=== PATIENT | male | born 1945 | race Caucasian/White ===

== ENCOUNTER → 2020-12-15 07:34 | Outpatient (CLI) | payer OTHER, SELFPAY ==
--- NOTE | ~2020-12-15 | US_ITS ---
EXAMINATION: US aorta DATE: 12/15/2020 08:13 INDICATION: Abdominal aortic aneurysm status post open repair. TECHNIQUE: Grayscale, color Doppler, and pulsed Doppler images of the aorta and common iliac arteries were obtained. COMPARISON: CT abdomen and pelvis 12/21/2017 FINDINGS: The aorta demonstrates a 3.9 cm fusiform aneurysm. The right common iliac artery is normal in caliber . The left common iliac artery is normal in caliber. IMPRESSION: 1. 3.9 cm fusiform aneurysm of abdominal aorta. Reviewed, dictated and finalized at location A.
== END ==
PROVIDERS: PCP Family Medicine; Visit Provider Nurse Practitioner
DX: Z86.79 Personal history of other diseases of the circulatory system (principal); I71.4 Abdominal aortic aneurysm, without rupture
CPT/HCPCS: 76775

== ENCOUNTER 2021-02-22 12:46 | Outpatient (CLI) | payer OTHER, SELFPAY ==
--- NOTE | 2021-02-22 13:15 | ECG_ITS ---
Measurements Intervals [place] Rate: 72 P: 62 AK: 213 QRS: -36 QRSD: 80 T: 28 QT: 386 QTc: 423 Interpretive Statements SINUS RHYTHM WITH FIRST DEGREE AV BLOCK LEFT AXIS DEVIATION POSSIBLE LEFT ATRIAL ENLARGEMENT INCOMPLETE RIGHT BUNDLE BRANCH BLOCK INFERIOR INFARCT, AGE INDETERMINATE BORDERLINE T WAVE ABNORMALITY- HIGH LATERAL LEADS BASELINE ARTIFACT- V6 ABNORMAL ECG Electronically Signed On 02-22-2021 13:01:42 CDT by Azar Linares D.O.
== END 2021-02-22 12:47 | disposition home or self-care (01) ==
LOC: ANHSURGERY 12:50
PROVIDERS: PCP Family Medicine; Visit Provider Urology
DX: Z01.810 Encounter for preprocedural cardiovascular examination (principal); I44.0 Atrioventricular block, first degree; I45.10 Unspecified right bundle-branch block; I25.5 Ischemic cardiomyopathy; I10 Essential (primary) hypertension
CPT/HCPCS: 93005

== ENCOUNTER → 2021-02-26 00:16 | Outpatient (CLI) | payer OTHER, MEDICARE, SELFPAY ==
[2021-02-26 19:26] LABS: SARS-CoV-2 RNA PCR Negative
== END ==
PROVIDERS: PCP Family Medicine; Visit Provider Urology
DX: Z01.812 Encounter for preprocedural laboratory examination (principal); Z20.822 Contact with and (suspected) exposure to COVID-19
CPT/HCPCS: C9803; U0003; U0005

== ENCOUNTER 2021-03-01 00:48 | Day surgery (SDC) | payer OTHER, MEDICARE, SELFPAY ==
[2021-02-16 12:09] VITALS: BMI 38.0
[2021-03-01] VITALS (8 sets, daily range): BP systolic 137–161; BP diastolic 62–85; PULSE 65–77; RESP 16–18; TEMP 36–36.3; O2SAT 92–97
--- NOTE | 2021-03-01 10:31 | WPDHPUPDATE1 ---
History and Physical Update Update Date/Time: 03/01/21 10:31 History and Physical has been reviewed, including an updated exam of the patient. There are NO changes in the patient's condition. Risks, benefits, and alternatives have been discussed and questions answered. Patient agrees to proceed with procedure. Proceed with left hydrocelectomy.
--- NOTE | 2021-03-01 10:57 | WPDANESEPPF ---
Anes - Initial Pre Proc Eval Procedure: Operation Date: 03/01/21 12:15 Proposed Procedures p Left Hydrocelectomy - Pascual Noyola MD Date/Time: 03/01/21 10:57 Surgeon: Pascual Noyola MD Pre Op Diagnosis: left hydrocele Patient Data Age: 75 Gender: M Height: 1.68 m Weight: 107 kg Allergies Allergy/AdvReac Type Severity Reaction Status Date / Time ARIELA Inhibitors Allergy Mild Cough Verified 03/01/21 10:40 mushroom Allergy Mild rash Verified 03/01/21 10:40 Home Medications Medication Instructions Recorded Confirmed Type aspirin 81 mg tablet,delayed 81 mg PO DAILY 08/29/19 03/01/21 History release metoprolol tartrate 25 mg tablet 25 mg PO BID #180 tablet 02/02/21 03/01/21 Rx amlodipine 10 mg PO QAM 02/16/21 03/01/21 History atorvastatin 40 mg PO HS 02/16/21 03/01/21 History cetirizine 10 mg PO DAILY PRN 02/16/21 03/01/21 History fenofibrate 54 mg PO HS 02/16/21 03/01/21 History zolpidem 5 mg PO HS PRN 02/16/21 03/01/21 History Patient hx anesthesia problems: none Family hx anesthesia problems: none PMFSH Past Medical History Medical History Aortic stenosis, severe Essential (primary) hypertension Insomnia Mixed hyperlipidemia PVD (peripheral vascular disease) Testicular cyst Surgical History Surgical History H/O mitral valve replacement 08/20/19 - [facility] History of hernia repair Hx of aortic aneurysm repair S/P aortic valve replacement with bioprosthetic valve Family History Family History Father Family history of coronary artery disease Family history of congestive heart failure, Onset Age: 71 Other Cerebrovascular accident Hypertension Social History Social History Smoking packs per day: 0.5 Smoking cigarettes per day: 10.0 Years smoked: 20 Smoking pack-years: 10.00 Smoking status: Former smoker Second hand tobacco smoke exposure: No Smoking end date: 09/10/87 Alcohol intake: current Substance use: never Living arrangements: alone Additional living arrangements comments: Gender identity (if verbalized by the patient): Male Spiritual care concerns: No Agree to blood products: Yes Anes - Eval Final PreProcedure Day of Procedure 03/01/21 10:57 Patient weight: obese Heart: regular rate and rhythm Lungs: clear to auscultation Airway: Mallampati scale class III Neurological: alert and oriented Last oral intake: >/= 8 hours ASA classification: III Emergent: no Anesthetic plan: proceed Anesthesia type and monitoring: general LMA and standard monitoring Informed Consent: The patient's anesthetic plan and its attendant risks and benefits were discussed with the patient/family/POA. Questions were solicited and answers provided to the satisfaction of the patient/family/POA.
[2021-03-01] MEDS: LACTATED RINGERS 1,000 ML 30 ML IV CONT ×2 (10:59→13:25)
[2021-03-01] MEDS: ceFAZolin 2 GM/D5W 50 ML 2 GM/50 ML BAG IVPB (12:27)
--- NOTE | 2021-03-01 13:20 | W.PM.PROC2 ---
Procedure Note - Detailed Date of Procedure 03/01/21 Pre-op Diagnosis left hydrocele Post-op Diagnosis same Procedure Performed Left hydrocelectomy, left orchiopexy Surgeon Pascual Noyola MD Anesthesia general Description of Procedure Patient is taken the operative suite and correctly identified. Once anesthesia was obtained a transverse incision was made in the left hemiscrotum. This carried down to the tunica levels. The hydrocele was then brought out into the operative field. We incised the hydrocele and drained 230 cc of straw-colored fluid. We then excised the excess tissue and fulgurated the edges. The appendix testes was removed. We then placed a quarter-inch [place] drain in through a separate stab incision. We performed a left orchiopexy by securing the testicle in the left sac at 3 points. This included the medial, lateral, and inferior aspect. We used 3 0 PDS to do this. We then closed the tunica using 3 0 chromic in a running fashion. Skin was also closed using 3 0 chromic in running fashion. 1% lidocaine without was used to anesthetize the skin. Patient was taken recovery stable condition. Drains Yes Packing No Pathology yes Complications No immediate complications Condition stable Disposition PACU
[2021-03-01] MEDS: fentaNYL CITRATE INJ (*CRX) 100 MCG/2 ML VIAL 25 MCG IV PUSH ×4 (13:40→13:51)
[2021-03-01] MEDS: oxyCODONE HCL (*CRX) 5 MG TAB IR PO (14:36)
== END 2021-03-01 15:17 | disposition home or self-care (01) ==
PROVIDERS: PCP Family Medicine; Visit Provider Urology
PROC: (CPT 55040; principal; 2021-03-01 12:15)
DX: N43.3 Hydrocele, unspecified (principal); I10 Essential (primary) hypertension; E78.2 Mixed hyperlipidemia; I73.9 Peripheral vascular disease, unspecified; Z79.82 Long term (current) use of aspirin; Z95.2 Presence of prosthetic heart valve; Z87.891 Personal history of nicotine dependence; E66.9 Obesity, unspecified; Z68.37 Body mass index [BMI] 37.0-37.9, adult
CPT/HCPCS: 55040; 54640; 88302; 93005; A9270; C9803; J0131; J0690; J1100; J2370; J2405; J3010; J7120; U0003; U0005

== ENCOUNTER 2021-05-24 07:17 | Outpatient (CLI) | payer OTHER, MEDICARE, SELFPAY ==
--- NOTE | 2021-05-24 07:55 | ECHO_ITS ---
Patient Info Name: Manohar West Age: 75 years : 1945 Gender: Male Ht: 66 in Wt: 234 lbs BSA: 2.27 m2 HR: 63 bpm BP: 155 / 93 mmHg Exam Date: 05/24/2021 8:18 AM Exam Location: [facility] Patient Status: Outpatient Admit Date: 05/24/2021 Staff Ordering Physician: Azar Linares DO Glove Finisher: Giorgio Arriaga, WADE, RT Attending Provider: Azar Linares DO Referring Physician: Vijay VICK; Exam Type: CA echo doppler color flow Study Info Indications Z95.2 - Presence of prosthetic heart valve Complete two-dimensional, color flow and Doppler transthoracic echocardiogram is performed. Strain analysis performed. Summary 1. Complete two-dimensional, color flow and Doppler transthoracic echocardiogram is performed. 2. Left ventricular chamber dimension is normal. 3. Left ventricular systolic function is normal, estimated at 60-65%. 4. There is mildly increased left ventricular wall thickness. 5. The left ventricular diastolic function is grade II diastolic dysfunction. 6. E/e' 7 is not elevated. 7. Global longitudinal strain is abnormal at -14.3%. 8. The bioprosthetic aortic valve is not well visualized. 9. The mitral valve has moderately calcified annulus. 10. There is mild tricuspid valve regurgitation. 11. No pulmonary hypertension, estimated pulmonary arterial systolic pressure is 28 mmHg. Left Ventricle E/e' 7 is not elevated. Global longitudinal strain is abnormal at -14.3%. Left ventricular chamber dimension is normal. Left ventricular systolic function is normal, estimated at 60-65%. There is mildly increased left ventricular wall thickness. The left ventricular diastolic function is grade II diastolic dysfunction. Right Ventricle Right ventricular chamber dimension is normal. Right ventricular systolic function is normal. Left Atria Left atrial chamber dimension is normal. Right Atria Right atrial chamber dimension is normal. Aortic Valve The bioprosthetic aortic valve is not well visualized. There is no bioprosthetic aortic valve stenosis. There is no regurgitation of the bioprosthetic aortic valve. Pulmonic Valve There is no pulmonic regurgitation. Mitral Valve The mitral valve has moderately calcified annulus. There is no mitral valve stenosis. There is no mitral valve regurgitation. Tricuspid Valve There is mild tricuspid valve regurgitation. No pulmonary hypertension, estimated pulmonary arterial systolic pressure is 28 mmHg. Pericardium/Pleural There is no pericardial effusion. Inferior Vena Cava Normal inferior vena cava with >50% collapse upon inspiration consistent with normal right atrial pressure, 5 mmHg. Aorta The aortic root size at the sinus of Valsalva is normal. Left Ventricular Outflow Tract Name Value Normal LVOT 2D LVOT Diameter 2.1 cm LVOT Doppler LVOT Peak Gradient 3 mmHg LVOT Mean Gradient 2 mmHg LVOT VTI 25 cm LVOT VTI/AV VTI Ratio 0.5 LVOT Stroke Volume 86 ml LVOT
== END 2021-05-24 07:18 | disposition home or self-care (01) ==
LOC: ANHCARD 07:19
PROVIDERS: PCP Family Medicine; Visit Provider Internal Medicine Cardiovascular Disease
DX: Z95.3 Presence of xenogenic heart valve (principal); R93.1 Abnormal findings on diagnostic imaging of heart and coronary circulation; I07.1 Rheumatic tricuspid insufficiency
CPT/HCPCS: 93306

== ENCOUNTER 2021-08-29 10:45 | Outpatient (RCR) | payer OTHER, MEDICARE, SELFPAY ==
--- NOTE | 2021-08-09 12:00 | PTOPEVAL ---
Thank you for referring Manohar West to [facility] The patient is scheduled to be seen for therapy? 1 x/week for 6 weeks. Please review, sign, date and return this plan of care JODI. I agree with and certify that the following plan of care is medically necessary. Referring Physician Date Attending Provider: Ayla Dominguez NP Diagnosis muscle strain Onset Jun 2021 Additional Evaluation Detail He has had 3 neck surgeries since 2005 with previous therapy. Also had right RTC repair. Subjective Information He was moving furniture in Jun Query Text:As Reported By Patient/ when he had increased neck Family pain. He as been given pain pills and muscle relaxors. 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 Reports initially had trouble with driving due to pain and limited motion. He feels better in the morning when sleeping with his my pillow . He has increased pain at the end of the day. Denies any neck or shoulder exercises. He was going to the gym prior to 11/27 for use of pool and leg resistance exercise on the machines. Pain Assessment Neck Reported Pain Level 0 Pain Description Radiating,Tender on Palpation, Tightness Pain Frequency Intermittent Lowest Pain Intensity 0 Greatest Pain Intensity 5 Pain Aggravating Factors Exercise/Activity,Lifting Pain Behaviors None Cervical and Lumbar ROM Cervical ROM Cervical Flexion (0-60) 48:Active in Degrees Cervical Extension (0-70) 48:Active in Degrees Cervical Lateral Flexion Right (0-50) 20:Active in Degrees Cervical Lateral Flexion Left (0-50) 20:Active in Degrees Cervical Rotation Right (0-90) 25Active in Degrees Cervical Rotation Left (0-90) 30:Active in Degrees Cervical ROM Comments pain with neck motions Upper Extremity Range of Motion General Upper Extremity Range of Motion Reason Not Measured WNL/Left,WNL/Right Cervical and Lumbar Muscle Testing Cervical Muscle Testing Cervical Flexion 4-Good- Cervical Extension 5 Normal Cervical Lateral Flexion Right 5 Normal
--- NOTE | 2021-09-06 08:02 | PCPTNOTE ---
Patient called & cancelled scheduled appointment this date due to scheduled conflict. Will call to reschedule.
--- NOTE | 2021-09-27 14:04 | PCPTNOTE ---
Admitting Provider: Attending Provider: Ayla Dominguez NP Patient:Manohar West Date of :1945 Therapy Discharge Note Patient has not returned for any further treatments since 08/29/2021, therefore he will be discharged at this time. Patient?s initial visit was on 08/09/2021 11:00 and he had a total of 4 visits with 1 missed visits. The goals have been not met due to limited therapy visits. Thank you for referring this patient to [facility]. Please review, sign, date and return this discharge summary JODI. I have been updated about the patient's current status and I agree with discharge from the above service at this time. Referring Physician Date
== END 2021-09-28 13:29 | disposition home or self-care (01) ==
LOC: ANHPT 10:45
PROVIDERS: PCP Family Medicine; Visit Provider Nurse Practitioner Family
DX: S16.1XXD Strain of muscle, fascia and tendon at neck level, subsequent encounter (principal); S46.812D Strain of other muscles, fascia and tendons at shoulder and upper arm level, left arm, subsequent encounter
CPT/HCPCS: 97014; 97110; 97140; 97162; G0283

== ENCOUNTER 2022-06-12 09:31 | Outpatient (CLI) | payer OTHER, MEDICARE, SELFPAY ==
[2022-06-12 20:05] LABS: Alanine Aminotransferase 31 U/L (6-50); Albumin Level 4.5 g/dL (3.5-5.1); Alkaline Phosphatase 76 U/L (38-126); Anion Gap 7 mmol/L (8-16); Aspartate Amino Transferase 52 U/L (17-59); Bilirubin,Total 0.8 mg/dL (0.2-1.3); Blood Urea Nitrogen 20 mg/dL (9-20); Calcium 9.6 mg/dL (8.4-10.2); Carbon Dioxide 31 mmol/L (22-30); Chloride 101 mmol/L (98-107); Cholesterol 198 mg/dL (0-200); Estimated Glomerular Filt Rate 59; Glucose 101 mg/dL (65-110); HDL Direct 37 mg/dL; Potassium 4.4 mmol/L (3.4-5.0); Sodium 139 mmol/L (137-145); Triglycerides 228 mg/dL (<150)
[2022-06-12 20:17] LABS: LDL Cholesterol Direct 116 mg/dL
[2022-06-12 20:35] LABS: Prostate Specific Antigen 1.1 ng/mL (< OR = 4.0)
[2022-06-12 21:32] LABS: Basophils Absolute Auto 0.1 K/mm3 (0.0-0.1); Basophils Percent Auto 1.5 % (0.2-1.2); Eosinophils Absolute Auto 0.5 K/mm3 (0-0.3); Eosinophils Percent Auto 5.5 % (0-4.4); Hematocrit 46.7 % (42.0-52.0); Hemoglobin 15.4 g/dL (14.0-18.0); Immature Granulocyte Absolute 0.07 K/mm3 (0.00-0.031); Immature Granulocyte Percent A 0.8 % (0-0.5); Lymphocytes Absolute Auto 2.76 K/mm3 (0.9-3.2); Lymphocytes Percent Auto 31.5 % (18.3-44.2); Mean Corpuscular Hemoglobin 29.7 pg (26-34); Mean Corpuscular Volume 90.2 fl (80-100); Mean Platelet Volume 9.3 fl (7.4-10.4); Monocytes Absolute Auto 0.7 K/mm3 (0.1-0.6); Monocytes Percent Auto 8.1 % (2.6-8.5); Neutrophils Absolute Auto 4.6 K/mm3 (1.3-6.7); Neutrophils Percent Auto 52.6 % (45.5-73.1); Platelet Count Result 286 k/mm3 (150-375); Red Blood Count 5.18 M/mm3 (4.6-6.20); Red Cell Distribution Width 13.3 % (11.5-14.5); White Blood Count 8.8 K/mm3 (4.5-10.0)
== END 2022-06-12 09:32 | disposition home or self-care (01) ==
PROVIDERS: PCP Family Medicine; Visit Provider Nurse Practitioner
DX: Z12.5 Encounter for screening for malignant neoplasm of prostate (principal); E55.9 Vitamin D deficiency, unspecified; E78.5 Hyperlipidemia, unspecified; I10 Essential (primary) hypertension
CPT/HCPCS: 36415; 80053; 80061; 82306; 84153; 85025; G0103

== ENCOUNTER 2022-09-17 08:36 | Inpatient (IN) | payer OTHER, SELFPAY ==
[2022-09-17] VITALS (12 sets, daily range): BP systolic 94–190; BP diastolic 52–100; PULSE 86–112; RESP 16–36; TEMP 36.4–36.8; O2SAT 91–100
--- NOTE | ~2022-09-17 | XR_ITS ---
EXAMINATION: XR chest 2V DATE: 09/18/2022 14:23 INDICATION: Shortness of breath. TECHNIQUE: Frontal and lateral views of the chest were obtained. COMPARISON: Chest single view 09/17/2022, CT abdomen and pelvis 09/17/2022 FINDINGS: The lung volumes are small. There are airspace opacities in the lower lung zones. There are small pleural effusions. No pneumothorax. Cardiomegaly is noted. There are changes of heart valve re placement. There are surgical clips in right neck. IMPRESSION: 1. Small pleural effusions. 2. Small lung volumes with airspace opacities in the lower lung zones, likely atelectasis. 3. Cardiomegaly. Reviewed, dictated and finalized at location A. WAY ENGINEERING TEACHER IMPRESSION: 1. Small pleural effusions. 2. Small lung volumes with airspace opacities in the lower lung zones, likely a telectasis. 3. Cardiomegaly.
--- NOTE | ~2022-09-17 | XR_ITS ---
EXAM: XR abdomen NG/feed tube insert DATE: 09/18/2022 22:20 HISTORY: ng placement . COMPARISON: None available. FINDINGS: NG tube tip and side port project over the expected location of the stomach. Bibasilar ate lectasis/consolidation. Intact sternotomy wires. Cardiac valve replacement. Surgical clips over the u pper abdomen. Dilated loops of small bowel in the upper abdomen. IMPRESSION: NG tube, in good position. Reviewed, dictated and finalized at location K. HEATER OPERATOR IMPRESSION: NG tube, in good position.
--- NOTE | ~2022-09-17 | XR_ITS ---
XR abdomen NG/feed tube insert INDICATION: Evaluate NG tube position. TECHNIQUE: Limited KUB perform for evaluating NG tube . COMPARISON: CT dated 09/24/2022 and KUB dated 09/18/2022 FINDINGS: NG tube tip in the the left lower lobe bronchus. Visualized bowel gas pattern is unremarka ble. IMPRESSION: 1: NG tube tip in the left lower lobe bronchus. Recommend retraction and reinsertion. 2: Left basilar atelectasis. Dr. Mario Cartwright discussed with the patient's nurse on prior medical [facility] [place], at 09/25/2022 13:[address] Reviewed, dictated and finalized at location A. ORCHARDIST IMPRESSION: 1: NG tube tip in the left lower lobe bronchus. Recommend retraction and reins ertion. 2: Left basilar atelectasis. Dr. Mario Cartwright discussed with the patient's nurse on prior [facility], [place] , at 09/25/2022 13:31 NUT ORCHARDIST.
--- NOTE | ~2022-09-17 | XR_ITS ---
Portable chest x-ray Comparison: 09/25/2022 Clinical History: Shortness of breath Findings: There are probable mild central venous congestive changes. Stable elevation right hemidiap hragm. Cardiomediastinal silhouette is stable, status post aortic valve replacement. Bones and soft tissues are unremarkable. Impression: Mild central pulmonary venous congestive changes with stable elevation of right hemidiaphragm. Status post aortic valve replacement. Reviewed, dictated and finalized at [facility]. E CQ DEVELOPER Impression: Mild central pulmonary venous congestive changes with stable elevation of right hemidiaphragm. Status post aortic valve replacement.
--- NOTE | ~2022-09-17 | XR_ITS ---
EXAMINATION: XR chest 1V portable DATE: 09/25/2022 05:30 INDICATION: Shortness of breath TECHNIQUE: frontal view of the chest was obtained. COMPARISON: Chest radiograph dated 09/23/2022 FINDINGS: Lung volumes are decreased, particularly on the right. No significant change in opacities at the bila teral lower lung zones. No pleural effusion or pneumothorax. Cardiomegaly. Median sternotomy wires an d aortic valve replacement. IMPRESSION: 1. Small lung volumes with unchanged opacities at bilateral lower lung zones which could represent at electasis or pneumonia. 2. Cardiomegaly. Reviewed, dictated and finalized at location A. BRACER IMPRESSION: 1. Small lung volumes with unchanged opacities at bilateral lower lung zones wh ich could represent atelectasis or pneumonia. 2. Cardiomegaly.
--- NOTE | ~2022-09-17 | US_ITS ---
EXAMINATION: US abdomen limited DATE: 09/19/2022 16:38 INDICATION: Ascites TECHNIQUE: Multiple grayscale and Doppler ultrasound images of the abdomen were obtained. COMPARISON: CT dated 09/17/2022 FINDINGS/IMPRESSION: There is only a very small amount of perihepatic ascites seen in the high right upper quadrant measur ing 7 mm in thickness between the anterior diaphragm and the anterior dome of the liver. The minimal amount of fluid in the location which would require traversing the diaphragm with risk for liver inju ry or transpleural contamination, the planned paracentesis was deferred. Reviewed, dictated and finalized at location A. AL FUND MANAGER
--- NOTE | ~2022-09-17 | US_ITS ---
US venous doppler [facility] DATE: 09/22/2022 17:44 INDICATION: Pain TECHNIQUE: Real-time and color flow imaging and Doppler analysis of the veins of both lower extremiti es COMPARISON: None FINDINGS: The greater saphenous veins are patent. There is spontaneous and phasic flow and normal aug mentation and color flow signal and normal compression of the deep veins of both lower extremities. IMPRESSION: No evidence of deep venous thrombosis of the lower extremities Reviewed, dictated and finalized at Location A. Reviewed, dictated and finalized at location A. TRICAL ASSEMBLIES SUPERVISOR
--- NOTE | ~2022-09-17 | XR_ITS ---
EXAMINATION: XR chest 1V portable DATE: 10/01/2022 12:32 INDICATION: Pneumonia. TECHNIQUE: A single frontal view of the chest was obtained. COMPARISON: Chest single view 09/28/2022, CT abdomen and pelvis 09/24/2022 FINDINGS: Again seen is mild elevation of right hemidiaphragm. There are airspace opacities at the eleanor ng bases, right worse than left. No pleural effusion or pneumothorax. The heart size is normal. There are changes of aortic valve replacement. IMPRESSION: 1. Improved airspace opacities at the lung bases, right worse than left, likely atelectasis. Reviewed, dictated and finalized at location A. BORING MACHINE OPERATOR FOR METAL
--- NOTE | ~2022-09-17 | US_ITS ---
EXAMINATION: US renal BI DATE: 09/18/2022 15:17 INDICATION: Acute kidney injury TECHNIQUE: Multiple grayscale and Doppler ultrasound images of the kidneys were obtained. COMPARISON: CT from yesterday FINDINGS: The right kidney measures 12.0 x 6.0 x 6.0 cm and contains a 2.9 cm cyst. The left kidney m easures 11.3 x 6.4 x 6.8 cm. There is a 9 mm stone of the left kidney lower pole. Small left-sided cy sts are noted which measure up to 1.7 cm. The kidneys demonstrate normal parenchymal echogenicity. Th ere is no hydronephrosis. The bladder is normal. IMPRESSION: 1. Left nephrolithiasis. Reviewed, dictated and finalized at location B. NING SUPPORT TEACHER IMPRESSION: 1. Left nephrolithiasis.
--- NOTE | ~2022-09-17 | US_ITS ---
US venous doppler [facility] DATE: 09/22/2022 17:46 INDICATION: Pain TECHNIQUE: Real-time and color flow imaging and Doppler analysis of the veins of the upper extremitie s COMPARISON: None FINDINGS: There is intraluminal thrombus and incomplete compression at the left basilic vein near isacc or intravenous line site. Otherwise there is spontaneous and phasic flow and normal augmentation and color flow signal and norm al compression where applicable at the internal jugular, subclavian, axillary, brachial, right basili c and bilateral cephalic, radial and ulnar veins. IMPRESSION: Focal partial thrombosis of left basilic vein at site of prior intravenous line Reviewed, dictated and finalized at Location A. Reviewed, dictated and finalized at location A. RVISOR PIT AND AUXILIARIES IMPRESSION: Focal partial thrombosis of left basilic vein at site of prior intr avenous line
--- NOTE | ~2022-09-17 | CT_ITS ---
EXAMINATION: CT abdomen pelvis wo con DATE: 09/24/2022 16:20 INDICATION: Ongoing leukocytosis TECHNIQUE: Computed tomography (CT) of the abdomen and pelvis was performed without intravenous contr ast. Automated exposure control and iterative reconstruction technique were employed. The dose-length product was 1525.29 mGy-cm. COMPARISON: None FINDINGS: Small right and tiny left pleural effusions with consolidation and associated volume loss the depende nt and basilar bilateral lower lobes and favor atelectasis over pneumonia. Small calcified nodules in the right lower lobe consistent with old granulomatous disease. Medically. Atherosclerotic coronary artery calcification. Median sternotomy wires and changes of aortic valve repair. No pericardial effu zan. Ectatic distal descending thoracic aorta measuring up to 3.9 cm maximal diameter tapering to 3. 5 cm at the thoracic hiatus. Liver, spleen, bilateral adrenal glands are normal. There is bilateral renal cysts the largest measur ing 2.7 cm the mid right kidney and with 1.6 cm calcified cyst at the upper pole of the right kidney. Bilateral nonobstructing nephrolithiasis with 3 stones in the left kidney the largest in the lower p ole calyx measuring 5 x 3 mm and with 2 stones measuring up to 3 mm in an upper pole calyx of the rig ht kidney. Several small calcified gallstones in the dependent aspect of the normal-appearing gallbla dder. No intra or extra hepatic biliary ductal dilation. There is prominent inflammatory stranding surrounding the head, body and to lesser degree tail of the pancreas consistent with acute interstitial pancreatitis. There are also few small nonloculated acut e peripancreatic fluid collections primarily along the anterior margin of the head and body of the pa ncreas and tracking into the small bowel mesentery with the largest collection measures approximately 3.5 x 2.2 cm. This is an additional minimal amount of retroperitoneal fluid tracking caudally along the anterior right para renal space and right paracolic gutter. There are multiple tiny dystrophic ca lcification throughout the pancreas consistent with sequela of prior chronic pancreatitis. There are a few colonic diverticula without adjacent inflammatory stranding to suggest diverticulitis . No bowel obstruction. Normal appendix. Minimal likely reactive ascites in the deep pelvis. Small am ount of gas and a Feliz catheter within the decompressed bladder. Bilateral small right and moderate- sized left fat-containing inguinal hernias with additional small amount of ascites within the left in guinal hernia sac. There is calcified atherosclerosis of the normal caliber abdominal aorta and bilateral iliac arteries . Postoperative changes along the infrarenal abdominal aorta consistent with provided history of prio r open abdominal aortic aneurysm repair. Incidentally noted retroaortic left renal vein. There are mu ltiple small lymph peripancreatic, periportal and portacaval lymph nodes which are more notable for n umber than and likely reactive. No free intraperitoneal gas. Dystrophic ossifications along the penis consistent with Peyronie's disease. Severe lumbosacral and mild lumbar and lower thoracic spondylosi s. There are bridging osteophytes at multiple levels in the spine, consistent with diffuse idiopathic skeletal hyperostosis (DISH). IMPRESSION: 1. Likely acute on chronic interstitial pancreatitis with small nonloculated acute peripancreatic flu id collections which extend into the root of the small bowel mesentery. 2. Cholelithiasis. 3. Small left and trace right pleural effusions with consolidation in the dependent lower lobes and f avor atelectasis over pneumonia. 4. Cardiomegaly with change of prior aortic valve repair. 5. Ectatic descending thoracic aorta and change of prior infrarenal abdominal aortic aneurysm repair. 6. Mild diverticulosis. 7. Small ri
--- NOTE | ~2022-09-17 | XR_ITS ---
EXAMINATION: XR abdomen/kub 1V DATE: 09/18/2022 14:23 INDICATION: Abdominal distention. TECHNIQUE: A supine view of the abdomen on 2 radiographs was obtained. COMPARISON: CT abdomen and pelvis 09/17/2022 FINDINGS: There are mildly dilated loops of small bowel. The colon is decompressed. There are surgica l clips in the abdomen. IMPRESSION: 1. Mildly dilated small bowel, likely adynamic ileus. Reviewed, dictated and finalized at location A. LINE SUPERINTENDENT DIVISION
--- NOTE | ~2022-09-17 | XR_ITS ---
EXAMINATION: XR chest 1V portable DATE: 10/04/2022 13:52 INDICATION: Pneumonia. TECHNIQUE: A single frontal view of the chest was obtained. COMPARISON: Chest one view 10/01/2022, CT abdomen and pelvis 09/24/2022 FINDINGS: Again seen is mild elevation of right hemidiaphragm. There are airspace opacities at the eleanor ng bases. No pleural effusion or pneumothorax. The heart size is normal. There are changes of aortic valve replacement. There are surgical clips in right neck. IMPRESSION: 1. Stable mild atelectasis of right hemidiaphragm with airspace opacities at the lung bases, likely a telectasis. Reviewed, dictated and finalized at location A. ICE REPRESENTATIVE IMPRESSION: 1. Stable mild atelectasis of right hemidiaphragm with airspace opacities at th e lung bases, likely atelectasis.
--- NOTE | ~2022-09-17 | CT_ITS ---
EXAMINATION: CT abdomen pelvis w con DATE: 09/17/2022 09:29 INDICATION: None localized abdominal pain. History of left inguinal hernia. TECHNIQUE: Computed tomography (CT) of the abdomen and pelvis was performed with 100 cc Omnipaque 350 intravenous contrast. The dose-length product was 1405.61 mGy-cm. Automated exposure control and ite rative reconstruction technique were employed. COMPARISON: CT dated 12/21/2017 FINDINGS: There is right lower lobe atelectasis. Heart size normal. No significant pleural or pericar dial effusion. There are gallstones. There is peripancreatic inflammation and fluid, consistent with pancreatitis. There is thickening of the gastric antrum, suspicious for peptic ulcer disease. No obst ruction. There is ascites in the abdomen and pelvis. Colonic diverticulosis without evidence for dive rticulitis. There is mild thickening of the duodenum as well, possibly secondary to adjacent inflamma tory changes. The liver, spleen, adrenal glands are unremarkable. There are bilateral renal cysts. There is a stabl e peripherally calcified right renal cyst at the upper pole. There is atherosclerosis of the aorta wi thout evidence for aneurysm. No lymphadenopathy. There is a retroaortic left renal vein. Generalized osteopenia. Severe lumbar spondylosis. No focal lytic or blastic lesions. There are degenerative tanner ges of the sacroiliac joints and hips. IMPRESSION: 1. Acute uncomplicated pancreatitis. 2: Thickening of the gastric antrum and duodenum which may relate to adjacent pancreatitis or gastrit is/duodenitis. 3: Cholelithiasis. 4: Ascites. Reviewed, dictated and finalized at location A. PED STRAND OPERATOR IMPRESSION: 1. Acute uncomplicated pancreatitis. 2: Thickening of the gastric antrum and duodenum which may relate to adjacent p ancreatitis or gastritis/duodenitis. 3: Cholelithiasis. 4: Ascites.
--- NOTE | ~2022-09-17 | XR_ITS ---
XR chest 1V portable 09/17/2022 09:17 Indication: Shortness of breath. History of open heart surgery. Procedure: AP portable chest Comparison: 12/23/2005 Findings: Status post median sternotomy for CABG. There is a prosthetic heart valve. Cardiomegaly. El evated right diaphragm. Mild interstitial edema. Impression: 1: Mild interstitial edema. 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 Reviewed, dictated and finalized at location A. FINDER TWISTING DEPARTMENT Impression: 1: Mild interstitial edema. 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
--- NOTE | ~2022-09-17 | XR_ITS ---
EXAMINATION: XR sniff test without CXR2V DATE: 10/02/2022 12:50 INDICATION: Right diaphragmatic paralysis. TECHNIQUE: I performed fluoroscopy of the chest while the patient performed normal respiration, deep respiration, and forceful sniffing. Fluoroscopy exposure time was 0.4 minutes. The number of images w as 678. COMPARISON: Chest single view 10/01/2022, 09/23/2022 FINDINGS: There is mild elevation of right hemidiaphragm. Right hemidiaphragm demonstrates mildly dec reased motion relative to left hemidiaphragm. No paradoxical motion. IMPRESSION: 1. Mild elevation of right hemidiaphragm with mildly decreased motion relative to left hemidiaphragm. No paradoxical motion. Reviewed, dictated and finalized at location A. ING AND REGULATING CHIEF
--- NOTE | ~2022-09-17 | US_ITS ---
EXAMINATION: US abdomen limited DATE: 09/17/2022 21:20 INDICATION: Cholelithiasis TECHNIQUE: Multiple grayscale and Doppler ultrasound images of limited portions of the abdomen were o btained. COMPARISON: CT abdomen and pelvis, same date. FINDINGS: Pancreas not visualized. The liver is normal with normal echogenicity and echotexture. No s urface nodularity. Normal hepatopetal flow in the main portal vein. Cholelithiasis. No wall thickenin g. The common bile duct measures 5 mm. There was no sonographic Arriaga sign. Small volume perihepatic fluid. IMPRESSION: Pancreas not visualized. Cholelithiasis. Small volume perihepatic fluid. Reviewed, dictated and finalized at location K. TRIC DEICER ASSEMBLER
--- NOTE | ~2022-09-17 | XR_ITS ---
EXAMINATION: XR chest 1V portable DATE: 09/19/2022 07:35 INDICATION: Respiratory failure. TECHNIQUE: A single frontal view of the chest was obtained. COMPARISON: Chest 2 views 09/18/2022 FINDINGS: There are small pleural effusions. There are airspace opacities at the lung bases. No pneum othorax. The heart size is normal. There are changes of aortic valve replacement. The nasogastric tub e tip is in the stomach. There are surgical clips in right neck. IMPRESSION: 1. Small pleural effusions. 2. Stable airspace opacities at the lung bases, likely atelectasis. Reviewed, dictated and finalized at location A. NG PULLER
--- NOTE | ~2022-09-17 | XR_ITS ---
EXAMINATION: XR chest 1V portable DATE: 09/23/2022 11:36 INDICATION: Shortness of breath and wheezing TECHNIQUE: frontal view of the chest was obtained. COMPARISON: Chest radiograph dated 09/21/2022 FINDINGS: Unchanged mild elevation of the right hemidiaphragm. Persistent opacities at the bilateral lung bases . No pleural effusion or pneumothorax. Heart size is normal. Median sternotomy wires and mediastinal surgical clips are seen, likely from prior coronary artery bypass grafting. Surgical clips at the bas e of the right neck. Plate and screw fixation for mid cervical anterior spinal fusion. IMPRESSION: 1. Unchanged bibasilar opacities and favor atelectasis over pneumonia. Reviewed, dictated and finalized at location A. TESTER
--- NOTE | ~2022-09-17 | XR_ITS ---
EXAMINATION: XR chest 1V portable DATE: 09/20/2022 05:58 INDICATION: Respiratory failure. TECHNIQUE: A single frontal view of the chest was obtained. COMPARISON: Chest one view 09/19/2022, CT abdomen and pelvis 09/17/2022 FINDINGS: There are small pleural effusions. There are airspace opacities at the lung bases. No pneum othorax. The heart size is normal. There are changes of aortic valve replacement. The nasogastric tub e tip is beyond the inferior margin of the radiograph, but at least to the stomach. IMPRESSION: 1. Stable small pleural effusions. 2. Stable airspace opacities at the lung bases, likely atelectasis. Reviewed, dictated and finalized at location A. OL COOK
--- NOTE | ~2022-09-17 | XR_ITS ---
EXAMINATION: XR chest 1V portable DATE: 09/21/2022 05:32 INDICATION: Hypercapnic respiratory failure. TECHNIQUE: A single frontal view of the chest was obtained. COMPARISON: Chest single view 09/20/2022, CT abdomen and pelvis 09/17/2022 FINDINGS: Again seen is mild elevation of right hemidiaphragm. There are airspace opacities at the eleanor ng bases. No pleural effusion or pneumothorax. The heart size is normal. Median sternotomy wires are noted. There are changes of anterior fusion procedure in cervical spine. There are surgical clips in right neck. IMPRESSION: 1. Stable airspace opacities at the lung bases, likely atelectasis. Reviewed, dictated and finalized at location A. ORK LEAD
--- NOTE | ~2022-09-17 | CT_ITS ---
EXAMINATION: CT brain wo con DATE: 09/18/2022 14:31 INDICATION: Altered mental status. TECHNIQUE: Computed tomography (CT) of the head was performed without intravenous contrast. The mA wa s adjusted according to patient size. Iterative reconstruction technique was employed. The dose-lengt h product was 832.33 mGy-cm. 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 There are scattered areas of low attenuation in the cerebral white matter, which is within nor mal limits for the patient's age. There is no intracranial hemorrhage, acute infarction, or abnormal intracranial mass lesion. The ventricles are normal in size. There are mucous retention cysts in the maxillary sinuses. There is mild mucosal thickening in the paranasal sinuses. The mastoid air cells a re normal. There are likely changes of right ocular lens replacement surgery. IMPRESSION: 1. 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 Reviewed, dictated and finalized at location A. HEALTH SCHEDULER
--- NOTE | ~2022-09-17 | US_ITS ---
US renal BI DATE: 09/24/2022 11:57 INDICATION: Elevated serum creatinine TECHNIQUE: Real-time imaging of kidneys and urinary bladder COMPARISON: 09/18/2022 bilateral renal ultrasound examination 09/17/2022 CT abdomen pelvis 12/21/2017 CT abdomen pelvis 11/25/2013 CT abdomen pelvis FINDINGS: The right kidney measures approximately 11.4 cm length, the left kidney 10.9 cm. There are multiple bilateral renal cysts, measuring up to 3 cm on the right, 2.5 cm on the left. Nono bstructing left renal calculus is identified, which measured approximately 4.[address] examination. The bladder is evacuated, with Feliz catheter. IMPRESSION: Bilateral renal cysts Nonobstructing left renal calculus Reviewed, dictated and finalized at Location A. Reviewed, dictated and finalized at location A. IE
--- NOTE | ~2022-09-17 | XR_ITS ---
Portable chest x-ray Comparison: 09/26/2022 Clinical History: Pneumonia Findings: Small left pleural effusion is present. There is probable mild central pulmonary venous co ngestive change and mild bibasilar atelectasis. Cardiomediastinal silhouette is stable, status post aortic valve replacement. Bones and soft tissues are unremarkable. Impression: Mild central congestive change and mild bibasilar atelectasis. Minimal left pleural effusion. Status post aortic valve replacement. Reviewed, dictated and finalized at location M. ASSISTANT Impression: Mild central congestive change and mild bibasilar atelectasis. Minimal left pleural effusion. Status post aortic valve replacement.
--- NOTE | 2022-09-17 08:48 | ECG_ITS ---
Measurements Intervals [place] Rate: 98 P: 23 [place]: 196 QRS: -38 QRSD: 69 T: 31 QT: 353 QTc: 452 Interpretive Statements SINUS RHYTHM POSSIBLE LEFT ATRIAL ENLARGEMENT RSR' IN V1 OR V2, RIGHT VCD OR RVH DELAYED PRECORDIAL R/S TRANSITION LEFT VENTRICULAR HYPERTROPHY WITH ST-T CHANGE INFERIOR INFARCT, AGE INDETERMINATE ABNORMAL ECG COMPARED TO ECG 02/22/2021 13:00:59 NO SIGNIFICANT CHANGES Electronically Signed On 09-17-2022 15:03:11 LICENSED PRACTICAL NURSE by Azar Linares D.O.
--- NOTE | 2022-09-17 08:51 | ED.ABDPAIN ---
HPI - Abdominal Pain General Chief Complaint: Abdominal Pain Stated Complaint: abd pain Time Seen by Provider: 09/17/22 08:38 Source: patient, RN notes reviewed and old records reviewed Mode of arrival: ambulatory Limitations: no limitations History of Present Illness HPI narrative: This is a 76 year old male who presents for evaluation of abdominal pain. He states 1 week ago he developed mid abdominal pain after eating but that pain resolved. He developed mid abdominal pain yesterday after eating food from restaurant. His pain has been constant and severe. He also reports having nonbilious vomiting starting yesterday. He has not had bowel movement since yesterday morning. He is unsure if he has passing flatus. HE has taken Pepto Bismol for pain without relief. He has not been evaluation by health care provider for this pain . He states he thinks he may have been diagnosed with gallstones in the past. He rates his pain 10/10 currently. His abdomen appears bloated but he is unsure if this is new. He does reports his pain is making him feel like he is having difficulty breathing. Related Data Home Medications Medication Instructions Recorded Confirmed aspirin 81 mg tablet,delayed 81 mg PO DAILY 08/29/19 09/17/22 release (Adult Low Dose Aspirin) Allergies Allergy/AdvReac Type Severity Reaction Status Date / Time mushroom Allergy Mild rash Verified 06/12/22 08:41 ARIELA Inhibitors AdvReac Mild Cough Verified 09/17/22 08:49 Review of Systems Constitutional: Constitutional: Denies weakness Cardiovascular: Cardiovascular: Denies syncope, Denies rapid heart rate, Denies irregular heart rhythm, Denies leg edema and Reports dyspnea Respiratory: Respiratory: Denies chest congestion, Denies hemoptysis, Denies excessive phlegm production and Denies dyspnea Gastrointestinal: Gastrointestinal: Reports abdominal pain, Denies hematochezia, Denies diarrhea, Reports nausea and Reports vomiting Genitourinary: Genitourinary: Denies hematuria, Denies dysuria, Denies penile discharge and Denies testicular pain Musculoskeletal: Musculoskeletal: Denies joint swelling, Denies loss of height and Denies muscle weakness Neurologic: Denies syncope, Denies focal weakness and Denies weakness [facility] Past Medical History Medical History (Updated 09/17/22 @ 17:51 by Sheri Ding MD) Aortic stenosis, severe BPH (benign prostatic hyperplasia) Essential (primary) hypertension History of kidney stones Insomnia Mixed hyperlipidemia PVD (peripheral vascular disease) Testicular cyst Surgical History Surgical History (Updated 09/17/22 @ 17:05 by Emily Colin NP) H/O mitral valve replacement 08/20/19 - [facility] History of colonoscopy History of hernia repair History of hydrocelectomy History of lithotripsy History of neck surgery History of rotator cuff surgery History of spinal fusion History of tonsillectomy and adenoidectomy History of transurethral resection of prostate Hx of aortic aneurysm repair S/P aortic valve replacement with bioprosthetic valve S/P mitral valve replacement Family History Family History Father Family history of coronary artery disease Family history of congestive heart failure, Onset Age: 71 Other Cerebrovascular accident Hypertension Social History Social History (Updated 09/17/22 @ 17:06 by Emily Colin NP) Social History: The patient lives with his who is the durable power commercial attorney for healthcare. The patient has 1 child. 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 The patient was a former smoker. He stated that he rarely drinks any alcoholic beverages. He denies any marijuana or illicit drugs. Code status full code. Smoking packs per day: 0.5 Smoking cigarettes per day: 10.0 Years smoked: 20 Smoking pack-years: 10.00 Smoking status: Former smoker Second hand diane
[2022-09-17 08:57] LABS: Basophils Percent Auto 0.2 % (0.2-1.2); Hematocrit 47.5 % (42.0-52.0); Hemoglobin 16.2 g/dL (14.0-18.0); Immature Granulocyte Absolute 0.05 K/mm3 (0.00-0.031); Immature Granulocyte Percent A 0.3 % (0-0.5); Lymphocytes Absolute Auto 1.26 K/mm3 (0.9-3.2); Lymphocytes Percent Auto 7.4 % (18.3-44.2); Mean Corpuscular HGB Conc 34.1 g/dl (32-36); Mean Corpuscular Hemoglobin 29.6 pg (26-34); Mean Corpuscular Volume 86.8 fl (80-100); Monocytes Absolute Auto 0.7 K/mm3 (0.1-0.6); Neutrophils Absolute Auto 15.1 K/mm3 (1.3-6.7); Neutrophils Percent Auto 88.1 % (45.5-73.1); Platelet Count Result 285 k/mm3 (150-375); Red Blood Count 5.47 M/mm3 (4.6-6.20); Red Cell Distribution Width 13.2 % (11.5-14.5); White Blood Count 17.1 K/mm3 (4.5-10.0)
[2022-09-17] MEDS: SODIUM CHLORIDE 0.9% IV 1,000 ML 999 ML IV CONT ×3 (08:57→12:00)
[2022-09-17] MEDS: ONDANSETRON INJ 4 MG/2 ML VIAL IV PUSH (08:57)
[2022-09-17] MEDS: HYDROmorphone HCL INJ (*CRX) 1 MG/ML SYR 0.5 MG IV PUSH ×2 (08:58→11:30)
[2022-09-17 09:07] LABS: Lactic Acid Reflex 3.6 mmol/L (0.7-2.0)
[2022-09-17 09:10] LABS: Albumin Level 4.4 g/dL (3.5-5.1); Alkaline Phosphatase 72 U/L (38-126); Anion Gap 11 mmol/L (8-16); Aspartate Amino Transferase 54 U/L (17-59); Bilirubin,Total 0.9 mg/dL (0.2-1.3); Blood Urea Nitrogen 35 mg/dL (9-20); Calcium 8.7 mg/dL (8.4-10.2); Carbon Dioxide 27 mmol/L (22-30); Chloride 97 mmol/L (98-107); Estimated CRCL calculation 35 ml/min; Estimated Glomerular Filt Rate 35; Glucose 168 mg/dL (65-110); Potassium 3.9 mmol/L (3.4-5.0); Sodium 135 mmol/L (137-145)
[2022-09-17 09:34] LABS: Alanine Aminotransferase 58 U/L (6-50)
[2022-09-17 09:58] LABS: Lipase 10652 U/L (23-300)
[2022-09-17 10:00] LABS: SARS-CoV-2 RNA PCR Negative
[2022-09-17] MEDS: PANTOPRAZOLE SODIUM IV 40 MG VIAL IV PUSH (10:05)
--- NOTE | 2022-09-17 10:44 | PC.NURSE ---
charles to draw blood cultures prior to starting iv abx per erp dr samaniego
--- NOTE | 2022-09-17 10:55 | PC.NURSE ---
PT AWARE OF THE NEED FOR UA. REFUSING TO HAVE STRAIGHT CATH FOR URINE.
[2022-09-17 11:55] LABS: Reflex Lactic Acid Yes or No Add Lactic
[2022-09-17 12:55] LABS: Lactic Acid 1.7 mmol/L (0.7-2.0)
--- NOTE | 2022-09-17 13:04 | ADMGEN ---
This patient, Manohar West, was admitted to [facility] Room 307-01. Patient/family oriented to hospital policies and general routines including ID bracelet, bed and alarms, visiting hours, pain management, procedures, bathroom and other care routines, personal items, smoking policy, room service/diet, and visiting hours. Information on how to activate the Rapid Response Team has been discussed. Patient/Family are encouraged to report perceived risks to care and to ask questions if they do not understand what they are told or what they should do.
[2022-09-17] MEDS: SODIUM CHLORIDE 0.9% IV 1,000 ML 125 ML IV CONT ×2 (13:28→21:52)
[2022-09-17 13:45] LABS: Add Urine Microscopic? YES; Appearance Urine Clear (Clear); Bilirubin Urine Negative (Negative); Blood Urine Trace-Intact (Negative); Color Urine Yellow (Yellow); Glucose Urine UA Negative (Negative); Ketones Urine Negative (Negative); Leukocyte Esterase Ur Negative LEU/UL (Negative); Nitrate Urine Negative (Negative); Protein Urine 2+ mg/dL (Negative); Urobilinogen Urine 0.2 mg/dL (<2.0); pH Urine 5.5 (5.0-9.0)
[2022-09-17 13:50] LABS: Mucus Urine Few /lpf; Squamous Epithelial Cell Urine Occasional /hpf (Few); WBC Urine 0-3 /hpf
[2022-09-17] MEDS: HYDROmorphone HCL INJ (*CRX) 1 MG/ML SYR IV PUSH ×2 (15:50→20:38)
--- NOTE | 2022-09-17 16:45 | PM.IMHP ---
H&P: HPI History of Present Illness Date/Time: 09/17/22 16:45 Chief Complaint: Abdominal pain Narrative: This is a 76-year-old male patient came to the emergency room to be evaluated for abdominal pain. Patient stated that his pain developed about a week ago in the mid abdomen. The patient stated that eating makes it worse and if he abstains from food then his abdominal pain is less severe. The patient did have an emesis x1 yesterday. He has not had a bowel movement since yesterday morning. The patient was taking Pepto-Bismol without any relief. Patient stated that his pain is been 10 out 10. His abdomen is distended any feels bloated. Patient stated he feels like he is having difficulty breathing due to his distended abdomen. His white count is 17.1. BUN is 35 and creatinine is 1.9 with a normal baseline. Lactic initially was 3.6 and with IV fluids the lactic came down to 1.7. The lipase is 10,652. His urine is clear and COVID is negative. The patient was given Zofran, Dilaudid, Protonix, Zosyn, and IV fluids of normal saline. Abdominal pelvis CT was read as acute uncomplicated pancreatitis. Thickening of the gastric antrum and duodenum which may relate to adjacent pancreatitis or gastritis/duodenitis. Cholelithiasis and ascites. The patient is being admitted to inpatient status on the date of service of 09/17/2022. Okay although Review of Systems Review of Systems: see HPI All systems reviewed & are unremarkable except as noted in HPI and below Constitutional: Constitutional: Reports as per HPI and Reports no additional constitutional complaints Eyes: Eyes: Reports as per HPI and Reports no additional eye complaints ENT: Reports system reviewed and no additional complaints, except as documented and Reports Normal hearing present Cardiovascular: Cardiovascular: Reports no additional cardiovascular complaints Respiratory: Respiratory: Reports no additional respiratory complaints and Reports no additional respiratory complaints Gastrointestinal: Gastrointestinal: Reports as per HPI and Reports no additional gastrointestinal complaints Musculoskeletal: Musculoskeletal: Reports no additional musculoskeletal complaints Integumentary/Breasts: Skin/Breast: Reports system reviewed and no additional complaints, except as docu and Reports as per HPI Neurologic: Reports system reviewed and no additional complaints, except as documented, Reports as per HPI and Reports Normal hearing present Psychiatric: Psychiatric: Reports no additional psychiatric complaints and Reports as per HPI Endocrine: Endocrine: Reports no additional endocrine complaints Hematologic/Lymphatic: Hematologic/Lymphatic: Reports no additional hematologic/lymphatic complaints Allergic/Immunologic: Allergic/Immunologic: Reports no additional allergic/immunologic complaints [facility] Past Medical History Medical History (Updated 09/17/22 @ 17:18 by Emily Colin NP) Aortic stenosis, severe BPH (benign prostatic hyperplasia) Essential (primary) hypertension History of kidney stones Insomnia Mixed hyperlipidemia PVD (peripheral vascular disease) Testicular cyst Surgical History Surgical History (Updated 09/17/22 @ 17:05 by Emily Colin NP) H/O mitral valve replacement 08/20/19 - [facility] History of colonoscopy History of hernia repair History of hydrocelectomy History of lithotripsy History of neck surgery History of rotator cuff surgery History of spinal fusion History of tonsillectomy and adenoidectomy History of transurethral resection of prostate Hx of aortic aneurysm repair S/P aortic valve replacement with bioprosthetic valve S/P mitral valve replacement Family History Family History Father Family history of coronary artery disease Family history of congestive heart failure, Onset Age: 71 Other Cerebrovascular accident Hypertension Social History Social
[2022-09-17] MEDS: FAMOTIDINE 20 MG/2 ML VIAL IV PUSH (20:40)
[2022-09-18] VITALS (13 sets, daily range): BP systolic 102–117; BP diastolic 58–94; PULSE 83–97; RESP 15–24; TEMP 36.1–37.4; O2SAT 90–97
[2022-09-18] MEDS: HYDROmorphone HCL INJ (*CRX) 1 MG/ML SYR IV PUSH ×5 (00:06→12:53)
[2022-09-18 07:27] LABS: Alanine Aminotransferase 30 U/L (6-50); Albumin Level 3.4 g/dL (3.5-5.1); Alkaline Phosphatase 49 U/L (38-126); Anion Gap 5 mmol/L (8-16); Aspartate Amino Transferase 38 U/L (17-59); Bilirubin,Total 0.8 mg/dL (0.2-1.3); Blood Urea Nitrogen 46 mg/dL (9-20); Calcium 6.8 mg/dL (8.4-10.2); Carbon Dioxide 28 mmol/L (22-30); Chloride 106 mmol/L (98-107); Cholesterol 130 mg/dL (0-200); Estimated CRCL calculation 22 ml/min; Estimated Glomerular Filt Rate 20; Glucose 120 mg/dL (65-110); HDL Direct 33 mg/dL; Lactate Dehydrogenase 378 U/L (120-246); Magnesium 1.5 mg/dL (1.6-2.3); Sodium 139 mmol/L (137-145); Triglycerides 128 mg/dL (<150)
[2022-09-18 07:34] LABS: Basophils Absolute Auto 0.1 K/mm3 (0.0-0.1); Basophils Percent Auto 0.5 % (0.2-1.2); Eosinophils Absolute Auto 0.2 K/mm3 (0-0.3); Eosinophils Percent Auto 1.1 % (0-4.4); Hematocrit 46.7 % (42.0-52.0); Hemoglobin 14.3 g/dL (14.0-18.0); Immature Granulocyte Absolute 0.09 K/mm3 (0.00-0.031); Immature Granulocyte Percent A 0.5 % (0-0.5); Lymphocytes Absolute Auto 1.08 K/mm3 (0.9-3.2); Lymphocytes Percent Auto 6.3 % (18.3-44.2); Mean Corpuscular HGB Conc 30.6 g/dl (32-36); Mean Corpuscular Hemoglobin 29.4 pg (26-34); Mean Corpuscular Volume 96.1 fl (80-100); Mean Platelet Volume 8.7 fl (7.4-10.4); Monocytes Absolute Auto 1.1 K/mm3 (0.1-0.6); Monocytes Percent Auto 6.2 % (2.6-8.5); Neutrophils Absolute Auto 14.5 K/mm3 (1.3-6.7); Neutrophils Percent Auto 85.4 % (45.5-73.1); Platelet Count Result 225 k/mm3 (150-375); Red Blood Count 4.86 M/mm3 (4.6-6.20); Red Cell Distribution Width 14.3 % (11.5-14.5)
[2022-09-18 07:37] LABS: LDL Cholesterol Direct 52 mg/dL
[2022-09-18 07:46] LABS: Lipase 4396 U/L (23-300)
[2022-09-18] MEDS: FAMOTIDINE 20 MG/2 ML VIAL IV PUSH ×2 (08:30→22:55)
--- NOTE | 2022-09-18 10:23 | PM.CNGS ---
Assessment and Plan Assessment and plan (1) Acute pancreatitis: Code(s): K85.90 - Acute pancreatitis without necrosis or infection, unspecified Status: Acute Assessment and Plan: Patient presents with severe acute pancreatitis. He denies any heavy alcohol use and triglycerides are normal. He does have evidence of cholelithiasis with abdominal pain following high fat meals, suggesting likely a biliary cause. Recommend to continue medical management of the pancreatitis with bowel rest, IV fluids, and analgesics as needed. Lipase down to 4,000 today. Agree with GI consultation as well. We could eventually discuss the option of proceeding with a laparoscopic cholecystectomy to prevent recurrent episodes or future complications with the cholelithiasis, but he would need to be medically optimized prior to planning surgery. Given his worsening acute renal failure, pancreatitis, mental status changes, and respiratory status, there are no plans for surgery at this time until his acute issues have improved. Discussed this with the patient and his . Thank you for allowing us to see the patient in consultation and we will continue to follow along with you. (2) Cholelithiasis: Code(s): K80.20 - Calculus of gallbladder without cholecystitis without obstruction Status: Acute Assessment and Plan: Cholelithiasis noted on CT and ultrasound. Likely the cause for the pancreatitis. LFTs normal. See plan above. (3) Sepsis: Code(s): A41.9 - Sepsis, unspecified organism Status: Acute Assessment and Plan: Criteria met with tachycardia, tachypnea, and leukocytosis. Lactic acid 3.6 on admission and repeat was down to 1.7. Likely secondary to acute pancreatitis. Creatinine also going up this morning. Blood cx drawn. Currently on IV Zosyn renal-dosed. Continue IV fluids and medical treatment as mentioned above. (4) Acute kidney injury: Code(s): N17.9 - Acute kidney failure, unspecified Status: Acute Assessment and Plan: Creatinine 1.9 on admission and up to 3.1 today. Continue IV fluids, Nephrology was consulted, renal ultrasound ordered, monitor labs. (5) Altered mental status: Code(s): R41.82 - Altered mental status, unspecified Status: Acute Assessment and Plan: Patient has become more lethargic with slurred speech since admission. Discussed with Hospitalist who ordered CT head. (6) S/P aortic valve replacement with bioprosthetic valve: Code(s): Z95.3 - Presence of xenogenic heart valve Status: Acute (7) Obesity: Qualifiers: Obesity type: unspecified obesity type Obesity classification: adult class 2 (BMI 35 - 39.9) Serious obesity comorbidity presence: unspecified whether serious comorbidity present Body mass index: BMI 38.0-38.9 Qualified Code(s): E66.9 - Obesity, unspecified; Z68.38 - Body mass index [BMI] 38.0-38.9, adult Code(s): E66.9 - Obesity, unspecified Status: Acute (8) Essential (primary) hypertension: Code(s): I10 - Essential (primary) hypertension Status: Chronic (9) BPH (benign prostatic hyperplasia): Code(s): N40.0 - Benign prostatic hyperplasia without lower urinary tract symptoms Status: Acute Plan I have discussed the patient's case and plan of care with Dr. Mckeon. Thank you for allowing us to see the patient in consultation and we will continue to follow along with you. History of Present Illness Consult details Consult date: 09/18/22 Reason for consult: gallstones Requesting physician: Emily Colin NP Narrative: This is a 73-year-old man with history of hypertension, BPH, hyperlipidemia, PVD, and aortic stenosis status post bioprosthetic aortic valve replacement. We have been asked to see the patient for cholelithiasis in the setting of acute pancreatitis. He presented to the ER yesterday with complaints of RUQ abdominal pain x 1 week. He reports his initial onset o
--- NOTE | 2022-09-18 10:25 | PM.CNNEP ---
Assessment and Plan Assessment and plan (1) Acute kidney injury: Code(s): N17.9 - Acute kidney failure, unspecified Status: Acute Assessment and Plan: suspect due to pancreatitis agree with renal ultrasound, bladder scan, and urine electrolytes continues to make urine at this time follow hemodynamics monitor repeat labs and UOP (2) Acute pancreatitis: Code(s): K85.90 - Acute pancreatitis without necrosis or infection, unspecified Status: Acute Assessment and Plan: as noted by elevated lipase and abdominal pain GI and Surgery consulted CT of abdomen with acute uncomplicated pancreatitis, thickening of the gastric antrum and duodenum which may relate to adjacent pancreatitis or gastroenteritis/ duodenitis continue IVFs and pain control trend lipase empirically on antibiotcs (3) Sepsis: Code(s): A41.9 - Sepsis, unspecified organism Status: Acute Assessment and Plan: as evidence by elevated WBC, LOTUS/ARF, lactic acidosis, and pancreatitis appropriate culture pending on antibiotics for now (4) Essential (primary) hypertension: Code(s): I10 - Essential (primary) hypertension Status: Chronic Assessment and Plan: hypertensive on admission -- due to pain(?) stable readings more recently -- due to pain medications(?) follow trend of hemodynamics (5) Altered mental status: Code(s): R41.82 - Altered mental status, unspecified Status: Acute Assessment and Plan: confusion noted on my assessment due to pain medications(?) follow mentation Long extensive discussion (greater than 20 minutes) with the patient's at bedside regarding his acute kidney injury, pancreatitis, confusion, and overall clinical status particularly given his history of acute kidney injury requiring dialysis in the past. She appeared to voice understanding with ongoing therapy and testing to date. Will continue to follow. History of Present Illness Reason for Consult Consult date: 09/18/22 Reason for consult: acute renal failure (on chronic kidney) Chief Complaint Chief complaint: Acute Pancreatitis/Acute Kidney Injury History of Present Illness Narrative: The patient is a 76-year-old male with a past medical history as outlined below who presented to [facility] Emergency Room complaints of abdominal pain. Some the history that I have obtained is from review of the electronic medical record, discussion with the patient, and discussion with his at bedside as the patient would sometimes fall asleep if in the middle of my conversation with him. The abdominal pain has apparently been present for approximately a week prior to admission. The abdominal pain was localized to the mid abdominal area and at its worst was associated with 10/10 intensity of pain. He states that the pain was fairly constant and severe on the day of admission which prompted his ER visit. The pain seemed to be worsened with any type of oral intake and has been associated with vomiting as well. He tried conservative therapy with regard to Pap dull is multi without any significant relief. He reports now that his abdomen feels somewhat distended and ?bloated? and this has resulted in some difficulty breathing in general. Given these constellation of symptoms as mentioned, he presented to the ER for further assessment. Workup and evaluation emergency room demonstrated the patient be hemodynamically stable and routine blood test demonstrated an elevated white blood cell count, acute kidney injury with a BUN of 35 and a creatinine of 1.9, mild lactic acidosis, and a lipase level of 10,652. COVID-19 testing was negative and his urinalysis was normal. Given these laboratory findings, a CT scan of the abdomen pelvis was done which demonstrated acute uncomplicated pancreatitis with thickening of the gastric antrum and duodenum in association with cholelithiasis and
[2022-09-18] MEDS: MAGNESIUM SULF 1 GM/D5W 100 ML 1 GM/100 ML BAG IVPB (10:49)
--- NOTE | 2022-09-18 13:50 | WPDGICN ---
Assessment and Plan Assessment and plan (1) Acute pancreatitis: Code(s): K85.90 - Acute pancreatitis without necrosis or infection, unspecified Status: Acute Assessment and Plan: probably GB related, noted GS no alcohol use or history of liver disease complicated with worsening renal failure (nephrology on board), tachypnea and altered mental status- he also was getting pain meds continue to monitor npo status, surgery on board, medical management (2) Acute kidney injury: Code(s): N17.9 - Acute kidney failure, unspecified Status: Acute Assessment and Plan: noted worsening renal failure (3) Upper abdominal pain: Code(s): R10.10 - Upper abdominal pain, unspecified Status: Acute Assessment and Plan: from pancreatitis (4) Cholelithiasis: Code(s): K80.20 - Calculus of gallbladder without cholecystitis without obstruction Status: Acute Assessment and Plan: surgery on board may need at some point lap rossy (5) Nausea and vomiting in adult: Code(s): R11.2 - Nausea with vomiting, unspecified Status: Acute Assessment and Plan: antiemetics prn (6) Encephalopathy acute: Code(s): G93.40 - Encephalopathy, unspecified Status: Acute (7) Sepsis: Code(s): A41.9 - Sepsis, unspecified organism Status: Acute (8) Hx of aortic aneurysm repair: Code(s): Z98.890 - Other specified postprocedural states; Z86.79 - Personal history of other diseases of the circulatory system Status: Acute GI Consult Note Consult date/time: 09/18/22 13:50 Reason for consult: acute pancreatitis HPI: Manohar West is a 76 year old male with history?of hypertension, BPH, hyperlipidemia, PVD, and aortic stenosis status post bioprosthetic aortic valve replacement for which also required brief hemodialysis. He was admitted because new onset of progressive abdominal pain that started few days prior presentation shortly after eating a sandwich and gradually became severe. He had associated nausea and multiple episodes of vomiting. Initial labs showed a white blood cell count of 17,100, lactic acid 3.6 that improved, normal LFTs, and a lipase 10,652. On arrival he was tachycardic and tachypneic. CT scan of the abdomen and pelvis reviewed and showed acute uncomplicated pancreatitis, thickening of the gastric antrum and duodenum which may relate to adjacent pancreatitis or gastritis/duodenitis, cholelithiasis, and ascites. Chest x-ray showed mild interstitial edema, and mildly elevated right diaphragm suspicious for phrenic nerve paralysis. RUQ ultrasound showed cholelithiasis, small volume perihepatic fluid, normal common bile duct at 5 mm. He denies heavy alcohol use. No known history of liver disease. Repeat labs showed his creatinine went up from 1.9 to 3.1. Lipase is down to 4,396. Triglycerides normal. Also noted some lethargy but noted that received pain meds. Review of Systems Review of Systems: All systems reviewed & are unremarkable except as noted in HPI and below Constitutional: Constitutional: Reports no additional constitutional complaints, Denies chills, Denies fatigue, Denies fever(s), Denies poor appetite and Denies weakness Eyes: Eyes: Reports no additional eye complaints ENT: Reports Normal hearing present Cardiovascular: Cardiovascular: Denies chest pain Respiratory: Respiratory: Reports as per HPI, Reports no additional respiratory complaints, Denies cough and Reports dyspnea Gastrointestinal: Gastrointestinal: Reports as per HPI, Reports no additional gastrointestinal complaints, Reports abdominal pain, Denies melena, Reports bloating, Reports nausea and Reports vomiting Genitourinary: Genitourinary: Reports no additional male genitourinary complaints, Denies dysuria and Denies urinary frequency Musculoskeletal: Musculoskeletal: Reports no additional musculoskeletal complaints, Denies abnormal gait and Denies joint swell
--- NOTE | 2022-09-18 14:09 | PM.IMPN ---
Progress Note: A&P Assessment and Plan (1) Pancreatitis: Code(s): K85.90 - Acute pancreatitis without necrosis or infection, unspecified Status: Acute Assessment and Plan: presented with nausea and vomiting. CT revealed acute uncomplicated [place]. [place] [address]. suspect secondary to cholelithiasis with onset after fatty meal. Rare alcohol use. Triglycerides within normal limits. Appreciate gastroenterology and general surgery recommendations. Lipase improved to 4396 today. Continue NPO diet at this time. Continue with IV fluid rehydration. IV Tylenol for pain control. Avoid narcotics given mental status and respiratory status changes (2) Sepsis: Code(s): A41.9 - Sepsis, unspecified organism Status: Acute Assessment and Plan: septic based on leukocytosis, tachypnea, tachycardia, lactic acidosis, and worsening renal failure. [place] to be secondary to acute biliary pancreatitis. lactic acid has normalized. Patient remains afebrile. Blood cultures pending. Continue IV Zosyn. Continue with IV fluids. (3) Cholelithiasis: Code(s): K80.20 - Calculus of gallbladder without cholecystitis without obstruction Status: Acute Assessment and Plan: Evident on CT and right upper quadrant ultrasound. appreciate general surgery recommendations. laparoscopic cholecystectomy to be considered, however patient is not a candidate at this time given active medical issues including worsened acute renal failure, pancreatitis, hypoxia. LFTs are within normal limits. (4) Acute kidney injury: Code(s): N17.9 - Acute kidney failure, unspecified Status: Acute Assessment and Plan: Baseline creatinine 1.2. Creatinine elevated to 1.9 on admission with increased to 3.1 today and rising BUN Despite IV fluid rehydration. Likely ATN from acute infectious process. Appreciate Nephrology recommendations. Renal ultrasound is pending. Monitor urine output. Avoid nephrotoxins. (5) Altered mental status: Code(s): R41.82 - Altered mental status, unspecified Status: Acute Assessment and Plan: Patient oriented to self and time only. Per his , he is not at his baseline and appears confused. May be related to infectious process vs uremia vs hypoxia. will proceed with head CT to rule stroke. Obtain ABG to assess for hypercapnia. UA without concerns for infection. Will check TSH, B12, folate, ammonia. monitor mental status closely (6) Hypoxia: Code(s): R09.02 - Hypoxemia Status: Acute Assessment and Plan: Patient reportedly became hypoxic in the ED after administration of narcotic pain medication. Currently requiring 4 L supplemental O2. Initial CXR revealed mild interstitial edema. There is no signs of hyperkalemia on physical exam. Will obtain repeat CXR given oxygen requirements. Begin incentive spirometry. Discontinue narcotics. ABG pending as above. Provide supplemental O2 as needed With goal sats 92% or above. (7) Abdominal distension: Code(s): R14.0 - Abdominal distension (gaseous) Status: Acute Assessment and Plan: Patient is distended on exam. CT of the abdomen/ pelvis reveals ascites and abdominal ultrasound showed small volume perihepatic fluid. Paracentesis initially ordered, however does not appear large enough fluid collection for paracentesis. KUB pending to rule out ileus. Appreciate GI and general surgery recommendations (8) Electrolyte abnormality: Code(s): E87.8 - Other disorders of electrolyte and fluid balance, not elsewhere classified Status: Acute Assessment and Plan: magnesium 1.5. Cautious replacement given rising creatinine. Discussed with Nephrology, recommended 1 g IV Mag sulfate. Monitor levels. Calcium normal on admission with declined to 6.8 today (7.3 when corrected for hypoalbuminemia). This may be due to acute pancreati
[2022-09-18 14:59] LABS: Alveolar/Arterial O2 Gradient 107.9 mmHg; Base Excess ABG -5.6 mEq/l (+/-2.0); Fractional Inspired Oxygen 36 %; HCO3 ABG 25.7 mEq/l (22.0-26.0); Oxygen Content ABG 18.2 %vol (16.0-22.0); PO2 FiO2 Ratio Arterial Blood 1.56 %; Total Hemoglobin 14.9 g/dL (12.0-18.0)
[2022-09-18 15:04] LABS: pH ABG 7.125 (7.350-7.450)
[2022-09-18 15:05] LABS: Oxygen Saturation ABG 77.7 % (95.0-100.0); Oxyhemoglobin 86.9 % THb (90.0-100.0)
[2022-09-18 15:06] LABS: Device NASAL CANNULA; Modified Allen's Test Pass; Site Drawn LEFT RADIAL
[2022-09-18 16:34] LABS: Alveolar/Arterial O2 Gradient 150.5 mmHg; Base Excess ABG -5.7 mEq/l (+/-2.0); Fractional Inspired Oxygen 45 %; HCO3 ABG 25.2 mEq/l (22.0-26.0); Oxygen Content ABG 19.6 %vol (16.0-22.0); Oxygen Saturation ABG 92.3 % (95.0-100.0); Oxyhemoglobin 93.9 % THb (90.0-100.0); PO2 ABG 83.3 mmHg (80.0-100.0); PO2 FiO2 Ratio Arterial Blood 1.85 %; Total Hemoglobin 14.8 g/dL (12.0-18.0)
[2022-09-18 16:36] LABS: Modified Allen's Test Pass; PCO2 ABG 76.5 mmHg (35.0-45.0); Site Drawn RIGHT RADIAL; pH ABG 7.136 (7.350-7.450)
[2022-09-18 16:37] LABS: Device NON-INVASIVE VENT; Non-Invasive Expiratory Pressure 7 CMH2O; Non-Invasive Inspiratory Pressure 14 CMH2O; Non-Invasive Vent Rate 20 /MIN
--- NOTE | 2022-09-18 16:46 | PM.CNPUL ---
Assessment and Plan Assessment and plan (1) Acute pancreatitis: Code(s): K85.90 - Acute pancreatitis without necrosis or infection, unspecified Status: Acute Assessment and Plan: Patient with acute pancreatitis and multi-system organ failure with a lactic acid on admission, acute kidney injury, hypoxemic and hypercarbic respiratory failure, leukocytosis and hypocalcemia. [place] to be due to gallstone pancreatitis and now with an ileus. GI and surgery have been consulted. patient has been fluid resuscitated and NG tube to be placed. he has been placed on Zosyn and vancomycin will be added in case there has been any aspiration. (2) Respiratory failure with hypoxia and hypercapnia: Code(s): J96.91 - Respiratory failure, unspecified with hypoxia; J96.92 - Respiratory failure, unspecified with hypercapnia Status: Acute Assessment and Plan: Patient with pancreatitis and multi-system organ failure. Etiology of acute hypercarbic and hypoxemic respiratory in failure includes pancreatitis with ARDS, aspiration pneumonia, fluid overload and/or narcotics. Most recent blood gas on BiPAP 14/7 was 7.14/77/84. I have increased the patient to maximal BiPAP settings at 22/5 and a rate of 22 with 45% FiO2 and have ordered a blood gas in 1 hour. I am concerned the patient may require intubation if his respiratory acidosis is not improved with these maximal BiPAP settings. the patient is waiting for room on the IMU and may require transfer to the intensive care unit. Lactic acid pending currently. Agree with vanc and Zosyn for now. He has no wheezes and I do not see a need for bronchodilators, inhaled or systemic steroids at this time. discussed with Bekah Venegas. will follow with you. History of Present Illness History of Present Illness Consult date: 09/18/22 Chief complaint: Acute Pancreatitis/Acute Kidney Injury Narrative: 09/18/2022: This is a new pulmonary consult for acute hypercarbic and hypoxic respiratory failure with pancreatitis 76-year with a history of hypertension, kidney stones, BPH, aortic stenosis presented with abdominal pain and found to have pancreatitis on 09/17/2022. Patient was fluid resuscitated and has developed multi-system organ failure with acute kidney injury, acute hypercarbic and hypoxemic respiratory failure with a blood gas of 7.13/80/56 on 4 L nasal cannula. Patient was placed on BiPAP 14/7 with 35% FiO2 and his repeat blood gas was 7.14/77/83 and I was consulted. On entering the room he was on BiPAP 23/03 he was awake following simple commands the respiratory rate set at 20 and breathing 21 with tidal volumes 300-350. He denies any chest pain or shortness of breath. Patient is on Zosyn and scheduled to have an NG tube placed for distended abdomen with an ileus. His creatinine has increased to 3.10. Patient is a former smoker and there are no respiratory inhaled medicines on his home medicine list. Review of Systems Constitutional: Constitutional: Reports no additional constitutional complaints Eyes: Eyes: Reports no additional eye complaints ENT: Reports system reviewed and no additional complaints, except as documented Cardiovascular: Cardiovascular: Reports no additional cardiovascular complaints Respiratory: Respiratory: Reports no additional respiratory complaints Gastrointestinal: Gastrointestinal: Reports no additional gastrointestinal complaints Musculoskeletal: Musculoskeletal: Reports no additional musculoskeletal complaints Neurologic: Reports system reviewed and no additional complaints, except as documented Psychiatric: Psychiatric: Reports no additional psychiatric complaints Endocrine: Endocrine: Reports no additional endocrine complaints Hematologic/Lymphatic: Hematologic/Lymphatic: Reports no additional hematologic/lymphatic complaints Allergic/Immunologic: Allergic/Immunologic: Reports no additional allergic/immunologic complaint
[2022-09-18 17:00] LABS: Lactic Acid Reflex 1.1 mmol/L (0.7-2.0)
[2022-09-18 18:01] LABS: Alveolar/Arterial O2 Gradient 163.2 mmHg; Base Excess ABG -4.4 mEq/l (+/-2.0); Fractional Inspired Oxygen 45 %; HCO3 ABG 25.7 mEq/l (22.0-26.0); Oxygen Content ABG 19.7 %vol (16.0-22.0); Oxygen Saturation ABG 91.6 % (95.0-100.0); Oxyhemoglobin 93.8 % THb (90.0-100.0); PO2 ABG 77.3 mmHg (80.0-100.0); PO2 FiO2 Ratio Arterial Blood 1.72 %; Total Hemoglobin 14.9 g/dL (12.0-18.0)
[2022-09-18 18:03] LABS: pH ABG 7.179 (7.350-7.450)
[2022-09-18 18:04] LABS: Device NON-INVASIVE VENT; Modified Allen's Test Pass; Non-Invasive Expiratory Pressure 5 CMH2O; Non-Invasive Inspiratory Pressure 22 CMH2O; Non-Invasive Vent Rate 24 /MIN; PCO2 ABG 70.6 mmHg (35.0-45.0); Site Drawn RIGHT RADIAL
[2022-09-18 20:37] LABS: Alveolar/Arterial O2 Gradient 179.5 mmHg; Base Excess ABG -5.2 mEq/l (+/-2.0); Carboxyhemoglobin 0.2 % THb (0-2.0); Fractional Inspired Oxygen 45 %; HCO3 ABG 22.9 mEq/l (22.0-26.0); Methemoglobin ABG 0.5 %THb (0-1.5); Oxygen Content ABG 18.7 %vol (16.0-22.0); Oxygen Saturation ABG 93.1 % (95.0-100.0); Oxyhemoglobin 94.3 % THb (90.0-100.0); PCO2 ABG 55.6 mmHg (35.0-45.0); PO2 ABG 78.1 mmHg (80.0-100.0); PO2 FiO2 Ratio Arterial Blood 1.74 %; Total Hemoglobin 14.1 g/dL (12.0-18.0)
[2022-09-18 20:40] LABS: Device NON-INVASIVE VENT; Modified Allen's Test Pass; Non-Invasive Expiratory Pressure 5 CMH2O; Non-Invasive Inspiratory Pressure 22 CMH2O; Non-Invasive Vent Rate 24 /MIN; Site Drawn RIGHT RADIAL; pH ABG 7.233 (7.350-7.450)
--- NOTE | 2022-09-18 22:20 | PC.NURSE ---
incentive spirometry not done due to being on bipap.
--- NOTE | 2022-09-18 22:34 | PC.NURSE ---
This patient, Manohar West, was received from [facility] on 09/18/22 at 1925. Patient/family oriented to unit policies and routines
[2022-09-18] MEDS: SODIUM CHLORIDE 0.9% IV 1,000 ML 75 ML IV CONT (22:54)
[2022-09-18] MEDS: HYDROmorphone HCL INJ (*CRX) 1 MG/ML SYR 0.5 MG IV PUSH (23:50)
[2022-09-19] VITALS (26 sets, daily range): BP systolic 98–163; BP diastolic 55–92; PULSE 75–101; RESP 12–29; TEMP 37.1–37.3; O2SAT 92–98
[2022-09-19] MEDS: LIDOCAINE 5% PATCH 1 PATCH TRANSDERM (01:52)
[2022-09-19] MEDS: ONDANSETRON INJ 4 MG/2 ML VIAL IV PUSH (02:22)
[2022-09-19 04:45] LABS: Basophils Absolute Auto 0.1 K/mm3 (0.0-0.1); Basophils Percent Auto 0.7 % (0.2-1.2); Eosinophils Absolute Auto 0.1 K/mm3 (0-0.3); Eosinophils Percent Auto 0.4 % (0-4.4); Hematocrit 39.5 % (42.0-52.0); Hemoglobin 12.7 g/dL (14.0-18.0); Immature Granulocyte Absolute 0.09 K/mm3 (0.00-0.031); Immature Granulocyte Percent A 0.8 % (0-0.5); Lymphocytes Absolute Auto 0.78 K/mm3 (0.9-3.2); Mean Corpuscular HGB Conc 32.2 g/dl (32-36); Mean Corpuscular Hemoglobin 29.3 pg (26-34); Monocytes Absolute Auto 0.8 K/mm3 (0.1-0.6); Neutrophils Absolute Auto 9.4 K/mm3 (1.3-6.7); Neutrophils Percent Auto 84.1 % (45.5-73.1); Platelet Count Result 187 k/mm3 (150-375); Red Blood Count 4.34 M/mm3 (4.6-6.20); Red Cell Distribution Width 14.2 % (11.5-14.5); White Blood Count 11.2 K/mm3 (4.5-10.0)
--- NOTE | 2022-09-19 04:53 | PC.NURSE ---
Called for Kpad machine multiple times, while waiting warm blanket applied to back which patient stated did not help.
[2022-09-19 05:04] LABS: Alanine Aminotransferase 25 U/L (6-50); Alkaline Phosphatase 46 U/L (38-126); Anion Gap 6 mmol/L (8-16); Aspartate Amino Transferase 35 U/L (17-59); Bilirubin,Total 0.7 mg/dL (0.2-1.3); Blood Urea Nitrogen 59 mg/dL (9-20); Calcium 6.9 mg/dL (8.4-10.2); Carbon Dioxide 25 mmol/L (22-30); Chloride 107 mmol/L (98-107); Estimated CRCL calculation 20 ml/min; Estimated Glomerular Filt Rate 18; Glucose 121 mg/dL (65-110); Potassium 4.3 mmol/L (3.4-5.0); Sodium 138 mmol/L (137-145)
[2022-09-19 05:53] LABS: Base Excess ABG -3.3 mEq/l (+/-2.0); Oxygen Saturation ABG 95.4 % (95.0-100.0); PCO2 ABG 45.6 mmHg (35.0-45.0); PO2 ABG 83.1 mmHg (80.0-100.0)
[2022-09-19 05:54] LABS: Alveolar/Arterial O2 Gradient 185.9 mmHg; Carboxyhemoglobin 0.2 % THb (0-2.0); Methemoglobin ABG 0.4 %THb (0-1.5); Oxygen Content ABG 19.1 %vol (16.0-22.0); Oxyhemoglobin 95.2 % THb (90.0-100.0); PO2 FiO2 Ratio Arterial Blood 1.85 %; Reduced Hemoglobin 4.2 %THb (0-5.0); Total Hemoglobin 14.2 g/dL (12.0-18.0)
[2022-09-19 05:55] LABS: Device BIPAP; Fractional Inspired Oxygen 45 %; Modified Allen's Test Pass; Site Drawn LEFT RADIAL
[2022-09-19 06:01] LABS: Expiratory Pressure 5 cmH2O; Inspiratory Pressure 22 cmH2O
[2022-09-19] MEDS: MORPHINE SULFATE (*CRX) 2 MG/ML INJ IV PUSH (06:41)
[2022-09-19 07:42] LABS: Lipase 832 U/L (23-300)
[2022-09-19] MEDS: CALCIUM GLUC 2,000 MG/NS 100ML 2,000 MG/100 ML BAG 100 MG IVPB (07:58)
[2022-09-19] MEDS: PANTOPRAZOLE SODIUM IV 40 MG VIAL IV PUSH (08:01)
--- NOTE | 2022-09-19 08:31 | WPDCNINT ---
Assessment and Plan Assessment and plan (1) Respiratory failure with hypoxia and hypercapnia: Code(s): J96.91 - Respiratory failure, unspecified with hypoxia; J96.92 - Respiratory failure, unspecified with hypercapnia Status: Acute Assessment and Plan: Patient was transferred to the ICU on 09/18/22 for worsening ABGs, and requiring BiPAP. - could be related to abdominal distension secondary to pancreatitis, obesity hypoventilation syndrome possible obstructive sleep apnea, pneumonia /atelectasis - This morning ABGs have improved significantly on BiPAP / with 45% FiO2. - Patient states he feels better, sitting up in the chair - will get a recliner in his room as he has back pain - will start bronchodilators (2) Acute pancreatitis: Code(s): K85.90 - Acute pancreatitis without necrosis or infection, unspecified Status: Acute Assessment and Plan: patient presented with abdominal pain on admission on 09/17/2022, found to have acute pancreatitis likely secondary to gallstones - initial lipase was significantly elevated, patient was treated with IV fluids, - remains on maintenance IV fluids - lipase trending down well - abdominal pain has improved - continue Zosyn and vancomycin (09/17) 09/17/22 CT scan of the abdomen and pelvis showed acute uncomplicated pancreatitis, thickening of the gastric antrum and duodenum which may relate to adjacent pancreatitis or gastroenteritis/ duodenitis, cholelithiasis.- (3) Acute kidney injury: Code(s): N17.9 - Acute kidney failure, unspecified Status: Acute Assessment and Plan: patient presented with acute kidney injury, creatinine on admission was 1.90 - received adequate IV fluids - creatinine trending up, - urine output has been adequate - nephrology following the patient - 09/18/2022 renal ultrasound showed left nephrolithiasis, no hydronephrosis - continue to monitor urine output, renal function electrolytes of note patient was on dialysis for approximately 2 months after his AAA repair (4) Essential (primary) hypertension: Code(s): I10 - Essential (primary) hypertension Status: Chronic Assessment and Plan: patient with essential hypertension - blood pressures were slightly elevated, on p.r.n. 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 will have a recliner placed in patient's room so he is more comfortable. Code Status: full code Critical Care Time Spent: 49 minutes Due to a high probability of clinically significant, life threatening deterioration, the patient required my highest level of preparedness to intervene emergently and I personally spent this critical care time directly and personally managing the patient. This critical care time included obtaining a history; examining the patient; pulse oximetry; ordering and review of studies; arranging urgent treatment with development of a management plan; evaluation of patient's response to treatment; frequent reassessment; and discussions with other providers. It was e
--- NOTE | 2022-09-19 08:38 | PM.PNPUL ---
Progress Note: A&P Assessment and Plan (1) Acute pancreatitis: Code(s): K85.90 - Acute pancreatitis without necrosis or infection, unspecified Status: Acute Assessment and Plan: 09/18 Patient with acute pancreatitis and multi-system organ failure with a lactic acid on admission, acute kidney injury, hypoxemic and hypercarbic respiratory failure, leukocytosis and hypocalcemia.? [place] to be due to gallstone pancreatitis and now with an ileus.? GI and surgery have been? consulted. ? patient has been fluid resuscitated and NG tube to be placed.? he has been placed on Zosyn and vancomycin will be added in case there has been any aspiration. 09/19 he is more awake and alert and communicative. His white blood cell count is 11.2, his creatinine is 3.4, serum bicarbonate is 25. His lipase this morning is 832. patient has improved. Followed by customer experience retail clerk, GI and General surgery. (2) Respiratory failure with hypoxia and hypercapnia: Code(s): J96.91 - Respiratory failure, unspecified with hypoxia; J96.92 - Respiratory failure, unspecified with hypercapnia Status: Acute Assessment and Plan: 09/28 Patient with pancreatitis and multi-system organ failure.? Etiology of acute hypercarbic and hypoxemic respiratory in failure includes pancreatitis with ARDS, aspiration pneumonia, fluid overload and/or narcotics. ? Most recent blood gas on BiPAP 23/03 was 7.14/77/84.? I have increased the patient to maximal BiPAP settings at 22/5 and a rate of 22 with 45% FiO2 and have ordered a blood gas in 1 hour. ? I am concerned the patient may require intubation if his? respiratory acidosis is not improved with these maximal BiPAP settings.? the patient is waiting for room on the IMU and may require transfer to the intensive care unit.? Lactic acid pending currently.? Agree with vanc and Zosyn for now. He has no wheezes and I do not see a need for bronchodilators, inhaled or systemic steroids at this time. ?discussed with Bekah Venegas.? will follow with you. 09/19 patient wore BiPAP 22/5 throughout the evening and his blood gas this morning was 7.32/46/83 on 45% FiO2. He had tolerated time off the BiPAP this morning. Currently sitting up in the chair with a BiPAP on this has been adjusted to 18/8 and 40%. Agree with BiPAP p.r.n. at this time. Chest x-ray today does not show any new infiltrates consistent with aspiration pneumonia. If blood cultures remain negative at 48 hours from a pulmonary perspective can discontinue antibiotics. Discussed with Dr. Treadwell, will sign off, call with questions. Subjective Date/time seen: 09/19/22 08:38 Interval history: 09/18/2022:? This is a new pulmonary consult for acute hypercarbic and hypoxic respiratory failure with pancreatitis ?76-year? with a history of hypertension, kidney stones, BPH, aortic stenosis presented with abdominal pain and found to have pancreatitis on 09/17/2022. ? Patient was fluid resuscitated and has developed multi-system organ failure with acute kidney injury, acute hypercarbic and hypoxemic respiratory failure? with a blood gas of 7.13/80/56? on 4 L nasal cannula.? Patient was placed on BiPAP 14/7 with 35% FiO2 and his repeat blood gas was 7.14/77/83 and I was consulted.? On entering the room he was on BiPAP 14/7 he was awake following simple commands the respiratory rate set at 20 and breathing 21? with tidal volumes 300-350. ? He denies any chest pain or shortness of breath. ? Patient is on Zosyn and scheduled to have an NG tube placed for distended abdomen with an ileus.? His creatinine has increased to 3.10. ? Patient is a former smoker and there are no respiratory inhaled medicines on his home medicine list. I increased him to BiPAP 22/5 and a repeat blood gas was 7.18/71/77 and the patient was transferred to the ICU. Patient was changed to IV 60 machine with a better fitting face mask and had improved tidal volumes and a repeat blood gas was 7.23/56/78. 09/19
--- NOTE | 2022-09-19 09:17 | P.PNNP_ITS ---
Progress Note: A&P Assessment and Plan (1) Acute kidney injury: Code(s): N17.9 - Acute kidney failure, unspecified Status: Acute Assessment and Plan: * suspect due to pancreatitis and possible pre-renal factors * evaluation noted to date: * renal ultrasound unremarkable except left nephrolithiasis * urine electrolytes and eosinophils pending * continues to make urine at this time * follow hemodynamics * monitor repeat labs and UOP (2) Acute pancreatitis: Code(s): K85.90 - Acute pancreatitis without necrosis or infection, unspecified Status: Acute Assessment and Plan: * as noted by elevated lipase and abdominal pain * GI and Surgery following -- medical management for now * CT of abdomen with acute uncomplicated pancreatitis, thickening of the gastric antrum and duodenum which may relate to adjacent pancreatitis or gastroenteritis/ duodenitis * continue IVFs and pain control * trend lipase - improving * empirically on antibiotics (3) Respiratory failure with hypoxia and hypercapnia: Code(s): J96.91 - Respiratory failure, unspecified with hypoxia; J96.92 - Respiratory failure, unspecified with hypercapnia Status: Acute Assessment and Plan: * appear to have responded to BiPAP therapy * suspect exacerbated by OHS +/- TERESITA versus early pneumonia versus atelectasis * follow respiratory status (4) Sepsis: Code(s): A41.9 - Sepsis, unspecified organism Status: Acute Assessment and Plan: * as evidence by elevated WBC, LOTUS/ARF, lactic acidosis, and pancreatitis * appropriate culture pending * on antibiotics for now (5) Essential (primary) hypertension: Code(s): I10 - Essential (primary) hypertension Status: Chronic Assessment and Plan: * hypertensive on admission -- due to pain(?) * stable readings more recently -- due to pain medications(?) * follow trend of hemodynamics (6) Altered mental status: Code(s): R41.82 - Altered mental status, unspecified Status: Acute Assessment and Plan: * confusion noted on my assessment * due to pain medications(?) * follow mentation Discussed case extensively with at bedside as well as with patient (now that he is more lucid) and Dr. Treadwell. Will continue to follow. Subjective Date/time seen: 09/19/22 09:17 Issues with respiratory distress/hypercapnic respiratory failure as evidenced by ABG yesterday afternoon; initiated on BiPAP therapy and given concerns of possible ongoing deterioration in respiratory status (and possible need for intubation), he was transferred to the ICU for closer monitoring. Continued on BiPAP overnight with adjustment in settings and appears to be doing significantly better this AM; at bedside and we discussed the situation. Exam Narrative: General: WD/WN male in NAD; improved mentation noted Heart: normal S1 and S2; no rub Lungs: coarse breath sounds Abdomen: soft, nontender, nondistended, positive bowel sounds Extremities: no cyanosis or clubbing; trace - 1+ edema Skin: warm and dry Objective Data Vital Signs Vital Signs: Vital Signs Temp Pulse Resp BP Pulse Ox O2 Del Method O2 Flow Rate 09/19/22 09:00 98.7 F 77 19 133/76 98 09/19/22 08:00 98.8 F 86 12 129/80 96 09/19/22 07:00 99.0 F 76 21 H 102/66 94 09/19/22 08:00 75 09/19/22 06:
--- NOTE | 2022-09-19 09:17 | PM.PNNEP ---
Progress Note: A&P Assessment and Plan (1) Acute kidney injury: Code(s): N17.9 - Acute kidney failure, unspecified Status: Acute Assessment and Plan: suspect due to pancreatitis and possible pre-renal factors evaluation noted to date: renal ultrasound unremarkable except left nephrolithiasis urine electrolytes and eosinophils pending continues to make urine at this time follow hemodynamics monitor repeat labs and UOP (2) Acute pancreatitis: Code(s): K85.90 - Acute pancreatitis without necrosis or infection, unspecified Status: Acute Assessment and Plan: as noted by elevated lipase and abdominal pain GI and Surgery following -- medical management for now CT of abdomen with acute uncomplicated pancreatitis, thickening of the gastric antrum and duodenum which may relate to adjacent pancreatitis or gastroenteritis/ duodenitis continue IVFs and pain control trend lipase - improving empirically on antibiotics (3) Respiratory failure with hypoxia and hypercapnia: Code(s): J96.91 - Respiratory failure, unspecified with hypoxia; J96.92 - Respiratory failure, unspecified with hypercapnia Status: Acute Assessment and Plan: appear to have responded to BiPAP therapy suspect exacerbated by OHS +/- TERESITA versus early pneumonia versus atelectasis follow respiratory status (4) Sepsis: Code(s): A41.9 - Sepsis, unspecified organism Status: Acute Assessment and Plan: as evidence by elevated WBC, LOTUS/ARF, lactic acidosis, and pancreatitis appropriate culture pending on antibiotics for now (5) Essential (primary) hypertension: Code(s): I10 - Essential (primary) hypertension Status: Chronic Assessment and Plan: hypertensive on admission -- due to pain(?) stable readings more recently -- due to pain medications(?) follow trend of hemodynamics (6) Altered mental status: Code(s): R41.82 - Altered mental status, unspecified Status: Acute Assessment and Plan: confusion noted on my assessment due to pain medications(?) follow mentation Discussed case extensively with at bedside as well as with patient (now that he is more lucid) and Dr. Treadwell. Will continue to follow. Subjective Date/time seen: 09/19/22 09:17 Issues with respiratory distress/hypercapnic respiratory failure as evidenced by ABG yesterday afternoon; initiated on BiPAP therapy and given concerns of possible ongoing deterioration in respiratory status (and possible need for intubation), he was transferred to the ICU for closer monitoring. Continued on BiPAP overnight with adjustment in settings and appears to be doing significantly better this AM; at bedside and we discussed the situation. Exam Narrative: General: WD/WN male in NAD; improved mentation noted Heart: normal S1 and S2; no rub Lungs: coarse breath sounds Abdomen: soft, nontender, nondistended, positive bowel sounds Extremities: no cyanosis or clubbing; trace - 1+ edema Skin: warm and dry Objective Data Vital Signs Vital Signs: Vital Signs Temp Pulse Resp BP Pulse Ox O2 Del Method O2 Flow Rate 09/19/22 09:00 98.7 F 77 19 133/76 98 09/19/22 08:00 98.8 F 86 12 129/80 96 09/19/22 07:00 99.0 F 76 21 H 102/66 94 09/19/22 08:00 75 09/19/22 06:15 94 Nasal Cannula 5 09/19/22 03:05 80 24 H 96 BiPAP 09/19/22 06:32 84 15 96 Nasal Cannula 4 09/19/22 06:20 99.0 F 87 14 119/72 94 09/19/22 06:20 87 09/19/22 04:20 83 24 H 94 BiPAP 09/19/22 04:00 98.8 F 85 24 H 107/68 93 09/19/22 04:00 85 09/19/22 02:00 98.9 F 83 21 H 115/64 95 09/19/22 02:00 85 09/18/22 23:10 83 24 H 95 BiPAP 09/19/22 00:00 80 09/19/22 00:00 79 24 H 92 BiPAP 09/19/22 00:00 99.1 F 79 24 H 98/58 L 93 09/18/22 22:00 99.3 F 83 21 H 117/9
[2022-09-19] MEDS: SODIUM CHLORIDE 0.9% IV 1,000 ML 75 ML IV CONT ×2 (10:38→22:57)
[2022-09-19] MEDS: HEPARIN SODIUM 5,000 UNITS/ML VIAL 5000 UNITS SUB-Q ×2 (10:38→20:21)
--- NOTE | 2022-09-19 11:49 | PCPTNOTE ---
Attempted PT evaluation, pt refused reporting he is too tired from OT. RN aware.
--- NOTE | 2022-09-19 12:23 | PM.PNGS ---
Progress Note: A&P Assessment and Plan (1) Ileus: Code(s): K56.7 - Ileus, unspecified Status: Acute Assessment and Plan: KUB showed evidence of an ileus yesterday. Abdomen is still distended and no flatus or BM yet. Continue NG tube, bowel rest, and IV fluids for today. (2) Acute pancreatitis: Code(s): K85.90 - Acute pancreatitis without necrosis or infection, unspecified Status: Acute Assessment and Plan: Pancreatitis improving, lipase continues to trend down, abdominal pain improving. Continue IV fluids and will keep him NPO with NG tube today. (3) Cholelithiasis: Code(s): K80.20 - Calculus of gallbladder without cholecystitis without obstruction Status: Acute Assessment and Plan: Now that patient is oriented and more alert today, I again discussed with him that eventually we could consider a laparoscopic cholecystectomy but would need him medically stable and optimized prior to planning surgery. We will continue to follow along. (4) Respiratory failure with hypoxia and hypercapnia: Code(s): J96.91 - Respiratory failure, unspecified with hypoxia; J96.92 - Respiratory failure, unspecified with hypercapnia Status: Acute Assessment and Plan: Moved to ICU and has improved with BiPAP. Much more alert this morning and overall looks much better this morning. Management per Margin Trimmer. (5) Sepsis: Code(s): A41.9 - Sepsis, unspecified organism Status: Acute Assessment and Plan: Secondary to pancreatitis with LOTUS. Leukocytosis improved this morning. Blood cx NGTD. Urine cx pending. On IV Zosyn and Vancomycin added as well. (6) Altered mental status: Code(s): R41.82 - Altered mental status, unspecified Status: Acute Assessment and Plan: Significantly improved today now that his pCO2 has normalized. 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 (7) Acute kidney injury: Code(s): N17.9 - Acute kidney failure, unspecified Status: Acute Assessment and Plan: Creatinine up slightly to 3.4 today. Still making good urine, bolden in place. Nephrology following. (8) S/P aortic valve replacement with bioprosthetic valve: Code(s): Z95.3 - Presence of xenogenic heart valve Status: Acute (9) Obesity: Qualifiers: Obesity type: unspecified obesity type Obesity classification: adult class 2 (BMI 35 - 39.9) Serious obesity comorbidity presence: unspecified whether serious comorbidity present Body mass index: BMI 38.0-38.9 Qualified Code(s): E66.9 - Obesity, unspecified; Z68.38 - Body mass index [BMI] 38.0-38.9, adult Code(s): E66.9 - Obesity, unspecified Status: Acute Plan I have discussed the patient's case and plan of care with Dr. Mckeon. Subjective Subjective Date/Time Seen: 09/19/22 11:23 Patient reports: no new complaints, feels better, pain is less, no flatus, no bowel movement and afebrile Interval history: Patient now seen in the ICU. He was moved to the ICU yesterday due to worsening ABGs for closer monitoring. He was on the BiPAP, which is currently off at this time. His ABGs have improved. He does not remember any events yesterday after admission, but is more alert and is oriented this morning. His abdominal pain is much better than when he came into the ER reportedly. He states it is bone char kiln tender but he is not having any pain at rest. He denies any nausea. NG tube in place with 235 cc documented output overnight. He is up sitting in the chair and has a Bolden catheter in place. Review of Systems Review of Systems: All systems reviewed & are unremarkable except as noted in HPI and below Exam Const: General: comfortable, no acute distress and awake Nutritional Appearance: obese Orientation/consciousness: patient oriented x3 GI: Inspection: distended and obesity GI Palp: Yes Firmness to palpation present (GI), Yes Tenderness to palpation presen
[2022-09-19 12:37] LABS: Eosinophil Urine None Seen % (None Seen)
[2022-09-19 12:40] LABS: Creatinine Urine 229.6 mg/dL; Urea Random Urine 554 MG/DL
[2022-09-19 12:56] LABS: Sodium Urine Random 14 meq/L
[2022-09-19 15:17] LABS: INR 1.3; Prothrombin Time 15.8 Seconds (11.1-14.7)
[2022-09-19 15:19] LABS: Partial Thromboplastin Time 34.5 SECONDS (22.3-36.8)
--- NOTE | 2022-09-19 15:41 | WPDGIPROGNO ---
Progress Note: A&P Assessment and Plan (1) Acute pancreatitis: Code(s): K85.90 - Acute pancreatitis without necrosis or infection, unspecified Status: Acute Assessment and Plan: GS pancreatitis complicated with ileus, LOTUS and respiratory distress he is in icu but feeling better today NGT in place will need interval lap rossy but needs to get more stable (2) Acute kidney injury: Code(s): N17.9 - Acute kidney failure, unspecified Status: Acute Assessment and Plan: continue to monitor (3) Respiratory failure with hypoxia and hypercapnia: Code(s): J96.91 - Respiratory failure, unspecified with hypoxia; J96.92 - Respiratory failure, unspecified with hypercapnia Status: Acute Assessment and Plan: treated in icu, better (4) Ileus: Code(s): K56.7 - Ileus, unspecified Status: Acute Assessment and Plan: ngt for now (5) Abdominal distension: Code(s): R14.0 - Abdominal distension (gaseous) Status: Acute (6) Nausea and vomiting in adult: Code(s): R11.2 - Nausea with vomiting, unspecified Status: Acute (7) Cholelithiasis: Code(s): K80.20 - Calculus of gallbladder without cholecystitis without obstruction Status: Acute Subjective Date/time seen: 09/19/22 15:41 Interval history: transferred to ICU after became more lethargic and required bipap, also NGT placed because of ileus. He is feeling better, awake and oriented but complaining of left flank pain. NGT still in place. Review of Systems Review of Systems: All systems reviewed & are unremarkable except as noted in HPI and below Exam Const: General: comfortable, no acute distress and awake Nutritional Appearance: obese Orientation/consciousness: patient oriented x3 HENMT: Face/Nose/Sinus: Normal nares present Eyes: General: appearance normal, both eyes and all related structures Neck: Neck: supple Resp: Auscultation: clear to auscultation bilaterally Cardio: Rate: regular rate GI: Inspection: distended and obesity GI Palp: Yes Tenderness to palpation present (GI) (diffusely tender, worse in RUQ), Yes Guarding due to palpation present (GI) (RUQ) and No Rebound tenderness present Auscultation: Hypoactive bowel sounds present Urinary Catheter: Urinary Catheter: patent and draining and urine cloudy Skin: General skin exam: normal color Neuro: Speech: normal speech Motor exam (neuro): 5/5 motor strength present throughout Extrem: General: normal to inspection Psych: Mental Status: mental status grossly normal Objective Data Vital Signs Vital Signs: Vital Signs - 24 hr 09/18/22 16:31 09/18/22 16:56 09/18/22 16:57 Temperature Pulse Rate 92 90 90 Respiratory Rate 21 H 24 H 24 H Blood Pressure Pulse Oximetry 97 96 96 Oxygen Delivery BiPAP BiPAP BiPAP Oxygen Flow Rate Fraction of Inspired Oxygen 45 09/18/22 19:23 09/18/22 20:42 09/18/22 20:00 Temperature Pulse Rate 97 90 94 Respiratory Rate 24 H 24 H 15 Blood Pressure Pulse Oximetry 96 95 97 Oxygen Delivery BiPAP BiPAP BiPAP Oxygen Flow Rate Fraction of Inspired Oxygen 45 09/18/22 19:30 09/18/22 20:00 09/18/22 22:00 Temperature Pulse Rate 94 93 83 Respiratory Rate 15 Blood Pressure 115/64 Pulse Oximetry 97 Oxygen Delivery Oxygen Flow Rate Fraction of Inspired Oxygen 09/18/22 22:00 09/19/22 00:00 09/19/22 00:00 Temperature 99.3 F 99.1 F Pulse Rate 83 79 79 Respiratory Rate 21 H 24 H 24 H Blood Pressure 117/94 H 98/58 L Pulse Oximetry 95 93 92 Oxygen Delivery BiPAP Oxygen Flow Rate Fraction of Inspired Oxygen 45 09/19/22 00:00 09/18/22 23:10 09/19/22 02:00 Temperature Pulse Rate 80 83 85 Respiratory Rate 24 H Blood Pressure Pulse Oximetry 95 Oxygen Delivery BiPAP Oxygen Flow Rate Fraction of Inspired Oxygen 09/19/22 02:00 09/19/22 04:00 09/19/22 04:00 Temperature 98.9 F 98.8 F
[2022-09-19] MEDS: IPRATROPIUM BR 0.02% INH SOLN 0.5 MG/2.5 ML VIAL INHALATION ×2 (16:50→20:13)
[2022-09-19] MEDS: ALBUTEROL SULFATE NEB 2.5 MG/3 ML INH INHALATION ×2 (16:50→20:12)
--- NOTE | 2022-09-19 17:39 | PM.IMPN ---
Progress Note: A&P Assessment and Plan (1) Pancreatitis: Code(s): K85.90 - Acute pancreatitis without necrosis or infection, unspecified Status: Acute Assessment and Plan: presented with nausea and vomiting. CT revealed acute uncomplicated [place]. [place] [address]. suspect secondary to cholelithiasis with onset after fatty meal. Rare alcohol use. Triglycerides within normal limits. Appreciate gastroenterology and general surgery recommendations. Lipase improved to 4396 today. Continue NPO diet at this time. Continue with IV fluid rehydration. IV Tylenol for pain control. Avoid narcotics given mental status and respiratory status changes 09/19/2021 interval history: morbidly obese patient initially presented abdominal pain nausea or vomiting was found to have a pancreatitis with leukocytosis tachycardia tachypnea lactic acidosis and worsening renal function met criteria for sepsis, however later in the evening patient went into hypoxia an ABG showed hypercarbic respiratory failure patient was seen by box sealing machine feeder, patient was placed on BiPAP and repeat ABG showed persistent hypercarbia patient was alert and oriented,, for close observation patient was transfer to ICU and remained on BiPAP, patient was also found to ileus seen by surgery service patient is placed on NG tube, patient not passing any gas and no BM, will continue conservative management in hopes ileus will resolve, patient clinical symptoms are stable discussed with on call will monitor patient 1 more day in ICU and will transfer the patient IMU tomorrow (2) Sepsis: Code(s): A41.9 - Sepsis, unspecified organism Status: Acute Assessment and Plan: septic based on leukocytosis, tachypnea, tachycardia, lactic acidosis, and worsening renal failure. [place] to be secondary to acute biliary pancreatitis. lactic acid has normalized. Patient remains afebrile. Blood cultures pending. Continue IV Zosyn. Continue with IV fluids. (3) Cholelithiasis: Code(s): K80.20 - Calculus of gallbladder without cholecystitis without obstruction Status: Acute Assessment and Plan: Evident on CT and right upper quadrant ultrasound. appreciate general surgery recommendations. laparoscopic cholecystectomy to be considered, however patient is not a candidate at this time given active medical issues including worsened acute renal failure, pancreatitis, hypoxia. LFTs are within normal limits. (4) Acute kidney injury: Code(s): N17.9 - Acute kidney failure, unspecified Status: Acute Assessment and Plan: Baseline creatinine 1.2. Creatinine elevated to 1.9 on admission with increased to 3.1 today and rising BUN Despite IV fluid rehydration. Likely ATN from acute infectious process. Appreciate Nephrology recommendations. Renal ultrasound is pending. Monitor urine output. Avoid nephrotoxins. (5) Altered mental status: Code(s): R41.82 - Altered mental status, unspecified Status: Acute Assessment and Plan: Patient oriented to self and time only. Per his , he is not at his baseline and appears confused. May be related to infectious process vs uremia vs hypoxia. will proceed with head CT to rule stroke. Obtain ABG to assess for hypercapnia. UA without concerns for infection. Will check TSH, B12, folate, ammonia. monitor mental status closely (6) Hypoxia: Code(s): R09.02 - Hypoxemia Status: Acute Assessment and Plan: Patient reportedly became hypoxic in the ED after administration of narcotic pain medication. Currently requiring 4 L supplemental O2. Initial CXR revealed mild interstitial edema. There is no signs of hyperkalemia on physical exam. Will obtain repeat CXR given oxygen requirements. Begin incentive spirometry. Discontinue narcotics. ABG pending as above. Provide supplemental O2 as needed With goal sats 92% or above. (7) Abdomin
[2022-09-20] VITALS (38 sets, daily range): BP systolic 106–169; BP diastolic 70–94; PULSE 85–180; RESP 18–35; TEMP 37.1–37.8; O2SAT 80–100; BMI 38.9
[2022-09-20] MEDS: ALBUTEROL SULFATE NEB 2.5 MG/3 ML INH INHALATION ×4 (02:25→20:06)
[2022-09-20] MEDS: IPRATROPIUM BR 0.02% INH SOLN 0.5 MG/2.5 ML VIAL INHALATION ×4 (02:26→20:06)
--- NOTE | 2022-09-20 04:24 | ECG_ITS ---
Measurements Intervals [place] Rate: 121 P: MN: 0 QRS: -29 QRSD: 69 T: 66 QT: 263 QTc: 374 Interpretive Statements ATRIAL FIBRILLATION WITH RAPID VENTRICULAR RESPONSE INCOMPLETE RIGHT BUNDLE BRANCH BLOCK LOW QRS VOLTAGE IN PRECORDIAL LEADS LEFT VENTRICULAR HYPERTROPHY WITH ST-T CHANGE CONSIDER INFERIOR INFARCT, AGE INDETERMINATE ABNORMAL ECG COMPARED TO ECG 09/17/2022 09:45:08 ATRIAL FIBRILLATION NOW PRESENT Electronically Signed On 09-20-2022 7:59:00 DESIZING PAD OPERATOR by Azar Linares D.O.
[2022-09-20 04:47] LABS: Alveolar/Arterial O2 Gradient 164.7 mmHg; Base Excess ABG -5.2 mEq/l (+/-2.0); HCO3 ABG 21.4 mEq/l (22.0-26.0); Oxygen Saturation ABG 91.6 % (95.0-100.0); PCO2 ABG 45.4 mmHg (35.0-45.0); PO2 ABG 68.3 mmHg (80.0-100.0); Total Hemoglobin 13.8 g/dL (12.0-18.0)
[2022-09-20 04:48] LABS: Carboxyhemoglobin 0.8 % THb (0-2.0); Methemoglobin ABG 0.3 %THb (0-1.5); Oxygen Content ABG 17.7 %vol (16.0-22.0); Oxyhemoglobin 91.3 % THb (90.0-100.0); Reduced Hemoglobin 7.6 %THb (0-5.0)
[2022-09-20 04:49] LABS: Fractional Inspired Oxygen 40 %; Modified Allen's Test Pass; PO2 FiO2 Ratio Arterial Blood 1.71 %; Site Drawn RIGHT RADIAL
[2022-09-20 04:50] LABS: Device BIPAP; Expiratory Pressure 8 cmH2O; Inspiratory Pressure 18 cmH2O
[2022-09-20 04:54] LABS: Basophils Absolute Auto 0.2 K/mm3 (0.0-0.1); Basophils Percent Auto 1.4 % (0.2-1.2); Eosinophils Absolute Auto 0.1 K/mm3 (0-0.3); Hematocrit 44.2 % (42.0-52.0); Hemoglobin 13.6 g/dL (14.0-18.0); Immature Granulocyte Absolute 0.14 K/mm3 (0.00-0.031); Immature Granulocyte Percent A 1.2 % (0-0.5); Lymphocytes Percent Auto 7.7 % (18.3-44.2); Mean Corpuscular HGB Conc 30.8 g/dl (32-36); Mean Corpuscular Hemoglobin 29.1 pg (26-34); Mean Corpuscular Volume 94.4 fl (80-100); Mean Platelet Volume 8.9 fl (7.4-10.4); Monocytes Absolute Auto 0.7 K/mm3 (0.1-0.6); Monocytes Percent Auto 6.3 % (2.6-8.5); Neutrophils Absolute Auto 9.7 K/mm3 (1.3-6.7); Neutrophils Percent Auto 82.4 % (45.5-73.1); Platelet Count Result 235 k/mm3 (150-375); Red Blood Count 4.68 M/mm3 (4.6-6.20); Red Cell Distribution Width 14.5 % (11.5-14.5); White Blood Count 11.7 K/mm3 (4.5-10.0)
[2022-09-20 05:05] LABS: Potassium 3.9 mmol/L (3.4-5.0)
[2022-09-20 05:21] LABS: Alanine Aminotransferase 26 U/L (6-50); Albumin Level 3.5 g/dL (3.5-5.1); Alkaline Phosphatase 55 U/L (38-126); Anion Gap 8 mmol/L (8-16); Aspartate Amino Transferase 33 U/L (17-59); Bilirubin,Total 0.6 mg/dL (0.2-1.3); Blood Urea Nitrogen 44 mg/dL (9-20); Calcium 8.3 mg/dL (8.4-10.2); Carbon Dioxide 25 mmol/L (22-30); Chloride 110 mmol/L (98-107); Creatine Kinase 255 U/L (55-170); Estimated CRCL calculation 31 ml/min; Estimated Glomerular Filt Rate 29; Glucose 115 mg/dL (65-110); Lipase 514 U/L (23-300); Magnesium 2.1 mg/dL (1.6-2.3); Phosphorus 3.6 mg/dL (2.5-4.5); Sodium 143 mmol/L (137-145)
[2022-09-20 05:57] LABS: CRP 32.5 mg/dL (<1.0)
[2022-09-20] MEDS: LIDOCAINE 5% PATCH 1 PATCH TRANSDERM (08:27)
[2022-09-20] MEDS: HEPARIN SODIUM 5,000 UNITS/ML VIAL 5000 UNITS SUB-Q ×2 (08:27→20:54)
[2022-09-20] MEDS: PANTOPRAZOLE SODIUM IV 40 MG VIAL IV PUSH (08:28)
--- NOTE | 2022-09-20 09:26 | WPDINTPN ---
Progress Note: A&P Assessment and Plan (1) Acute pancreatitis: Code(s): K85.90 - Acute pancreatitis without necrosis or infection, unspecified Status: Acute Assessment and Plan: patient presented with abdominal pain on admission on 09/17/2022, found to have acute pancreatitis likely secondary to gallstones - initial lipase was significantly elevated, patient was treated with IV fluids, - remains on maintenance IV fluids - lipase trending down well - abdominal pain has improved - continue Zosyn and vancomycin (09/17) 09/17/22 CT scan of the abdomen and pelvis showed acute uncomplicated pancreatitis, thickening of the gastric antrum and duodenum which may relate to adjacent pancreatitis or gastroenteritis/ duodenitis, cholelithiasis.- (2) Respiratory failure with hypoxia and hypercapnia: Code(s): J96.91 - Respiratory failure, unspecified with hypoxia; J96.92 - Respiratory failure, unspecified with hypercapnia Status: Acute Assessment and Plan: Patient was transferred to the ICU on 09/18/22 for worsening ABGs, and requiring BiPAP. - could be related to abdominal distension secondary to pancreatitis, obesity hypoventilation syndrome possible obstructive sleep apnea, pneumonia /atelectasis -chest x-ray this morning: - Stable small pleural effusions.. Stable airspace opacities at the lung bases, likely atelectasis. -continue BiPAP with intermittent Airvo -PT OT to follow, sit up in chair with assistance -continue bronchodilators and antibiotics as above (3) Acute kidney injury: Code(s): N17.9 - Acute kidney failure, unspecified Status: Acute Assessment and Plan: patient presented with acute kidney injury, creatinine on admission was 1.90 - received adequate IV fluids - creatinine trending down - urine output has been adequate - nephrology following the patient - 09/18/2022 renal ultrasound showed left nephrolithiasis, no hydronephrosis - continue to monitor urine output, renal function electrolytes of note patient was on dialysis for approximately 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 I answered all questions Code Status: full code Critical Care Time Spent: 34 minutes Due to a high probability of clinically significant, life threatening deterioration, the patient required my highest level of preparedness to intervene emergently and I personally spent this critical care time directly and personally managing the patient. This critical care time included obtaining a history; examining the patient; pulse oximetry; ordering and review of studies; arranging urgent treatment with development of a management plan; evaluation of patient's response to treatment; frequent reassessme
--- NOTE | 2022-09-20 10:27 | PM.PNGS ---
Progress Note: A&P Assessment and Plan (1) Ileus: Code(s): K56.7 - Ileus, unspecified Status: Acute Assessment and Plan: Clinically improving and his abdomen is less distended today. He is passing flatus but no BM yet. High NG output but had a large quantity of ice chips yesterday and overnight. Will remove NG tube and start clear liquids. Give dulcolax supp. (2) Acute pancreatitis: Code(s): K85.90 - Acute pancreatitis without necrosis or infection, unspecified Status: Acute Assessment and Plan: Pancreatitis improving, lipase continues to trend down to 514 today. No abdominal pain this morning and his tenderness is improving. Will start clear liquids today. (3) Cholelithiasis: Code(s): K80.20 - Calculus of gallbladder without cholecystitis without obstruction Status: Acute Assessment and Plan: Will eventually need an interval cholecystectomy with medically stable. (4) Respiratory failure with hypoxia and hypercapnia: Code(s): J96.91 - Respiratory failure, unspecified with hypoxia; J96.92 - Respiratory failure, unspecified with hypercapnia Status: Acute Assessment and Plan: Improved with BiPAP but refused this overnight. More compliant this morning and wearing his BiPAP now. Management per Doughnut Machine Operator Helper. (5) Sepsis: Code(s): A41.9 - Sepsis, unspecified organism Status: Acute Assessment and Plan: Secondary to pancreatitis. Leukocytosis and LOTUS improving. Blood cx NGTD. Urine cx no growth. On IV Zosyn and Vancomycin. (6) Altered mental status: Code(s): R41.82 - Altered mental status, unspecified Status: Acute Assessment and Plan: Alert and oriented again today. Improved as his pCO2 improved. (7) Acute kidney injury: Code(s): N17.9 - Acute kidney failure, unspecified Status: Acute Assessment and Plan: Creatinine down to 2.2 this morning. Making good urine. Nephrology following. (8) S/P aortic valve replacement with bioprosthetic valve: Code(s): Z95.3 - Presence of xenogenic heart valve Status: Acute (9) Obesity: Qualifiers: Obesity type: unspecified obesity type Obesity classification: adult class 2 (BMI 35 - 39.9) Serious obesity comorbidity presence: unspecified whether serious comorbidity present Body mass index: BMI 38.0-38.9 Qualified Code(s): E66.9 - Obesity, unspecified; Z68.38 - Body mass index [BMI] 38.0-38.9, adult Code(s): E66.9 - Obesity, unspecified Status: Acute Plan I have discussed the patient's case and plan of care with Dr. Mckeon. Subjective Subjective Date/Time Seen: 09/20/22 10:27 Patient reports: no new complaints, feels better, flatus, no bowel movement and afebrile Interval history: Patient seen and examined in the ICU. He is currently wearing his BiPAP. Per nursing, he refused his BiPAP in order to be able to constantly eat ice chips. He had 650 cc out his NG overnight, but per nursing he had a large quantity of ice chips. He refused therapy yesterday. He also was adamant about going home this morning and tried getting up out of bed early this morning by himself to get ice chips. He then went into AFib with RVR and was situated back in the bed by staff. This lasted about an hour and he spontaneously converted back to a sinus rhythm. He is now sitting up in recliner. He finally agreed to put his BiPAP back on this morning. He denies any abdominal pain or nausea. He is passing gas, but no BM. Review of Systems Review of Systems: All systems reviewed & are unremarkable except as noted in HPI and below Exam Const: General: comfortable and no acute distress Nutritional Appearance: obese Orientation/consciousness: patient oriented x3 GI: Inspection: other (less distended today) GI Palp: Yes Soft to palpation, Yes Tenderness to palpation present (GI) (RUQ), No Guarding due to palpation present (GI) and N
--- NOTE | 2022-09-20 10:57 | PM.IMPN ---
Progress Note: A&P Assessment and Plan (1) Pancreatitis: Code(s): K85.90 - Acute pancreatitis without necrosis or infection, unspecified Status: Acute Assessment and Plan: presented with nausea and vomiting. CT revealed acute uncomplicated [place]. [place] [address]. suspect secondary to cholelithiasis with onset after fatty meal. Rare alcohol use. Triglycerides within normal limits. Appreciate gastroenterology and general surgery recommendations. Lipase improved to 4396 today. Continue NPO diet at this time. Continue with IV fluid rehydration. IV Tylenol for pain control. Avoid narcotics given mental status and respiratory status changes 09/20/2021 interval history: morbidly obese patient initially presented abdominal pain nausea or vomiting was found to have a pancreatitis with leukocytosis tachycardia tachypnea lactic acidosis and worsening renal function met criteria for sepsis, however on 09/18 later in the evening patient went into hypoxia an ABG showed hypercarbic respiratory failure patient was seen by medical imaging tech, patient was placed on BiPAP and repeat ABG showed persistent hypercarbia patient was alert and oriented,, for close observation patient was transfer to ICU and remained on BiPAP, patient was also found to ileus seen by surgery service patient is placed on NG tube, patient not passing any gas and no BM, patient is also found to acute pancreatitis, will continue conservative management in hopes ileus will resolve, patient clinical symptoms are stable discussed with tower cleaner will monitor patient 1 more day in ICU and will transfer the patient IMU tomorrow Subjective Date/time seen: 09/20/22 10:57 presented with nausea and vomiting. CT revealed acute uncomplicated [place] [address]. suspect secondary to cholelithiasis with onset after fatty meal. Rare alcohol use. Triglycerides within normal limits. Appreciate gastroenterology and general surgery recommendations. Lipase improved to 4396 today. Continue NPO diet at this time. Continue with IV fluid rehydration. IV Tylenol for pain control. Avoid narcotics given mental status and respiratory status changes 09/20/2021 interval history: morbidly obese patient initially presented abdominal pain nausea or vomiting was found to have a pancreatitis with leukocytosis tachycardia tachypnea lactic acidosis and worsening renal function met criteria for sepsis, however on 09/18 later in the evening patient went into hypoxia an ABG showed hypercarbic respiratory failure patient was seen by medical imaging tech, patient was placed on BiPAP and repeat ABG showed persistent hypercarbia patient was alert and oriented,, for close observation patient was transfer to ICU and remained on BiPAP, patient was also found to ileus seen by surgery service patient is placed on NG tube, patient not passing any gas and no BM, patient is also found to acute pancreatitis, will continue conservative management in hopes ileus will resolve, patient clinical symptoms are stable discussed with tower cleaner will monitor patient 1 more day in ICU and will transfer the patient IMU tomorrow Exam Narrative: morbidly obese Patient is comfortable, NAD HEENT: eyes are clear and none icteric NG tube in place LUNGS: normal respiratory effort ABD: distended Lower extremities: no edema SKIN: nonjaundiced Neuro: grossly intact. Objective Data Vital Signs Vital Signs: Vital Signs - 24 hr 09/19/22 10:58 09/19/22 11:00 09/19/22 14:00 Temperature 98.7 F Pulse Rate 78 80 82 Respiratory Rate 19 15 19 Blood Pressure 110/55 L Pulse Oximetry 95 97 96 Oxygen Delivery Nasal Cannula Nasal Cannula Oxygen Flow Rate 4 4 Fraction of Inspired Oxygen 09/19/22 12:00 09/19/22 14:00 09/19/22 12:00 Temperature 98.7 F Pulse Rate 82 98 82 Respiratory Rate 19 Blood Pressure 125/74 Pulse Oximetry 95 Oxygen Delivery Oxygen Flow Rate Fr
[2022-09-20] MEDS: BISACODYL 10 MG SUPPOSITORY RECTAL (11:44)
--- NOTE | 2022-09-20 12:06 | PM.PNNEP ---
Progress Note: A&P Assessment and Plan (1) Acute kidney injury: Code(s): N17.9 - Acute kidney failure, unspecified Status: Acute Assessment and Plan: suspect due to pancreatitis and possible pre-renal factors evaluation noted to date: renal ultrasound unremarkable except left nephrolithiasis urine electrolytes prerenal urine eosinophils negative CPK mildly elevated - butnot enough to affect kidney function continues to make urine at this time follow hemodynamics monitor repeat labs and UOP (2) Acute pancreatitis: Code(s): K85.90 - Acute pancreatitis without necrosis or infection, unspecified Status: Acute Assessment and Plan: as noted by elevated lipase and abdominal pain GI and Surgery following -- medical management for now CT of abdomen with acute uncomplicated pancreatitis, thickening of the gastric antrum and duodenum which may relate to adjacent pancreatitis or gastroenteritis/ duodenitis continue IVFs and pain control trend lipase - improving empirically on antibiotics (3) Respiratory failure with hypoxia and hypercapnia: Code(s): J96.91 - Respiratory failure, unspecified with hypoxia; J96.92 - Respiratory failure, unspecified with hypercapnia Status: Acute Assessment and Plan: appear to have responded to BiPAP therapy suspect exacerbated by OHS +/- TERESITA versus early pneumonia versus atelectasis follow respiratory status (4) Sepsis: Code(s): A41.9 - Sepsis, unspecified organism Status: Acute Assessment and Plan: as evidence by elevated WBC, LOTUS/ARF, lactic acidosis, and pancreatitis appropriate culture pending on antibiotics for now (5) Essential (primary) hypertension: Code(s): I10 - Essential (primary) hypertension Status: Chronic Assessment and Plan: hypertensive on admission -- due to pain(?) stable readings more recently -- due to pain medications(?) follow trend of hemodynamics (6) Altered mental status: Code(s): R41.82 - Altered mental status, unspecified Status: Acute Assessment and Plan: likely secondary to hypercapnea pain medications may have played a role follow mentation Will continue to follow. Subjective Date/time seen: 09/20/22 12:06 Patient did not want to wear BiPAP overnight but eventually did after nursing explained the necessity of it; issues with Afibe with RVR which resolved with supportive therapy; overall, he states he feels better; remains hemodynamically stable with improving urine output/renal function. Exam Narrative: General: WD/WN male in NAD Heart: normal S1 and S2; no rub Lungs: coarse breath sounds Abdomen: soft, nontender, nondistended, positive bowel sounds Extremities: no cyanosis or clubbing; trace - 1+ edema Skin: warm and intact Objective Data Vital Signs Vital Signs: Vital Signs Temp Pulse Resp BP Pulse Ox O2 Del Method O2 Flow Rate 09/20/22 12:00 99.7 F H 96 25 H 153/84 H 09/20/22 12:00 86 09/20/22 12:00 89 21 H 96 High Flow Nasal Cannula 30 09/20/22 10:00 91 09/20/22 12:06 85 97 High Flow Therapy with Na 40 09/20/22 10:03 107 H 97 High Flow Therapy with Na 40 09/20/22 09:00 99.4 F 106 H 20 158/88 H 09/20/22 08:00 99.5 F 89 23 H 164/93 H 97 09/20/22 07:00 99.8 F H 95 28 H 97 09/20/22 08:00 87 09/20/22 08:00 91 22 H 96 BiPAP 50 09/20/22 08:46 89 20 09/20/22 08:45 93 27 H 100 BiPAP 09/20/22 08:32 91 27 H 09/20/22 06:00 93 09/20/22 06:00 99.7 F H 95 23 H 145/86 H 97 09/20/22 04:45 138 H 24 H 92 BiPAP 09/20/22 04:17 99.3 F 180 H 35 H 153/94 H 80 L 09/20/22 04:00 101 H 28 H 93 Nasal Cannula 4 09/20/22 04:00 101 H 09/20/22 04:00 99.2 F 101 H 28 H 149/75 H 93 09/20/22 02:26 95 27 H 09/20/22 02:00 98.8 F 93 22 H
--- NOTE | 2022-09-20 12:06 | P.PNNP_ITS ---
Progress Note: A&P Assessment and Plan (1) Acute kidney injury: Code(s): N17.9 - Acute kidney failure, unspecified Status: Acute Assessment and Plan: * suspect due to pancreatitis and possible pre-renal factors * evaluation noted to date: * renal ultrasound unremarkable except left nephrolithiasis * urine electrolytes prerenal * urine eosinophils negative * CPK mildly elevated - butnot enough to affect kidney function * continues to make urine at this time * follow hemodynamics * monitor repeat labs and UOP (2) Acute pancreatitis: Code(s): K85.90 - Acute pancreatitis without necrosis or infection, unspecified Status: Acute Assessment and Plan: * as noted by elevated lipase and abdominal pain * GI and Surgery following -- medical management for now * CT of abdomen with acute uncomplicated pancreatitis, thickening of the gastric antrum and duodenum which may relate to adjacent pancreatitis or gastroenteritis/ duodenitis * continue IVFs and pain control * trend lipase - improving * empirically on antibiotics (3) Respiratory failure with hypoxia and hypercapnia: Code(s): J96.91 - Respiratory failure, unspecified with hypoxia; J96.92 - Respiratory failure, unspecified with hypercapnia Status: Acute Assessment and Plan: * appear to have responded to BiPAP therapy * suspect exacerbated by OHS +/- TERESITA versus early pneumonia versus atelectasis * follow respiratory status (4) Sepsis: Code(s): A41.9 - Sepsis, unspecified organism Status: Acute Assessment and Plan: * as evidence by elevated WBC, LOTUS/ARF, lactic acidosis, and pancreatitis * appropriate culture pending * on antibiotics for now (5) Essential (primary) hypertension: Code(s): I10 - Essential (primary) hypertension Status: Chronic Assessment and Plan: * hypertensive on admission -- due to pain(?) * stable readings more recently -- due to pain medications(?) * follow trend of hemodynamics (6) Altered mental status: Code(s): R41.82 - Altered mental status, unspecified Status: Acute Assessment and Plan: * likely secondary to hypercapnea * pain medications may have played a role * follow mentation Will continue to follow. Subjective Date/time seen: 09/20/22 12:06 Patient did not want to wear BiPAP overnight but eventually did after nursing explained the necessity of it; issues with Afibe with RVR which resolved with supportive therapy; overall, he states he feels better; remains hemodynamically stable with improving urine output/renal function. Exam Narrative: General: WD/WN male in NAD Heart: normal S1 and S2; no rub Lungs: coarse breath sounds Abdomen: soft, nontender, nondistended, positive bowel sounds Extremities: no cyanosis or clubbing; trace - 1+ edema Skin: warm and intact Objective Data Vital Signs Vital Signs: Vital Signs Temp Pulse Resp BP Pulse Ox O2 Del Method O2 Flow Rate 09/20/22 12:00 99.7 F H 96 25 H 153/84 H 09/20/22 12:00 86 09/20/22 12:00 89 21 H 96 High Flow Nasal Cannula 30 09/20/22 10:00 91 09/20/22 12:06 85 97 High Flow Therapy with Na 40 09/20/22 10:03 107 H 97 High Flow Therapy with Na 40 09/20/22 09:00 99.4 F 106 H 20 158/88 H 09/20/22 08:00 99.5 F 89 23 H 164/93
[2022-09-20] MEDS: hydrALAZINE HCL 20 MG/ML VIAL 10 MG IV PUSH ×2 (14:24→17:50)
--- NOTE | 2022-09-20 16:07 | WPDGIPROGNO ---
Progress Note: A&P Assessment and Plan (1) Acute pancreatitis: Code(s): K85.90 - Acute pancreatitis without necrosis or infection, unspecified Status: Acute Assessment and Plan: clinically better, on liquid diet surgery on board because GS (2) Nausea and vomiting in adult: Code(s): R11.2 - Nausea with vomiting, unspecified Status: Acute Assessment and Plan: improved, NGT removed and now tolerating liquid diet (3) Ileus: Code(s): K56.7 - Ileus, unspecified Status: Acute Assessment and Plan: resolved (4) Respiratory failure with hypoxia and hypercapnia: Code(s): J96.91 - Respiratory failure, unspecified with hypoxia; J96.92 - Respiratory failure, unspecified with hypercapnia Status: Acute (5) Encephalopathy acute: Code(s): G93.40 - Encephalopathy, unspecified Status: Acute Assessment and Plan: resolved Subjective Date/time seen: 09/20/22 16:07 Interval history: better today, still with left flank pain, tolerated CL diet Review of Systems Review of Systems: All systems reviewed & are unremarkable except as noted in HPI and below Exam Const: General: comfortable and no acute distress Nutritional Appearance: obese Orientation/consciousness: patient oriented x3 HENMT: Face/Nose/Sinus: Normal nares present Eyes: General: appearance normal, both eyes and all related structures Neck: Neck: supple Resp: Auscultation: clear to auscultation bilaterally Cardio: Rate: regular rate GI: Inspection: other (less distended today) GI Palp: Yes Soft to palpation, Yes Tenderness to palpation present (GI) (RUQ), No Guarding due to palpation present (GI) and No Rebound tenderness present Auscultation: Hypoactive bowel sounds present Urinary Catheter: Urinary Catheter: patent and draining Skin: General skin exam: normal color Neuro: Speech: normal speech Extrem: General: normal to inspection Psych: Affect: normal affect Objective Data Vital Signs Vital Signs: Vital Signs - 24 hr 09/19/22 17:00 09/19/22 16:50 09/19/22 18:00 Temperature 98.8 F Pulse Rate 87 85 86 Respiratory Rate 23 H 22 H Blood Pressure 130/67 Pulse Oximetry 94 Oxygen Delivery Oxygen Flow Rate Fraction of Inspired Oxygen 09/19/22 18:00 09/19/22 20:00 09/19/22 20:00 Temperature 98.9 F Pulse Rate 87 95 Respiratory Rate 20 25 H Blood Pressure 136/70 Pulse Oximetry 93 93 93 Oxygen Delivery Nasal Cannula Nasal Cannula Oxygen Flow Rate 4 4 Fraction of Inspired Oxygen 09/19/22 21:41 09/19/22 21:41 09/19/22 21:41 Temperature Pulse Rate 84 Respiratory Rate 26 H Blood Pressure Pulse Oximetry 95 Oxygen Delivery Nasal Cannula Nasal Cannula Oxygen Flow Rate 4 Fraction of Inspired Oxygen 09/19/22 22:00 09/19/22 20:00 09/19/22 22:00 Temperature 99.1 F Pulse Rate 99 93 101 H Respiratory Rate 23 H Blood Pressure 163/92 H Pulse Oximetry 95 Oxygen Delivery Oxygen Flow Rate Fraction of Inspired Oxygen 09/20/22 00:00 09/20/22 00:00 09/20/22 00:00 Temperature 99.1 F Pulse Rate 90 90 90 Respiratory Rate 28 H 28 H Blood Pressure 106/82 Pulse Oximetry 93 93 Oxygen Delivery Nasal Cannula Oxygen Flow Rate 4 Fraction of Inspired Oxygen 40 09/20/22 02:00 09/20/22 02:00 09/20/22 02:26 Temperature 98.8 F Pulse Rate 90 93 95 Respiratory Rate 22 H 27 H Blood Pressure 153/80 H Pulse Oximetry 92 Oxygen Delivery Oxygen Flow Rate Fraction of Inspired Oxygen 09/20/22 04:00 09/20/22 04:00 09/20/22 04:00 Temperature 99.2 F Pulse Rate 101 H 101 H 101 H Respiratory Rate 28 H 28 H Blood Pressure 149/75 H Pulse Oximetry 93 93 Oxygen Delivery Nasal Cannula Oxygen Flow Rate 4 Fraction of Inspired Oxygen 09/20/22 04:17 09/20/22 04:45 09/20/22 06:00 Temperature 99.3 F 99.7 F H Pulse Rate 180 H 138 H 95 Respiratory Rate 35 H 24 H
[2022-09-21] VITALS (32 sets, daily range): BP systolic 100–183; BP diastolic 75–128; PULSE 81–113; RESP 18–30; TEMP 37.4–37.7; O2SAT 92–98
[2022-09-21] MEDS: hydrALAZINE HCL 20 MG/ML VIAL 10 MG IV PUSH (01:57)
[2022-09-21] MEDS: ALBUTEROL SULFATE NEB 2.5 MG/3 ML INH INHALATION ×4 (02:25→21:00)
[2022-09-21] MEDS: IPRATROPIUM BR 0.02% INH SOLN 0.5 MG/2.5 ML VIAL INHALATION ×4 (02:25→20:59)
[2022-09-21 04:31] LABS: Basophils Absolute Auto 0.1 K/mm3 (0.0-0.1); Basophils Percent Auto 1.1 % (0.2-1.2); Eosinophils Absolute Auto 0.2 K/mm3 (0-0.3); Hematocrit 38.6 % (42.0-52.0); Hemoglobin 12.6 g/dL (14.0-18.0); Immature Granulocyte Absolute 0.45 K/mm3 (0.00-0.031); Immature Granulocyte Percent A 3.8 % (0-0.5); Lymphocytes Absolute Auto 0.98 K/mm3 (0.9-3.2); Lymphocytes Percent Auto 8.3 % (18.3-44.2); Mean Corpuscular HGB Conc 32.6 g/dl (32-36); Mean Corpuscular Hemoglobin 29.6 pg (26-34); Mean Corpuscular Volume 90.6 fl (80-100); Mean Platelet Volume 8.6 fl (7.4-10.4); Monocytes Absolute Auto 0.9 K/mm3 (0.1-0.6); Monocytes Percent Auto 7.9 % (2.6-8.5); Neutrophils Absolute Auto 9.1 K/mm3 (1.3-6.7); Neutrophils Percent Auto 76.9 % (45.5-73.1); Platelet Count Result 220 k/mm3 (150-375); Red Blood Count 4.26 M/mm3 (4.6-6.20); Red Cell Distribution Width 14.6 % (11.5-14.5); White Blood Count 11.8 K/mm3 (4.5-10.0)
[2022-09-21 04:43] LABS: Alanine Aminotransferase 24 U/L (6-50); Albumin Level 3.2 g/dL (3.5-5.1); Alkaline Phosphatase 55 U/L (38-126); Anion Gap 5 mmol/L (8-16); Aspartate Amino Transferase 28 U/L (17-59); Bilirubin,Total 0.7 mg/dL (0.2-1.3); Blood Urea Nitrogen 25 mg/dL (9-20); Calcium 8.5 mg/dL (8.4-10.2); Carbon Dioxide 28 mmol/L (22-30); Chloride 108 mmol/L (98-107); Estimated CRCL calculation 48 ml/min; Estimated Glomerular Filt Rate 50; Glucose 100 mg/dL (65-110); Lipase 715 U/L (23-300); Magnesium 1.9 mg/dL (1.6-2.3); Phosphorus 1.6 mg/dL (2.5-4.5); Potassium 3.4 mmol/L (3.4-5.0); Sodium 141 mmol/L (137-145)
[2022-09-21 05:53] LABS: Alveolar/Arterial O2 Gradient 152.2 mmHg; Base Excess ABG 2.8 mEq/l (+/-2.0); Carboxyhemoglobin 0.3 % THb (0-2.0); Fractional Inspired Oxygen 40 %; Methemoglobin ABG 0.5 %THb (0-1.5); Oxygen Content ABG 20.5 %vol (16.0-22.0); Oxyhemoglobin 95.9 % THb (90.0-100.0); PO2 FiO2 Ratio Arterial Blood 2.17 %; Reduced Hemoglobin 3.3 %THb (0-5.0); Total Hemoglobin 15.2 g/dL (12.0-18.0); pH ABG 7.447 (7.350-7.450)
--- NOTE | 2022-09-21 08:43 | WPDINTPN ---
Progress Note: A&P Assessment and Plan (1) Acute pancreatitis: Code(s): K85.90 - Acute pancreatitis without necrosis or infection, unspecified Status: Acute Assessment and Plan: patient presented with abdominal pain on admission on 09/17/2022, found to have acute pancreatitis likely secondary to gallstones - initial lipase was significantly elevated, patient was treated with IV fluids, -off IV fluids since he is taking p.o. - lipase trending down - abdominal pain has improved - continue Zosyn and vancomycin (09/17) -NG was removed on 09/20, and was started on clear liquid diet which he is tolerating 09/17/22 CT scan of the abdomen and pelvis showed acute uncomplicated pancreatitis, thickening of the gastric antrum and duodenum which may relate to adjacent pancreatitis or gastroenteritis/ duodenitis, cholelithiasis.- (2) Respiratory failure with hypoxia and hypercapnia: Code(s): J96.91 - Respiratory failure, unspecified with hypoxia; J96.92 - Respiratory failure, unspecified with hypercapnia Status: Acute Assessment and Plan: Patient was transferred to the ICU on 09/18/22 for worsening ABGs, and requiring BiPAP. - could be related to abdominal distension secondary to pancreatitis, obesity hypoventilation syndrome possible obstructive sleep apnea, pneumonia /atelectasis -chest x-ray this morning: - ?Stable airspace opacities at the lung bases, likely atelectasis.. -continue BiPAP with intermittent Airvo -PT OT to follow, sit up in chair with assistance -continue bronchodilators and antibiotics as above (3) Acute kidney injury: Code(s): N17.9 - Acute kidney failure, unspecified Status: Acute Assessment and Plan: patient presented with acute kidney injury, creatinine on admission was 1.90 - received adequate IV fluids - urine output has been adequate - creatinine trending down - nephrology following the patient - 09/18/2022 renal ultrasound showed left nephrolithiasis, no hydronephrosis - continue to monitor urine output, renal function electrolytes of note patient was on dialysis for approximately 2 months after his AAA repair (4) Essential (primary) hypertension: Code(s): I10 - Essential (primary) hypertension Status: Chronic Assessment and Plan: patient with essential hypertension -will start home amlodipine and metoprolol (5) Sepsis: Code(s): A41.9 - Sepsis, unspecified organism Status: Acute Assessment and Plan: patient presented with leukocytosis, acute kidney injury, pancreatitis - was started on Zosyn and vancomycin on admission on 09/17/2022, will complete a 5 day course -09/17/22 blood cultures negative x2, -09/18/22 urine cultures pending (6) Altered mental status: Code(s): R41.82 - Altered mental status, unspecified Status: Acute Assessment and Plan: Improved patient was confused 09/18/2022 which likely was related to hypercapnia - 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 I answered all questions Code Status: full code Critical Care Time Spent: 32 minutes Due to a high probability of clinically significant, life threatening deterioration, the patient required my highest level of preparedness to intervene emergently and I personally spent this critical care time directly and personally managing the patient. This critical care time included obtaining a history; examining the patient; pulse oximetry; ordering and review of studies; arranging urgent treatment with development of a management plan; evaluation of patient's re
[2022-09-21] MEDS: METOPROLOL TARTRATE 25 MG TABLET PO ×2 (08:52→17:10)
[2022-09-21] MEDS: amLODIPine BESYLATE 5 MG TABLET 10 MG PO (08:52)
[2022-09-21] MEDS: POTASSIUM PHOS/SODIUM PHOS 250 MG TABLET PO (08:52)
[2022-09-21] MEDS: PANTOPRAZOLE SODIUM IV 40 MG VIAL IV PUSH (08:53)
[2022-09-21] MEDS: HEPARIN SODIUM 5,000 UNITS/ML VIAL 5000 UNITS SUB-Q ×2 (08:53→20:30)
[2022-09-21] MEDS: LIDOCAINE 5% PATCH 1 PATCH TRANSDERM (08:53)
--- NOTE | 2022-09-21 11:43 | PCFNICU ---
ICU Rounding Note: Pt current nutrition is Full Liquids. Nutrition Recommendations: advance as tolerated per MD orders. Last recorded weight is 108.3 kg. Bowel Motility:+BM reported 09/21 Labs Reviewed:Lipase 715, BUN 25, GFR 50, Cr 1.4 Meds Noted:Protonix, Heparin, Atrovent Skin: WNL Additional Notes: Patient has advanced to a full liquid diet, tolerating. 100% of trays. Bipap at night. No further nutritional interventions needed. Following daily in ICU rounds. Will monitor every 7 days.
--- NOTE | 2022-09-21 11:58 | PM.IMPN ---
Progress Note: A&P Assessment and Plan (1) Pancreatitis: Code(s): K85.90 - Acute pancreatitis without necrosis or infection, unspecified Status: Acute Assessment and Plan: presented with nausea and vomiting. CT revealed acute uncomplicated [place]. [place] [address]. suspect secondary to cholelithiasis with onset after fatty meal. Rare alcohol use. Triglycerides within normal limits. Appreciate gastroenterology and general surgery recommendations. Lipase improved to 4396 today. Continue NPO diet at this time. Continue with IV fluid rehydration. IV Tylenol for pain control. Avoid narcotics given mental status and respiratory status changes 09/21/2021 interval history: morbidly obese patient initially presented abdominal pain nausea or vomiting was found to have a pancreatitis with leukocytosis tachycardia tachypnea lactic acidosis and worsening renal function met criteria for sepsis, however on 09/18 later in the evening patient went into hypoxia an ABG showed hypercarbic respiratory failure patient was seen by remedial masseur, patient was placed on BiPAP and repeat ABG showed persistent hypercarbia patient was alert and oriented,, for close observation patient was transfer to ICU and remained on BiPAP, patient was also found to ileus seen by surgery service patient was placed on NG tube, patient had a BM, NG tube was removed and patient is placed on full liquids, today patient work with physical therapy, patient is also found to acute pancreatitis, patient clinical symptoms are stable will transfer patient out of ICU to to IMU, since his is present in the room. Subjective Date/time seen: 09/21/22 11:58 09/21/2021 interval history: morbidly obese patient initially presented abdominal pain nausea or vomiting was found to have a pancreatitis with leukocytosis tachycardia tachypnea lactic acidosis and worsening renal function met criteria for sepsis, however on 09/18 later in the evening patient went into hypoxia an ABG showed hypercarbic respiratory failure patient was seen by remedial masseur, patient was placed on BiPAP and repeat ABG showed persistent hypercarbia patient was alert and oriented,, for close observation patient was transfer to ICU and remained on BiPAP, patient was also found to ileus seen by surgery service patient was placed on NG tube, patient had a BM, NG tube was removed and patient is placed on full liquids, today patient work with physical therapy, patient is also found to acute pancreatitis, patient clinical symptoms are stable will transfer patient out of ICU to to IMU, since his is present in the room. Review of Systems Review of Systems: All systems reviewed & are unremarkable except as noted in HPI and below Exam Narrative: morbidly obese Patient is comfortable, NAD HEENT: eyes are clear and none icteric NG tube in place LUNGS: normal respiratory effort ABD: distended Lower extremities: no edema SKIN: nonjaundiced Neuro: grossly intact. Objective Data Vital Signs Vital Signs: Vital Signs - 24 hr 09/20/22 12:06 09/20/22 12:00 09/20/22 12:00 Temperature Pulse Rate 85 89 86 Respiratory Rate 21 H Blood Pressure Pulse Oximetry 97 96 Oxygen Delivery High Flow Therapy with Na High Flow Nasal Cannula Oxygen Flow Rate 40 30 Fraction of Inspired Oxygen 50 40 09/20/22 12:00 09/20/22 13:00 09/20/22 14:00 Temperature 99.7 F H 99.8 F H 99.5 F Pulse Rate 96 89 87 Respiratory Rate 25 H 19 22 H Blood Pressure 153/84 H 151/80 H 169/88 H Pulse Oximetry 92 91 Oxygen Delivery Oxygen Flow Rate Fraction of Inspired Oxygen 09/20/22 14:38 09/20/22 14:00 09/20/22 14:42 Temperature 99.4 F Pulse Rate 95 91 95 Respiratory Rate 20 18 Blood Pressure 140/80 Pulse Oximetry 93 Oxygen Delivery Oxygen Flow Rate Fraction of Inspired Oxygen 09/20/22 14:47 09/20/22 14:56 09/20/22 14:56 Temperature Pulse Rate 89 92 R
--- NOTE | 2022-09-21 12:28 | P.PNNP_ITS ---
Progress Note: A&P Assessment and Plan (1) Acute kidney injury: Code(s): N17.9 - Acute kidney failure, unspecified Status: Acute Assessment and Plan: * resolving/improving * suspect due to pancreatitis and possible pre-renal factors * evaluation noted to date: * renal ultrasound unremarkable except left nephrolithiasis * urine electrolytes prerenal * urine eosinophils negative * CPK mildly elevated - butnot enough to affect kidney function * continues to make urine at this time * follow hemodynamics * monitor repeat labs and UOP (2) Acute pancreatitis: Code(s): K85.90 - Acute pancreatitis without necrosis or infection, unspecified Status: Acute Assessment and Plan: * as noted by elevated lipase and abdominal pain * GI and Surgery following -- medical management for now * CT of abdomen with acute uncomplicated pancreatitis, thickening of the gastric antrum and duodenum which may relate to adjacent pancreatitis or gastroenteritis/ duodenitis * continue IVFs and pain control * trend lipase - improving * empirically on antibiotics (3) Respiratory failure with hypoxia and hypercapnia: Code(s): J96.91 - Respiratory failure, unspecified with hypoxia; J96.92 - Respiratory failure, unspecified with hypercapnia Status: Acute Assessment and Plan: * appear to have responded to BiPAP therapy * suspect exacerbated by OHS +/- TERESITA versus early pneumonia versus atelectasis * follow respiratory status (4) Sepsis: Code(s): A41.9 - Sepsis, unspecified organism Status: Acute Assessment and Plan: * as evidence by elevated WBC, LOTUS/ARF, lactic acidosis, and pancreatitis * appropriate culture pending * on antibiotics for now (5) Essential (primary) hypertension: Code(s): I10 - Essential (primary) hypertension Status: Chronic Assessment and Plan: * hypertensive on admission -- due to pain(?) * stable readings more recently -- due to pain medications(?) * follow trend of hemodynamics (6) Altered mental status: Code(s): R41.82 - Altered mental status, unspecified Status: Acute Assessment and Plan: * likely secondary to hypercapnea * pain medications may have played a role * follow mentation Will continue to follow. Subjective Date/time seen: 09/21/22 12:28 Slow and steady improvement noted in general; tolerating BiPAP therapy with improvement in respiratory status/breathing; renal function continues to improve with good urine output as well; remains hemodynamically stable; tolerated clear liquid diet yesterday; mentation stable if not improved. Exam Narrative: General: WD/WN male in NAD Heart: normal S1 and S2; no rub Lungs: coarse breath sounds Abdomen: soft, nontender, nondistended, positive bowel sounds Extremities: no cyanosis or clubbing; trace edema Skin: no rash Objective Data Vital Signs Vital Signs: Vital Signs Temp Pulse Resp BP Pulse Ox O2 Del Method O2 Flow Rate 09/21/22 12:00 89 09/21/22 12:00 99.5 F 91 21 H 106/83 94 09/21/22 11:37 94 High Flow Nasal Cannula 5 09/21/22 08:00 104 H 09/21/22 10:00 97 23 H 150/75 H 92 09/21/22 10:00 97 09/21/22 08:00 98 High Flow Therapy with Na 25 09/21/22 08:52 113 H 09/21/22 08:00 99.3 F 102 H
--- NOTE | 2022-09-21 12:28 | PM.PNNEP ---
Progress Note: A&P Assessment and Plan (1) Acute kidney injury: Code(s): N17.9 - Acute kidney failure, unspecified Status: Acute Assessment and Plan: resolving/improving suspect due to pancreatitis and possible pre-renal factors evaluation noted to date: renal ultrasound unremarkable except left nephrolithiasis urine electrolytes prerenal urine eosinophils negative CPK mildly elevated - butnot enough to affect kidney function continues to make urine at this time follow hemodynamics monitor repeat labs and UOP (2) Acute pancreatitis: Code(s): K85.90 - Acute pancreatitis without necrosis or infection, unspecified Status: Acute Assessment and Plan: as noted by elevated lipase and abdominal pain GI and Surgery following -- medical management for now CT of abdomen with acute uncomplicated pancreatitis, thickening of the gastric antrum and duodenum which may relate to adjacent pancreatitis or gastroenteritis/ duodenitis continue IVFs and pain control trend lipase - improving empirically on antibiotics (3) Respiratory failure with hypoxia and hypercapnia: Code(s): J96.91 - Respiratory failure, unspecified with hypoxia; J96.92 - Respiratory failure, unspecified with hypercapnia Status: Acute Assessment and Plan: appear to have responded to BiPAP therapy suspect exacerbated by OHS +/- TERESITA versus early pneumonia versus atelectasis follow respiratory status (4) Sepsis: Code(s): A41.9 - Sepsis, unspecified organism Status: Acute Assessment and Plan: as evidence by elevated WBC, LOTUS/ARF, lactic acidosis, and pancreatitis appropriate culture pending on antibiotics for now (5) Essential (primary) hypertension: Code(s): I10 - Essential (primary) hypertension Status: Chronic Assessment and Plan: hypertensive on admission -- due to pain(?) stable readings more recently -- due to pain medications(?) follow trend of hemodynamics (6) Altered mental status: Code(s): R41.82 - Altered mental status, unspecified Status: Acute Assessment and Plan: likely secondary to hypercapnea pain medications may have played a role follow mentation Will continue to follow. Subjective Date/time seen: 09/21/22 12:28 Slow and steady improvement noted in general; tolerating BiPAP therapy with improvement in respiratory status/breathing; renal function continues to improve with good urine output as well; remains hemodynamically stable; tolerated clear liquid diet yesterday; mentation stable if not improved. Exam Narrative: General: WD/WN male in NAD Heart: normal S1 and S2; no rub Lungs: coarse breath sounds Abdomen: soft, nontender, nondistended, positive bowel sounds Extremities: no cyanosis or clubbing; trace edema Skin: no rash Objective Data Vital Signs Vital Signs: Vital Signs Temp Pulse Resp BP Pulse Ox O2 Del Method O2 Flow Rate 09/21/22 12:00 89 09/21/22 12:00 99.5 F 91 21 H 106/83 94 09/21/22 11:37 94 High Flow Nasal Cannula 5 09/21/22 08:00 104 H 09/21/22 10:00 97 23 H 150/75 H 92 09/21/22 10:00 97 09/21/22 08:00 98 High Flow Therapy with Na 25 09/21/22 08:52 113 H 09/21/22 08:00 99.3 F 102 H 25 H 171/94 H 92 09/21/22 08:35 93 High Flow Nasal Cannula 6 09/21/22 08:34 106 H 18 09/21/22 08:18 100 26 H 09/21/22 05:30 93 24 H 96 BiPAP 09/21/22 05:20 100 25 H 177/106 H 95 09/21/22 02:35 107 H 27 H 09/21/22 04:00 99.7 F H 97 22 H 183/79 H 97 09/21/22 04:00 97 09/21/22 03:33 84 21 H 95 BiPAP 09/21/22 02:00 103 H 27 H 151/128 H 96 09/21/22 00:25 106 H 27 H 94 BiPAP 09/20/22 20:10 90 28 H 95 BiPAP 09/21/22 02:25 106 H 27 H 09/20/22 20:20 93 28 H 09/20/22 20:08 90 28 H 09/21/22 0
--- NOTE | 2022-09-21 13:44 | PM.PNGS ---
Progress Note: A&P Assessment and Plan (1) Acute pancreatitis: Code(s): K85.90 - Acute pancreatitis without necrosis or infection, unspecified Status: Acute Assessment and Plan: Continues to clinically improve, lipase around 700 today. No abdominal pain or tenderness on exam today. Advanced to full liquids. GI also following. (2) Cholelithiasis: Code(s): K80.20 - Calculus of gallbladder without cholecystitis without obstruction Status: Acute Assessment and Plan: Discussed again today with Dr. Mckeon. The patient has multiple co-morbidities that increase his surgical risks and has a history of complications and long recovery following previous surgeries. He required hemodialysis for about 2 months following his AAA repair. Given the patient's increased surgical risks for a laparoscopic cholecystectomy and general anesthesia, we would recommend to try starting Actigall 300 mg TID and closely monitor the patient. He could be followed up as an outpatient to see how he responds. I discussed this with the patient and his . (3) Ileus: Code(s): K56.7 - Ileus, unspecified Status: Acute Assessment and Plan: Resolving. Bowels are moving. Advanced to full liquids this morning. (4) Respiratory failure with hypoxia and hypercapnia: Code(s): J96.91 - Respiratory failure, unspecified with hypoxia; J96.92 - Respiratory failure, unspecified with hypercapnia Status: Acute Assessment and Plan: Improved and he was compliant with BiPAP overnight. He will be downgraded to IMU status today. (5) Sepsis: Code(s): A41.9 - Sepsis, unspecified organism Status: Acute Assessment and Plan: Secondary to pancreatitis. Leukocytosis and LOTUS improving. Blood cx NGTD. Urine cx no growth. On IV Zosyn and Vancomycin. (6) Altered mental status: Code(s): R41.82 - Altered mental status, unspecified Status: Acute Assessment and Plan: Resolved once his pCO2 improved. (7) Acute kidney injury: Code(s): N17.9 - Acute kidney failure, unspecified Status: Acute Assessment and Plan: Creatinine continues to trend down to 1.4 this morning. Making good urine. Nephrology following. (8) S/P aortic valve replacement with bioprosthetic valve: Code(s): Z95.3 - Presence of xenogenic heart valve Status: Acute (9) Obesity: Qualifiers: Body mass index: BMI 38.0-38.9 Obesity classification: adult class 2 (BMI 35 - 39.9) Obesity type: unspecified obesity type Serious obesity comorbidity presence: unspecified whether serious comorbidity present Qualified Code(s): E66.9 - Obesity, unspecified; Z68.38 - Body mass index [BMI] 38.0-38.9, adult Code(s): E66.9 - Obesity, unspecified Status: Acute Plan I have discussed the patient's case and plan of care with Dr. Mckeon. Subjective Subjective Date/Time Seen: 09/21/22 10:44 Patient reports: no new complaints, feels better, tolerating liquids well, flatus and bowel movement (x1 last night, and 2 this morning) Interval history: Patient seen in the ICU. Continues to feel better daily. He was compliant with his BiPAP overnight, but he is currently on 6L high flow nasal cannula. He denies any abdominal pain, nausea, or vomiting. Temp 100F around 6 pm last night. Afebrile this morning. Review of Systems Review of Systems: ROS unchanged Exam Const: General: no acute distress and alert Orientation/consciousness: patient oriented x3 GI: Inspection: obesity and other (mildly distended, improving) GI Palp: Yes Soft to palpation, No Tenderness to palpation present (GI), No Guarding due to palpation present (GI) and No Rebound tenderness present Auscultation: normal bowel sounds Objective Data Vital Signs Vital Signs: Vital Signs - 24 hr 09/20/22 14:00 09/20/22 14:38 09/20/22 14:00 Temperature 99.5 F 99.4 F Pulse Rate 87 95 91 Respiratory
--- NOTE | 2022-09-21 15:45 | WPDGIPROGNO ---
Progress Note: A&P Assessment and Plan (1) Acute pancreatitis: Code(s): K85.90 - Acute pancreatitis without necrosis or infection, unspecified Status: Acute Assessment and Plan: clinically better, on liquid diet and having BM with no more nausea will advance to low fat diet as tolerated only surgery on board because GS but will be high risk, medical management for now (2) Nausea and vomiting in adult: Code(s): R11.2 - Nausea with vomiting, unspecified Status: Acute Assessment and Plan: resolved (3) Ileus: Code(s): K56.7 - Ileus, unspecified Status: Acute Assessment and Plan: resolved (4) Respiratory failure with hypoxia and hypercapnia: Code(s): J96.91 - Respiratory failure, unspecified with hypoxia; J96.92 - Respiratory failure, unspecified with hypercapnia Status: Acute Assessment and Plan: improved (5) Encephalopathy acute: Code(s): G93.40 - Encephalopathy, unspecified Status: Acute Assessment and Plan: resolved Subjective Date/time seen: 09/21/22 15:45 Interval history: he is doing much better, pain improved and had BM, no nausea, he is eating liquid diet Review of Systems Review of Systems: All systems reviewed & are unremarkable except as noted in HPI and below Exam Const: General: no acute distress and alert Orientation/consciousness: patient oriented x3 HENMT: Face/Nose/Sinus: Normal nares present Eyes: General: appearance normal, both eyes and all related structures Neck: Neck: supple Resp: Auscultation: clear to auscultation bilaterally Cardio: Rate: regular rate GI: Inspection: obesity and other (mildly distended, improving) GI Palp: Yes Soft to palpation, No Tenderness to palpation present (GI), No Guarding due to palpation present (GI) and No Rebound tenderness present Auscultation: normal bowel sounds Skin: General skin exam: normal color Neuro: Speech: normal speech Extrem: General: normal to inspection Psych: Affect: normal affect Objective Data Vital Signs Vital Signs: Vital Signs - 24 hr 09/20/22 16:00 09/20/22 16:00 09/20/22 16:00 Temperature 99.6 F Pulse Rate 90 95 95 Respiratory Rate 22 H 20 Blood Pressure 157/81 H Pulse Oximetry 95 91 Oxygen Delivery High Flow Nasal Cannula Oxygen Flow Rate 25 Fraction of Inspired Oxygen 40 09/20/22 17:23 09/20/22 18:00 09/20/22 18:09 Temperature 99.9 F H Pulse Rate 110 H 107 H Respiratory Rate 25 H 24 H Blood Pressure 165/72 H 151/70 H Pulse Oximetry 94 93 95 Oxygen Delivery High Flow Therapy with Na Oxygen Flow Rate 25 Fraction of Inspired Oxygen 40 09/20/22 18:00 09/20/22 17:00 09/20/22 17:42 Temperature 99.6 F 100.0 F H Pulse Rate 113 H 102 H 106 H Respiratory Rate 27 H 20 Blood Pressure 165/89 H 167/84 H Pulse Oximetry 93 94 Oxygen Delivery Oxygen Flow Rate Fraction of Inspired Oxygen 09/20/22 18:00 09/20/22 18:01 09/20/22 20:00 Temperature 99.9 F H 99.9 F H Pulse Rate 112 H 109 H 92 Respiratory Rate 24 H 27 H 22 H Blood Pressure 151/70 H Pulse Oximetry 89 L 93 95 Oxygen Delivery BiPAP Oxygen Flow Rate Fraction of Inspired Oxygen 50 09/20/22 20:00 09/20/22 20:00 09/20/22 22:00 Temperature 99.5 F Pulse Rate 92 92 94 Respiratory Rate 20 22 H Blood Pressure 168/84 H 154/91 H Pulse Oximetry 95 94 Oxygen Delivery Oxygen Flow Rate Fraction of Inspired Oxygen 09/20/22 23:40 09/21/22 00:00 09/21/22 00:00 Temperature 99.6 F Pulse Rate 95 88 90 Respiratory Rate 25 H 22 H Blood Pressure 173/103 H Pulse Oximetry 95 96 Oxygen Delivery BiPAP Oxygen Flow Rate Fraction of Inspired Oxygen 40 09/20/22 20:08 09/20/22 20:20 09/21/22 02:25 Temperature Pulse Rate 90 93 106 H Respiratory Rate 28 H 28 H 27 H Blood Pressure Pulse Oximetry Oxygen Delivery Oxygen Flow Rate Fraction of Inspired Oxygen
[2022-09-21] MEDS: ACETAMINOPHEN 500 MG TABLET 1000 MG PO (17:09)
[2022-09-21 19:21] LABS: Vancomycin Trough 8.6 ug/mL (10.0-20.0)
[2022-09-21] MEDS: ATORVASTATIN 40 MG TABLET PO (20:29)
[2022-09-22] VITALS (22 sets, daily range): BP systolic 137–156; BP diastolic 78–88; PULSE 80–111; RESP 15–26; TEMP 37.7–38.3; O2SAT 85–98
[2022-09-22] MEDS: ALBUTEROL SULFATE NEB 2.5 MG/3 ML INH INHALATION ×3 (01:49→13:22)
[2022-09-22] MEDS: IPRATROPIUM BR 0.02% INH SOLN 0.5 MG/2.5 ML VIAL INHALATION ×3 (01:49→13:22)
[2022-09-22 04:19] LABS: Estimated CRCL calculation 52 ml/min; Estimated Glomerular Filt Rate 54
[2022-09-22] MEDS: amLODIPine BESYLATE 5 MG TABLET 10 MG PO (08:15)
[2022-09-22] MEDS: HEPARIN SODIUM 5,000 UNITS/ML VIAL 5000 UNITS SUB-Q ×2 (08:15→20:08)
[2022-09-22] MEDS: PANTOPRAZOLE SODIUM IV 40 MG VIAL IV PUSH (08:16)
[2022-09-22] MEDS: ursodioL 300 MG CAPSULE PO ×3 (08:16→17:03)
[2022-09-22] MEDS: METOPROLOL TARTRATE 25 MG TABLET PO ×2 (08:16→17:03)
[2022-09-22] MEDS: LIDOCAINE 5% PATCH 1 PATCH TRANSDERM (08:16)
--- NOTE | 2022-09-22 09:55 | P.PNNP_ITS ---
Progress Note: A&P Assessment and Plan (1) Acute kidney injury: Code(s): N17.9 - Acute kidney failure, unspecified Status: Acute Assessment and Plan: * resolving/improving * basline creatinine runs ~ 1.2 - 1,4mg/dl * suspect due to pancreatitis and possible pre-renal factors * evaluation noted to date: * renal ultrasound unremarkable except left nephrolithiasis * urine electrolytes prerenal * urine eosinophils negative * CPK mildly elevated - butnot enough to affect kidney function * continues to make urine at this time * follow hemodynamics * monitor repeat labs and UOP (2) Acute pancreatitis: Code(s): K85.90 - Acute pancreatitis without necrosis or infection, unspecified Status: Acute Assessment and Plan: * as noted by elevated lipase and abdominal pain * GI and Surgery following -- medical management for now * CT of abdomen with acute uncomplicated pancreatitis, thickening of the gastric antrum and duodenum which may relate to adjacent pancreatitis or gastroenteritis/ duodenitis * continue IVFs and pain control * trend lipase - improving * empirically on antibiotics (3) Respiratory failure with hypoxia and hypercapnia: Code(s): J96.91 - Respiratory failure, unspecified with hypoxia; J96.92 - Respiratory failure, unspecified with hypercapnia Status: Acute Assessment and Plan: * appear to have responded to BiPAP therapy * suspect exacerbated by OHS +/- TERESITA versus early pneumonia versus atelectasis * follow respiratory status * Pulmonary following (4) Sepsis: Code(s): A41.9 - Sepsis, unspecified organism Status: Acute Assessment and Plan: * as evidence by elevated WBC, LOTUS/ARF, lactic acidosis, and pancreatitis * appropriate culture pending * on antibiotics for now (5) Essential (primary) hypertension: Code(s): I10 - Essential (primary) hypertension Status: Chronic Assessment and Plan: * hypertensive on admission -- due to pain(?) * stable readings more recently -- due to pain medications(?) * follow trend of hemodynamics (6) Altered mental status: Code(s): R41.82 - Altered mental status, unspecified Status: Acute Assessment and Plan: * likely secondary to hypercapnea * pain medications may have played a role * follow mentation Not much else to add -- will continue to follow from a distance. Subjective Date/time seen: 09/22/22 09:55 Continues to do quite well at this time; renal function continues improve (if not back to baseline) and breathing/respiratory status is stable as well; tolerating oral intake at this time; no other issues/events overnight or earlier this morning. Exam Narrative: General: WD/WN male in NAD Heart: normal S1 and S2; no rub Lungs: coarse breath sounds Abdomen: soft, nontender, nondistended, positive bowel sounds Extremities: no cyanosis or clubbing; trace edema Skin: no nodules Objective Data Vital Signs Vital Signs: Vital Signs Temp Pulse Resp BP Pulse Ox O2 Del Method O2 Flow Rate 09/22/22 08:00 111 H 09/22/22 08:00 100.2 F H 111 H 16 156/88 H 93 09/22/22 08:00 93 High Flow Nasal Cannula 3 09/22/22 08:16 107 H 09/22/22 08:24 107 H 21 H 09/22/22 08:10 92 High Flow Nasal Cannula 3 09/22/22 08:10 109 H 15
--- NOTE | 2022-09-22 09:55 | PM.PNNEP ---
Progress Note: A&P Assessment and Plan (1) Acute kidney injury: Code(s): N17.9 - Acute kidney failure, unspecified Status: Acute Assessment and Plan: resolving/improving basline creatinine runs ~ 1.2 - 1,4mg/dl suspect due to pancreatitis and possible pre-renal factors evaluation noted to date: renal ultrasound unremarkable except left nephrolithiasis urine electrolytes prerenal urine eosinophils negative CPK mildly elevated - butnot enough to affect kidney function continues to make urine at this time follow hemodynamics monitor repeat labs and UOP (2) Acute pancreatitis: Code(s): K85.90 - Acute pancreatitis without necrosis or infection, unspecified Status: Acute Assessment and Plan: as noted by elevated lipase and abdominal pain GI and Surgery following -- medical management for now CT of abdomen with acute uncomplicated pancreatitis, thickening of the gastric antrum and duodenum which may relate to adjacent pancreatitis or gastroenteritis/ duodenitis continue IVFs and pain control trend lipase - improving empirically on antibiotics (3) Respiratory failure with hypoxia and hypercapnia: Code(s): J96.91 - Respiratory failure, unspecified with hypoxia; J96.92 - Respiratory failure, unspecified with hypercapnia Status: Acute Assessment and Plan: appear to have responded to BiPAP therapy suspect exacerbated by OHS +/- TERESITA versus early pneumonia versus atelectasis follow respiratory status Pulmonary following (4) Sepsis: Code(s): A41.9 - Sepsis, unspecified organism Status: Acute Assessment and Plan: as evidence by elevated WBC, LOTUS/ARF, lactic acidosis, and pancreatitis appropriate culture pending on antibiotics for now (5) Essential (primary) hypertension: Code(s): I10 - Essential (primary) hypertension Status: Chronic Assessment and Plan: hypertensive on admission -- due to pain(?) stable readings more recently -- due to pain medications(?) follow trend of hemodynamics (6) Altered mental status: Code(s): R41.82 - Altered mental status, unspecified Status: Acute Assessment and Plan: likely secondary to hypercapnea pain medications may have played a role follow mentation Not much else to add -- will continue to follow from a distance. Subjective Date/time seen: 09/22/22 09:55 Continues to do quite well at this time; renal function continues improve (if not back to baseline) and breathing/respiratory status is stable as well; tolerating oral intake at this time; no other issues/events overnight or earlier this morning. Exam Narrative: General: WD/WN male in NAD Heart: normal S1 and S2; no rub Lungs: coarse breath sounds Abdomen: soft, nontender, nondistended, positive bowel sounds Extremities: no cyanosis or clubbing; trace edema Skin: no nodules Objective Data Vital Signs Vital Signs: Vital Signs Temp Pulse Resp BP Pulse Ox O2 Del Method O2 Flow Rate 09/22/22 08:00 111 H 09/22/22 08:00 100.2 F H 111 H 16 156/88 H 93 09/22/22 08:00 93 High Flow Nasal Cannula 3 09/22/22 08:16 107 H 09/22/22 08:24 107 H 21 H 09/22/22 08:10 92 High Flow Nasal Cannula 3 09/22/22 08:10 109 H 15 09/22/22 06:00 95 09/22/22 04:00 100 F H 92 20 151/78 H 93 09/22/22 04:00 92 09/21/22 23:30 81 26 H 96 BiPAP 09/22/22 02:00 99 09/21/22 21:15 94 18 09/22/22 01:52 97 20 09/22/22 00:00 89 09/22/22 00:00 99.8 F H 82 20 140/84 98 09/21/22 22:00 92 09/21/22 21:03 94 High Flow Nasal Cannula 3 09/21/22 21:02 90 18 09/21/22 20:00 99.7 F H 97 22 H 100/87 95 09/21/22 20:00 97 09/21/22 18:00 97 09/21/22 17:10 96 09/21/22 16:54 97 High Flow Nasal Cannula 3 Intake/Output Intak
[2022-09-22 11:44] LABS: Hematocrit 39.7 % (42.0-52.0); Hemoglobin 12.7 g/dL (14.0-18.0); Mean Corpuscular Hemoglobin 29.9 pg (26-34); Mean Corpuscular Volume 93.4 fl (80-100); Mean Platelet Volume 9.1 fl (7.4-10.4); Platelet Count Result 241 k/mm3 (150-375); Red Blood Count 4.25 M/mm3 (4.6-6.20); Red Cell Distribution Width 15.1 % (11.5-14.5); White Blood Count 14.4 K/mm3 (4.5-10.0)
[2022-09-22 11:51] LABS: Alanine Aminotransferase 23 U/L (6-50); Alkaline Phosphatase 45 U/L (38-126); Anion Gap 2 mmol/L (8-16); Aspartate Amino Transferase 29 U/L (17-59); Bilirubin,Total 0.5 mg/dL (0.2-1.3); Blood Urea Nitrogen 20 mg/dL (9-20); Calcium 9.3 mg/dL (8.4-10.2); Carbon Dioxide 31 mmol/L (22-30); Chloride 104 mmol/L (98-107); Estimated CRCL calculation 48 ml/min; Estimated Glomerular Filt Rate 50; Glucose 111 mg/dL (65-110); Lipase 1114 U/L (23-300); Magnesium 2.1 mg/dL (1.6-2.3); Potassium 3.5 mmol/L (3.4-5.0); Sodium 137 mmol/L (137-145)
--- NOTE | 2022-09-22 13:56 | PM.PNPUL ---
Progress Note: A&P Assessment and Plan (1) Acute pancreatitis: Code(s): K85.90 - Acute pancreatitis without necrosis or infection, unspecified Status: Acute Assessment and Plan: 09/18 Patient with acute pancreatitis and multi-system organ failure with a lactic acid on admission, acute kidney injury, hypoxemic and hypercarbic respiratory failure, leukocytosis and hypocalcemia.? [place] to be due to gallstone pancreatitis and now with an ileus.? GI and surgery have been? consulted. ? patient has been fluid resuscitated and NG tube to be placed.? he has been placed on Zosyn and vancomycin will be added in case there has been any aspiration. 09/19 he is more awake and alert and communicative. His white blood cell count is 11.2, his creatinine is 3.4, serum bicarbonate is 25. His lipase this morning is 832. patient has improved. Followed by groundskeeping maintenance, GI and General surgery. 09/22 patient is awake, tolerating her oral diet, creatinine is 1.3, serum bicarbonate is 31. He remains febrile with leukocytosis that is on vanc and Zosyn. The patient has no cough, phlegm production, hemoptysis or chest pain and I do not think he has a respiratory infection and antibiotics can be discontinued from a pulmonary perspective. I will order upper and lower extremity Dopplers to exclude DVT as a source for his leukocytosis and fever. (2) Respiratory failure with hypoxia and hypercapnia: Code(s): J96.91 - Respiratory failure, unspecified with hypoxia; J96.92 - Respiratory failure, unspecified with hypercapnia Status: Acute Assessment and Plan: 09/28 Patient with pancreatitis and multi-system organ failure.? Etiology of acute hypercarbic and hypoxemic respiratory in failure includes pancreatitis with ARDS, aspiration pneumonia, fluid overload and/or narcotics. ? Most recent blood gas on BiPAP 23/03 was 7.14//84.? I have increased the patient to maximal BiPAP settings at 22/5 and a rate of 22 with 45% FiO2 and have ordered a blood gas in 1 hour. ? I am concerned the patient may require intubation if his? respiratory acidosis is not improved with these maximal BiPAP settings.? the patient is waiting for room on the IMU and may require transfer to the intensive care unit.? Lactic acid pending currently.? Agree with vanc and Zosyn for now. He has no wheezes and I do not see a need for bronchodilators, inhaled or systemic steroids at this time. ?discussed with Bekah Venegas.? will follow with you. 09/19 patient wore BiPAP 22/5 throughout the evening and his blood gas this morning was 7.32/46/83 on 45% FiO2. He had tolerated time off the BiPAP this morning. Currently sitting up in the chair with a BiPAP on this has been adjusted to 18/8 and 40%. Agree with BiPAP p.r.n. at this time. Chest x-ray today does not show any new infiltrates consistent with aspiration pneumonia. If blood cultures remain negative at 48 hours from a pulmonary perspective can discontinue antibiotics. Discussed with Dr. Treadwell, will sign off, call with questions. 09/22 re-consulted for desaturations when sleeps and requiring BiPAP use. He wore BiPAP 22/5 last night with 40% FiO2 and sats 96%. Patient's pancreatitis and multi-system organ failure has improved. His creatinine is 0.3, his serum bicarbonate is 31. He is febrile. White blood cell count is 14.4. Currently the patient is on 3 L nasal cannula saturations 92%. He denies any shortness of breath while he is awake and states that he is breathing back at his baseline. patient is cumulative 4.4 L positive since admission. The patient has no history of reactive airways disease and I will discontinue his nebulizers at this time. I will order a TSH and free T4 for the morning. The patient may have obesity hypoventilation syndrome and I will check a blood gas this afternoon off of BiPAP to see if he has CO2 retention. The patient tells me he cannot tolerate the current BiPAP pressures and does not think
--- NOTE | 2022-09-22 15:09 | PCOTNOTE ---
Attempted to see this patient, however patient unavailable this pm.
--- NOTE | 2022-09-22 15:14 | WPDGIPROGNO ---
Progress Note: A&P Assessment and Plan (1) Acute pancreatitis: Code(s): K85.90 - Acute pancreatitis without necrosis or infection, unspecified Status: Acute Assessment and Plan: feeling much better and tolerating diet surgery on board because GS but will be high risk, medical management for now (2) Nausea and vomiting in adult: Code(s): R11.2 - Nausea with vomiting, unspecified Status: Acute Assessment and Plan: resolved (3) Ileus: Code(s): K56.7 - Ileus, unspecified Status: Acute Assessment and Plan: resolved (4) Respiratory failure with hypoxia and hypercapnia: Code(s): J96.91 - Respiratory failure, unspecified with hypoxia; J96.92 - Respiratory failure, unspecified with hypercapnia Status: Acute Assessment and Plan: improved, pulmonary on board (5) Encephalopathy acute: Code(s): G93.40 - Encephalopathy, unspecified Status: Acute Assessment and Plan: resolved Subjective Date/time seen: 09/22/22 15:14 Interval history: feeling better, no more pain and eating Review of Systems Review of Systems: All systems reviewed & are unremarkable except as noted in HPI and below Exam Const: General: no acute distress and alert Orientation/consciousness: patient oriented x3 HENMT: Face/Nose/Sinus: Normal nares present Eyes: General: appearance normal, both eyes and all related structures Sclera: sclerae normal Neck: Neck: supple Resp: Auscultation: no crackles and diminished lung sounds Cardio: Rate: regular rate GI: Inspection: obesity GI Palp: Yes Soft to palpation, No Tenderness to palpation present (GI), No Guarding due to palpation present (GI) and No Rebound tenderness present Auscultation: normal bowel sounds Skin: General skin exam: normal color Neuro: Speech: normal speech Extrem: General: normal to inspection Psych: Affect: normal affect Objective Data Vital Signs Vital Signs: Vital Signs - 24 hr 09/21/22 16:00 09/21/22 16:00 09/21/22 16:54 Temperature 99.8 F H Pulse Rate 92 Respiratory Rate 30 H Blood Pressure 152/97 H Pulse Oximetry 96 95 97 Oxygen Delivery High Flow Nasal Cannula High Flow Nasal Cannula Oxygen Flow Rate 3 3 09/21/22 16:00 09/21/22 17:10 09/21/22 18:00 Temperature Pulse Rate 100 96 97 Respiratory Rate Blood Pressure Pulse Oximetry Oxygen Delivery Oxygen Flow Rate 09/21/22 20:00 09/21/22 20:00 09/21/22 21:02 Temperature 99.7 F H Pulse Rate 97 97 90 Respiratory Rate 22 H 18 Blood Pressure 100/87 Pulse Oximetry 95 Oxygen Delivery Oxygen Flow Rate 09/21/22 21:03 09/21/22 22:00 09/22/22 00:00 Temperature 99.8 F H Pulse Rate 92 82 Respiratory Rate 20 Blood Pressure 140/84 Pulse Oximetry 94 98 Oxygen Delivery High Flow Nasal Cannula Oxygen Flow Rate 3 09/22/22 00:00 09/22/22 01:52 09/21/22 21:15 Temperature Pulse Rate 89 97 94 Respiratory Rate 20 18 Blood Pressure Pulse Oximetry Oxygen Delivery Oxygen Flow Rate 09/22/22 02:00 09/21/22 23:30 09/22/22 04:00 Temperature Pulse Rate 99 81 92 Respiratory Rate 26 H Blood Pressure Pulse Oximetry 96 Oxygen Delivery BiPAP Oxygen Flow Rate 09/22/22 04:00 09/22/22 06:00 09/22/22 08:10 Temperature 100 F H Pulse Rate 92 95 109 H Respiratory Rate 20 15 Blood Pressure 151/78 H Pulse Oximetry 93 Oxygen Delivery Oxygen Flow Rate 09/22/22 08:10 09/22/22 08:24 09/22/22 08:16 Temperature Pulse Rate 107 H 107 H Respiratory Rate 21 H Blood Pressure Pulse Oximetry 92 Oxygen Delivery High Flow Nasal Cannula Oxygen Flow Rate 3 09/22/22 08:00 09/22/22 08:00 09/22/22 08:00 Temperature 100.2 F H Pulse Rate 111 H 111 H Respiratory Rate 16 Blood Pressure 156/88 H Pulse Oximetry 93 93 Oxygen Delivery High Flow Nasal Cannula Oxygen Flow Rate 3 09/22/22
--- NOTE | 2022-09-22 15:22 | PM.IMPN ---
Progress Note: A&P Assessment and Plan (1) Pancreatitis: Code(s): K85.90 - Acute pancreatitis without necrosis or infection, unspecified Status: Acute Assessment and Plan: presented with nausea and vomiting. CT revealed acute uncomplicated [place] [address]. suspect secondary to cholelithiasis with onset after fatty meal. Rare alcohol use. Triglycerides within normal limits. Appreciate gastroenterology and general surgery recommendations. Lipase improved to 4396 today. Continue NPO diet at this time. Continue with IV fluid rehydration. IV Tylenol for pain control. Avoid narcotics given mental status and respiratory status changes 09/22/2021 interval history: morbidly obese patient initially presented with abdominal pain nausea or vomiting was found to have a pancreatitis with leukocytosis tachycardia tachypnea lactic acidosis and worsening renal function met criteria for sepsis, however on 09/18 later in the evening patient went into hypoxia an ABG showed hypercarbic respiratory failure patient was seen by detective supervisor, patient was placed on BiPAP and repeat ABG showed persistent hypercarbia patient was alert and oriented,, for close observation patient was transfer to ICU and remained on BiPAP, patient was also found to ileus seen by surgery service patient was placed on NG tube, patient had a BM, NG tube was removed and patient is placed on full liquids today patient seen by GI advanced his diet and signed off, patient has gallstones he high risk for surgery, patient continue required BIPAP and he does not have BIPAP at home spoke with Dr. Damon, he will assess him for home BIPAP and further recommendation to follow. Subjective Date/time seen: 09/22/22 15:22 presented with nausea and vomiting. CT revealed acute uncomplicated [place] [address]. suspect secondary to cholelithiasis with onset after fatty meal. Rare alcohol use. Triglycerides within normal limits. Appreciate gastroenterology and general surgery recommendations. Lipase improved to 4396 today. Continue NPO diet at this time. Continue with IV fluid rehydration. IV Tylenol for pain control. Avoid narcotics given mental status and respiratory status changes 09/22/2021 interval history: morbidly obese patient initially presented with abdominal pain nausea or vomiting was found to have a pancreatitis with leukocytosis tachycardia tachypnea lactic acidosis and worsening renal function met criteria for sepsis, however on 09/18 later in the evening patient went into hypoxia an ABG showed hypercarbic respiratory failure patient was seen by detective supervisor, patient was placed on BiPAP and repeat ABG showed persistent hypercarbia patient was alert and oriented,, for close observation patient was transfer to ICU and remained on BiPAP, patient was also found to ileus seen by surgery service patient was placed on NG tube, patient had a BM, NG tube was removed and patient is placed on full liquids today patient seen by GI advanced his diet and signed off, patient has gallstones he high risk for surgery, patient continue required BIPAP and he does not have BIPAP at home spoke with Dr. Damon, he will assess him for home BIPAP and further recommendation to follow. Review of Systems Review of Systems: All systems reviewed & are unremarkable except as noted in HPI and below Exam Narrative: morbidly obese Patient is comfortable, NAD HEENT: eyes are clear and none icteric NG tube in place LUNGS: normal respiratory effort ABD: distended Lower extremities: no edema SKIN: nonjaundiced Neuro: grossly intact. Objective Data Vital Signs Vital Signs: Vital Signs - 24 hr 09/21/22 16:00 09/21/22 16:00 09/21/22 16:54 Temperature 99.8 F H Pulse Rate 92 Respiratory Rate 30 H Blood Pressure 152/97 H Pulse Oximetry 96 95 97 Oxygen Delivery High Flow Nasal Cannula High Flow Nasal Cannula Oxygen Flow Rate
[2022-09-22 16:26] LABS: Base Excess ABG 3.9 mEq/l (+/-2.0); Carboxyhemoglobin 0.1 % THb (0-2.0); Fractional Inspired Oxygen 36 %; HCO3 ABG 29.8 mEq/l (22.0-26.0); Methemoglobin ABG 0.5 %THb (0-1.5); Oxygen Content ABG 18.3 %vol (16.0-22.0); Oxygen Saturation ABG 93.1 % (95.0-100.0); Oxyhemoglobin 92.7 % THb (90.0-100.0); PCO2 ABG 50.2 mmHg (35.0-45.0); PO2 ABG 67.5 mmHg (80.0-100.0); PO2 FiO2 Ratio Arterial Blood 1.88 %; Reduced Hemoglobin 6.7 %THb (0-5.0); pH ABG 7.392 (7.350-7.450)
[2022-09-22 16:27] LABS: Device NASAL CANNULA; Modified Allen's Test Pass; Site Drawn RIGHT RADIAL
[2022-09-22] MEDS: ATORVASTATIN 40 MG TABLET PO (20:08)
[2022-09-22] MEDS: ACETAMINOPHEN 500 MG TABLET 1000 MG PO (20:08)
--- NOTE | 2022-09-22 21:56 | PC.NURSE ---
Patient transferred to room 347 and has been settled into his room.
--- NOTE | 2022-09-22 22:06 | PC.NURSE ---
This patient, Manohar West, was transferred to [ 347] on 09/22/22 at 2206. Personal belongings sent with patient. Report given to [Zayra obrien ]. Appropriate documentation sent with patient.
--- NOTE | 2022-09-22 23:09 | PCRCNOTE ---
pt placed on apnea link.
[2022-09-23] VITALS (18 sets, daily range): BP systolic 132–153; BP diastolic 71–80; PULSE 77–96; RESP 20–33; TEMP 36.5–37.4; O2SAT 90–97
[2022-09-23 04:40] LABS: Alveolar/Arterial O2 Gradient 95.6 mmHg; Fractional Inspired Oxygen 36 %; HCO3 ABG 31.2 mEq/l (22.0-26.0); Oxygen Content ABG 27.3 %vol (16.0-22.0); Oxygen Saturation ABG 95.4 % (95.0-100.0); Oxyhemoglobin 94.5 % THb (90.0-100.0); PO2 ABG 86.1 mmHg (80.0-100.0); PO2 FiO2 Ratio Arterial Blood 2.39 %; Total Hemoglobin 20.6 g/dL (12.0-18.0); pH ABG 7.302 (7.350-7.450)
[2022-09-23 07:41] LABS: Free T4 Free Thyroxine 0.79 ng/mL (0.78-2.19)
[2022-09-23] MEDS: METOPROLOL TARTRATE 25 MG TABLET PO ×2 (08:13→17:20)
[2022-09-23] MEDS: HEPARIN SODIUM 5,000 UNITS/ML VIAL 5000 UNITS SUB-Q ×2 (08:13→21:13)
[2022-09-23] MEDS: ursodioL 300 MG CAPSULE PO ×3 (08:13→17:20)
[2022-09-23] MEDS: amLODIPine BESYLATE 5 MG TABLET 10 MG PO (08:13)
[2022-09-23] MEDS: PANTOPRAZOLE SODIUM IV 40 MG VIAL IV PUSH (08:14)
[2022-09-23] MEDS: LIDOCAINE 5% PATCH 1 PATCH TRANSDERM (08:14)
[2022-09-23 08:33] LABS: Alanine Aminotransferase 25 U/L (6-50); Albumin Level 3.2 g/dL (3.5-5.1); Alkaline Phosphatase 71 U/L (38-126); Anion Gap 5 mmol/L (8-16); Aspartate Amino Transferase 33 U/L (17-59); Basophils Percent Auto 0.2 % (0.2-1.2); Bilirubin,Total 0.5 mg/dL (0.2-1.3); Blood Urea Nitrogen 24 mg/dL (9-20); Calcium 8.4 mg/dL (8.4-10.2); Carbon Dioxide 29 mmol/L (22-30); Chloride 102 mmol/L (98-107); Eosinophils Absolute Auto 0.9 K/mm3 (0-0.3); Eosinophils Percent Auto 4.9 % (0-4.4); Estimated CRCL calculation 42 ml/min; Estimated Glomerular Filt Rate 42; Glucose 114 mg/dL (65-110); Hematocrit 40.4 % (42.0-52.0); Hemoglobin 12.8 g/dL (14.0-18.0); Immature Granulocyte Absolute 1.23 K/mm3 (0.00-0.031); Immature Granulocyte Percent A 6.8 % (0-0.5); Lipase 1129 U/L (23-300); Lymphocytes Absolute Auto 1.36 K/mm3 (0.9-3.2); Lymphocytes Percent Auto 7.5 % (18.3-44.2); Mean Corpuscular HGB Conc 31.7 g/dl (32-36); Mean Corpuscular Hemoglobin 29.4 pg (26-34); Mean Corpuscular Volume 92.7 fl (80-100); Mean Platelet Volume 9.1 fl (7.4-10.4); Monocytes Absolute Auto 1.4 K/mm3 (0.1-0.6); Monocytes Percent Auto 7.9 % (2.6-8.5); Neutrophils Absolute Auto 13.2 K/mm3 (1.3-6.7); Neutrophils Percent Auto 72.7 % (45.5-73.1); Platelet Count Result 259 k/mm3 (150-375); Potassium 3.6 mmol/L (3.4-5.0); Red Blood Count 4.36 M/mm3 (4.6-6.20); Red Cell Distribution Width 15.1 % (11.5-14.5); Sodium 136 mmol/L (137-145); White Blood Count 18.1 K/mm3 (4.5-10.0)
[2022-09-23] MEDS: SODIUM CHLORIDE 0.9% IV 1,000 ML 75 ML IV CONT (09:27)
[2022-09-23 09:52] LABS: PCO2 ABG 64.6 mmHg (35.0-45.0)
[2022-09-23 09:53] LABS: Site Drawn RIGHT RADIAL
[2022-09-23 09:54] LABS: Device NON-INVASIVE VENT; Non-Invasive Expiratory Pressure 5 CMH2O; Non-Invasive Vent Rate 20 /MIN
--- NOTE | 2022-09-23 11:19 | PM.PNPUL ---
Progress Note: A&P Assessment and Plan (1) Acute pancreatitis: Code(s): K85.90 - Acute pancreatitis without necrosis or infection, unspecified Status: Acute Assessment and Plan: 09/18 Patient with acute pancreatitis and multi-system organ failure with a lactic acid on admission, acute kidney injury, hypoxemic and hypercarbic respiratory failure, leukocytosis and hypocalcemia.? [place] to be due to gallstone pancreatitis and now with an ileus.? GI and surgery have been? consulted. ? patient has been fluid resuscitated and NG tube to be placed.? he has been placed on Zosyn and vancomycin will be added in case there has been any aspiration. 09/19 he is more awake and alert and communicative. His white blood cell count is 11.2, his creatinine is 3.4, serum bicarbonate is 25. His lipase this morning is 832. patient has improved. Followed by construction driller, GI and General surgery. 09/22 patient is awake, tolerating her oral diet, creatinine is 1.3, serum bicarbonate is 31. He remains febrile with leukocytosis that is on vanc and Zosyn. The patient has no cough, phlegm production, hemoptysis or chest pain and I do not think he has a respiratory infection and antibiotics can be discontinued from a pulmonary perspective. I will order upper and lower extremity Dopplers to exclude DVT as a source for his leukocytosis and fever. 09/23 Upper and lower extremity Dopplers are negative for DVT there is a left basilic thrombus in the upper extremities. White blood cell count is 18.1. Recomend diuresis. (2) Obesity hypoventilation syndrome: Code(s): E66.2 - Morbid (severe) obesity with alveolar hypoventilation Status: Acute Assessment and Plan: 09/28 Patient with pancreatitis and multi-system organ failure.? Etiology of acute hypercarbic and hypoxemic respiratory in failure includes pancreatitis with ARDS, aspiration pneumonia, fluid overload and/or narcotics on top of possible obesity hypoventilation syndrome. ? Most recent blood gas on BiPAP 23/03 was 7.//84.? I have increased the patient to maximal BiPAP settings at 22/5 and a rate of 22 with 45% FiO2 and have ordered a blood gas in 1 hour. ? I am concerned the patient may require intubation if his? respiratory acidosis is not improved with these maximal BiPAP settings.? the patient is waiting for room on the U and may require transfer to the intensive care unit.? Lactic acid pending currently.? Agree with Ross for now. He has no wheezes and I do not see a need for bronchodilators, inhaled or systemic steroids at this time. ?discussed with Bekah Venegas.? will follow with you. 09/19 patient wore BiPAP 22/5 throughout the evening and his blood gas this morning was 7.32/46/83 on 45% FiO2. He had tolerated time off the BiPAP this morning. Currently sitting up in the chair with a BiPAP on this has been adjusted to 18/8 and 40%. Agree with BiPAP p.r.n. at this time. Chest x-ray today does not show any new infiltrates consistent with aspiration pneumonia. If blood cultures remain negative at 48 hours from a pulmonary perspective can discontinue antibiotics. Discussed with Dr. Treadwell, will sign off, call with questions. 09/22 re-consulted for desaturations when sleeps and requiring BiPAP use. He wore BiPAP 22/5 last night with 40% FiO2 and sats 96%. Patient's pancreatitis and multi-system organ failure has improved. His creatinine is 0.3, his serum bicarbonate is 31. He is febrile. White blood cell count is 14.4. Currently the patient is on 3 L nasal cannula saturations 92%. He denies any shortness of breath while he is awake and states that he is breathing back at his baseline. patient is cumulative 4.4 L positive since admission. The patient has no history of reactive airways disease and I will discontinue his nebulizers at this time. I will order a TSH and free T4 for the morning. The patient may have obesity hypoventilation syndrome and I will ch
[2022-09-23] MEDS: ALBUTEROL SULFATE NEB 2.5 MG/3 ML INH INHALATION ×3 (11:21→22:31)
[2022-09-23 11:57] LABS: NT Pro B Type Natriuretic Pept 728 pg/mL (19.9-100)
[2022-09-23 12:59] LABS: Influenza A QL RT-PCR Negative (Negative); Influenza B QL RT-PCR Negative (Negative); RSV RNA, RT-PCR Negative (Negative); SARS-CoV-2 RNA PCR Negative
--- NOTE | 2022-09-23 14:21 | PM.IMPN ---
Progress Note: A&P Assessment and Plan (1) Pancreatitis: Code(s): K85.90 - Acute pancreatitis without necrosis or infection, unspecified Status: Acute Assessment and Plan: Tolerating a diet. Abdominal pain is much better. Continue pain control as needed. (2) Wheezing: Code(s): R06.2 - Wheezing Status: Acute Assessment and Plan: Appreciate Pulmonary input. Continue oxygen. Incentive spirometry and 1 dose of Lasix given. (3) Obesity hypoventilation syndrome: Code(s): E66.2 - Morbid (severe) obesity with alveolar hypoventilation Status: Acute Assessment and Plan: Appreciate pulmonary's consultation (4) Cholelithiasis: Code(s): K80.20 - Calculus of gallbladder without cholecystitis without obstruction Status: Acute Assessment and Plan: Treat conservatively right now. May need cholecystectomy in the future. (5) Obesity: Qualifiers: Obesity type: unspecified obesity type Obesity classification: adult class 2 (BMI 35 - 39.9) Serious obesity comorbidity presence: unspecified whether serious comorbidity present Body mass index: BMI 38.0-38.9 Qualified Code(s): E66.9 - Obesity, unspecified; Z68.38 - Body mass index [BMI] 38.0-38.9, adult Code(s): E66.9 - Obesity, unspecified Status: Acute (6) Aortic stenosis, severe: Code(s): I35.0 - Nonrheumatic aortic (valve) stenosis Status: Chronic Assessment and Plan: Status post valve replacement Subjective Date/time seen: 09/23/22 14:21 Still on oxygen. Appears to be wheezing. Patient requesting to go home but clearly not able to do that Exam Narrative: morbidly obese Patient is comfortable, NAD HEENT: eyes are clear and none icteric NG tube in place LUNGS: normal respiratory effort ABD: distended Lower extremities: no edema SKIN: nonjaundiced Neuro: grossly intact. Objective Data Vital Signs Vital Signs: Vital Signs - 24 hr 09/22/22 16:00 09/22/22 16:00 09/22/22 17:03 Temperature 100.5 F H Pulse Rate 94 94 95 Respiratory Rate 17 Blood Pressure 148/87 H Pulse Oximetry 93 Oxygen Delivery Oxygen Flow Rate Fraction of Inspired Oxygen 09/22/22 18:00 09/22/22 20:08 09/22/22 20:00 Temperature 101 F H Pulse Rate 100 97 Respiratory Rate Blood Pressure Pulse Oximetry Oxygen Delivery Oxygen Flow Rate Fraction of Inspired Oxygen 09/22/22 20:00 09/22/22 20:21 09/22/22 23:03 Temperature 100.3 F H Pulse Rate 100 93 80 Respiratory Rate 17 22 H 26 H Blood Pressure 137/78 Pulse Oximetry 93 93 94 Oxygen Delivery Nasal Cannula Oxygen Flow Rate 4 Fraction of Inspired Oxygen 40 09/23/22 00:00 09/23/22 00:12 09/23/22 00:15 Temperature 99.3 F 99.2 F Pulse Rate 86 88 89 Respiratory Rate 28 H 28 H 28 H Blood Pressure 136/80 153/71 H Pulse Oximetry 95 97 96 Oxygen Delivery Oxygen Flow Rate Fraction of Inspired Oxygen 09/23/22 04:35 09/23/22 04:00 09/23/22 08:00 Temperature 97.7 F Pulse Rate 77 88 Respiratory Rate 30 H 22 H Blood Pressure 132/75 Pulse Oximetry 94 94 95 Oxygen Delivery Nasal Cannula Oxygen Flow Rate 4 Fraction of Inspired Oxygen 09/23/22 11:24 09/23/22 11:25 09/23/22 11:37 Temperature Pulse Rate 96 88 Respiratory Rate 24 H 20 Blood Pressure Pulse Oximetry 92 Oxygen Delivery Nasal Cannula Oxygen Flow Rate 3 Fraction of Inspired Oxygen 09/23/22 14:06 Temperature Pulse Rate 92 Respiratory Rate 33 H Blood Pressure Pulse Oximetry 90 Oxygen Delivery Oxygen Flow Rate Fraction of Inspired Oxygen Intake/Output Intake/Output: Intake & Output 09/20/22 09/21/22 09/22/22 09/23/22 23:59 23:59 23:59 23:59 Intake Total 1150 2490 1750 630 Output Total 3100 1200 1375 600 Balance -1950 1290 375 30 Meds/Results Medications: Active Medications Generic Name Dose Route Start Last Admin Trade Name F
--- NOTE | 2022-09-23 15:05 | WPDGIPROGNO ---
Progress Note: A&P Assessment and Plan (1) Acute pancreatitis: Code(s): K85.90 - Acute pancreatitis without necrosis or infection, unspecified Status: Acute Assessment and Plan: this has improved with medical treatment and tolerating diet surgery on board because GS but will be high risk for surgery given respiratory condition, decided only medical management (2) Nausea and vomiting in adult: Code(s): R11.2 - Nausea with vomiting, unspecified Status: Acute Assessment and Plan: resolved (3) Ileus: Code(s): K56.7 - Ileus, unspecified Status: Acute Assessment and Plan: resolved (4) Respiratory failure with hypoxia and hypercapnia: Code(s): J96.91 - Respiratory failure, unspecified with hypoxia; J96.92 - Respiratory failure, unspecified with hypercapnia Status: Acute Assessment and Plan: he is using bipap, also oxygen and pulmonary on board not ready for discharge yet (5) Encephalopathy acute: Code(s): G93.40 - Encephalopathy, unspecified Status: Acute Assessment and Plan: resolved Subjective Date/time seen: 09/23/22 15:05 Interval history: he has been eating without much discomfort but still requiring oxygen and pulmonary treatment, unable to go home just yet- currently on bipap Review of Systems Review of Systems: All systems reviewed & are unremarkable except as noted in HPI and below Exam Const: General: alert Orientation/consciousness: patient oriented x3 Other: on bipap HENMT: Face/Nose/Sinus: Normal nares present Eyes: General: appearance normal, both eyes and all related structures Sclera: sclerae normal Neck: Neck: supple Resp: Auscultation: no crackles and diminished lung sounds Cardio: Rate: regular rate GI: Inspection: obesity GI Palp: Yes Soft to palpation, No Tenderness to palpation present (GI), No Guarding due to palpation present (GI) and No Rebound tenderness present Auscultation: normal bowel sounds Other: less distended Skin: General skin exam: normal color Neuro: Speech: normal speech Extrem: General: normal to inspection Psych: Affect: normal affect Objective Data Vital Signs Vital Signs: Vital Signs - 24 hr 09/22/22 16:00 09/22/22 16:00 09/22/22 17:03 Temperature 100.5 F H Pulse Rate 94 94 95 Respiratory Rate 17 Blood Pressure 148/87 H Pulse Oximetry 93 Oxygen Delivery Oxygen Flow Rate Fraction of Inspired Oxygen 09/22/22 18:00 09/22/22 20:08 09/22/22 20:00 Temperature 101 F H Pulse Rate 100 97 Respiratory Rate Blood Pressure Pulse Oximetry Oxygen Delivery Oxygen Flow Rate Fraction of Inspired Oxygen 09/22/22 20:00 09/22/22 20:21 09/22/22 23:03 Temperature 100.3 F H Pulse Rate 100 93 80 Respiratory Rate 17 22 H 26 H Blood Pressure 137/78 Pulse Oximetry 93 93 94 Oxygen Delivery Nasal Cannula Oxygen Flow Rate 4 Fraction of Inspired Oxygen 40 09/23/22 00:00 09/23/22 00:12 09/23/22 00:15 Temperature 99.3 F 99.2 F Pulse Rate 86 88 89 Respiratory Rate 28 H 28 H 28 H Blood Pressure 136/80 153/71 H Pulse Oximetry 95 97 96 Oxygen Delivery Oxygen Flow Rate Fraction of Inspired Oxygen 09/23/22 04:35 09/23/22 04:00 09/23/22 08:00 Temperature 97.7 F Pulse Rate 77 88 Respiratory Rate 30 H 22 H Blood Pressure 132/75 Pulse Oximetry 94 94 95 Oxygen Delivery Nasal Cannula Oxygen Flow Rate 4 Fraction of Inspired Oxygen 09/23/22 11:24 09/23/22 11:25 09/23/22 11:37 Temperature Pulse Rate 96 88 Respiratory Rate 24 H 20 Blood Pressure Pulse Oximetry 92 Oxygen Delivery Nasal Cannula Oxygen Flow Rate 3 Fraction of Inspired Oxygen 09/23/22 14:06 Temperature Pulse Rate 92 Respiratory Rate 33 H Blood Pressure Pulse Oximetry 90 Oxygen Delivery Oxygen Flow Rate Fraction of Inspired Oxygen Intake/Output Intake/Output: Intake & Output
[2022-09-23] MEDS: IPRATROPIUM BR 0.02% INH SOLN 0.5 MG/2.5 ML VIAL INHALATION ×2 (15:48→22:31)
[2022-09-23] MEDS: FUROSEMIDE INJ 40 MG/4 ML VIAL IV PUSH (17:20)
[2022-09-23] MEDS: BENZONATATE 100 MG CAPSULE PO (21:12)
[2022-09-23] MEDS: LOPERAMIDE HCL 2 MG CAPSULE PO (21:12)
[2022-09-23] MEDS: ATORVASTATIN 40 MG TABLET PO (21:13)
[2022-09-24] VITALS (15 sets, daily range): BP systolic 115–152; BP diastolic 50–71; PULSE 80–100; RESP 14–25; TEMP 36.2–37; O2SAT 91–97
[2022-09-24] MEDS: ALBUTEROL SULFATE NEB 2.5 MG/3 ML INH INHALATION ×5 (04:06→21:55)
[2022-09-24] MEDS: IPRATROPIUM BR 0.02% INH SOLN 0.5 MG/2.5 ML VIAL INHALATION ×5 (04:07→21:55)
[2022-09-24 04:35] LABS: Alveolar/Arterial O2 Gradient 134.7 mmHg; Fractional Inspired Oxygen 40 %; HCO3 ABG 31.3 mEq/l (22.0-26.0); Oxygen Content ABG 22.9 %vol (16.0-22.0); Oxygen Saturation ABG 92.3 % (95.0-100.0); Oxyhemoglobin 93.1 % THb (90.0-100.0); PO2 ABG 72.8 mmHg (80.0-100.0); PO2 FiO2 Ratio Arterial Blood 1.82 %; Total Hemoglobin 17.5 g/dL (12.0-18.0)
[2022-09-24 04:37] LABS: Device OTHER DEVICE; Modified Allen's Test Pass; PCO2 ABG 67.6 mmHg (35.0-45.0); Site Drawn RIGHT RADIAL; pH ABG 7.283 (7.350-7.450)
[2022-09-24] MEDS: BENZONATATE 100 MG CAPSULE PO (05:50)
[2022-09-24 05:57] LABS: Hematocrit 37.2 % (42.0-52.0); Hemoglobin 11.5 g/dL (14.0-18.0); Mean Corpuscular HGB Conc 30.9 g/dl (32-36); Mean Corpuscular Volume 93.9 fl (80-100); Mean Platelet Volume 8.9 fl (7.4-10.4); Platelet Count Result 247 k/mm3 (150-375); Red Blood Count 3.96 M/mm3 (4.6-6.20); Red Cell Distribution Width 15.1 % (11.5-14.5); White Blood Count 21.3 K/mm3 (4.5-10.0)
[2022-09-24 06:07] LABS: Alanine Aminotransferase 22 U/L (6-50); Alkaline Phosphatase 72 U/L (38-126); Anion Gap 6 mmol/L (8-16); Aspartate Amino Transferase 30 U/L (17-59); Bilirubin,Total 0.4 mg/dL (0.2-1.3); Blood Urea Nitrogen 35 mg/dL (9-20); Calcium 8.2 mg/dL (8.4-10.2); Carbon Dioxide 28 mmol/L (22-30); Chloride 98 mmol/L (98-107); Estimated CRCL calculation 26 ml/min; Estimated Glomerular Filt Rate 24; Glucose 122 mg/dL (65-110); Lipase 1276 U/L (23-300); Potassium 3.4 mmol/L (3.4-5.0); Sodium 132 mmol/L (137-145)
[2022-09-24 06:49] LABS: Band Neutrophils Percent 8 % (0-6); Eosinophils Absolute Manual 0.85 K/mm3 (0.02-0.5); Eosinophils Percent Manual 4 % (0-4); Lymphocytes Absolute Manual 1.91 K/mm3 (1.1-4.5); Metamyelocytes Percent 4 %; Monocytes Absolute Manual 1.49 K/mm3 (0.1-0.90); Monocytes Percent Manual 7 % (3-9); Neutrophils Absolute Manual 16.18 K/mm3 (1.3-6.7); Neutrophils Percent Manual 68 % (46-73); Total Cells Counted 100
[2022-09-24 06:50] LABS: Platelet Estimate Adequate (Adequate); Schistocytes None Seen (NORMAL)
[2022-09-24] MEDS: METOPROLOL TARTRATE 25 MG TABLET PO ×2 (08:36→18:17)
[2022-09-24] MEDS: PANTOPRAZOLE SODIUM IV 40 MG VIAL IV PUSH (08:37)
[2022-09-24] MEDS: LIDOCAINE 5% PATCH 1 PATCH TRANSDERM (08:37)
[2022-09-24] MEDS: HEPARIN SODIUM 5,000 UNITS/ML VIAL 5000 UNITS SUB-Q ×2 (08:37→21:26)
[2022-09-24] MEDS: ursodioL 300 MG CAPSULE PO ×3 (08:37→18:17)
--- NOTE | 2022-09-24 09:02 | P.PNNP_ITS ---
Progress Note: A&P Assessment and Plan (1) Acute kidney injury: Code(s): N17.9 - Acute kidney failure, unspecified Status: Acute Assessment and Plan: * Acute kidney injury * baseline creatinine runs ~ 1.2 - 1,4mg/dl * His creatinine had improved but now is rising fairly rapidly. * Before hand it was due to pancreatitis and pre renal azotemia. * Former evaluation noted to date: * renal ultrasound unremarkable except left lower pole nephrolithiasis * CT scan did not show a kidney stone however. It did show a right calcified renal cyst in the upper pole. * urine electrolytes prerenal * urine eosinophils negative * CPK mildly elevated - but not enough to affect kidney function * Now his creatinine is rising more quickly. * Etiology is unclear. I do not think he is dehydrated. His pancreas is better so I do not think this has anything to do with it. His blood pressure is okay. He has not received contrast. He is not running a fever, however his white count is higher. His CK was high before so will recheck this. If he does have a stone on the left than it could be passing in causing the higher creatinine. Interstitial nephritis is possible but the rapid rate of rise of the creatinine speaks against this. He also does not have a rash * Will check renal ultrasound, repeat a CPK, repeat the creatinine, get cultures, and continue antibiotics. * monitor repeat labs and UOP (2) Acute pancreatitis: Code(s): K85.90 - Acute pancreatitis without necrosis or infection, unspecified Status: Acute Assessment and Plan: * as noted by elevated lipase and abdominal pain * GI and Surgery following -- medical management for now * The symptoms better * His calcium level is normal to low so I doubt this is hyperparathyroidism even though he does have stones plus pancreatitis. (3) Respiratory failure with hypoxia and hypercapnia: Code(s): J96.91 - Respiratory failure, unspecified with hypoxia; J96.92 - Respiratory failure, unspecified with hypercapnia Status: Acute Assessment and Plan: * appear to have responded to BiPAP therapy * suspect exacerbated by OHS +/- TERESITA versus early pneumonia versus atelectasis * follow respiratory status * Pulmonary following (4) Sepsis: Code(s): A41.9 - Sepsis, unspecified organism Status: Acute Assessment and Plan: * as evidence by elevated WBC, LOTUS/ARF, lactic acidosis, and pancreatitis * appropriate culture pending * on Zosyn (5) Essential (primary) hypertension: Code(s): I10 - Essential (primary) hypertension Status: Chronic Assessment and Plan: * hypertensive on admission -- due to pain(?) * Blood pressure is looking pretty good right now. (6) Altered mental status: Code(s): R41.82 - Altered mental status, unspecified Status: Acute Assessment and Plan: * Improved Subjective Date/time seen: 09/24/22 09:02 Interval history: A came back on the case. Dr. Moreno had signed off. His creatinine is higher. Manohar is feeling ?okay ? He seems a little dyspneic but denies shortness of breath. No belly pain. No nausea or vomiting. He has a little bit of back pain on the left. It has been present overnight without change. Review of Systems Cardiovascular: Cardiovascular: Reports no additional cardiovascular complaints Respiratory: Respiratory: Reports no additional respiratory complaints Gastrointestinal: Gastrointestinal: Reports no additional gastrointestina
--- NOTE | 2022-09-24 09:02 | PM.PNNEP ---
Progress Note: A&P Assessment and Plan (1) Acute kidney injury: Code(s): N17.9 - Acute kidney failure, unspecified Status: Acute Assessment and Plan: Acute kidney injury baseline creatinine runs ~ 1.2 - 1,4mg/dl His creatinine had improved but now is rising fairly rapidly. Before hand it was due to pancreatitis and pre renal azotemia. Former evaluation noted to date: renal ultrasound unremarkable except left lower pole nephrolithiasis CT scan did not show a kidney stone however. It did show a right calcified renal cyst in the upper pole. urine electrolytes prerenal urine eosinophils negative CPK mildly elevated - but not enough to affect kidney function Now his creatinine is rising more quickly. Etiology is unclear. I do not think he is dehydrated. His pancreas is better so I do not think this has anything to do with it. His blood pressure is okay. He has not received contrast. He is not running a fever, however his white count is higher. His CK was high before so will recheck this. If he does have a stone on the left than it could be passing in causing the higher creatinine. Interstitial nephritis is possible but the rapid rate of rise of the creatinine speaks against this. He also does not have a rash Will check renal ultrasound, repeat a CPK, repeat the creatinine, get cultures, and continue antibiotics. monitor repeat labs and UOP (2) Acute pancreatitis: Code(s): K85.90 - Acute pancreatitis without necrosis or infection, unspecified Status: Acute Assessment and Plan: as noted by elevated lipase and abdominal pain GI and Surgery following -- medical management for now The symptoms better His calcium level is normal to low so I doubt this is hyperparathyroidism even though he does have stones plus pancreatitis. (3) Respiratory failure with hypoxia and hypercapnia: Code(s): J96.91 - Respiratory failure, unspecified with hypoxia; J96.92 - Respiratory failure, unspecified with hypercapnia Status: Acute Assessment and Plan: appear to have responded to BiPAP therapy suspect exacerbated by OHS +/- TERESITA versus early pneumonia versus atelectasis follow respiratory status Pulmonary following (4) Sepsis: Code(s): A41.9 - Sepsis, unspecified organism Status: Acute Assessment and Plan: as evidence by elevated WBC, LOTUS/ARF, lactic acidosis, and pancreatitis appropriate culture pending on Zosyn (5) Essential (primary) hypertension: Code(s): I10 - Essential (primary) hypertension Status: Chronic Assessment and Plan: hypertensive on admission -- due to pain(?) Blood pressure is looking pretty good right now. (6) Altered mental status: Code(s): R41.82 - Altered mental status, unspecified Status: Acute Assessment and Plan: Improved Subjective Date/time seen: 09/24/22 09:02 Interval history: A came back on the case. Dr. Moreno had signed off. His creatinine is higher. Manohar is feeling ?okay ? He seems a little dyspneic but denies shortness of breath. No belly pain. No nausea or vomiting. He has a little bit of back pain on the left. It has been present overnight without change. Review of Systems Cardiovascular: Cardiovascular: Reports no additional cardiovascular complaints Respiratory: Respiratory: Reports no additional respiratory complaints Gastrointestinal: Gastrointestinal: Reports no additional gastrointestinal complaints Genitourinary: Genitourinary: Reports no additional male genitourinary complaints Exam Narrative: WDWN in NAD skin no rash head ncat lungs clear cor reg no rub abd BS+ nontender and soft ext trace bilateral edema. Objective Data Vital Signs Vital Signs: Vital Signs - 24 hr 09/23/22 11:24 09/23/22 11:25 09/23/22 11:37 Temperature Pulse Rate 96 88 Respiratory Rate 24 H 20 Blood Pressure Pulse Oximetry 92
--- NOTE | 2022-09-24 10:10 | PM.PNPUL ---
Progress Note: A&P Assessment and Plan (1) Obesity hypoventilation syndrome: Code(s): E66.2 - Morbid (severe) obesity with alveolar hypoventilation Status: Acute Assessment and Plan: 09/28 Patient with pancreatitis and multi-system organ failure.? Etiology of acute hypercarbic and hypoxemic respiratory in failure includes pancreatitis with ARDS, aspiration pneumonia, fluid overload and/or narcotics on top of possible obesity hypoventilation syndrome. ? Most recent blood gas on BiPAP 23/03 was 7.14/77/84.? I have increased the patient to maximal BiPAP settings at 22/5 and a rate of 22 with 45% FiO2 and have ordered a blood gas in 1 hour. ? I am concerned the patient may require intubation if his? respiratory acidosis is not improved with these maximal BiPAP settings.? the patient is waiting for room on the IMU and may require transfer to the intensive care unit.? Lactic acid pending currently.? Agree with Ross for now. He has no wheezes and I do not see a need for bronchodilators, inhaled or systemic steroids at this time. ?discussed with Bekah Venegas.? will follow with you. 09/19 patient wore BiPAP 22/5 throughout the evening and his blood gas this morning was 7.32/46/83 on 45% FiO2. He had tolerated time off the BiPAP this morning. Currently sitting up in the chair with a BiPAP on this has been adjusted to 18/8 and 40%. Agree with BiPAP p.r.n. at this time. Chest x-ray today does not show any new infiltrates consistent with aspiration pneumonia. If blood cultures remain negative at 48 hours from a pulmonary perspective can discontinue antibiotics. Discussed with Dr. Treadwell, will sign off, call with questions. 09/22 re-consulted for desaturations when sleeps and requiring BiPAP use. He wore BiPAP 22/5 last night with 40% FiO2 and sats 96%. Patient's pancreatitis and multi-system organ failure has improved. His creatinine is 0.3, his serum bicarbonate is 31. He is febrile. White blood cell count is 14.4. Currently the patient is on 3 L nasal cannula saturations 92%. He denies any shortness of breath while he is awake and states that he is breathing back at his baseline. patient is cumulative 4.4 L positive since admission. The patient has no history of reactive airways disease and I will discontinue his nebulizers at this time. I will order a TSH and free T4 for the morning. The patient may have obesity hypoventilation syndrome and I will check a blood gas this afternoon off of BiPAP to see if he has CO2 retention. The patient tells me he cannot tolerate the current BiPAP pressures and does not think he would be able to wear this mask or machine at home. If he needs noninvasive ventilation in the future will place him on at AVAPS mode. ABG at 4:17 p.m. with pH of 7.39/ 50/68 on 4 L nasal cannula.??Patient has obesity hypoventilation? syndrome with hypercarbic respiratory failure.? Patient would benefit from noninvasive ventilation to prevent clinical deterioration and subsequent hospitalizations. Patient did not tolerate BiPAP 22/5 because of the flows and the pressures.? I changed the patient to noninvasive ventilation with the AVAPS mode? and adjusted the settings for comfort resulting in: rate of 20, tidal volume 500, EPAP 5, minimal inspiratory pressure 6, maximal inspiratory pressure 25, inspiratory time 1.2 seconds, rise of 5 which is the slowest and will place the patient on 36% FiO2.? I will check an overnight oximetry on these settings and an ABG prior to removal of the mask. 09/23 Patient is currently short of breath with wheezing. Patient wore the noninvasive ventilator with the AVAPS mode overnight with a rate of 20, tidal volume 500, EPAP 5, minimal inspiratory pressure 6, maximal inspiratory pressure 25 and 36% FiO2. He were fullface mask. Patient said that he could not sleep at all last night and stated stated he refuses to wear it in the future. Patient had a blood gas on these settings with a
[2022-09-24] MEDS: amLODIPine BESYLATE 5 MG TABLET 10 MG PO (10:18)
[2022-09-24 10:20] LABS: Creatine Kinase 36 U/L (55-170)
--- NOTE | 2022-09-24 12:03 | WPDGIPROGNO ---
Progress Note: A&P Assessment and Plan (1) Acute pancreatitis: Code(s): K85.90 - Acute pancreatitis without necrosis or infection, unspecified Status: Acute Assessment and Plan: this has improved with medical treatment and tolerating diet surgery on board because GS but will be high risk for surgery given respiratory condition, decided only medical management elevated wbc but abdominal exam is benign other than similar distension, he is eating and no pain- monitor, if persistent elevated consider to repeat imaging he has been on abx still weak, may need PT on discharge (2) Nausea and vomiting in adult: Code(s): R11.2 - Nausea with vomiting, unspecified Status: Acute Assessment and Plan: resolved (3) Respiratory failure with hypoxia and hypercapnia: Code(s): J96.91 - Respiratory failure, unspecified with hypoxia; J96.92 - Respiratory failure, unspecified with hypercapnia Status: Acute Assessment and Plan: he is using bipap, also oxygen and pulmonary on board (he was not using at home) not ready for discharge yet (4) Acute kidney injury: Code(s): N17.9 - Acute kidney failure, unspecified Status: Acute Assessment and Plan: ultrasound pending (5) Leukocytosis: Code(s): D72.829 - Elevated white blood cell count, unspecified Status: Acute Subjective Date/time seen: 09/24/22 12:03 Interval history: still with similar respiratory issues, he is eating though and denies abdominal pain, had BM family member says that patient did not require bipap at home Review of Systems Review of Systems: All systems reviewed & are unremarkable except as noted in HPI and below Exam Const: General: alert Orientation/consciousness: patient oriented x3 Other: using oxygen HENMT: Face/Nose/Sinus: Normal nares present Eyes: General: appearance normal, both eyes and all related structures Sclera: sclerae normal Neck: Neck: supple Resp: Auscultation: no crackles and diminished lung sounds Cardio: Rate: regular rate GI: Inspection: distended and obesity GI Palp: Yes Soft to palpation, No Tenderness to palpation present (GI), No Guarding due to palpation present (GI) and No Rebound tenderness present Auscultation: normal bowel sounds Skin: General skin exam: normal color Neuro: Speech: normal speech Extrem: General: normal to inspection Psych: Affect: normal affect Objective Data Vital Signs Vital Signs: Vital Signs - 24 hr 09/23/22 14:06 09/23/22 15:48 09/23/22 15:57 Temperature Pulse Rate 92 85 86 Respiratory Rate 33 H 28 H 25 H Blood Pressure Pulse Oximetry 90 Oxygen Delivery Oxygen Flow Rate 09/23/22 16:00 09/23/22 20:00 09/23/22 22:35 Temperature 97.7 F Pulse Rate 92 92 93 Respiratory Rate 24 H 24 H 22 H Blood Pressure 139/72 Pulse Oximetry 96 96 Oxygen Delivery Nasal Cannula Oxygen Flow Rate 3 09/23/22 22:36 09/23/22 22:51 09/24/22 00:00 Temperature 98.1 F Pulse Rate 94 80 Respiratory Rate 32 H 22 H Blood Pressure 152/71 H Pulse Oximetry 92 92 97 Oxygen Delivery Nasal Cannula Oxygen Flow Rate 3 09/24/22 04:09 09/24/22 04:10 09/23/22 22:47 Temperature Pulse Rate 84 84 95 Respiratory Rate 25 H 25 H 22 H Blood Pressure Pulse Oximetry 91 Oxygen Delivery Oxygen Flow Rate 09/24/22 04:20 09/24/22 08:00 Temperature 97.6 F Pulse Rate 86 93 Respiratory Rate 22 H 18 Blood Pressure 122/63 Pulse Oximetry 91 Oxygen Delivery Oxygen Flow Rate Intake/Output Intake/Output: Intake & Output 09/21/22 09/22/22 09/23/22 09/24/22 23:59 23:59 23:59 23:59 Intake Total 2490 1750 2170 290 Output Total 1200 1375 1300 600 Balance 1290 375 870 -310 Meds/Results Medications: Active Medications Generic Name Dose Route Start Last Admin Trade Name Morena PRN Reason Stop Dose Admin Acetaminophen 1,000 mg 09/21/22 10:17 09/22/22 20:08 Acetam
[2022-09-24 13:20] LABS: Creatinine Urine 139.9 mg/dL; Sodium Urine Random 27 meq/L; Total Protein Urine Random 77 mg/dL; Ur Ttl Prot Creatinine Ratio 0.55 mg/mg (0-0.20)
--- NOTE | 2022-09-24 14:10 | PM.IMPN ---
Progress Note: A&P Assessment and Plan (1) Pancreatitis: Code(s): K85.90 - Acute pancreatitis without necrosis or infection, unspecified Status: Acute Assessment and Plan: Tolerating a diet. Abdominal pain is much better. Continue pain control as needed. Persistent and worsening leukocytosis. Will check CT scan of the abdomen and pelvis. (2) Wheezing: Code(s): R06.2 - Wheezing Status: Acute Assessment and Plan: Respiratory status appears to be improved today. Appreciate Pulmonary input (3) Obesity hypoventilation syndrome: Code(s): E66.2 - Morbid (severe) obesity with alveolar hypoventilation Status: Acute Assessment and Plan: Appreciate pulmonary's consultation (4) Cholelithiasis: Code(s): K80.20 - Calculus of gallbladder without cholecystitis without obstruction Status: Acute Assessment and Plan: Treat conservatively right now. May need cholecystectomy in the future. Leukocytosis is worsening. Will get a CT scan of the abdomen and pelvis (5) Obesity: Qualifiers: Obesity type: unspecified obesity type Obesity classification: adult class 2 (BMI 35 - 39.9) Serious obesity comorbidity presence: unspecified whether serious comorbidity present Body mass index: BMI 38.0-38.9 Qualified Code(s): E66.9 - Obesity, unspecified; Z68.38 - Body mass index [BMI] 38.0-38.9, adult Code(s): E66.9 - Obesity, unspecified Status: Acute (6) Aortic stenosis, severe: Code(s): I35.0 - Nonrheumatic aortic (valve) stenosis Status: Chronic Assessment and Plan: Status post valve replacement Subjective Date/time seen: 09/24/22 14:10 No new complaints. White blood cell count continues to rise. Creatinine rising as well Exam Narrative: morbidly obese Patient is comfortable, NAD HEENT: eyes are clear and none icteric NG tube in place LUNGS: normal respiratory effort ABD: distended Lower extremities: no edema SKIN: nonjaundiced Neuro: grossly intact. Objective Data Vital Signs Vital Signs: Vital Signs - 24 hr 09/23/22 15:48 09/23/22 15:57 09/23/22 16:00 Temperature 97.7 F Pulse Rate 85 86 92 Respiratory Rate 28 H 25 H 24 H Blood Pressure 139/72 Pulse Oximetry 96 Oxygen Delivery Oxygen Flow Rate 09/23/22 20:00 01/14/23 22:35 09/23/22 22:36 Temperature Pulse Rate 92 93 Respiratory Rate 24 H 22 H Blood Pressure Pulse Oximetry 96 92 Oxygen Delivery Nasal Cannula Nasal Cannula Oxygen Flow Rate 3 3 09/23/22 22:51 09/24/22 00:00 09/24/22 04:09 Temperature 98.1 F Pulse Rate 94 80 84 Respiratory Rate 32 H 22 H 25 H Blood Pressure 152/71 H Pulse Oximetry 92 97 Oxygen Delivery Oxygen Flow Rate 09/24/22 04:10 09/23/22 22:47 09/24/22 04:20 Temperature Pulse Rate 84 95 86 Respiratory Rate 25 H 22 H 22 H Blood Pressure Pulse Oximetry 91 Oxygen Delivery Oxygen Flow Rate 09/24/22 08:00 09/24/22 08:59 09/24/22 09:19 Temperature 97.6 F Pulse Rate 93 93 91 Respiratory Rate 18 18 18 Blood Pressure 122/63 Pulse Oximetry 91 Oxygen Delivery Oxygen Flow Rate 09/24/22 12:37 Temperature Pulse Rate 93 Respiratory Rate 18 Blood Pressure Pulse Oximetry Oxygen Delivery Oxygen Flow Rate Intake/Output Intake/Output: Intake & Output 09/21/22 09/22/22 09/23/22 09/24/22 23:59 23:59 23:59 23:59 Intake Total 2490 1750 2170 580 Output Total 1200 1375 1300 1000 Balance 1290 375 870 -420 Meds/Results Medications: Active Medications Generic Name Dose Route Start Last Admin Trade Name Freq PRN Reason Stop Dose Admin Acetaminophen 1,000 mg 09/21/22 10:17 09/22/22 20:08 Acetaminophen 500 Mg Tablet PO 1,000 mg Q6H PRN Administration Pain Albuterol 2.5 mg 09/23/22 11:20 09/24/22 12:37 Albuterol Sulfate Neb 2.5 Mg/3 Ml Inh INHALATION 2.5 mg Q4HRT MONIE Administration Amlodipine Besylate
[2022-09-24 18:44] LABS: Appearance Urine Slightly Cloudy (Clear); Bilirubin Urine Negative (Negative); Blood Urine 2+ (Negative); Color Urine Yellow (Yellow); Glucose Urine UA Negative (Negative); Ketones Urine Negative (Negative); Leukocyte Esterase Ur Negative LEU/UL (Negative); Nitrate Urine Negative (Negative); Protein Urine 2+ mg/dL (Negative); Urobilinogen Urine 0.2 mg/dL (<2.0); pH Urine 5.5 (5.0-9.0)
[2022-09-24 18:59] LABS: Bacteria Urine Trace /hpf; Mucus Urine Rare /lpf; RBC Urine 51-75 /hpf (0-2); Squamous Epithelial Cell Urine Rare /hpf (Few); Uric Acid Crystals Urine Present /hpf
[2022-09-24 19:00] LABS: Add Urine Microscopic? YES
[2022-09-24] MEDS: ATORVASTATIN 40 MG TABLET PO (21:26)
--- NOTE | 2022-09-24 22:48 | PCRCNOTE ---
Apnea link started.
[2022-09-25] VITALS (21 sets, daily range): BP systolic 100–130; BP diastolic 56–61; PULSE 60–96; RESP 16–31; TEMP 36.4–37.4; O2SAT 90–96
[2022-09-25 05:44] LABS: Anion Gap 5 mmol/L (8-16); Blood Urea Nitrogen 49 mg/dL (9-20); Calcium 8.3 mg/dL (8.4-10.2); Carbon Dioxide 30 mmol/L (22-30); Chloride 97 mmol/L (98-107); Estimated CRCL calculation 17 ml/min; Estimated Glomerular Filt Rate 14; Glucose 128 mg/dL (65-110); Phosphorus 7.3 mg/dL (2.5-4.5); Sodium 132 mmol/L (137-145)
[2022-09-25 06:04] LABS: Alveolar/Arterial O2 Gradient 236.5 mmHg; Base Excess ABG 0.5 mEq/l (+/-2.0); Fractional Inspired Oxygen 55 %; Oxygen Content ABG 16.7 %vol (16.0-22.0); Oxygen Saturation ABG 94.1 % (95.0-100.0); Oxyhemoglobin 94.6 % THb (90.0-100.0); PO2 ABG 81.8 mmHg (80.0-100.0); PO2 FiO2 Ratio Arterial Blood 1.49 %; Total Hemoglobin 12.5 g/dL (12.0-18.0)
[2022-09-25 07:55] LABS: Device NON-INVASIVE VENT; PCO2 ABG 66.4 mmHg (35.0-45.0); pH ABG 7.258 (7.350-7.450)
[2022-09-25 07:56] LABS: Non-Invasive Vent Rate 24 /MIN
[2022-09-25 07:57] LABS: Non-Invasive Expiratory Pressure 5 CMH2O
[2022-09-25 09:00] LABS: Hematocrit 38.3 % (42.0-52.0); Hemoglobin 11.6 g/dL (14.0-18.0); Mean Corpuscular HGB Conc 30.3 g/dl (32-36); Mean Corpuscular Hemoglobin 29.9 pg (26-34); Mean Corpuscular Volume 98.7 fl (80-100); Mean Platelet Volume 9.1 fl (7.4-10.4); Platelet Count Result 271 k/mm3 (150-375); Red Blood Count 3.88 M/mm3 (4.6-6.20); Red Cell Distribution Width 15.5 % (11.5-14.5); White Blood Count 20.9 K/mm3 (4.5-10.0)
--- NOTE | 2022-09-25 09:00 | PC.NURSE ---
Spouse took patient off of the BIPAP and put oxygen tubing on patient. Patient was saturating at 66%. RN was rounding on patient and and witnessed the event. RN noticed the oxygen prongs were not in the patients nose. Oxygen tubing was applied correctly by RN. RN bumped oxygen up from 3L to 5L. Patient recovered quickly to 90%. Hospitalist Maverick aware and solution director Alka bates.
[2022-09-25] MEDS: ALBUTEROL SULFATE NEB 2.5 MG/3 ML INH INHALATION ×5 (09:03→23:40)
[2022-09-25] MEDS: IPRATROPIUM BR 0.02% INH SOLN 0.5 MG/2.5 ML VIAL INHALATION ×5 (09:03→23:40)
--- NOTE | 2022-09-25 09:26 | PCOTNOTE ---
Attempted to see patient this am, however upon entering SPO2 88-89% on 5L nasal cannula. MD present recommended patient return to Bipap at this time. Respiratory therapy notified.
[2022-09-25 09:28] LABS: Band Neutrophils Percent 4 % (0-6); Eosinophils Absolute Manual 0.41 K/mm3 (0.02-0.5); Eosinophils Percent Manual 2 % (0-4); Lymphocytes Absolute Manual 1.04 K/mm3 (1.1-4.5); Lymphocytes Percent Manual 5 % (18-44); Metamyelocytes Percent 2 %; Monocytes Absolute Manual 0.83 K/mm3 (0.1-0.90); Monocytes Percent Manual 4 % (3-9); Neutrophils Absolute Manual 18.18 K/mm3 (1.3-6.7); Neutrophils Percent Manual 83 % (46-73); Platelet Estimate Adequate (Adequate); Total Cells Counted 100
[2022-09-25 09:29] LABS: Schistocytes None Seen (NORMAL)
[2022-09-25] MEDS: PANTOPRAZOLE SODIUM IV 40 MG VIAL IV PUSH (09:31)
[2022-09-25] MEDS: ursodioL 300 MG CAPSULE PO ×2 (09:31→17:18)
[2022-09-25] MEDS: amLODIPine BESYLATE 5 MG TABLET 10 MG PO (09:31)
[2022-09-25] MEDS: HEPARIN SODIUM 5,000 UNITS/ML VIAL 5000 UNITS SUB-Q ×2 (09:31→20:49)
[2022-09-25] MEDS: METOPROLOL TARTRATE 25 MG TABLET PO ×2 (09:32→17:19)
--- NOTE | 2022-09-25 10:22 | PM.PNPUL ---
Progress Note: A&P Assessment and Plan (1) Respiratory failure with hypoxia and hypercapnia: Code(s): J96.91 - Respiratory failure, unspecified with hypoxia; J96.92 - Respiratory failure, unspecified with hypercapnia Status: Acute Assessment and Plan: this 77-year-old man pre presented with vomiting. He was diagnosed with acute pancreatitis. initially he had metabolic acidosis, and also hypoxemic hypercapnic respiratory failure and was treated in the intensive care unit with BiPAP support and also NGT drainage. While in the intensive care unit his gas exchange improved, with correction of hypercapnic respiratory failure. Over the last 4 days the patient's respiratory status has progressively gotten worse despite treatment with BiPAP support at night. Chest imaging studies have shown bilateral lower lobe atelectasis that has probably worsened since treatment in the ICU. on physical exam he has crackles at bases posteriorly related to atelectasis and distended abdomen. in view of worsening renal failure which has coincided with worsening of hypercapnic hypoxemic respiratory failure and evidence of bilateral lower lobe atelectasis, this may be related to increased intra-abdominal pressure. plan: Will start patient on noninvasive ventilatory support in the seated position, while out of bed, and repeat blood gases in about an hour. Sputum culture to exclude lower respiratory tract infection. Will continue with pulmonary toilet adding nebulized Mucomyst to nebulized short-acting bronchodilator. measurement of intra-abdominal pressure through Feliz catheter will be helpful. NGT insertion may also help if patient has persistent ileus. The case was discussed with the hospitalist. (2) Abdominal distension: Code(s): R14.0 - Abdominal distension (gaseous) Status: Acute (3) Acute pancreatitis: Code(s): K85.90 - Acute pancreatitis without necrosis or infection, unspecified Status: Acute (4) Acute kidney injury: Code(s): N17.9 - Acute kidney failure, unspecified Status: Acute (5) S/P aortic valve replacement with bioprosthetic valve: Code(s): Z95.3 - Presence of xenogenic heart valve Status: Acute (6) Obesity: Qualifiers: Obesity type: unspecified obesity type Obesity classification: adult class 2 (BMI 35 - 39.9) Serious obesity comorbidity presence: unspecified whether serious comorbidity present Body mass index: BMI 38.0-38.9 Qualified Code(s): E66.9 - Obesity, unspecified; Z68.38 - Body mass index [BMI] 38.0-38.9, adult Code(s): E66.9 - Obesity, unspecified Status: Acute Subjective Date/time seen: 09/25/22 10:22 Interval history: Respiratory status worsened over the last 4 days with gradual increase in carbon dioxide despite use of BiPAP support at night. Patient also hypoxemic requiring supplemental oxygen. Has had it chest congestion, coughing up clear phlegm. Afebrile. Abdomen remains distended. Leukocytosis persists, while on Zosyn IV. Review of Systems Review of Systems: All system review is negative except as noted in HPI and below Exam Narrative: GENERAL APPEARANCE: Well developed, well nourished, alert and cooperative, morbidly obese who appears to be mild respiratory distress while sitting up in bed, breathing supplemental oxygen via nasal cannula SKIN: Inspection of the skin reveals no rashes, ulcerations or petechiae. HEENT: Sclerae anicteric and conjunctivae pink and moist. Extraocular movements were intact and pupils were equal, round. NECK: Supple. There was no thyroid enlargement, and no tenderness, or masses were felt. CHEST: Normal AP diameter and normal contour without any kyphoscoliosis. LUNGS: Auscultation of the lungs crackles at bases posteriorly CARDIAC: There was a regular rate and rhythm, normal heart sounds with 4/ 6 holosystolic murmur. ABDOMEN: Distended, soft. Nontender. LYMPH NODES: No lymphade
--- NOTE | 2022-09-25 11:32 | P.PNNP_ITS ---
Progress Note: A&P Assessment and Plan (1) Acute kidney injury: Code(s): N17.9 - Acute kidney failure, unspecified Status: Acute Assessment and Plan: * baseline creatinine runs ~ 1.2 - 1.4mg/dl * creatinine had improved but now is rising again * initially though to be secondary to due to pancreatitis and pre renal azotemia. * former evaluation noted to date: * renal ultrasound unremarkable except left lower pole nephrolithiasis * CT scan did not show a kidney stone however, it did show a right calcified renal cyst in the upper pole * urine electrolytes prerenal * urine eosinophils negative * CPK mildly elevated - but not enough to affect kidney function * creatinine appears to have risen quite rapidly * etiology not clear.... * doubt dehydration * pancreas is better so I do not think this is it * blood pressure is stable/okay * no contrast exposure * no fever but his WBC is higher * AIN is possible but does no fit with time course (and no rash) * passing of left kidney stone(?) * repeat evaluation noted * repeat renal ultrasound noted * continues make urine * follow repeat cultures noted * monitor repeat labs and UOP (2) Acute pancreatitis: Code(s): K85.90 - Acute pancreatitis without necrosis or infection, unspecified Status: Acute Assessment and Plan: * as noted by elevated lipase and abdominal pain * GI and Surgery following -- medical management for now * slow improvement in symptoms noted (3) Respiratory failure with hypoxia and hypercapnia: Code(s): J96.91 - Respiratory failure, unspecified with hypoxia; J96.92 - Respiratory failure, unspecified with hypercapnia Status: Acute Assessment and Plan: * appear to have responded to BiPAP therapy * suspect exacerbated by OHS +/- TERESITA versus early pneumonia versus atelectasis * follow respiratory status * Pulmonary following (4) Sepsis: Code(s): A41.9 - Sepsis, unspecified organism Status: Acute Assessment and Plan: * as evidence by elevated WBC, LOTUS/ARF, lactic acidosis, and pancreatitis * culture results noted * on antibiotics (5) Essential (primary) hypertension: Code(s): I10 - Essential (primary) hypertension Status: Chronic Assessment and Plan: * hypertensive on admission -- due to pain(?) * Blood pressure seems better at this time * follow trend of hemodynamics. (6) Altered mental status: Code(s): R41.82 - Altered mental status, unspecified Status: Acute Assessment and Plan: * improved/back to baseline * follow mentation Subjective Date/time seen: 09/25/22 11:32 Chart reviewed -- assuming care from Dr. Richards; renal function continues to deteriorate by trend of labs although still making some urine; at bedside and we discussed the situation; no acute distress noed. Exam Narrative: General: WD/WN male in NAD Heart: normal S1 and S2; no rub Lungs: clear anteriorly. decreased at bases Abdomen: soft, mild TTP and distension positive bowel sounds Extremities: no cyanosis or clubbing; trace edema Skin: warm and dry Objective Data Vital Signs Vital Signs: Vital Signs Temp Pulse Resp BP Pulse Ox O2 Del Method O2 Flow Rate 09/25/22 09:45 89 31 H 95 09/25/22 09:32 91 09/25/22 09:12 96 18
--- NOTE | 2022-09-25 11:32 | PM.PNNEP ---
Progress Note: A&P Assessment and Plan (1) Acute kidney injury: Code(s): N17.9 - Acute kidney failure, unspecified Status: Acute Assessment and Plan: baseline creatinine runs ~ 1.2 - 1.4mg/dl creatinine had improved but now is rising again initially though to be secondary to due to pancreatitis and pre renal azotemia. former evaluation noted to date: renal ultrasound unremarkable except left lower pole nephrolithiasis CT scan did not show a kidney stone however, it did show a right calcified renal cyst in the upper pole urine electrolytes prerenal urine eosinophils negative CPK mildly elevated - but not enough to affect kidney function creatinine appears to have risen quite rapidly etiology not clear.... doubt dehydration pancreas is better so I do not think this is it blood pressure is stable/okay no contrast exposure no fever but his WBC is higher AIN is possible but does no fit with time course (and no rash) passing of left kidney stone(?) repeat evaluation noted repeat renal ultrasound noted continues make urine follow repeat cultures noted monitor repeat labs and UOP (2) Acute pancreatitis: Code(s): K85.90 - Acute pancreatitis without necrosis or infection, unspecified Status: Acute Assessment and Plan: as noted by elevated lipase and abdominal pain GI and Surgery following -- medical management for now slow improvement in symptoms noted (3) Respiratory failure with hypoxia and hypercapnia: Code(s): J96.91 - Respiratory failure, unspecified with hypoxia; J96.92 - Respiratory failure, unspecified with hypercapnia Status: Acute Assessment and Plan: appear to have responded to BiPAP therapy suspect exacerbated by OHS +/- TERESITA versus early pneumonia versus atelectasis follow respiratory status Pulmonary following (4) Sepsis: Code(s): A41.9 - Sepsis, unspecified organism Status: Acute Assessment and Plan: as evidence by elevated WBC, LOTUS/ARF, lactic acidosis, and pancreatitis culture results noted on antibiotics (5) Essential (primary) hypertension: Code(s): I10 - Essential (primary) hypertension Status: Chronic Assessment and Plan: hypertensive on admission -- due to pain(?) Blood pressure seems better at this time follow trend of hemodynamics. (6) Altered mental status: Code(s): R41.82 - Altered mental status, unspecified Status: Acute Assessment and Plan: improved/back to baseline follow mentation Subjective Date/time seen: 09/25/22 11:32 Chart reviewed -- assuming care from Dr. Richards; renal function continues to deteriorate by trend of labs although still making some urine; at bedside and we discussed the situation; no acute distress noed. Exam Narrative: General: WD/WN male in NAD Heart: normal S1 and S2; no rub Lungs: clear anteriorly. decreased at bases Abdomen: soft, mild TTP and distension positive bowel sounds Extremities: no cyanosis or clubbing; trace edema Skin: warm and dry Objective Data Vital Signs Vital Signs: Vital Signs Temp Pulse Resp BP Pulse Ox O2 Del Method O2 Flow Rate 09/25/22 09:45 89 31 H 95 09/25/22 09:32 91 09/25/22 09:12 96 18 09/25/22 09:05 95 Nasal Cannula 5 09/25/22 09:03 92 16 09/25/22 06:01 98 F 60 18 120/61 96 09/25/22 02:12 95 21 H 94 09/24/22 23:15 90 15 96 09/24/22 22:45 87 14 09/24/22 20:00 94 Nasal Cannula 3 09/24/22 20:50 98.6 F 100 20 116/50 L 92 09/24/22 16:45 90 16 09/24/22 16:28 91 14 09/24/22 16:28 91 14 96 09/24/22 15:04 97.1 F L 91 18 115/59 L 91 09/24/22 12:37 93 18 Intake/Output Intake/Output: Intake & Output 09/22/22 09/23/22 09/24/22 09/25/22 23:59 23:59 23:59 23:59 Intake Total 1750 2170 970 440 Output Tot
[2022-09-25 11:41] LABS: Alveolar/Arterial O2 Gradient 304.4 mmHg; Fractional Inspired Oxygen 55 %; Oxygen Saturation ABG 96.6 % (95.0-100.0); Oxyhemoglobin 96.2 % THb (90.0-100.0); PO2 ABG 100.6 mmHg (80.0-100.0); PO2 FiO2 Ratio Arterial Blood 1.83 %; Total Hemoglobin 12.5 g/dL (12.0-18.0)
[2022-09-25 11:42] LABS: Modified Allen's Test Pass; PCO2 ABG 60.2 mmHg (35.0-45.0); Site Drawn RIGHT RADIAL; pH ABG 7.269 (7.350-7.450)
[2022-09-25 11:43] LABS: Device NON-INVASIVE VENT; Non-Invasive Vent Rate 14 /MIN
--- NOTE | 2022-09-25 11:43 | PM.IMPN ---
Progress Note: A&P Assessment and Plan (1) Pancreatitis: Code(s): K85.90 - Acute pancreatitis without necrosis or infection, unspecified Status: Acute Assessment and Plan: CT noted. Overall pancreatitis is about the same. No worsening abdominal pain. Does have some abdominal distention. Will keep patient NPO and place NG tube. (2) Obesity hypoventilation syndrome: Code(s): E66.2 - Morbid (severe) obesity with alveolar hypoventilation Status: Acute Assessment and Plan: Appreciate pulmonary's consultation (3) Cholelithiasis: Code(s): K80.20 - Calculus of gallbladder without cholecystitis without obstruction Status: Acute Assessment and Plan: Treat conservatively right now. May need cholecystectomy in the future. Leukocytosis is worsening. Will get a CT scan of the abdomen and pelvis IV antibiotics (4) Obesity: Qualifiers: Obesity type: unspecified obesity type Obesity classification: adult class 2 (BMI 35 - 39.9) Serious obesity comorbidity presence: unspecified whether serious comorbidity present Body mass index: BMI 38.0-38.9 Qualified Code(s): E66.9 - Obesity, unspecified; Z68.38 - Body mass index [BMI] 38.0-38.9, adult Code(s): E66.9 - Obesity, unspecified Status: Acute (5) Aortic stenosis, severe: Code(s): I35.0 - Nonrheumatic aortic (valve) stenosis Status: Chronic Assessment and Plan: Status post valve replacement (6) Ileus: Code(s): K56.7 - Ileus, unspecified Status: Acute Assessment and Plan: NG tube to low intermittent suction. Trying to see if this will help his respiratory status as well. (7) Hypoxia: Code(s): R09.02 - Hypoxemia Status: Acute Assessment and Plan: Likely from ileus with low lung volumes. Will try to ambulate the patient today and get him a to chair. Incentive spirometry. NG tube to low intermittent suction. Appreciate Pulmonary input. Pulmonary to manage BiPAP Subjective Date/time seen: 09/25/22 11:43 Respiratory status is worse today. He is hypoxic. Abdomen is distended on examination. Denies any complaints of pain. CT scan noted. Denies any acute events overnight Exam Narrative: morbidly obese Patient is comfortable, NAD HEENT: eyes are clear and none icteric NG tube in place LUNGS: normal respiratory effort ABD: distended Lower extremities: no edema SKIN: nonjaundiced Neuro: grossly intact. Objective Data Vital Signs Vital Signs: Vital Signs - 24 hr 09/24/22 12:37 09/24/22 15:04 09/24/22 16:28 Temperature 97.1 F L Pulse Rate 93 91 91 Respiratory Rate 18 18 14 Blood Pressure 115/59 L Pulse Oximetry 91 96 Oxygen Delivery Oxygen Flow Rate 09/24/22 16:28 09/24/22 16:45 09/24/22 20:50 Temperature 98.6 F Pulse Rate 91 90 100 Respiratory Rate 14 16 20 Blood Pressure 116/50 L Pulse Oximetry 92 Oxygen Delivery Oxygen Flow Rate 09/24/22 20:00 09/24/22 22:45 09/24/22 23:15 Temperature Pulse Rate 87 90 Respiratory Rate 14 15 Blood Pressure Pulse Oximetry 94 96 Oxygen Delivery Nasal Cannula Oxygen Flow Rate 3 09/25/22 02:12 09/25/22 06:01 09/25/22 09:03 Temperature 98 F Pulse Rate 95 60 92 Respiratory Rate 21 H 18 16 Blood Pressure 120/61 Pulse Oximetry 94 96 Oxygen Delivery Oxygen Flow Rate 09/25/22 09:05 09/25/22 09:12 09/25/22 09:32 Temperature Pulse Rate 96 91 Respiratory Rate 18 Blood Pressure Pulse Oximetry 95 Oxygen Delivery Nasal Cannula Oxygen Flow Rate 5 09/25/22 09:45 Temperature Pulse Rate 89 Respiratory Rate 31 H Blood Pressure Pulse Oximetry 95 Oxygen Delivery Oxygen Flow Rate Intake/Output Intake/Output: Intake & Output 09/22/22 09/23/22 09/24/22 09/25/22 23:59 23:59 23:59 23:59 Intake Total 1750 2170 970 440 Output Total 1375 1300 1100 200 Balance 375 870 -130 240 Meds/Results Medic
[2022-09-25 11:44] LABS: Non-Invasive Expiratory Pressure 8 CMH2O
--- NOTE | 2022-09-25 12:14 | PC.NURSE ---
Called pharmacy and left a voicemail regarding patients scheduled zosyn at 1200.
--- NOTE | 2022-09-25 12:58 | PCOTNOTE ---
Attempted to see patient this pm, however patient unavailable with nursing attempting NG tube at this time.
[2022-09-25 14:09] LABS: Alveolar/Arterial O2 Gradient 218.9 mmHg; Base Excess ABG 0.3 mEq/l (+/-2.0); Carboxyhemoglobin 0.3 % THb (0-2.0); Fractional Inspired Oxygen 55 %; HCO3 ABG 27.7 mEq/l (22.0-26.0); Methemoglobin ABG 0.6 %THb (0-1.5); Oxygen Content ABG 17.1 %vol (16.0-22.0); Oxygen Saturation ABG 97.4 % (95.0-100.0); Oxyhemoglobin 96.7 % THb (90.0-100.0); PCO2 ABG 57.7 mmHg (35.0-45.0); PO2 ABG 109.1 mmHg (80.0-100.0); PO2 FiO2 Ratio Arterial Blood 1.98 %; Reduced Hemoglobin 2.4 %THb (0-5.0); Total Hemoglobin 12.5 g/dL (12.0-18.0); pH ABG 7.299 (7.350-7.450)
[2022-09-25 14:10] LABS: Device NON-INVASIVE VENT; Modified Allen's Test Pass; Site Drawn RIGHT RADIAL
[2022-09-25 14:11] LABS: Non-Invasive Expiratory Pressure 4 CMH2O; Non-Invasive Inspiratory Pressure 18 CMH2O; Non-Invasive Vent Rate 14 /MIN
--- NOTE | 2022-09-25 14:58 | PC.NURSE ---
RN called to give IMU RN report on patient. Waiting for a call back at this time.
--- NOTE | 2022-09-25 15:00 | PC.NURSE ---
RN for patient attempted NG tube placement twice and was unsuccessful. general farm manager attempted NG tube placed twice and was also unsuccessful. Updated Dr. Temple about the situation as well as Dr. Obregon.
--- NOTE | 2022-09-25 15:18 | PC.NURSE ---
Report given to IMU CLEMENTE Ortez
--- NOTE | 2022-09-25 15:37 | PC.NURSE ---
This patient, Manohar West, was transferred to IMU on 09/25/22 at 1537. Personal belongings sent with patient. Report given to Neelima. Appropriate documentation sent with patient.
--- NOTE | 2022-09-25 16:04 | WPDGIPROGNO ---
Progress Note: A&P Assessment and Plan (1) Acute pancreatitis: Code(s): K85.90 - Acute pancreatitis without necrosis or infection, unspecified Status: Acute Assessment and Plan: still distended abdomen and repeat CT scan persistent pancreatitis (ordered because persistent leukocytosis and renal failure) denies nausea but still distended abdomen, unfortunately high risk for lap rossy and he has been managed medically he has been on abx npo again (2) Nausea and vomiting in adult: Code(s): R11.2 - Nausea with vomiting, unspecified Status: Acute (3) Respiratory failure with hypoxia and hypercapnia: Code(s): J96.91 - Respiratory failure, unspecified with hypoxia; J96.92 - Respiratory failure, unspecified with hypercapnia Status: Acute Assessment and Plan: he is using bipap, also oxygen and pulmonary on board (he was not using at home) not ready for discharge yet aggravated by pancreatitis and worsening renal failure (4) Acute kidney injury: Code(s): N17.9 - Acute kidney failure, unspecified Status: Acute Assessment and Plan: monitor (5) Leukocytosis: Code(s): D72.829 - Elevated white blood cell count, unspecified Status: Acute Assessment and Plan: CT scan reviewed Subjective Date/time seen: 09/25/22 16:04 Interval history: still requiring bipap and same respiratory distress, he was eating but abdomen distended, attempted to place NGT but unsuccessful Review of Systems Review of Systems: All systems reviewed & are unremarkable except as noted in HPI and below Exam Const: General: alert Other: using bipap HENMT: Face/Nose/Sinus: Normal nares present Eyes: General: appearance normal, both eyes and all related structures Sclera: sclerae normal Neck: Neck: supple Resp: Auscultation: no crackles and diminished lung sounds Cardio: Rate: regular rate GI: Inspection: distended and obesity GI Palp: Yes Soft to palpation, No Tenderness to palpation present (GI) and No Guarding due to palpation present (GI) Auscultation: normal bowel sounds Skin: General skin exam: normal color Neuro: Speech: normal speech Extrem: General: normal to inspection Psych: Affect: normal affect Objective Data Vital Signs Vital Signs: Vital Signs - 24 hr 09/24/22 16:28 09/24/22 16:28 09/24/22 16:45 Temperature Pulse Rate 91 91 90 Respiratory Rate 14 14 16 Blood Pressure Pulse Oximetry 96 Oxygen Delivery Oxygen Flow Rate 09/24/22 20:50 09/24/22 20:00 09/24/22 22:45 Temperature 98.6 F Pulse Rate 100 87 Respiratory Rate 20 14 Blood Pressure 116/50 L Pulse Oximetry 92 94 Oxygen Delivery Nasal Cannula Oxygen Flow Rate 3 09/24/22 23:15 09/25/22 02:12 09/25/22 06:01 Temperature 98 F Pulse Rate 90 95 60 Respiratory Rate 15 21 H 18 Blood Pressure 120/61 Pulse Oximetry 96 94 96 Oxygen Delivery Oxygen Flow Rate 09/25/22 09:03 09/25/22 09:05 09/25/22 09:12 Temperature Pulse Rate 92 96 Respiratory Rate 16 18 Blood Pressure Pulse Oximetry 95 Oxygen Delivery Nasal Cannula Oxygen Flow Rate 5 09/25/22 09:32 09/25/22 09:45 09/25/22 11:48 Temperature Pulse Rate 91 89 87 Respiratory Rate 31 H 26 H Blood Pressure Pulse Oximetry 95 Oxygen Delivery Oxygen Flow Rate 09/25/22 11:48 09/25/22 08:00 09/25/22 13:58 Temperature Pulse Rate 87 88 Respiratory Rate 28 H 28 H Blood Pressure Pulse Oximetry 94 90 95 Oxygen Delivery Nasal Cannula BiPAP Oxygen Flow Rate 5 09/25/22 15:12 09/25/22 15:49 Temperature 99.3 F Pulse Rate 76 Respiratory Rate 21 H 26 H Blood Pressure 100/57 L Pulse Oximetry 95 94 Oxygen Delivery BiPAP Oxygen Flow Rate Intake/Output Intake/Output: Intake & Output 09/22/22 09/23/22 09/24/22 09/25/22 23:59 23:59 23:59 23:59 Intake Total 1750 2170 970 490 Output Total 1375 1300 1100 200 Balance 375 870
--- NOTE | 2022-09-25 16:20 | PC.NURSE ---
This patient, Manohar West, was received from [[id number] ] on 09/25/22 at 1538. Patient/family oriented to unit policies and routines
--- NOTE | 2022-09-25 17:23 | PM.PNGS ---
Progress Note: A&P Assessment and Plan (1) Acute pancreatitis: Code(s): K85.90 - Acute pancreatitis without necrosis or infection, unspecified Status: Acute Assessment and Plan: Still slow to make any significant progress in terms of respiratory and renal status, but abdominal exam is improved, likely showing signs of improved pancreatitis. I do not think he has an ileus as CT yesterday showed no dilated bowel and he is moving bowels without any nausea or vomiting. Abdominal distention is likely multifactorial related to pancreatitis and third spacing. (2) Cholelithiasis: Code(s): K80.20 - Calculus of gallbladder without cholecystitis without obstruction Status: Acute Assessment and Plan: He remains high risk for surgery at this time due to respiratory and renal failure. He would need significant rehabilitation in order to tolerate a general anesthesia procedure. Surgery will remain high risk due to significant previous abdominal surgeries. No sign of cholecystitis on recent imaging. Liver enzymes normal. Will hold Ursodiol until discharge. (3) Leukocytosis: Code(s): D72.829 - Elevated white blood cell count, unspecified Status: Acute Assessment and Plan: Likely related to pancreatitis. Pleural effusions, atelectasis or possible pneumonia could also be a source. Could consider changing antibiotics to Primaxin to get better coverage for possible infected pancreatitis. No drainable abscess seen on recent CT. (4) Respiratory failure with hypoxia and hypercapnia: Code(s): J96.91 - Respiratory failure, unspecified with hypoxia; J96.92 - Respiratory failure, unspecified with hypercapnia Status: Acute Assessment and Plan: Pulmonology on board (5) Acute kidney injury: Code(s): N17.9 - Acute kidney failure, unspecified Status: Acute Assessment and Plan: Nephrology on board Subjective Subjective Date/Time Seen: 09/25/22 17:23 Interval history: Patient back in IMU now, on BIPAP. He is awake and alert. He denies abdominal pain, nausea, or vomiting. Had a BM yesterday. Exam GI: Inspection: distended and obesity GI Palp: Yes Soft to palpation, No Tenderness to palpation present (GI), No Guarding due to palpation present (GI) and No Rebound tenderness present Objective Data Vital Signs Vital Signs: Vital Signs - 24 hr 09/24/22 20:50 09/24/22 20:00 09/24/22 22:45 Temperature 37.0 C Pulse Rate 100 87 Respiratory Rate 20 14 Blood Pressure 116/50 L Pulse Oximetry 92 94 Oxygen Delivery Nasal Cannula Oxygen Flow Rate 3 Fraction of Inspired Oxygen 09/24/22 23:15 09/25/22 02:12 09/25/22 06:01 Temperature 36.6 C Pulse Rate 90 95 60 Respiratory Rate 15 21 H 18 Blood Pressure 120/61 Pulse Oximetry 96 94 96 Oxygen Delivery Oxygen Flow Rate Fraction of Inspired Oxygen 09/25/22 09:03 09/25/22 09:05 09/25/22 09:12 Temperature Pulse Rate 92 96 Respiratory Rate 16 18 Blood Pressure Pulse Oximetry 95 Oxygen Delivery Nasal Cannula Oxygen Flow Rate 5 Fraction of Inspired Oxygen 09/25/22 09:32 09/25/22 09:45 09/25/22 11:48 Temperature Pulse Rate 91 89 87 Respiratory Rate 31 H 26 H Blood Pressure Pulse Oximetry 95 Oxygen Delivery Oxygen Flow Rate Fraction of Inspired Oxygen 09/25/22 11:48 09/25/22 08:00 09/25/22 13:58 Temperature Pulse Rate 87 88 Respiratory Rate 28 H 28 H Blood Pressure Pulse Oximetry 94 90 95 Oxygen Delivery Nasal Cannula BiPAP Oxygen Flow Rate 5 Fraction of Inspired Oxygen 09/25/22 15:12 09/25/22 15:49 09/25/22 16:00 Temperature 37.4 C Pulse Rate 76 79 Respiratory Rate 21 H 26 H 24 H Blood Pressure 100/57 L Pulse Oximetry 95 94 92 Oxygen Delivery BiPAP BiPAP Oxygen Flow Rate Fraction of Inspired Oxygen 50 09/25/22 16:00 09/25/22 16:00 09/25/22 17:19 Temperature 36.4 C L Pulse Rat
[2022-09-25] MEDS: ACETYLCYSTEINE 20% INHAL SOLN 800 MG/4 ML VIAL 200 MG INHALATION (20:10)
[2022-09-26] VITALS (30 sets, daily range): BP systolic 106–146; BP diastolic 55–89; PULSE 59–97; RESP 18–31; TEMP 36–36.8; O2SAT 89–93
[2022-09-26] MEDS: ALBUTEROL SULFATE NEB 2.5 MG/3 ML INH INHALATION ×5 (04:32→20:35)
[2022-09-26] MEDS: IPRATROPIUM BR 0.02% INH SOLN 0.5 MG/2.5 ML VIAL INHALATION ×5 (04:32→20:36)
[2022-09-26 05:21] LABS: Alanine Aminotransferase 21 U/L (6-50); Albumin Level 2.7 g/dL (3.5-5.1); Alkaline Phosphatase 70 U/L (38-126); Anion Gap 6 mmol/L (8-16); Aspartate Amino Transferase 40 U/L (17-59); Bilirubin,Total 0.4 mg/dL (0.2-1.3); Blood Urea Nitrogen 64 mg/dL (9-20); Carbon Dioxide 27 mmol/L (22-30); Chloride 96 mmol/L (98-107); Estimated CRCL calculation 15 ml/min; Estimated Glomerular Filt Rate 12; Glucose 105 mg/dL (65-110); Potassium 3.6 mmol/L (3.4-5.0); Sodium 129 mmol/L (137-145)
[2022-09-26] MEDS: ACETYLCYSTEINE 20% INHAL SOLN 800 MG/4 ML VIAL 200 MG INHALATION ×2 (09:14→20:35)
[2022-09-26 09:26] LABS: Alveolar/Arterial O2 Gradient 228.4 mmHg; Base Excess ABG 0.1 mEq/l (+/-2.0); Fractional Inspired Oxygen 50 %; HCO3 ABG 26.6 mEq/l (22.0-26.0); Oxygen Content ABG 15.2 %vol (16.0-22.0); Oxygen Saturation ABG 92.7 % (95.0-100.0); Oxyhemoglobin 92.7 % THb (90.0-100.0); PCO2 ABG 51.7 mmHg (35.0-45.0); PO2 ABG 69.9 mmHg (80.0-100.0); Total Hemoglobin 11.6 g/dL (12.0-18.0); pH ABG 7.329 (7.350-7.450)
[2022-09-26 09:27] LABS: Device NON-INVASIVE VENT; Modified Allen's Test Pass; Site Drawn RIGHT RADIAL
[2022-09-26 09:28] LABS: Non-Invasive Expiratory Pressure 4 CMH2O; Non-Invasive Inspiratory Pressure 18 CMH2O; Non-Invasive Vent Rate 14 /MIN
--- NOTE | 2022-09-26 09:36 | PM.PNPUL ---
Progress Note: A&P Assessment and Plan (1) Respiratory failure with hypoxia and hypercapnia: Code(s): J96.91 - Respiratory failure, unspecified with hypoxia; J96.92 - Respiratory failure, unspecified with hypercapnia Status: Acute Assessment and Plan: this 77-year-old man pre presented with vomiting. He was diagnosed with acute pancreatitis. Initially he had metabolic acidosis, and also hypoxemic hypercapnic respiratory failure and was treated in the intensive care unit with BiPAP support and also NGT drainage. While in the intensive care unit his gas exchange improved, with correction of hypercapnic respiratory failure. Over the last 4 days the patient's respiratory status has progressively gotten worse despite treatment with BiPAP support at night. Chest imaging studies have shown bilateral lower lobe atelectasis that has probably worsened since treatment in the ICU. 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 Over the last 24 hours he has been BiPAP dependent because of hypoxemic hypercapnic respiratory failure. On today's blood gases, there was improvement of respiratory acidosis which is related to higher minute ventilation provided by BiPAP. Overall the patient is requiring minute ventilation in the range of 18- 20 liters/minute to maintain pCO2 around 50 mmHg. This is all related to increased intra-abdominal pressure. He has no evidence of lower respiratory tract infection on chest imaging studies. patient needs to remain on current BiPAP support as he cannot maintain the relatively high minute ventilation rates due to increased intra-abdominal pressure. Worsening of renal function could also be due to increased intra-abdominal pressure. plan: Continue with current BiPAP support, nebulized short-acting bronchodilators and nebulized Mucomyst as ordered. intubation is not an option as patient is DNR. (2) Abdominal distension: Code(s): R14.0 - Abdominal distension (gaseous) Status: Acute (3) Acute pancreatitis: Code(s): K85.90 - Acute pancreatitis without necrosis or infection, unspecified Status: Acute (4) Acute kidney injury: Code(s): N17.9 - Acute kidney failure, unspecified Status: Acute (5) S/P aortic valve replacement with bioprosthetic valve: Code(s): Z95.3 - Presence of xenogenic heart valve Status: Acute (6) Obesity: Qualifiers: Obesity type: unspecified obesity type Obesity classification: adult class 2 (BMI 35 - 39.9) Serious obesity comorbidity presence: unspecified whether serious comorbidity present Body mass index: BMI 38.0-38.9 Qualified Code(s): E66.9 - Obesity, unspecified; Z68.38 - Body mass index [BMI] 38.0-38.9, adult Code(s): E66.9 - Obesity, unspecified Status: Acute Subjective Date/time seen: 09/26/22 09:36 Interval history: Patient was transferred to IMU yesterday. He has been BiPAP dependent over the last 48 hours. He has no new respiratory symptoms. Abdomen remains distended. Review of Systems Review of Systems: All systems reviewed & are unremarkable except as noted in HPI and below ( HPI and below) Exam Narrative: GENERAL APPEARANCE: Well developed, well nourished, alert and cooperative, morbidly obese who appears to be mild respiratory distress while on BiPAP support and supplemental oxygen SKIN: Inspection of the skin reveals no rashes, ulcerations or petechiae. HEENT: Sclerae anicteric and conjunctivae pink and moist. Extraocular movements were intact and pupils were equal, round. NECK: Supple. There was no thyroid enlargement, and no tenderness, or masses were felt. LUNGS: Auscultation of the lungs crackles at bases posteriorly CARDIAC: There was a regular rate and rhythm, normal heart sounds with 4/ 6 holosystolic murmur. ABDOMEN: Distended, soft. Nontender. LYMPH NODES: No lymphadenopathy was appr
[2022-09-26 10:39] LABS: Basophils Absolute Auto 0.1 K/mm3 (0.0-0.1); Basophils Percent Auto 0.7 % (0.2-1.2); Eosinophils Absolute Auto 0.5 K/mm3 (0-0.3); Eosinophils Percent Auto 2.4 % (0-4.4); Hematocrit 34.4 % (42.0-52.0); Hemoglobin 10.5 g/dL (14.0-18.0); Immature Granulocyte Absolute 0.62 K/mm3 (0.00-0.031); Immature Granulocyte Percent A 3.2 % (0-0.5); Lymphocytes Percent Auto 5.7 % (18.3-44.2); Mean Corpuscular HGB Conc 30.5 g/dl (32-36); Mean Corpuscular Hemoglobin 29.2 pg (26-34); Mean Corpuscular Volume 95.6 fl (80-100); Mean Platelet Volume 9.3 fl (7.4-10.4); Monocytes Absolute Auto 1.4 K/mm3 (0.1-0.6); Neutrophils Absolute Auto 15.8 K/mm3 (1.3-6.7); Platelet Count Result 258 k/mm3 (150-375); Red Cell Distribution Width 14.9 % (11.5-14.5); White Blood Count 19.4 K/mm3 (4.5-10.0)
--- NOTE | 2022-09-26 11:01 | PCOTNOTE ---
Attempted OT re-assessment, per RN hold off at this time due to increased O2 need and breathing difficulty, will follow.
[2022-09-26] MEDS: amLODIPine BESYLATE 5 MG TABLET 10 MG PO (11:04)
[2022-09-26] MEDS: PANTOPRAZOLE SODIUM IV 40 MG VIAL IV PUSH (11:05)
[2022-09-26] MEDS: METOPROLOL TARTRATE 25 MG TABLET PO ×2 (11:05→17:58)
[2022-09-26] MEDS: HEPARIN SODIUM 5,000 UNITS/ML VIAL 5000 UNITS SUB-Q ×2 (11:05→21:58)
--- NOTE | 2022-09-26 11:45 | P.PNNP_ITS ---
Progress Note: A&P Assessment and Plan (1) Acute kidney injury: Code(s): N17.9 - Acute kidney failure, unspecified Status: Acute Assessment and Plan: * baseline creatinine runs ~ 1.2 - 1.4mg/dl * creatinine had improved but now is rising again * initially though to be secondary to due to pancreatitis and pre renal azotemia. * intial evaluation noted to date: * renal ultrasound unremarkable except left lower pole nephrolithiasis * CT scan did not show a kidney stone however, it did show a right calcified renal cyst in the upper pole * urine electrolytes prerenal * urine eosinophils negative * CPK mildly elevated - but not enough to affect kidney function * creatinine appears to have risen quite rapidly * etiology not clear.... * repeat evaluation noted * repeat renal ultrasound noted * continues make urine * follow repeat cultures noted * monitor repeat labs and UOP (2) Acute pancreatitis: Code(s): K85.90 - Acute pancreatitis without necrosis or infection, unspecified Status: Acute Assessment and Plan: * as noted by elevated lipase and abdominal pain * GI and Surgery following -- medical management for now * slow improvement in symptoms noted (3) Respiratory failure with hypoxia and hypercapnia: Code(s): J96.91 - Respiratory failure, unspecified with hypoxia; J96.92 - Respiratory failure, unspecified with hypercapnia Status: Acute Assessment and Plan: * appear to have responded to BiPAP therapy * suspect exacerbated by OHS +/- TERESITA versus early pneumonia versus atelectasis * follow respiratory status * Pulmonary following (4) Sepsis: Code(s): A41.9 - Sepsis, unspecified organism Status: Acute Assessment and Plan: * as evidence by elevated WBC, LOTUS/ARF, lactic acidosis, and pancreatitis * culture results noted * on antibiotics (5) Essential (primary) hypertension: Code(s): I10 - Essential (primary) hypertension Status: Chronic Assessment and Plan: * hypertensive on admission -- due to pain(?) * Blood pressure seems better at this time * follow trend of hemodynamics. (6) Altered mental status: Code(s): R41.82 - Altered mental status, unspecified Status: Acute Assessment and Plan: * improved/back to baseline * follow mentation Long and extensive discussion (greater than 20 minutes) with patient as well as at bedside regarding his deteriorating kidney function, the concerns and ongoing sepsis may be playing a role, and the hope that renal recovery will occur since he continues to make urine even though his creatinine/renal function continues to rise. They both appeared to voice understanding. Will continue to follow. Subjective Date/time seen: 09/26/22 11:45 Renal function/creatinine continues to worsen but still making urine and stable electrolytes noted; remains on BiPAP therapy at the time of my visit; at bedside and we once again discussed the case extensively. Exam Narrative: General: WD/WN male in NAD Heart: normal S1 and S2; no rub Lungs: clear anteriorly. decreased at bases Abdomen: soft, mild TTP and distension; positive bowel sounds Extremities: no cyanosis or clubbing; trace edema Skin: warm and intact Objective Data Vital Signs Vital Signs: Vital Signs Temp Pulse Resp BP Pulse Ox O2 Del Method O2 Flow Rate
--- NOTE | 2022-09-26 11:45 | PM.PNNEP ---
Progress Note: A&P Assessment and Plan (1) Acute kidney injury: Code(s): N17.9 - Acute kidney failure, unspecified Status: Acute Assessment and Plan: baseline creatinine runs ~ 1.2 - 1.4mg/dl creatinine had improved but now is rising again initially though to be secondary to due to pancreatitis and pre renal azotemia. intial evaluation noted to date: renal ultrasound unremarkable except left lower pole nephrolithiasis CT scan did not show a kidney stone however, it did show a right calcified renal cyst in the upper pole urine electrolytes prerenal urine eosinophils negative CPK mildly elevated - but not enough to affect kidney function creatinine appears to have risen quite rapidly etiology not clear.... repeat evaluation noted repeat renal ultrasound noted continues make urine follow repeat cultures noted monitor repeat labs and UOP (2) Acute pancreatitis: Code(s): K85.90 - Acute pancreatitis without necrosis or infection, unspecified Status: Acute Assessment and Plan: as noted by elevated lipase and abdominal pain GI and Surgery following -- medical management for now slow improvement in symptoms noted (3) Respiratory failure with hypoxia and hypercapnia: Code(s): J96.91 - Respiratory failure, unspecified with hypoxia; J96.92 - Respiratory failure, unspecified with hypercapnia Status: Acute Assessment and Plan: appear to have responded to BiPAP therapy suspect exacerbated by OHS +/- TERESITA versus early pneumonia versus atelectasis follow respiratory status Pulmonary following (4) Sepsis: Code(s): A41.9 - Sepsis, unspecified organism Status: Acute Assessment and Plan: as evidence by elevated WBC, LOTUS/ARF, lactic acidosis, and pancreatitis culture results noted on antibiotics (5) Essential (primary) hypertension: Code(s): I10 - Essential (primary) hypertension Status: Chronic Assessment and Plan: hypertensive on admission -- due to pain(?) Blood pressure seems better at this time follow trend of hemodynamics. (6) Altered mental status: Code(s): R41.82 - Altered mental status, unspecified Status: Acute Assessment and Plan: improved/back to baseline follow mentation Long and extensive discussion (greater than 20 minutes) with patient as well as at bedside regarding his deteriorating kidney function, the concerns and ongoing sepsis may be playing a role, and the hope that renal recovery will occur since he continues to make urine even though his creatinine/renal function continues to rise. They both appeared to voice understanding. Will continue to follow. Subjective Date/time seen: 09/26/22 11:45 Renal function/creatinine continues to worsen but still making urine and stable electrolytes noted; remains on BiPAP therapy at the time of my visit; at bedside and we once again discussed the case extensively. Exam Narrative: General: WD/WN male in NAD Heart: normal S1 and S2; no rub Lungs: clear anteriorly. decreased at bases Abdomen: soft, mild TTP and distension; positive bowel sounds Extremities: no cyanosis or clubbing; trace edema Skin: warm and intact Objective Data Vital Signs Vital Signs: Vital Signs Temp Pulse Resp BP Pulse Ox O2 Del Method O2 Flow Rate 09/26/22 11:02 93 High Flow Nasal Cannula 13 09/26/22 11:01 93 09/26/22 11:05 81 09/26/22 09:15 79 26 H 92 BiPAP 09/26/22 09:14 79 26 H 09/26/22 08:00 97.2 F L 74 20 106/55 L 91 09/26/22 06:00 83 09/26/22 05:17 98.2 F 81 20 141/57 H 89 L 09/26/22 04:00 85 27 H 93 BiPAP 09/26/22 04:00 85 09/26/22 02:00 73 09/26/22 04:34 88 27 H 09/26/22 04:34 88 27 H 93 BiPAP 09/26/22 02:59 86 31 H 93 BiPAP 09/26/22 00:00 88 30 H 93 BiPAP 09/26/22 00:00 88
--- NOTE | 2022-09-26 12:18 | PM.IMPN ---
Progress Note: A&P Assessment and Plan (1) Pancreatitis: Code(s): K85.90 - Acute pancreatitis without necrosis or infection, unspecified Status: Acute Assessment and Plan: CT noted. Overall pancreatitis is about the same. No worsening abdominal pain. Does have some abdominal distention. Will keep patient NPO and place NG tube. Changed antibiotics to cover pancreatic infection. Appreciate GI and surgery help (2) Obesity hypoventilation syndrome: Code(s): E66.2 - Morbid (severe) obesity with alveolar hypoventilation Status: Acute Assessment and Plan: Appreciate pulmonary's consultation Currently on BiPAP. ABG does look a little bit better. (3) Cholelithiasis: Code(s): K80.20 - Calculus of gallbladder without cholecystitis without obstruction Status: Acute Assessment and Plan: Treat conservatively right now. May need cholecystectomy in the future. Leukocytosis is worsening. Will get a CT scan of the abdomen and pelvis IV antibiotics (4) Obesity: Qualifiers: Obesity type: unspecified obesity type Obesity classification: adult class 2 (BMI 35 - 39.9) Serious obesity comorbidity presence: unspecified whether serious comorbidity present Body mass index: BMI 38.0-38.9 Qualified Code(s): E66.9 - Obesity, unspecified; Z68.38 - Body mass index [BMI] 38.0-38.9, adult Code(s): E66.9 - Obesity, unspecified Status: Acute (5) Aortic stenosis, severe: Code(s): I35.0 - Nonrheumatic aortic (valve) stenosis Status: Chronic Assessment and Plan: Status post valve replacement (6) Ileus: Code(s): K56.7 - Ileus, unspecified Status: Acute Assessment and Plan: NG tube to low intermittent suction. Trying to see if this will help his respiratory status as well. (7) Hypoxia: Code(s): R09.02 - Hypoxemia Status: Acute Assessment and Plan: Likely from ileus with low lung volumes. Will try to ambulate the patient today and get him a to chair. Incentive spirometry. NG tube to low intermittent suction. Appreciate Pulmonary input. Pulmonary to manage BiPAP Subjective Date/time seen: 09/26/22 12:18 Patient denies new complaints. White blood cell count is about the same. Kidney function not better Denies any new complaints On BiPAP currently Exam Narrative: morbidly obese Patient is comfortable, NAD HEENT: eyes are clear and none icteric NG tube in place LUNGS: normal respiratory effort ABD: distended Lower extremities: no edema SKIN: nonjaundiced Neuro: grossly intact. Objective Data Vital Signs Vital Signs: Vital Signs - 24 hr 09/25/22 13:58 09/25/22 15:12 09/25/22 15:49 Temperature 99.3 F Pulse Rate 88 76 Respiratory Rate 28 H 21 H 26 H Blood Pressure 100/57 L Pulse Oximetry 95 95 94 Oxygen Delivery BiPAP BiPAP Oxygen Flow Rate Fraction of Inspired Oxygen 09/25/22 16:00 09/25/22 16:00 09/25/22 16:00 Temperature 97.5 F L Pulse Rate 79 74 74 Respiratory Rate 24 H 16 Blood Pressure 113/56 L Pulse Oximetry 92 94 Oxygen Delivery BiPAP Oxygen Flow Rate Fraction of Inspired Oxygen 50 09/25/22 17:19 09/25/22 18:00 09/25/22 20:14 Temperature Pulse Rate 78 76 76 Respiratory Rate 22 H Blood Pressure Pulse Oximetry Oxygen Delivery Oxygen Flow Rate Fraction of Inspired Oxygen 09/25/22 20:16 09/25/22 20:00 09/25/22 20:00 Temperature Pulse Rate 73 77 77 Respiratory Rate 23 H 23 H Blood Pressure Pulse Oximetry 94 94 Oxygen Delivery BiPAP BiPAP Oxygen Flow Rate Fraction of Inspired Oxygen 50 09/25/22 20:51 09/25/22 22:00 09/25/22 23:40 Temperature 98.3 F Pulse Rate 78 77 77 Respiratory Rate 20 30 H Blood Pressure 130/57 L Pulse Oximetry 93 93 Oxygen Delivery BiPAP Oxygen Flow Rate Fraction of Inspired Oxygen 09/25/22 23:40 09/25/22 23:40 09/26/22 00:00 Temperature Pulse
[2022-09-26 13:14] LABS: Lipase 1164 U/L (23-300)
--- NOTE | 2022-09-26 14:04 | WPDGIPROGNO ---
Progress Note: A&P Assessment and Plan (1) Acute pancreatitis: Code(s): K85.90 - Acute pancreatitis without necrosis or infection, unspecified Status: Acute Assessment and Plan: still distended abdomen and repeat CT scan persistent pancreatitis (ordered because persistent leukocytosis and renal failure), exam without any pain and he denies nausea, no evidence of abscess he is thirsty, will try again liquid diet unfortunately high risk for lap rossy and he has been managed medically on antibiotics (2) Nausea and vomiting in adult: Code(s): R11.2 - Nausea with vomiting, unspecified Status: Acute Assessment and Plan: denies any xr without obvious ileus, no nausea or vomiting distension probably multifactorial (3) Respiratory failure with hypoxia and hypercapnia: Code(s): J96.91 - Respiratory failure, unspecified with hypoxia; J96.92 - Respiratory failure, unspecified with hypercapnia Status: Acute Assessment and Plan: on bipap, atelectasis, by pulmonary aggravated by pancreatitis and worsening renal failure (4) Acute kidney injury: Code(s): N17.9 - Acute kidney failure, unspecified Status: Acute Assessment and Plan: worsening renal failure (5) Leukocytosis: Code(s): D72.829 - Elevated white blood cell count, unspecified Status: Acute Assessment and Plan: CT scan reviewed no evidence of?drainable abscess could be from pancreatitis, atelectasis on abx Subjective Date/time seen: 09/26/22 14:04 Interval history: transferred to IMU because was requiring more bipap, he looks better today- wearing face mask. Denies any abdominal pain or any nausea, abdomen still distended but he is comfortable. Review of Systems Review of Systems: All systems reviewed & are unremarkable except as noted in HPI and below Exam Const: General: comfortable and alert Other: on oxygen HENMT: Face/Nose/Sinus: Normal nares present Eyes: General: appearance normal, both eyes and all related structures Sclera: sclerae normal Neck: Neck: supple Resp: Auscultation: no crackles and diminished lung sounds Cardio: Rate: regular rate GI: Inspection: distended and obesity GI Palp: Yes Soft to palpation, No Tenderness to palpation present (GI) and No Guarding due to palpation present (GI) Auscultation: normal bowel sounds Skin: General skin exam: normal color Neuro: Speech: normal speech Extrem: General: normal to inspection Psych: Affect: normal affect Objective Data Vital Signs Vital Signs: Vital Signs - 24 hr 09/25/22 15:12 09/25/22 15:49 09/25/22 16:00 Temperature 99.3 F Pulse Rate 76 79 Respiratory Rate 21 H 26 H 24 H Blood Pressure 100/57 L Pulse Oximetry 95 94 92 Oxygen Delivery BiPAP BiPAP Oxygen Flow Rate Fraction of Inspired Oxygen 50 09/25/22 16:00 09/25/22 16:00 09/25/22 17:19 Temperature 97.5 F L Pulse Rate 74 74 78 Respiratory Rate 16 Blood Pressure 113/56 L Pulse Oximetry 94 Oxygen Delivery Oxygen Flow Rate Fraction of Inspired Oxygen 09/25/22 18:00 09/25/22 20:14 09/25/22 20:16 Temperature Pulse Rate 76 76 73 Respiratory Rate 22 H 23 H Blood Pressure Pulse Oximetry 94 Oxygen Delivery BiPAP Oxygen Flow Rate Fraction of Inspired Oxygen 09/25/22 20:00 09/25/22 20:00 09/25/22 20:51 Temperature 98.3 F Pulse Rate 77 77 78 Respiratory Rate 23 H 20 Blood Pressure 130/57 L Pulse Oximetry 94 93 Oxygen Delivery BiPAP Oxygen Flow Rate Fraction of Inspired Oxygen 50 09/25/22 22:00 09/25/22 23:40 09/25/22 23:40 Temperature Pulse Rate 77 77 77 Respiratory Rate 30 H 30 H Blood Pressure Pulse Oximetry 93 Oxygen Delivery BiPAP Oxygen Flow Rate Fraction of Inspired Oxygen 09/25/22 23:40 09/26/22 00:00 09/26/22 00:00 Temperature Pulse Rate 88 88 Respiratory Rate 30 H Blood Pressure Pulse Oximetry 93 93
[2022-09-26 16:15] LABS: Chloride Rand Ur <20 mmol/L (32-290); Creatinine Random Urine 200 mg/dL (20-320)
[2022-09-26] MEDS: ATORVASTATIN 40 MG TABLET PO (21:58)
[2022-09-27] VITALS (29 sets, daily range): BP systolic 111–146; BP diastolic 65–74; PULSE 75–98; RESP 15–28; TEMP 36–36.7; O2SAT 90–97
[2022-09-27] MEDS: IPRATROPIUM BR 0.02% INH SOLN 0.5 MG/2.5 ML VIAL INHALATION ×6 (00:13→20:44)
[2022-09-27] MEDS: ALBUTEROL SULFATE NEB 2.5 MG/3 ML INH INHALATION ×6 (00:13→20:44)
[2022-09-27 04:46] LABS: Alveolar/Arterial O2 Gradient 220.4 mmHg; Base Excess ABG 1.7 mEq/l (+/-2.0); Carboxyhemoglobin 0.3 % THb (0-2.0); Fractional Inspired Oxygen 50 %; Methemoglobin ABG 0.5 %THb (0-1.5); Oxygen Content ABG 19.4 %vol (16.0-22.0); Oxygen Saturation ABG 95.2 % (95.0-100.0); Oxyhemoglobin 94.3 % THb (90.0-100.0); PCO2 ABG 50.6 mmHg (35.0-45.0); PO2 ABG 79.2 mmHg (80.0-100.0); PO2 FiO2 Ratio Arterial Blood 1.58 %; Reduced Hemoglobin 4.9 %THb (0-5.0); Total Hemoglobin 14.6 g/dL (12.0-18.0); pH ABG 7.361 (7.350-7.450)
[2022-09-27 04:48] LABS: Device NON-INVASIVE VENT; Modified Allen's Test Pass; Non-Invasive Expiratory Pressure 4 CMH2O; Non-Invasive Inspiratory Pressure 18 CMH2O; Non-Invasive Vent Rate 14 /MIN; Site Drawn RIGHT RADIAL
--- NOTE | 2022-09-27 05:23 | PC.NURSE ---
monitored the charting and medication dispensing done by radha mcnamara rn and i agree with everything.
[2022-09-27 06:22] LABS: Basophils Absolute Auto 0.1 K/mm3 (0.0-0.1); Basophils Percent Auto 0.5 % (0.2-1.2); Eosinophils Absolute Auto 0.6 K/mm3 (0-0.3); Eosinophils Percent Auto 3.7 % (0-4.4); Hematocrit 34.2 % (42.0-52.0); Immature Granulocyte Absolute 0.63 K/mm3 (0.00-0.031); Immature Granulocyte Percent A 3.9 % (0-0.5); Lymphocytes Absolute Auto 0.97 K/mm3 (0.9-3.2); Mean Corpuscular HGB Conc 32.2 g/dl (32-36); Mean Corpuscular Hemoglobin 29.5 pg (26-34); Mean Corpuscular Volume 91.7 fl (80-100); Mean Platelet Volume 8.6 fl (7.4-10.4); Monocytes Absolute Auto 1.3 K/mm3 (0.1-0.6); Monocytes Percent Auto 7.7 % (2.6-8.5); Neutrophils Absolute Auto 12.8 K/mm3 (1.3-6.7); Neutrophils Percent Auto 78.2 % (45.5-73.1); Platelet Count Result 290 k/mm3 (150-375); Red Blood Count 3.73 M/mm3 (4.6-6.20); Red Cell Distribution Width 14.2 % (11.5-14.5); White Blood Count 16.3 K/mm3 (4.5-10.0)
[2022-09-27 06:36] LABS: Anion Gap 6 mmol/L (8-16); Blood Urea Nitrogen 65 mg/dL (9-20); Calcium 8.4 mg/dL (8.4-10.2); Carbon Dioxide 28 mmol/L (22-30); Chloride 98 mmol/L (98-107); Estimated CRCL calculation 18 ml/min; Estimated Glomerular Filt Rate 15; Glucose 127 mg/dL (65-110); Lipase 945 U/L (23-300); Potassium 3.4 mmol/L (3.4-5.0); Sodium 132 mmol/L (137-145)
[2022-09-27] MEDS: amLODIPine BESYLATE 5 MG TABLET 10 MG PO (08:58)
[2022-09-27] MEDS: PANTOPRAZOLE SODIUM IV 40 MG VIAL IV PUSH (08:58)
[2022-09-27] MEDS: METOPROLOL TARTRATE 25 MG TABLET PO ×2 (08:59→17:51)
[2022-09-27] MEDS: HEPARIN SODIUM 5,000 UNITS/ML VIAL 5000 UNITS SUB-Q ×2 (08:59→21:26)
[2022-09-27] MEDS: ACETYLCYSTEINE 20% INHAL SOLN 800 MG/4 ML VIAL 200 MG INHALATION ×2 (09:15→20:47)
--- NOTE | 2022-09-27 10:41 | PM.PNPUL ---
Progress Note: A&P Assessment and Plan (1) Respiratory failure with hypoxia and hypercapnia: Code(s): J96.91 - Respiratory failure, unspecified with hypoxia; J96.92 - Respiratory failure, unspecified with hypercapnia Status: Acute Assessment and Plan: this 77-year-old man pre presented with vomiting. He was diagnosed with acute pancreatitis. Initially he had metabolic acidosis, and also hypoxemic hypercapnic respiratory failure and was treated in the intensive care unit with BiPAP support and also NGT drainage. While in the intensive care unit his gas exchange improved, with correction of hypercapnic respiratory failure. subsequently the patient was transferred to the [facility] unit where he was found to have worsening of his respiratory status especially hypercapnic respiratory failure. Workup showed bilateral lower lobe atelectasis related to increased intra-abdominal pressure. The patient was placed on BiPAP support with higher pressures in an effort to increase ventilation and control hypercapnic respiratory failure. Today, there was further improvement of hypercapnic respiratory failure as shown by blood gases. The patient has been off BiPAP support since early this a.m. he has no new respiratory symptoms. He appears comfortable on just nasal cannula. His abdomen continues to be distended. plan: Will continue to support with BiPAP at night and during the day p.r.n. continue with nebulized short-acting bronchodilators and nebulized mucolytic agent. Out of bed to chair if tolerated. Overall respiratory status is contingent upon improvement of his intra-abdominal process. (2) Abdominal distension: Code(s): R14.0 - Abdominal distension (gaseous) Status: Acute (3) Acute pancreatitis: Code(s): K85.90 - Acute pancreatitis without necrosis or infection, unspecified Status: Acute (4) Acute kidney injury: Code(s): N17.9 - Acute kidney failure, unspecified Status: Acute (5) S/P aortic valve replacement with bioprosthetic valve: Code(s): Z95.3 - Presence of xenogenic heart valve Status: Acute (6) Obesity: Qualifiers: Obesity type: unspecified obesity type Obesity classification: adult class 2 (BMI 35 - 39.9) Serious obesity comorbidity presence: unspecified whether serious comorbidity present Body mass index: BMI 38.0-38.9 Qualified Code(s): E66.9 - Obesity, unspecified; Z68.38 - Body mass index [BMI] 38.0-38.9, adult Code(s): E66.9 - Obesity, unspecified Status: Acute Subjective Date/time seen: 09/27/22 10:41 Interval history: patient has no new respiratory symptoms. Used BiPAP support last night. Has been off BiPAP since early this a.m.. He had ABGs done this morning. Review of Systems Review of Systems: All systems reviewed & are unremarkable except as noted in HPI and below Exam Narrative: GENERAL APPEARANCE: Well developed, well nourished, alert and cooperative, morbidly obese who appears to be mild respiratory distress while on supplemental oxygen SKIN: Inspection of the skin reveals no rashes, ulcerations or petechiae. HEENT: Sclerae anicteric and conjunctivae pink and moist. Extraocular movements were intact and pupils were equal, round. NECK: Supple. There was no thyroid enlargement, and no tenderness, or masses were felt. LUNGS: Auscultation of the lungs crackles at bases posteriorly CARDIAC: There was a regular rate and rhythm, normal heart sounds with 4/ 6 holosystolic murmur. ABDOMEN: Distended, soft. Nontender. Bowel sounds present LYMPH NODES: No lymphadenopathy was appreciated in the neck. EXTREMITIES: No cyanosis, clubbing; NEUROLOGIC: Alert and oriented x 3. Normal affect. Objective Data Vital Signs Vital Signs: Vital Signs - 24 hr 09/26/22 11:05 09/26/22 11:01 09/26/22 11:02 Temperature Pulse Rate 81 Respiratory Rate Blood Pressure Pulse Oximetry 93 93 Oxygen Delivery
--- NOTE | 2022-09-27 12:16 | PCOTNOTE ---
Per RN patient is cleared to continue with OT treatments at this time per plan of care.
--- NOTE | 2022-09-27 12:27 | WPDGIPROGNO ---
Progress Note: A&P Assessment and Plan (1) Acute pancreatitis: Code(s): K85.90 - Acute pancreatitis without necrosis or infection, unspecified Status: Acute Assessment and Plan: it seems less distended today and he feels comfortable repeat CT scan persistent pancreatitis (ordered because persistent leukocytosis and renal failure), exam without any pain and he denies nausea, no evidence of abscess continue with full liquid diet for now, will add also simethicone because abdominal distension unfortunately high risk for lap rossy and he has been managed medically on antibiotics (2) Nausea and vomiting in adult: Code(s): R11.2 - Nausea with vomiting, unspecified Status: Acute Assessment and Plan: no more n/v and tolerating liquid diet xr without obvious ileus, no nausea or vomiting distension probably multifactorial (3) Respiratory failure with hypoxia and hypercapnia: Code(s): J96.91 - Respiratory failure, unspecified with hypoxia; J96.92 - Respiratory failure, unspecified with hypercapnia Status: Acute Assessment and Plan: on bipap by pulmonary aggravated by pancreatitis and worsening renal failure (4) Acute kidney injury: Code(s): N17.9 - Acute kidney failure, unspecified Status: Acute Assessment and Plan: by primary, monitor (5) Leukocytosis: Code(s): D72.829 - Elevated white blood cell count, unspecified Status: Acute Assessment and Plan: CT scan reviewed no evidence of?drainable abscess trending down could be from pancreatitis, atelectasis on abx Subjective Date/time seen: 09/27/22 12:27 Interval history: he had BM today, feels that abdomen is less distended and denies any abdominal pain or nausea, tolerating liquid diet. Review of Systems Review of Systems: All systems reviewed & are unremarkable except as noted in HPI and below Exam Const: General: comfortable and alert Other: on oxygen HENMT: Face/Nose/Sinus: Normal nares present Eyes: General: appearance normal, both eyes and all related structures Sclera: sclerae normal Neck: Neck: supple Resp: Auscultation: no crackles and diminished lung sounds Cardio: Rate: regular rate GI: Inspection: distended and obesity GI Palp: Yes Soft to palpation, No Tenderness to palpation present (GI) and No Guarding due to palpation present (GI) Auscultation: normal bowel sounds Other: it seems less distended today Skin: General skin exam: normal color Neuro: Speech: normal speech Extrem: General: normal to inspection Psych: Affect: normal affect Objective Data Vital Signs Vital Signs: Vital Signs - 24 hr 09/26/22 13:45 09/26/22 13:47 09/26/22 14:02 Temperature Pulse Rate 83 81 84 Respiratory Rate 20 20 20 Blood Pressure Pulse Oximetry 93 Oxygen Delivery High Flow Nasal Cannula Oxygen Flow Rate 13 09/26/22 15:58 09/26/22 17:05 09/26/22 17:16 Temperature 97.1 F L Pulse Rate 85 86 85 Respiratory Rate 18 20 20 Blood Pressure 131/69 Pulse Oximetry 92 Oxygen Delivery Oxygen Flow Rate 09/26/22 17:58 09/26/22 16:00 09/26/22 14:00 Temperature Pulse Rate 91 60 Respiratory Rate Blood Pressure Pulse Oximetry 92 Oxygen Delivery High Flow Nasal Cannula Oxygen Flow Rate 13 09/26/22 16:00 09/26/22 18:00 09/26/22 20:00 Temperature 96.8 F L Pulse Rate 59 L 79 85 Respiratory Rate 20 Blood Pressure 112/89 Pulse Oximetry 93 Oxygen Delivery Oxygen Flow Rate 09/26/22 20:38 09/26/22 20:38 09/26/22 22:30 Temperature Pulse Rate 86 86 89 Respiratory Rate 20 20 30 H Blood Pressure Pulse Oximetry 92 93 Oxygen Delivery High Flow Nasal Cannula BiPAP Oxygen Flow Rate 13 09/26/22 20:00 09/26/22 23:48 09/27/22 00:13 Temperature 97.5 F L Pulse Rate 85 97 87 Respiratory Rate 29 H 28 H Blood Pressure 146/64 H Pulse Oximetry 93 Oxygen Delivery Oxygen Flow Rat
[2022-09-27] MEDS: POTASSIUM CHLORIDE 20 MEQ TABLET 40 MEQ PO (12:39)
--- NOTE | 2022-09-27 13:02 | PCOTNOTE ---
Attempted to see patient this pm, however patient presented with decreased SPO2, 86% on 13L high flow nasal cannula. Educated patient on breathing techniques, decreasing to 82% and finally recovered to 89-90%. Pt not seen for this reason. Pt reported already completed ADLs and was up in chair earlier. Will continue plan of care tomorrow.
--- NOTE | 2022-09-27 13:25 | P.PNNP_ITS ---
Progress Note: A&P Assessment and Plan (1) Acute kidney injury: Code(s): N17.9 - Acute kidney failure, unspecified Status: Acute Assessment and Plan: * baseline creatinine runs ~ 1.2 - 1.4mg/dl * creatinine had improved but now is rising again * initially though to be secondary to due to pancreatitis and pre renal azotemia. * intial evaluation noted to date: * renal ultrasound unremarkable except left lower pole nephrolithiasis * CT scan did not show a kidney stone however, it did show a right calcified renal cyst in the upper pole * urine electrolytes prerenal * urine eosinophils negative * CPK mildly elevated - but not enough to affect kidney function * creatinine appears to have risen quite rapidly * etiology not clear....perhaps protracted ATN * creatinine appears to have peaked/plateaued at 4.8mg/dl * continue to make reasonable urine * follow trend of repeat labs and UOP (2) Acute pancreatitis: Code(s): K85.90 - Acute pancreatitis without necrosis or infection, unspecified Status: Acute Assessment and Plan: * as noted by elevated lipase and abdominal pain * GI and Surgery following -- medical management for now * slow improvement in symptoms noted (3) Respiratory failure with hypoxia and hypercapnia: Code(s): J96.91 - Respiratory failure, unspecified with hypoxia; J96.92 - Respiratory failure, unspecified with hypercapnia Status: Acute Assessment and Plan: * slow improvement noted * appear to have responded to BiPAP therapy * suspect exacerbated by OHS +/- TERESITA versus early pneumonia versus atelectasis * follow respiratory status * Pulmonary following (4) Sepsis: Code(s): A41.9 - Sepsis, unspecified organism Status: Acute Assessment and Plan: * as evidence by elevated WBC, LOTUS/ARF, lactic acidosis, and pancreatitis * culture results noted * on antibiotics (5) Essential (primary) hypertension: Code(s): I10 - Essential (primary) hypertension Status: Chronic Assessment and Plan: * hypertensive on admission -- due to pain(?) * blood pressure seems better at this time * follow trend of hemodynamics. (6) Altered mental status: Code(s): R41.82 - Altered mental status, unspecified Status: Acute Assessment and Plan: * improved/back to baseline * follow mentation Will continue to follow. Subjective Date/time seen: 09/27/22 13:25 Seems to be doing a bit better -- tolerating diet and abdominal pain + distension seems to be improving; reports have a bowel movement as well; respiratory status/breathings remains stable; no acute issues/events overnight or earlier this AM. Exam Narrative: General: WD/WN male in NAD Heart: normal S1 and S2; no rub Lungs: clear anteriorly. decreased at bases Abdomen: soft, nontender; positive bowel sounds Extremities: no cyanosis or clubbing; trace edema Skin: no rash Objective Data Vital Signs Vital Signs: Vital Signs Temp Pulse Resp BP Pulse Ox O2 Del Method O2 Flow Rate 09/27/22 12:28 98.1 F 87 24 H 137/69 93 09/27/22 11:53 80 20 09/27/22 11:42 81 22 H 09/27/22 09:24 91 22 H 09/27/22 09:19 94 High Flow Nasal Cannula 13 09/27/22 09:09 92 26 H 09/27/22 08:59 97 09/27/22 08:00 98 F
--- NOTE | 2022-09-27 13:25 | PM.PNNEP ---
Progress Note: A&P Assessment and Plan (1) Acute kidney injury: Code(s): N17.9 - Acute kidney failure, unspecified Status: Acute Assessment and Plan: baseline creatinine runs ~ 1.2 - 1.4mg/dl creatinine had improved but now is rising again initially though to be secondary to due to pancreatitis and pre renal azotemia. intial evaluation noted to date: renal ultrasound unremarkable except left lower pole nephrolithiasis CT scan did not show a kidney stone however, it did show a right calcified renal cyst in the upper pole urine electrolytes prerenal urine eosinophils negative CPK mildly elevated - but not enough to affect kidney function creatinine appears to have risen quite rapidly etiology not clear....perhaps protracted ATN creatinine appears to have peaked/plateaued at 4.8mg/dl continue to make reasonable urine follow trend of repeat labs and UOP (2) Acute pancreatitis: Code(s): K85.90 - Acute pancreatitis without necrosis or infection, unspecified Status: Acute Assessment and Plan: as noted by elevated lipase and abdominal pain GI and Surgery following -- medical management for now slow improvement in symptoms noted (3) Respiratory failure with hypoxia and hypercapnia: Code(s): J96.91 - Respiratory failure, unspecified with hypoxia; J96.92 - Respiratory failure, unspecified with hypercapnia Status: Acute Assessment and Plan: slow improvement noted appear to have responded to BiPAP therapy suspect exacerbated by OHS +/- TERESITA versus early pneumonia versus atelectasis follow respiratory status Pulmonary following (4) Sepsis: Code(s): A41.9 - Sepsis, unspecified organism Status: Acute Assessment and Plan: as evidence by elevated WBC, LOTUS/ARF, lactic acidosis, and pancreatitis culture results noted on antibiotics (5) Essential (primary) hypertension: Code(s): I10 - Essential (primary) hypertension Status: Chronic Assessment and Plan: hypertensive on admission -- due to pain(?) blood pressure seems better at this time follow trend of hemodynamics. (6) Altered mental status: Code(s): R41.82 - Altered mental status, unspecified Status: Acute Assessment and Plan: improved/back to baseline follow mentation Will continue to follow. Subjective Date/time seen: 09/27/22 13:25 Seems to be doing a bit better -- tolerating diet and abdominal pain + distension seems to be improving; reports have a bowel movement as well; respiratory status/breathings remains stable; no acute issues/events overnight or earlier this AM. Exam Narrative: General: WD/WN male in NAD Heart: normal S1 and S2; no rub Lungs: clear anteriorly. decreased at bases Abdomen: soft, nontender; positive bowel sounds Extremities: no cyanosis or clubbing; trace edema Skin: no rash Objective Data Vital Signs Vital Signs: Vital Signs Temp Pulse Resp BP Pulse Ox O2 Del Method O2 Flow Rate 09/27/22 12:28 98.1 F 87 24 H 137/69 93 09/27/22 11:53 80 20 09/27/22 11:42 81 22 H 09/27/22 09:24 91 22 H 09/27/22 09:19 94 High Flow Nasal Cannula 09/27/22 09:09 92 26 H 09/27/22 08:59 97 09/27/22 08:00 98 F 84 22 H 146/74 H 92 09/27/22 06:00 79 09/27/22 04:00 86 09/27/22 04:53 85 24 H 94 High Flow Nasal Cannula 09/27/22 02:00 82 09/27/22 00:00 84 09/27/22 03:52 85 28 H 94 BiPAP 09/27/22 03:52 85 28 H 09/26/22 22:00 76 09/27/22 00:14 86 28 H 93 BiPAP 09/27/22 00:13 87 28 H 09/26/22 23:48 97.5 F L 97 29 H 146/64 H 93 09/26/22 20:00 85 09/26/22 22:30 89 30 H 93 BiPAP 09/26/22 20:38 86 20 09/26/22 20:38 86 20 92 High Flow Nasal Cannula 13 09/26/22 20:00 96.8 F L 85 20 112/89 93 09/26/22 18:00
--- NOTE | 2022-09-27 17:07 | PM.IMPN ---
Progress Note: A&P Assessment and Plan (1) Pancreatitis: Code(s): K85.90 - Acute pancreatitis without necrosis or infection, unspecified Status: Acute Assessment and Plan: CT noted. Overall pancreatitis is about the same. No worsening abdominal pain. Does have some abdominal distention. Will keep patient NPO and place NG tube. Changed antibiotics to cover pancreatic infection. Appreciate GI and surgery help 09/27/2021? interval history:? morbidly obese patient initially presented with abdominal pain nausea or vomiting was found to have a pancreatitis with leukocytosis tachycardia? tachypnea lactic acidosis and worsening renal function met criteria for sepsis, however on 09/18 later in the evening patient went into hypoxia an ABG showed hypercarbic respiratory failure? patient was seen by dialysis chief equipment technician, patient was placed on BiPAP and repeat ABG showed persistent hypercarbia patient was alert and oriented,, for close observation patient was transfer to ICU and remained on BiPAP,? patient was also found to ileus seen by surgery service patient was placed on NG tube, patient had a BM, NG tube was removed and patient is placed on full liquids today patient seen by GI advanced his diet and signed off, patient has gallstones he high risk for surgery,? patient was continue required BIPAP during the day, now he is off BIPAP during the day and wears BIPAP at night, he is sitting in the chair, patient's care serum creatinine had jumped from baseline 2.6 to 4.8 seen by nephrology renal ultrasound is unremarkable CT scan of the pelvis and abdomen did not show any nephrolithiasis, nephrology workup is in progress will continue to monitor, patient will continue to work with PT OT patient will benefit going to acute rehab. (2) Obesity hypoventilation syndrome: Code(s): E66.2 - Morbid (severe) obesity with alveolar hypoventilation Status: Acute Assessment and Plan: Appreciate pulmonary's consultation Currently on BiPAP. ABG does look a little bit better. (3) Cholelithiasis: Code(s): K80.20 - Calculus of gallbladder without cholecystitis without obstruction Status: Acute Assessment and Plan: Treat conservatively right now. May need cholecystectomy in the future. Leukocytosis is worsening. Will get a CT scan of the abdomen and pelvis IV antibiotics (4) Obesity: Qualifiers: Body mass index: BMI 38.0-38.9 Obesity classification: adult class 2 (BMI 35 - 39.9) Obesity type: unspecified obesity type Serious obesity comorbidity presence: unspecified whether serious comorbidity present Qualified Code(s): E66.9 - Obesity, unspecified; Z68.38 - Body mass index [BMI] 38.0-38.9, adult Code(s): E66.9 - Obesity, unspecified Status: Acute (5) Aortic stenosis, severe: Code(s): I35.0 - Nonrheumatic aortic (valve) stenosis Status: Chronic Assessment and Plan: Status post valve replacement (6) Ileus: Code(s): K56.7 - Ileus, unspecified Status: Acute Assessment and Plan: NG tube to low intermittent suction. Trying to see if this will help his respiratory status as well. (7) Hypoxia: Code(s): R09.02 - Hypoxemia Status: Acute Assessment and Plan: Likely from ileus with low lung volumes. Will try to ambulate the patient today and get him a to chair. Incentive spirometry. NG tube to low intermittent suction. Appreciate Pulmonary input. Pulmonary to manage BiPAP Subjective Date/time seen: 09/27/22 17:07 09/27/2021? interval history:? morbidly obese patient initially presented with abdominal pain nausea or vomiting was found to have a pancreatitis with leukocytosis tachycardia? tachypnea lactic acidosis and worsening renal function met criteria for sepsis, however on 09/18 later in the evening patient went into hypoxia an ABG showed hypercarbic respiratory failure? patient was seen by dialysis chief equipment technician, patient was placed on BiPAP and
[2022-09-27] MEDS: SIMETHICONE 125 MG CHEW TAB PO (21:26)
[2022-09-27] MEDS: ATORVASTATIN 40 MG TABLET PO (21:27)
[2022-09-28] VITALS (31 sets, daily range): BP systolic 121–129; BP diastolic 49–57; PULSE 69–90; RESP 14–28; TEMP 35.6–36.6; O2SAT 92–98
--- NOTE | 2022-09-28 00:56 | PC.NURSE ---
patient is continually removing bipap. patient stated that he does not want to wear that anymore and he wants to . he was willing to wear a high flow nc. but does not maintain a o2 saturation above 90
[2022-09-28] MEDS: IPRATROPIUM BR 0.02% INH SOLN 0.5 MG/2.5 ML VIAL INHALATION ×6 (01:04→23:19)
[2022-09-28] MEDS: ALBUTEROL SULFATE NEB 2.5 MG/3 ML INH INHALATION ×6 (01:04→23:19)
[2022-09-28 04:23] LABS: Estimated CRCL calculation 21 ml/min; Estimated Glomerular Filt Rate 18
[2022-09-28 08:46] LABS: Albumin Level 2.9 g/dL (3.5-5.1); Anion Gap 6 mmol/L (8-16); Blood Urea Nitrogen 60 mg/dL (9-20); Calcium 8.6 mg/dL (8.4-10.2); Carbon Dioxide 30 mmol/L (22-30); Chloride 102 mmol/L (98-107); Estimated CRCL calculation 22 ml/min; Estimated Glomerular Filt Rate 19; Glucose 121 mg/dL (65-110); Phosphorus 5.1 mg/dL (2.5-4.5); Potassium 4.1 mmol/L (3.4-5.0); Sodium 138 mmol/L (137-145)
[2022-09-28] MEDS: ACETYLCYSTEINE 20% INHAL SOLN 800 MG/4 ML VIAL 200 MG INHALATION ×2 (09:22→20:02)
[2022-09-28 09:35] LABS: Alveolar/Arterial O2 Gradient 471.6 mmHg; Fractional Inspired Oxygen 90 %; HCO3 ABG 30.9 mEq/l (22.0-26.0); Oxygen Content ABG 17.9 %vol (16.0-22.0); Oxygen Saturation ABG 96.4 % (95.0-100.0); Oxyhemoglobin 95.7 % THb (90.0-100.0); PO2 ABG 98.7 mmHg (80.0-100.0); Total Hemoglobin 13.2 g/dL (12.0-18.0)
[2022-09-28 09:39] LABS: Device NON-INVASIVE VENT; Modified Allen's Test Pass; PCO2 ABG 69.7 mmHg (35.0-45.0); Site Drawn LEFT RADIAL; pH ABG 7.264 (7.350-7.450)
[2022-09-28 09:40] LABS: Non-Invasive Expiratory Pressure 4 CMH2O; Non-Invasive Inspiratory Pressure 18 CMH2O; Non-Invasive Vent Rate 14 /MIN
--- NOTE | 2022-09-28 10:16 | PM.PNPUL ---
Progress Note: A&P Assessment and Plan (1) Respiratory failure with hypoxia and hypercapnia: Code(s): J96.91 - Respiratory failure, unspecified with hypoxia; J96.92 - Respiratory failure, unspecified with hypercapnia Status: Acute Assessment and Plan: this 77-year-old man diagnosed with acute pancreatitis. Initially he had metabolic acidosis, and also hypoxemic hypercapnic respiratory failure and was treated in the intensive care unit with BiPAP support and also NGT drainage. While in the intensive care unit his gas exchange improved, with correction of hypercapnic respiratory failure. subsequently the patient was transferred to the [facility] unit where he was found to have worsening of his respiratory status especially hypercapnic respiratory failure. Workup showed bilateral lower lobe atelectasis related to increased intra-abdominal pressure. The patient was placed on BiPAP support with higher pressures in an effort to increase ventilation and control hypercapnic respiratory failure. while on BiPAP support the patient's hypercapnic respiratory failure improved. The patient did not use BiPAP support last night. Today's blood gases showed worsening of his hypercapnic respiratory failure. The patient was placed back on BiPAP support. Will repeat blood gases around no time today. He continues to have a mild cough with sputum production. Chest x-ray showed small lung volumes bilaterally question small pleural effusion on left. No new infiltrates to suggest lower respiratory tract infection. Patient has had renal failure with creatinine now trending down. He has been on imipenem presumably for intra-abdominal infection. His sputum grew stenotrophomonas maltophilia which is sensitive to levofloxacin and Bactrim; Most likely sensitive to imipenem. Plan: Continue with supportive treatment for hypercapnic respiratory failure related to increased intra-abdominal pressure /acute pancreatitis. Chest x-rays showed no evidence of pneumonia. Bilateral lower lobe atelectasis persist on today's chest x-ray due to increased intra-abdominal pressure. Abdomen remains distended but soft. Will continue with BiPAP support throughout the day. (2) Abdominal distension: Code(s): R14.0 - Abdominal distension (gaseous) Status: Acute (3) Acute pancreatitis: Code(s): K85.90 - Acute pancreatitis without necrosis or infection, unspecified Status: Acute (4) Acute kidney injury: Code(s): N17.9 - Acute kidney failure, unspecified Status: Acute (5) S/P aortic valve replacement with bioprosthetic valve: Code(s): Z95.3 - Presence of xenogenic heart valve Status: Acute (6) Obesity: Qualifiers: Obesity type: unspecified obesity type Obesity classification: adult class 2 (BMI 35 - 39.9) Serious obesity comorbidity presence: unspecified whether serious comorbidity present Body mass index: BMI 38.0-38.9 Qualified Code(s): E66.9 - Obesity, unspecified; Z68.38 - Body mass index [BMI] 38.0-38.9, adult Code(s): E66.9 - Obesity, unspecified Status: Acute Subjective Date/time seen: 09/28/22 10:16 Interval history: patient has no new respiratory symptoms this a.m.. He continues to have sputum with yellow sputum production. He did not use BiPAP last night. Arterial blood gases this a.m. showed worsening hypercapnic respiratory failure. Placed back on BiPAP support.. Stenotrophomonas sensitive to levofloxacin. Review of Systems Review of Systems: All systems reviewed & are unremarkable except as noted in HPI and below Exam Narrative: GENERAL APPEARANCE: Well developed, well nourished, alert and cooperative, morbidly obese who appears to be mild respiratory distress while on BiPAP support SKIN: Inspection of the skin reveals no rashes, ulcerations or petechiae. HEENT: Sclerae anicteric and conjunctivae pink and moist. Extraocular movements were intact and pu
[2022-09-28] MEDS: SIMETHICONE 125 MG CHEW TAB PO ×4 (10:24→22:15)
[2022-09-28] MEDS: METOPROLOL TARTRATE 25 MG TABLET PO ×2 (10:24→17:08)
[2022-09-28] MEDS: PANTOPRAZOLE SODIUM IV 40 MG VIAL IV PUSH (10:24)
[2022-09-28] MEDS: HEPARIN SODIUM 5,000 UNITS/ML VIAL 5000 UNITS SUB-Q ×2 (10:26→22:15)
[2022-09-28] MEDS: amLODIPine BESYLATE 5 MG TABLET 10 MG PO (10:26)
[2022-09-28] MEDS: FUROSEMIDE INJ 40 MG/4 ML VIAL IV PUSH (11:04)
[2022-09-28 12:19] LABS: Alveolar/Arterial O2 Gradient 446.3 mmHg; Base Excess ABG 2.9 mEq/l (+/-2.0); Fractional Inspired Oxygen 90 %; HCO3 ABG 31.8 mEq/l (22.0-26.0); Oxygen Saturation ABG 97.8 % (95.0-100.0); Oxyhemoglobin 96.6 % THb (90.0-100.0); PO2 ABG 122.2 mmHg (80.0-100.0); PO2 FiO2 Ratio Arterial Blood 1.36 %; Total Hemoglobin 12.4 g/dL (12.0-18.0)
[2022-09-28 12:21] LABS: pH ABG 7.266 (7.350-7.450)
[2022-09-28 12:22] LABS: Device NON-INVASIVE VENT; Modified Allen's Test Pass; PCO2 ABG 71.4 mmHg (35.0-45.0); Site Drawn LEFT RADIAL
[2022-09-28 12:23] LABS: Non-Invasive Expiratory Pressure 4 CMH2O; Non-Invasive Inspiratory Pressure 18 CMH2O; Non-Invasive Vent Rate 14 /MIN
--- NOTE | 2022-09-28 12:24 | PCOTNOTE ---
Attempted to see patient this pm, however RN advised patient is not appropriate.
--- NOTE | 2022-09-28 12:34 | PCPTNOTE ---
The patient treatment was not able to be completed today. RN reports patient is having respiratory issues and is on BIPAP. Will plan to continue treatment per plan of care.
--- NOTE | 2022-09-28 12:56 | P.PNNP_ITS ---
Progress Note: A&P Assessment and Plan (1) Acute kidney injury: Code(s): N17.9 - Acute kidney failure, unspecified Status: Acute Assessment and Plan: * baseline creatinine runs ~ 1.2 - 1.4mg/dl * creatinine had improved but now is rising again * initially though to be secondary to due to pancreatitis and pre renal azotemia. * intial evaluation noted to date: * renal ultrasound unremarkable except left lower pole nephrolithiasis * CT scan did not show a kidney stone however, it did show a right calcified renal cyst in the upper pole * urine electrolytes prerenal * urine eosinophils negative * CPK mildly elevated - but not enough to affect kidney function * creatinine then carina quite rapidly on 09/23 and 09/24 * etiology not clear....perhaps protracted ATN * creatinine appears to have peaked/plateaued at 4.8mg/dl * continue to make reasonable urine * follow trend of repeat labs and UOP (2) Acute pancreatitis: Code(s): K85.90 - Acute pancreatitis without necrosis or infection, unspecified Status: Acute Assessment and Plan: * as noted by elevated lipase and abdominal pain * GI and Surgery following -- medical management for now * slow improvement in symptoms noted (3) Respiratory failure with hypoxia and hypercapnia: Code(s): J96.91 - Respiratory failure, unspecified with hypoxia; J96.92 - Respiratory failure, unspecified with hypercapnia Status: Acute Assessment and Plan: * slow improvement noted * appear to have responded to BiPAP therapy * suspect exacerbated by OHS +/- TERESITA versus early pneumonia versus atelectasis * follow respiratory status * Pulmonary following (4) Sepsis: Code(s): A41.9 - Sepsis, unspecified organism Status: Acute Assessment and Plan: * as evidence by elevated WBC, LOTUS/ARF, lactic acidosis, and pancreatitis * culture results noted * on antibiotics (5) Essential (primary) hypertension: Code(s): I10 - Essential (primary) hypertension Status: Chronic Assessment and Plan: * hypertensive on admission -- due to pain(?) * blood pressure seems better at this time * follow trend of hemodynamics. (6) Altered mental status: Code(s): R41.82 - Altered mental status, unspecified Status: Acute Assessment and Plan: * improved/back to baseline * follow mentation Will continue to follow. Subjective Date/time seen: 09/28/22 12:56 The patient seems to be making slow and steady progress -- renal function continues to improve in association with reasonable urine output; no apparent distress voiced at the time of my visit; at bedside and we discussed the situation in detail. Exam Narrative: General: WD/WN male in NAD Heart: normal S1 and S2; no rub Lungs: clear anteriorly. decreased at bases Abdomen: soft, nontender; positive bowel sounds Extremities: no cyanosis or clubbing; trace edema Skin: no nodules Objective Data Vital Signs Vital Signs: Vital Signs Temp Pulse Resp BP Pulse Ox O2 Del Method O2 Flow Rate 09/28/22 12:10 70 15 09/28/22 12:10 70 98 BiPAP 09/28/22 12:10 70 15 98 BiPAP 09/28/22 08:00 97 BiPAP 09/28/22 10:00 76 09/28/22 08:00 75 09/28/22 10:24 79 09/28/22 09:23 78 28 H 97 BiPAP
--- NOTE | 2022-09-28 12:56 | PM.PNNEP ---
Progress Note: A&P Assessment and Plan (1) Acute kidney injury: Code(s): N17.9 - Acute kidney failure, unspecified Status: Acute Assessment and Plan: baseline creatinine runs ~ 1.2 - 1.4mg/dl creatinine had improved but now is rising again initially though to be secondary to due to pancreatitis and pre renal azotemia. intial evaluation noted to date: renal ultrasound unremarkable except left lower pole nephrolithiasis CT scan did not show a kidney stone however, it did show a right calcified renal cyst in the upper pole urine electrolytes prerenal urine eosinophils negative CPK mildly elevated - but not enough to affect kidney function creatinine then carina quite rapidly on 09/23 and 09/24 etiology not clear....perhaps protracted ATN creatinine appears to have peaked/plateaued at 4.8mg/dl continue to make reasonable urine follow trend of repeat labs and UOP (2) Acute pancreatitis: Code(s): K85.90 - Acute pancreatitis without necrosis or infection, unspecified Status: Acute Assessment and Plan: as noted by elevated lipase and abdominal pain GI and Surgery following -- medical management for now slow improvement in symptoms noted (3) Respiratory failure with hypoxia and hypercapnia: Code(s): J96.91 - Respiratory failure, unspecified with hypoxia; J96.92 - Respiratory failure, unspecified with hypercapnia Status: Acute Assessment and Plan: slow improvement noted appear to have responded to BiPAP therapy suspect exacerbated by OHS +/- TERESITA versus early pneumonia versus atelectasis follow respiratory status Pulmonary following (4) Sepsis: Code(s): A41.9 - Sepsis, unspecified organism Status: Acute Assessment and Plan: as evidence by elevated WBC, LOTUS/ARF, lactic acidosis, and pancreatitis culture results noted on antibiotics (5) Essential (primary) hypertension: Code(s): I10 - Essential (primary) hypertension Status: Chronic Assessment and Plan: hypertensive on admission -- due to pain(?) blood pressure seems better at this time follow trend of hemodynamics. (6) Altered mental status: Code(s): R41.82 - Altered mental status, unspecified Status: Acute Assessment and Plan: improved/back to baseline follow mentation Will continue to follow. Subjective Date/time seen: 09/28/22 12:56 The patient seems to be making slow and steady progress -- renal function continues to improve in association with reasonable urine output; no apparent distress voiced at the time of my visit; at bedside and we discussed the situation in detail. Exam Narrative: General: WD/WN male in NAD Heart: normal S1 and S2; no rub Lungs: clear anteriorly. decreased at bases Abdomen: soft, nontender; positive bowel sounds Extremities: no cyanosis or clubbing; trace edema Skin: no nodules Objective Data Vital Signs Vital Signs: Vital Signs Temp Pulse Resp BP Pulse Ox O2 Del Method O2 Flow Rate 09/28/22 12:10 70 15 09/28/22 12:10 70 98 BiPAP 09/28/22 12:10 70 15 98 BiPAP 09/28/22 08:00 97 BiPAP 09/28/22 10:00 76 09/28/22 08:00 75 09/28/22 10:24 79 09/28/22 09:23 78 28 H 97 BiPAP 09/28/22 09:22 78 28 H 09/28/22 08:23 96.1 F L 79 27 H 129/49 L 97 09/28/22 05:12 77 19 95 BiPAP 09/28/22 06:00 78 09/28/22 04:00 82 22 H 97 BiPAP 09/28/22 04:00 82 09/28/22 02:00 86 09/27/22 21:12 93 22 H 09/28/22 01:16 90 22 H 09/28/22 01:04 89 22 H 09/28/22 00:00 81 15 97 BiPAP 09/28/22 00:00 81 09/27/22 23:45 96.8 F L 75 15 122/65 97 09/27/22 22:00 84 09/27/22 20:00 88 20 91 BiPAP 09/27/22 20:00 88 09/27/22 20:52 87 20 09/27/22 20:52 91 High Flow Nasal Cannula 15 09/27/22 20:
--- NOTE | 2022-09-28 13:00 | PCNFU ---
Nutrition Follow-Up Complete: Inadequate Oral Intake as related to Pancreatitis as evidenced by NPO Goal:Meet estimated nutritional needs. Pt is meeting goal. Continue with same goal Pt current nutrition is Full liquids. Nutrition recommendation: Continue with current plan of care, advance diet as tolerated. Last recorded weight is 114.6 kg. Bowel Motility: +BM 09/27 Labs Reviewed: Hgb:11, HCT:34.2, NA:132, BUN:60, Cr:3.3, Glu:121, Phos:5.1 Meds Noted: Heparin, protoniz, zofran Skin: WNL Additional Notes: Pt continues on full liquids, tolerating well with intake at 75-100% of meals. Advance diet as tolerated and MD orders. Will monitor every 7 days.
[2022-09-28 13:54] LABS: Alveolar/Arterial O2 Gradient 307.6 mmHg; Base Excess ABG 3.6 mEq/l (+/-2.0); Fractional Inspired Oxygen 60 %; Oxygen Saturation ABG 90.7 % (95.0-100.0); Oxyhemoglobin 91.7 % THb (90.0-100.0); PO2 ABG 61.9 mmHg (80.0-100.0); PO2 FiO2 Ratio Arterial Blood 1.03 %; Total Hemoglobin 12.4 g/dL (12.0-18.0)
--- NOTE | 2022-09-28 13:54 | WPDGIPROGNO ---
Progress Note: A&P Assessment and Plan (1) Acute pancreatitis: Code(s): K85.90 - Acute pancreatitis without necrosis or infection, unspecified Status: Acute Assessment and Plan: distended but soft and comfortable repeat CT scan persistent pancreatitis full liquid diet, simethicone unfortunately high risk for lap rossy and he has been managed medically on antibiotics (2) Nausea and vomiting in adult: Code(s): R11.2 - Nausea with vomiting, unspecified Status: Acute Assessment and Plan: no more n/v and tolerating liquid diet xr without obvious ileus, no nausea or vomiting distension probably multifactorial (3) Respiratory failure with hypoxia and hypercapnia: Code(s): J96.91 - Respiratory failure, unspecified with hypoxia; J96.92 - Respiratory failure, unspecified with hypercapnia Status: Acute Assessment and Plan: on bipap by pulmonary aggravated by pancreatitis and renal failure (4) Acute kidney injury: Code(s): N17.9 - Acute kidney failure, unspecified Status: Acute Assessment and Plan: creatinine stable 3.3 (5) Leukocytosis: Code(s): D72.829 - Elevated white blood cell count, unspecified Status: Acute Assessment and Plan: CT scan reviewed no evidence of?drainable abscess trending down, down to 16k could be from pancreatitis, atelectasis on abx Subjective Date/time seen: 09/28/22 13:54 Interval history: still on bipap, denies abdominal pain Review of Systems Review of Systems: All systems reviewed & are unremarkable except as noted in HPI and below Exam Const: General: alert Other: on bipap HENMT: Face/Nose/Sinus: Normal nares present Eyes: General: appearance normal, both eyes and all related structures Sclera: sclerae normal Neck: Neck: supple Resp: Auscultation: rales and diminished lung sounds Cardio: Rate: regular rate GI: Inspection: distended and obesity GI Palp: Yes Soft to palpation, No Tenderness to palpation present (GI) and No Guarding due to palpation present (GI) Auscultation: normal bowel sounds Other: distended but soft, no rebound Skin: General skin exam: normal color Neuro: Speech: normal speech Extrem: General: normal to inspection Psych: Affect: normal affect Objective Data Vital Signs Vital Signs: Vital Signs - 24 hr 09/27/22 14:00 09/27/22 15:05 09/27/22 15:20 Temperature Pulse Rate 81 81 78 Respiratory Rate 20 20 Blood Pressure Pulse Oximetry Oxygen Delivery Oxygen Flow Rate Fraction of Inspired Oxygen 09/27/22 16:00 09/27/22 16:00 09/27/22 16:00 Temperature 97.1 F L Pulse Rate 77 83 Respiratory Rate 20 Blood Pressure 134/71 Pulse Oximetry 93 96 Oxygen Delivery High Flow Nasal Cannula Oxygen Flow Rate 13 Fraction of Inspired Oxygen 09/27/22 17:51 09/27/22 18:00 09/27/22 20:00 Temperature 97.9 F Pulse Rate 85 85 82 Respiratory Rate 20 Blood Pressure 111/68 Pulse Oximetry 90 Oxygen Delivery Oxygen Flow Rate Fraction of Inspired Oxygen 09/27/22 20:52 09/27/22 20:52 09/27/22 20:00 Temperature Pulse Rate 87 88 Respiratory Rate 20 Blood Pressure Pulse Oximetry 91 Oxygen Delivery High Flow Nasal Cannula Oxygen Flow Rate 15 Fraction of Inspired Oxygen 09/27/22 20:00 09/27/22 22:00 09/27/22 23:45 Temperature 96.8 F L Pulse Rate 88 84 75 Respiratory Rate 20 15 Blood Pressure 122/65 Pulse Oximetry 91 97 Oxygen Delivery BiPAP Oxygen Flow Rate Fraction of Inspired Oxygen 50 09/28/22 00:00 09/28/22 00:00 09/28/22 01:04 Temperature Pulse Rate 81 81 89 Respiratory Rate 15 22 H Blood Pressure Pulse Oximetry 97 Oxygen Delivery BiPAP Oxygen Flow Rate Fraction of Inspired Oxygen 50 09/28/22 01:16 09/27/22 21:12 09/28/22 02:00 Temperature Pulse Rate 90 93 86 Respiratory Rate 22 H 22 H Blood Pressure Pulse Oxime
[2022-09-28 13:56] LABS: Device NON-INVASIVE VENT; Modified Allen's Test Pass; Site Drawn LEFT RADIAL
--- NOTE | 2022-09-28 16:56 | PM.IMPN ---
Progress Note: A&P Assessment and Plan (1) Pancreatitis: Code(s): K85.90 - Acute pancreatitis without necrosis or infection, unspecified Status: Acute Assessment and Plan: CT noted. Overall pancreatitis is about the same. No worsening abdominal pain. Does have some abdominal distention. Will keep patient NPO and place NG tube. Changed antibiotics to cover pancreatic infection. Appreciate GI and surgery help 09/28/2021? interval history:? morbidly obese patient initially presented with abdominal pain nausea or vomiting was found to have a pancreatitis with leukocytosis tachycardia? tachypnea lactic acidosis and worsening renal function met criteria for sepsis, however on 09/18 later in the evening patient went into hypoxia an ABG showed hypercarbic respiratory failure? 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 patient was also found to ileus seen by surgery service patient was placed on NG tube, patient had a BM, NG tube was removed and patient is placed on full liquids today patient seen by GI advanced his diet and signed off, patient has gallstones he high risk for surgery,? patient was continue required BIPAP during the day, now he is off BIPAP during the day and wears BIPAP at night, however last night patient did not grace BiPAP currently patient on BiPAP, patient's serum creatinine had jumped from baseline 2.6 to 4.8 seen by nephrology renal ultrasound is unremarkable CT scan of the pelvis and abdomen did not show any nephrolithiasis, his serum creatinine is trending down to 3.3 today. nephrology workup is in progress will continue to monitor, also discussed with ID pharmacist and stopped Imipenem started on ceftriaxone will recheck patient will continue to work with PT OT patient will benefit going to acute rehab. (2) Obesity hypoventilation syndrome: Code(s): E66.2 - Morbid (severe) obesity with alveolar hypoventilation Status: Acute Assessment and Plan: Appreciate pulmonary's consultation Currently on BiPAP. ABG does look a little bit better. (3) Cholelithiasis: Code(s): K80.20 - Calculus of gallbladder without cholecystitis without obstruction Status: Acute Assessment and Plan: Treat conservatively right now. May need cholecystectomy in the future. Leukocytosis is worsening. Will get a CT scan of the abdomen and pelvis IV antibiotics (4) Obesity: Qualifiers: Obesity type: unspecified obesity type Obesity classification: adult class 2 (BMI 35 - 39.9) Serious obesity comorbidity presence: unspecified whether serious comorbidity present Body mass index: BMI 38.0-38.9 Qualified Code(s): E66.9 - Obesity, unspecified; Z68.38 - Body mass index [BMI] 38.0-38.9, adult Code(s): E66.9 - Obesity, unspecified Status: Acute (5) Aortic stenosis, severe: Code(s): I35.0 - Nonrheumatic aortic (valve) stenosis Status: Chronic Assessment and Plan: Status post valve replacement (6) Ileus: Code(s): K56.7 - Ileus, unspecified Status: Acute Assessment and Plan: NG tube to low intermittent suction. Trying to see if this will help his respiratory status as well. (7) Hypoxia: Code(s): R09.02 - Hypoxemia Status: Acute Assessment and Plan: Likely from ileus with low lung volumes. Will try to ambulate the patient today and get him a to chair. Incentive spirometry. NG tube to low intermittent suction. Appreciate Pulmonary input. Pulmonary to manage BiPAP Subjective Date/time seen: 09/28/22 16:56 09/28/2021? interval history:? morbidly obese patient initially presented with abdominal pain nausea or vomiting was found to have a pancreatitis with leukocytosis tachycardia? tachypnea lactic acidosis and worsening renal function met criteria fo
[2022-09-28] MEDS: cefTRIAXone 2 GM in SODIUM CHLORIDE 0.9% IV 100 ML 200 ML IVPB (17:08)
[2022-09-28] MEDS: LIDOCAINE 5% PATCH 1 PATCH TRANSDERM (18:30)
[2022-09-28] MEDS: ATORVASTATIN 40 MG TABLET PO (22:15)
[2022-09-28] MEDS: metroNIDAZOLE 250 MG TABLET 500 MG PO (22:15)
[2022-09-29] VITALS (25 sets, daily range): BP systolic 119–144; BP diastolic 54–64; PULSE 63–102; RESP 18–28; TEMP 35.8–36.6; O2SAT 92–97
[2022-09-29] MEDS: IPRATROPIUM BR 0.02% INH SOLN 0.5 MG/2.5 ML VIAL INHALATION ×5 (04:19→20:28)
[2022-09-29] MEDS: ALBUTEROL SULFATE NEB 2.5 MG/3 ML INH INHALATION ×5 (04:19→21:32)
[2022-09-29 05:10] LABS: Hemoglobin 10.8 g/dL (14.0-18.0); Mean Corpuscular HGB Conc 31.8 g/dl (32-36); Mean Corpuscular Hemoglobin 29.5 pg (26-34); Mean Corpuscular Volume 92.9 fl (80-100); Mean Platelet Volume 9.2 fl (7.4-10.4); Platelet Count Result 375 k/mm3 (150-375); Red Blood Count 3.66 M/mm3 (4.6-6.20); White Blood Count 13.4 K/mm3 (4.5-10.0)
[2022-09-29 05:31] LABS: Alanine Aminotransferase 21 U/L (6-50); Albumin Level 2.7 g/dL (3.5-5.1); Alkaline Phosphatase 76 U/L (38-126); Anion Gap 4 mmol/L (8-16); Aspartate Amino Transferase 50 U/L (17-59); Bilirubin,Total 0.5 mg/dL (0.2-1.3); Blood Urea Nitrogen 55 mg/dL (9-20); Calcium 8.6 mg/dL (8.4-10.2); Carbon Dioxide 33 mmol/L (22-30); Chloride 100 mmol/L (98-107); Estimated CRCL calculation 25 ml/min; Estimated Glomerular Filt Rate 22; Glucose 113 mg/dL (65-110); Lipase 940 U/L (23-300); Potassium 3.5 mmol/L (3.4-5.0); Sodium 137 mmol/L (137-145)
[2022-09-29] MEDS: metroNIDAZOLE 250 MG TABLET 500 MG PO ×3 (05:49→21:33)
--- NOTE | 2022-09-29 09:36 | PM.PNPUL ---
Progress Note: A&P Assessment and Plan (1) Respiratory failure with hypoxia and hypercapnia: Code(s): J96.91 - Respiratory failure, unspecified with hypoxia; J96.92 - Respiratory failure, unspecified with hypercapnia Status: Acute Assessment and Plan: this 77-year-old man diagnosed with acute pancreatitis. Initially he had metabolic acidosis, and also hypoxemic hypercapnic respiratory failure and was treated in the intensive care unit with BiPAP support and also NGT drainage. While in the intensive care unit his gas exchange improved, with correction of hypercapnic respiratory failure. subsequently the patient was transferred to the [facility] unit where he was found to have worsening of his respiratory status especially hypercapnic respiratory failure. Workup showed bilateral lower lobe atelectasis related to increased intra-abdominal pressure. patient has been supported with BiPAP using relatively high pressures as patient's ventilatory needs were in excess of 18 liters/minute. Over the last 24 hours his ABGs have improved. Patient has no new respiratory symptoms. He appears fully awake this a.m. Plan: continue with current BiPAP settings at night and throughout the day except during meals. Out of bed to chair. Monitor ABGs. (2) Abdominal distension: Code(s): R14.0 - Abdominal distension (gaseous) Status: Acute (3) Acute pancreatitis: Code(s): K85.90 - Acute pancreatitis without necrosis or infection, unspecified Status: Acute (4) Acute kidney injury: Code(s): N17.9 - Acute kidney failure, unspecified Status: Acute (5) S/P aortic valve replacement with bioprosthetic valve: Code(s): Z95.3 - Presence of xenogenic heart valve Status: Acute (6) Obesity: Qualifiers: Obesity type: unspecified obesity type Obesity classification: adult class 2 (BMI 35 - 39.9) Serious obesity comorbidity presence: unspecified whether serious comorbidity present Body mass index: BMI 38.0-38.9 Qualified Code(s): E66.9 - Obesity, unspecified; Z68.38 - Body mass index [BMI] 38.0-38.9, adult Code(s): E66.9 - Obesity, unspecified Status: Acute Subjective Date/time seen: 09/29/22 09:36 Interval history: Patient has no new respiratory symptoms. Used BiPAP support last night. Currently off BiPAP. Arterial blood gases improved. Creatinine trending down. Antibiotics changed To cover stenotrophomonas in sputum and also possible intra-abdominal infection. Antibiotic coverage was discussed with the ID pharmacist and hospitalist Review of Systems Review of Systems: All systems reviewed & are unremarkable except as noted in HPI and below ( HPI and below) Exam Narrative: GENERAL APPEARANCE: Well developed, well nourished, alert and cooperative, morbidly obese who appears to be mild respiratory distress while on face mask SKIN: Inspection of the skin reveals no rashes, ulcerations or petechiae. HEENT: Sclerae anicteric and conjunctivae pink and moist. Extraocular movements were intact and pupils were equal, round. NECK: Supple. There was no thyroid enlargement, and no tenderness, or masses were felt. LUNGS: Auscultation of the lungs crackles at bases posteriorly CARDIAC: There was a regular rate and rhythm, normal heart sounds with 4/ 6 holosystolic murmur. ABDOMEN: Distended, soft. Nontender. Bowel sounds present LYMPH NODES: No lymphadenopathy was appreciated in the neck. EXTREMITIES: No cyanosis, clubbing; NEUROLOGIC: Alert and oriented x 3. Normal affect. Objective Data Vital Signs Vital Signs: Vital Signs - 24 hr 09/28/22 10:24 09/28/22 10:00 09/28/22 12:10 Temperature Pulse Rate 79 76 70 Respiratory Rate 15 Blood Pressure Pulse Oximetry 98 Oxygen Delivery BiPAP Oxygen Flow Rate Fraction of Inspired Oxygen 09/28/22 12:10 09/28/22 12:10 09/28/22 12:00 Temperature Pulse Rate 70 70 75 Respirator
[2022-09-29] MEDS: HEPARIN SODIUM 5,000 UNITS/ML VIAL 5000 UNITS SUB-Q ×2 (10:10→21:34)
[2022-09-29] MEDS: METOPROLOL TARTRATE 25 MG TABLET PO ×2 (10:10→16:36)
[2022-09-29] MEDS: amLODIPine BESYLATE 5 MG TABLET 10 MG PO (10:10)
[2022-09-29] MEDS: PANTOPRAZOLE SODIUM IV 40 MG VIAL IV PUSH (10:11)
[2022-09-29] MEDS: SIMETHICONE 125 MG CHEW TAB PO ×4 (10:11→21:33)
--- NOTE | 2022-09-29 12:36 | PM.PNNEP ---
Progress Note: A&P Assessment and Plan (1) Acute kidney injury: Code(s): N17.9 - Acute kidney failure, unspecified Status: Acute Assessment and Plan: improving baseline creatinine runs ~ 1.2 - 1.4mg/dl creatinine had improved and then carina again on 09/13 - 09/24 initially though to be secondary to due to pancreatitis and pre renal azotemia. initial evaluation noted to date: renal ultrasound unremarkable except left lower pole nephrolithiasis CT scan did not show a kidney stone however, it did show a right calcified renal cyst in the upper pole urine electrolytes prerenal urine eosinophils negative CPK mildly elevated - but not enough to affect kidney function rapid rise in creatininie on 09/23 and 09/24: etiology not clear....perhaps protracted ATN creatinine appears to have peaked/plateaued at 4.8mg/dl continue to make reasonable urine follow trend of repeat labs and UOP (2) Acute pancreatitis: Code(s): K85.90 - Acute pancreatitis without necrosis or infection, unspecified Status: Acute Assessment and Plan: as noted by elevated lipase and abdominal pain GI and Surgery following -- medical management for now slow improvement in symptoms noted (3) Respiratory failure with hypoxia and hypercapnia: Code(s): J96.91 - Respiratory failure, unspecified with hypoxia; J96.92 - Respiratory failure, unspecified with hypercapnia Status: Acute Assessment and Plan: slow improvement noted appear to have responded to BiPAP therapy suspect exacerbated by OHS +/- TERESITA versus early pneumonia versus atelectasis follow respiratory status Pulmonary following (4) Sepsis: Code(s): A41.9 - Sepsis, unspecified organism Status: Acute Assessment and Plan: as evidence by elevated WBC, LOTUS/ARF, lactic acidosis, and pancreatitis culture results noted on antibiotics (5) Essential (primary) hypertension: Code(s): I10 - Essential (primary) hypertension Status: Chronic Assessment and Plan: hypertensive on admission -- due to pain(?) blood pressure seems better at this time follow trend of hemodynamics. (6) Altered mental status: Code(s): R41.82 - Altered mental status, unspecified Status: Acute Assessment and Plan: improved/back to baseline follow mentation Will continue to follow. Subjective Date/time seen: 09/29/22 12:36 Renal function continues to slowly improve with reasonably urine output; tolerating oral intake without any issues or problems; no apparent distress noted; respiratory status seems stable if not better as well; no events overnight or earlier this AM. Exam Narrative: General: WD/WN male in NAD Heart: normal S1 and S2; no rub Lungs: clear anteriorly. decreased at bases Abdomen: soft, nontender; positive bowel sounds Extremities: no cyanosis or clubbing; trace edema Skin: warm and dry Objective Data Vital Signs Vital Signs: Vital Signs Temp Pulse Resp BP Pulse Ox O2 Del Method O2 Flow Rate 09/29/22 12:00 83 09/29/22 10:00 102 H 09/29/22 08:00 96 09/29/22 11:29 97.3 F L 78 20 137/62 96 09/29/22 10:10 82 09/29/22 08:00 97.4 F L 82 18 144/64 H 96 09/29/22 08:21 86 20 09/29/22 08:21 86 95 Nasal Cannula 12 09/29/22 08:21 86 95 Nasal Cannula 09/29/22 06:00 70 09/29/22 04:00 77 24 H 94 BiPAP 09/29/22 04:00 77 09/29/22 02:00 78 09/28/22 23:35 80 25 H 09/28/22 20:18 77 14 09/28/22 20:00 73 14 09/29/22 04:21 83 24 H 09/29/22 04:20 83 24 H 94 BiPAP 09/29/22 00:00 98 F 77 19 138/57 L 94 09/29/22 00:00 73 28 H 92 BiPAP 09/29/22 00:00 73 09/28/22 23:20 78 28 H 09/28/22 23:19 78 28 H 92 BiPAP 09/28/22 22:00 76 09/28/22 20:00 73 09/28/22 20:00 73 14 94
--- NOTE | 2022-09-29 12:36 | P.PNNP_ITS ---
Progress Note: A&P Assessment and Plan (1) Acute kidney injury: Code(s): N17.9 - Acute kidney failure, unspecified Status: Acute Assessment and Plan: * improving * baseline creatinine runs ~ 1.2 - 1.4mg/dl * creatinine had improved and then carina again on 09/13 - 09/24 * initially though to be secondary to due to pancreatitis and pre renal azotemia. * initial evaluation noted to date: * renal ultrasound unremarkable except left lower pole nephrolithiasis * CT scan did not show a kidney stone however, it did show a right calcified renal cyst in the upper pole * urine electrolytes prerenal * urine eosinophils negative * CPK mildly elevated - but not enough to affect kidney function * rapid rise in creatininie on 09/23 and 09/24: * etiology not clear....perhaps protracted ATN * creatinine appears to have peaked/plateaued at 4.8mg/dl * continue to make reasonable urine * follow trend of repeat labs and UOP (2) Acute pancreatitis: Code(s): K85.90 - Acute pancreatitis without necrosis or infection, unspecified Status: Acute Assessment and Plan: * as noted by elevated lipase and abdominal pain * GI and Surgery following -- medical management for now * slow improvement in symptoms noted (3) Respiratory failure with hypoxia and hypercapnia: Code(s): J96.91 - Respiratory failure, unspecified with hypoxia; J96.92 - Respiratory failure, unspecified with hypercapnia Status: Acute Assessment and Plan: * slow improvement noted * appear to have responded to BiPAP therapy * suspect exacerbated by OHS +/- TERESITA versus early pneumonia versus atelectasis * follow respiratory status * Pulmonary following (4) Sepsis: Code(s): A41.9 - Sepsis, unspecified organism Status: Acute Assessment and Plan: * as evidence by elevated WBC, LOTUS/ARF, lactic acidosis, and pancreatitis * culture results noted * on antibiotics (5) Essential (primary) hypertension: Code(s): I10 - Essential (primary) hypertension Status: Chronic Assessment and Plan: * hypertensive on admission -- due to pain(?) * blood pressure seems better at this time * follow trend of hemodynamics. (6) Altered mental status: Code(s): R41.82 - Altered mental status, unspecified Status: Acute Assessment and Plan: * improved/back to baseline * follow mentation Will continue to follow. Subjective Date/time seen: 09/29/22 12:36 Renal function continues to slowly improve with reasonably urine output; tolerating oral intake without any issues or problems; no apparent distress noted; respiratory status seems stable if not better as well; no events overnight or earlier this AM. Exam Narrative: General: WD/WN male in NAD Heart: normal S1 and S2; no rub Lungs: clear anteriorly. decreased at bases Abdomen: soft, nontender; positive bowel sounds Extremities: no cyanosis or clubbing; trace edema Skin: warm and dry Objective Data Vital Signs Vital Signs: Vital Signs Temp Pulse Resp BP Pulse Ox O2 Del Method O2 Flow Rate 09/29/22 12:00 83 09/29/22 10:00 102 H 09/29/22 08:00 96 09/29/22 11:29 97.3 F L 78 20 137/62 96 09/29/22 10:10 82 09/29/22 08:00 97.4 F L 82 18 144/64 H 96 09/29/22 08:21 86 20
--- NOTE | 2022-09-29 14:04 | WPDGIPROGNO ---
Progress Note: A&P Assessment and Plan (1) Acute pancreatitis: Code(s): K85.90 - Acute pancreatitis without necrosis or infection, unspecified Status: Acute Assessment and Plan: less distended and comfortable tolerating diet, probably will advance tomorrow repeat CT scan persistent pancreatitis unfortunately high risk for lap rossy and he has been managed medically on antibiotics (2) Nausea and vomiting in adult: Code(s): R11.2 - Nausea with vomiting, unspecified Status: Acute Assessment and Plan: resolved xr without obvious ileus, no nausea or vomiting distension probably multifactorial but slowly improving and respiratory status better (3) Respiratory failure with hypoxia and hypercapnia: Code(s): J96.91 - Respiratory failure, unspecified with hypoxia; J96.92 - Respiratory failure, unspecified with hypercapnia Status: Acute Assessment and Plan: he was on bipap by pulmonary (4) Acute kidney injury: Code(s): N17.9 - Acute kidney failure, unspecified Status: Acute Assessment and Plan: improving (5) Leukocytosis: Code(s): D72.829 - Elevated white blood cell count, unspecified Status: Acute Assessment and Plan: CT scan reviewed no evidence of?drainable abscess keep trending down could be from pancreatitis, atelectasis on abx Subjective Date/time seen: 09/29/22 14:04 Interval history: much better today, only on oxygen, sitting in chair and good spirits, tolerating diet. Review of Systems Review of Systems: All systems reviewed & are unremarkable except as noted in HPI and below Exam Const: General: comfortable and alert Other: on oxygen, good spirits HENMT: Face/Nose/Sinus: Normal nares present Eyes: General: appearance normal, both eyes and all related structures Sclera: sclerae normal Neck: Neck: supple Resp: Auscultation: rales and diminished lung sounds Cardio: Rate: regular rate GI: Inspection: distended and obesity GI Palp: Yes Soft to palpation, No Tenderness to palpation present (GI) and No Guarding due to palpation present (GI) Auscultation: normal bowel sounds Other: less distended, soft, no rebound Skin: General skin exam: normal color Neuro: Speech: normal speech Extrem: General: normal to inspection Psych: Affect: normal affect Objective Data Vital Signs Vital Signs: Vital Signs - 24 hr 09/28/22 15:34 09/28/22 15:35 09/28/22 16:00 Temperature Pulse Rate 71 71 72 Respiratory Rate 16 15 Blood Pressure Pulse Oximetry 97 Oxygen Delivery BiPAP Oxygen Flow Rate Fraction of Inspired Oxygen 09/28/22 17:08 09/28/22 17:09 09/28/22 16:00 Temperature 97.8 F Pulse Rate 85 73 Respiratory Rate 19 Blood Pressure 121/57 L Pulse Oximetry 98 95 Oxygen Delivery BiPAP Oxygen Flow Rate Fraction of Inspired Oxygen 60 09/28/22 17:30 09/28/22 18:00 09/28/22 20:05 Temperature Pulse Rate 80 79 73 Respiratory Rate 23 H Blood Pressure Pulse Oximetry 95 94 Oxygen Delivery BiPAP BiPAP Oxygen Flow Rate Fraction of Inspired Oxygen 45 09/28/22 20:05 09/28/22 20:00 09/28/22 20:00 Temperature 97.6 F Pulse Rate 73 82 73 Respiratory Rate 14 19 14 Blood Pressure 127/55 L Pulse Oximetry 94 93 94 Oxygen Delivery BiPAP BiPAP Oxygen Flow Rate Fraction of Inspired Oxygen 45 09/28/22 20:00 09/28/22 22:00 09/28/22 23:19 Temperature Pulse Rate 73 76 78 Respiratory Rate 28 H Blood Pressure Pulse Oximetry 92 Oxygen Delivery BiPAP Oxygen Flow Rate Fraction of Inspired Oxygen 09/28/22 23:20 09/29/22 00:00 09/29/22 00:00 Temperature Pulse Rate 78 73 73 Respiratory Rate 28 H 28 H Blood Pressure Pulse Oximetry 92 Oxygen Delivery BiPAP Oxygen Flow Rate Fraction of Inspired Oxygen 45 09/29/22 00:00 09/29/22 04:20 09/29/22 04:21 Temperature 98 F Pulse Rate 77 83 83 Respiratory
--- NOTE | 2022-09-29 15:34 | PC.NURSE ---
On 09/29/22, the student, [Victoria Duran], provided care and completed [facility] documentation on this patient. I have reviewed the student's documentation and agree with the findings.
--- NOTE | 2022-09-29 15:52 | PCOTNOTE ---
Attempted to see patient earlier today, patient declined any ADLs or functional mobility, refused exercises at that time. Patient's present. Will continue plan of care for OT.
[2022-09-29] MEDS: ACETAMINOPHEN 500 MG TABLET 1000 MG PO (16:24)
[2022-09-29] MEDS: BENZONATATE 100 MG CAPSULE PO (16:34)
--- NOTE | 2022-09-29 18:39 | PM.IMPN ---
Progress Note: A&P Assessment and Plan (1) Pancreatitis: Code(s): K85.90 - Acute pancreatitis without necrosis or infection, unspecified Status: Acute Assessment and Plan: CT noted. Overall pancreatitis is about the same. No worsening abdominal pain. Does have some abdominal distention. Will keep patient NPO and place NG tube. Changed antibiotics to cover pancreatic infection. Appreciate GI and surgery help 09/30/2021? interval history:? morbidly obese patient initially presented with abdominal pain nausea or vomiting was found to have a pancreatitis with leukocytosis tachycardia? tachypnea lactic acidosis and worsening renal function met criteria for sepsis, however on 09/18 later in the evening patient went into hypoxia an ABG showed hypercarbic respiratory failure? patient was seen by manager qa, patient was placed on BiPAP and repeat ABG showed persistent hypercarbia patient was alert and oriented,, for close observation patient was transfer to ICU and remained on BiPAP,? patient was also found to ileus seen by surgery service patient was placed on NG tube, patient had a BM, NG tube was removed and patient is placed on full liquids today patient seen by GI advanced his diet and signed off, patient has gallstones he high risk for surgery,? patient was continue required BIPAP during the day, now he is off BIPAP during the day and wears BIPAP at night, however last night patient did not grace BiPAP currently patient on BiPAP, patient's serum creatinine had jumped from baseline 2.6 to 4.8 seen by nephrology renal ultrasound is unremarkable CT scan of the pelvis and abdomen did not show any nephrolithiasis, his serum creatinine is trending down to 2.1 today. nephrology workup is in progress will continue to monitor, also discussed with ID pharmacist and stopped Imipenem started on ceftriaxone will recheck patient will continue to work with PT OT, patient is now requiring 8Loxygen compare to 12L yesterday, his lipase are trending down 760 today caompared to 1276, he is sitting in the chair, his is present in the room, patient will benefit going to acute rehab. (2) Obesity hypoventilation syndrome: Code(s): E66.2 - Morbid (severe) obesity with alveolar hypoventilation Status: Acute Assessment and Plan: Appreciate pulmonary's consultation Currently on BiPAP. ABG does look a little bit better. (3) Cholelithiasis: Code(s): K80.20 - Calculus of gallbladder without cholecystitis without obstruction Status: Acute Assessment and Plan: Treat conservatively right now. May need cholecystectomy in the future. Leukocytosis is worsening. Will get a CT scan of the abdomen and pelvis IV antibiotics (4) Obesity: Qualifiers: Body mass index: BMI 38.0-38.9 Obesity classification: adult class 2 (BMI 35 - 39.9) Obesity type: unspecified obesity type Serious obesity comorbidity presence: unspecified whether serious comorbidity present Qualified Code(s): E66.9 - Obesity, unspecified; Z68.38 - Body mass index [BMI] 38.0-38.9, adult Code(s): E66.9 - Obesity, unspecified Status: Acute (5) Aortic stenosis, severe: Code(s): I35.0 - Nonrheumatic aortic (valve) stenosis Status: Chronic Assessment and Plan: Status post valve replacement (6) Ileus: Code(s): K56.7 - Ileus, unspecified Status: Acute Assessment and Plan: NG tube to low intermittent suction. Trying to see if this will help his respiratory status as well. (7) Hypoxia: Code(s): R09.02 - Hypoxemia Status: Acute Assessment and Plan: Likely from ileus with low lung volumes. Will try to ambulate the patient today and get him a to chair. Incentive spirometry. NG tube to low intermittent suction. Appreciate Pulmonary input. Pulmonary to manage BiPAP Subjective Date/time seen: 09/29/22 18:39 09/30/2021? interval history:? morbidly obese patient initially pr
[2022-09-29] MEDS: cefTRIAXone 2 GM in SODIUM CHLORIDE 0.9% IV 100 ML 200 ML IVPB (19:02)
[2022-09-29] MEDS: ATORVASTATIN 40 MG TABLET PO (21:33)
[2022-09-30] VITALS (34 sets, daily range): BP systolic 114–144; BP diastolic 62–89; PULSE 67–88; RESP 18–33; TEMP 36.2–37.1; O2SAT 92–100
[2022-09-30] MEDS: IPRATROPIUM BR 0.02% INH SOLN 0.5 MG/2.5 ML VIAL INHALATION ×7 (00:22→23:51)
[2022-09-30] MEDS: ALBUTEROL SULFATE NEB 2.5 MG/3 ML INH INHALATION ×7 (00:22→23:51)
[2022-09-30 05:05] LABS: Hematocrit 33.2 % (42.0-52.0); Hemoglobin 10.7 g/dL (14.0-18.0); Mean Corpuscular HGB Conc 32.2 g/dl (32-36); Platelet Count Result 362 k/mm3 (150-375); Red Blood Count 3.57 M/mm3 (4.6-6.20); Red Cell Distribution Width 13.8 % (11.5-14.5); White Blood Count 12.1 K/mm3 (4.5-10.0)
[2022-09-30 05:28] LABS: Chloride 97 mmol/L (98-107)
[2022-09-30 05:42] LABS: Alanine Aminotransferase 21 U/L (6-50); Albumin Level 2.8 g/dL (3.5-5.1); Alkaline Phosphatase 65 U/L (38-126); Anion Gap 3 mmol/L (8-16); Aspartate Amino Transferase 50 U/L (17-59); Bilirubin,Total 0.5 mg/dL (0.2-1.3); Blood Urea Nitrogen 47 mg/dL (9-20); Calcium 8.5 mg/dL (8.4-10.2); Carbon Dioxide 34 mmol/L (22-30); Estimated CRCL calculation 33 ml/min; Estimated Glomerular Filt Rate 31; Glucose 118 mg/dL (65-110); Lipase 760 U/L (23-300); Magnesium 1.7 mg/dL (1.6-2.3); Potassium 3.5 mmol/L (3.4-5.0); Sodium 134 mmol/L (137-145)
[2022-09-30] MEDS: metroNIDAZOLE 250 MG TABLET 500 MG PO ×3 (05:58→21:13)
[2022-09-30] MEDS: ACETYLCYSTEINE 20% INHAL SOLN 800 MG/4 ML VIAL 200 MG INHALATION ×2 (08:12→20:15)
[2022-09-30] MEDS: SIMETHICONE 125 MG CHEW TAB PO ×4 (08:33→21:13)
[2022-09-30] MEDS: PANTOPRAZOLE SODIUM IV 40 MG VIAL IV PUSH (08:33)
[2022-09-30] MEDS: METOPROLOL TARTRATE 25 MG TABLET PO ×2 (08:33→16:31)
[2022-09-30] MEDS: HEPARIN SODIUM 5,000 UNITS/ML VIAL 5000 UNITS SUB-Q ×2 (08:34→21:14)
[2022-09-30] MEDS: amLODIPine BESYLATE 5 MG TABLET 10 MG PO (08:34)
--- NOTE | 2022-09-30 09:29 | WPDGIPROGNO ---
Progress Note: A&P Assessment and Plan (1) Cholelithiasis: Code(s): K80.20 - Calculus of gallbladder without cholecystitis without obstruction Status: Acute Assessment and Plan: Patient with gallstone induced pancreatitis. Currently felt be high risk for cholecystectomy. Supportive care for now. Current medical management. (2) Pancreatitis: Code(s): K85.90 - Acute pancreatitis without necrosis or infection, unspecified Status: Acute Assessment and Plan: Patient with pancreatitis on the basis of gallstones. Lipase [address] scan suggested pancreatitis slow to resolve. Continue supportive care for now. Patient currently tolerating diet with no additional nausea vomiting. Low-fat diet encouraged. (3) Obesity: Qualifiers: Obesity type: unspecified obesity type Obesity classification: adult class 2 (BMI 35 - 39.9) Serious obesity comorbidity presence: unspecified whether serious comorbidity present Body mass index: BMI 38.0-38.9 Qualified Code(s): E66.9 - Obesity, unspecified; Z68.38 - Body mass index [BMI] 38.0-38.9, adult Code(s): E66.9 - Obesity, unspecified Status: Acute (4) Leukocytosis: Code(s): D72.829 - Elevated white blood cell count, unspecified Status: Acute Assessment and Plan: Elevated white count has gradually been improving. Likely multifactorial between pancreatitis and respiratory difficulties. (5) Respiratory failure with hypoxia and hypercapnia: Code(s): J96.91 - Respiratory failure, unspecified with hypoxia; J96.92 - Respiratory failure, unspecified with hypercapnia Status: Acute Subjective Date/time seen: 09/30/22 09:29 Interval history: Patient alert states he is more comfortable today. No nausea vomiting noted. Remains on supplemental oxygen. The somewhat short of breath at rest. Review of Systems Review of Systems: Review of systems noncontributory. Exam Narrative: Physical exam reveals patient comfortable at rest. Supplemental oxygen in place. HEENT exam unremarkable. Lungs reveal a few rhonchi. Heart without murmur. Abdomen obese bowel sounds present soft no localized tenderness. No masses evident. Objective Data Vital Signs Vital Signs: Vital Signs - 24 hr 09/29/22 10:10 09/29/22 11:29 09/29/22 10:00 Temperature 97.3 F L Pulse Rate 82 78 102 H Respiratory Rate 20 Blood Pressure 137/62 Pulse Oximetry 96 Oxygen Delivery Oxygen Flow Rate Fraction of Inspired Oxygen 09/29/22 12:00 09/29/22 12:46 09/29/22 13:02 Temperature Pulse Rate 83 87 87 Respiratory Rate 22 H 22 H Blood Pressure Pulse Oximetry Oxygen Delivery Oxygen Flow Rate Fraction of Inspired Oxygen 09/29/22 14:00 09/29/22 16:00 09/29/22 16:36 Temperature 96.5 F L Pulse Rate 84 85 83 Respiratory Rate 20 Blood Pressure 119/54 L Pulse Oximetry 94 Oxygen Delivery Oxygen Flow Rate Fraction of Inspired Oxygen 09/29/22 16:00 09/29/22 16:00 09/29/22 18:00 Temperature Pulse Rate 71 83 72 Respiratory Rate 20 Blood Pressure Pulse Oximetry 94 Oxygen Delivery Nasal Cannula Oxygen Flow Rate 12 Fraction of Inspired Oxygen 09/29/22 20:17 09/29/22 20:31 09/29/22 20:31 Temperature 97.9 F Pulse Rate 70 63 63 Respiratory Rate 27 H 21 H Blood Pressure 127/63 Pulse Oximetry 95 97 97 Oxygen Delivery BiPAP BiPAP Oxygen Flow Rate Fraction of Inspired Oxygen 21 09/29/22 20:31 09/29/22 20:52 09/29/22 20:00 Temperature Pulse Rate 63 65 Respiratory Rate 21 H 20 Blood Pressure Pulse Oximetry Oxygen Delivery BiPAP Oxygen Flow Rate Fraction of Inspired Oxygen 09/29/22 23:15 09/29/22 20:00 09/30/22 00:24 Temperature 97.8 F Pulse Rate 68 71 67 Respiratory Rate 21 H 25 H Blood Pressure 136/61 Pulse Oximetry 94 Oxygen Delivery Oxygen Flow Rate Fraction of Inspired
[2022-09-30] MEDS: BENZOCAINE/MENTHOL (*BKC) 18 EA LOZENGE 1 LOZENGE PO (10:56)
--- NOTE | 2022-09-30 11:12 | P.PNNP_ITS ---
Progress Note: A&P Assessment and Plan (1) Acute kidney injury: Code(s): N17.9 - Acute kidney failure, unspecified Status: Acute Assessment and Plan: * improving * baseline creatinine runs ~ 1.2 - 1.4mg/dl * creatinine had improved and then carina again (on 09/13 - 09/24) * initially though to be secondary to due to pancreatitis and pre renal azotemia. * initial evaluation noted to date: * renal ultrasound unremarkable except left lower pole nephrolithiasis * CT scan did not show a kidney stone however, it did show a right calcified renal cyst in the upper pole * urine electrolytes prerenal * urine eosinophils negative * CPK mildly elevated - but not enough to affect kidney function * rapid rise in creatinine on 09/23 and 09/24: * etiology not clear....perhaps protracted ATN * creatinine appears to have peaked/plateaued at 4.8mg/dl * continue to make reasonable urine * follow trend of repeat labs and UOP (2) Acute pancreatitis: Code(s): K85.90 - Acute pancreatitis without necrosis or infection, unspecified Status: Acute Assessment and Plan: * as noted by elevated lipase and abdominal pain * GI and Surgery following -- medical management for now * slow improvement in symptoms noted (3) Respiratory failure with hypoxia and hypercapnia: Code(s): J96.91 - Respiratory failure, unspecified with hypoxia; J96.92 - Respiratory failure, unspecified with hypercapnia Status: Acute Assessment and Plan: * slow improvement noted * appear to have responded to BiPAP therapy * suspect exacerbated by OHS +/- TERESITA versus early pneumonia versus atelectasis * follow respiratory status * Pulmonary following (4) Sepsis: Code(s): A41.9 - Sepsis, unspecified organism Status: Acute Assessment and Plan: * as evidence by elevated WBC, LOTUS/ARF, lactic acidosis, and pancreatitis * culture results noted * on antibiotics (5) Essential (primary) hypertension: Code(s): I10 - Essential (primary) hypertension Status: Chronic Assessment and Plan: * hypertensive on admission -- due to pain(?) * blood pressure seems better at this time * follow trend of hemodynamics. (6) Altered mental status: Code(s): R41.82 - Altered mental status, unspecified Status: Acute Assessment and Plan: * improved/back to baseline * follow mentation Will continue to follow. Subjective Date/time seen: 09/30/22 11:12 No new issues or problems to report at this time; breathing/respiratory status continues to make slow and steady improvement; renal function continues to improve in association with stable urine output; no other issues/events overnight or earlier this morning. Exam Narrative: General: WD/WN male in NAD Heart: normal S1 and S2; no rub Lungs: clear anteriorly. decreased at bases Abdomen: soft, nontender; positive bowel sounds Extremities: no cyanosis or clubbing; trace edema Skin: warm and intact Objective Data Vital Signs Vital Signs: Vital Signs Temp Pulse Resp BP Pulse Ox O2 Del Method O2 Flow Rate 09/30/22 10:16 92 High Flow Nasal Cannula 6 09/30/22 10:00 77 09/30/22 09:11 97 High Flow Nasal Cannula 8 09/30/22 08:00 97 High Flow Nasal Cannula 10 09/30/22 08:00 86 09/30/22 08:33 88
--- NOTE | 2022-09-30 11:12 | PM.PNNEP ---
Progress Note: A&P Assessment and Plan (1) Acute kidney injury: Code(s): N17.9 - Acute kidney failure, unspecified Status: Acute Assessment and Plan: improving baseline creatinine runs ~ 1.2 - 1.4mg/dl creatinine had improved and then carina again (on 09/13 - 09/24) initially though to be secondary to due to pancreatitis and pre renal azotemia. initial evaluation noted to date: renal ultrasound unremarkable except left lower pole nephrolithiasis CT scan did not show a kidney stone however, it did show a right calcified renal cyst in the upper pole urine electrolytes prerenal urine eosinophils negative CPK mildly elevated - but not enough to affect kidney function rapid rise in creatinine on 09/23 and 09/24: etiology not clear....perhaps protracted ATN creatinine appears to have peaked/plateaued at 4.8mg/dl continue to make reasonable urine follow trend of repeat labs and UOP (2) Acute pancreatitis: Code(s): K85.90 - Acute pancreatitis without necrosis or infection, unspecified Status: Acute Assessment and Plan: as noted by elevated lipase and abdominal pain GI and Surgery following -- medical management for now slow improvement in symptoms noted (3) Respiratory failure with hypoxia and hypercapnia: Code(s): J96.91 - Respiratory failure, unspecified with hypoxia; J96.92 - Respiratory failure, unspecified with hypercapnia Status: Acute Assessment and Plan: slow improvement noted appear to have responded to BiPAP therapy suspect exacerbated by OHS +/- TERESITA versus early pneumonia versus atelectasis follow respiratory status Pulmonary following (4) Sepsis: Code(s): A41.9 - Sepsis, unspecified organism Status: Acute Assessment and Plan: as evidence by elevated WBC, LOTUS/ARF, lactic acidosis, and pancreatitis culture results noted on antibiotics (5) Essential (primary) hypertension: Code(s): I10 - Essential (primary) hypertension Status: Chronic Assessment and Plan: hypertensive on admission -- due to pain(?) blood pressure seems better at this time follow trend of hemodynamics. (6) Altered mental status: Code(s): R41.82 - Altered mental status, unspecified Status: Acute Assessment and Plan: improved/back to baseline follow mentation Will continue to follow. Subjective Date/time seen: 09/30/22 11:12 No new issues or problems to report at this time; breathing/respiratory status continues to make slow and steady improvement; renal function continues to improve in association with stable urine output; no other issues/events overnight or earlier this morning. Exam Narrative: General: WD/WN male in NAD Heart: normal S1 and S2; no rub Lungs: clear anteriorly. decreased at bases Abdomen: soft, nontender; positive bowel sounds Extremities: no cyanosis or clubbing; trace edema Skin: warm and intact Objective Data Vital Signs Vital Signs: Vital Signs Temp Pulse Resp BP Pulse Ox O2 Del Method O2 Flow Rate 09/30/22 10:16 92 High Flow Nasal Cannula 6 09/30/22 10:00 77 09/30/22 09:11 97 High Flow Nasal Cannula 8 09/30/22 08:00 97 High Flow Nasal Cannula 10 09/30/22 08:00 86 09/30/22 08:33 88 09/30/22 08:30 84 20 09/30/22 08:13 82 20 09/30/22 08:13 97 High Flow Nasal Cannula 10 09/30/22 07:57 97.2 F L 77 20 133/65 96 09/30/22 06:00 79 09/30/22 04:00 74 09/30/22 02:00 73 09/30/22 00:00 70 09/29/22 22:00 71 09/30/22 05:13 79 20 09/30/22 05:00 80 22 H 09/30/22 04:00 97.9 F 79 28 H 136/62 99 09/30/22 04:00 BiPAP 09/30/22 00:00 BiPAP 09/30/22 00:40 70 26 H 09/30/22 00:20 67 25 H 98 BiPAP 09/30/22 00:24 67 25 H 09/29/22 20:00 71 09/29/22 23:15 97.8 F 68 21
--- NOTE | 2022-09-30 11:26 | PM.PNPUL ---
Progress Note: A&P Assessment and Plan (1) Respiratory failure with hypoxia and hypercapnia: Code(s): J96.91 - Respiratory failure, unspecified with hypoxia; J96.92 - Respiratory failure, unspecified with hypercapnia Status: Acute Assessment and Plan: this 77-year-old man diagnosed with acute pancreatitis. Initially he had metabolic acidosis, and also hypoxemic hypercapnic respiratory failure and was treated in the intensive care unit with BiPAP support and also NGT drainage. While in the intensive care unit his gas exchange improved, with correction of hypercapnic respiratory failure. subsequently the patient was transferred to the [facility] unit where he was found to have worsening of his respiratory status especially hypercapnic respiratory failure. Workup showed bilateral lower lobe atelectasis related to increased intra-abdominal pressure. patient has been supported with BiPAP using relatively high pressures as patient's ventilatory needs were in excess of 18 liters/minute. Over the last 48 hours his respiratory status has improved, in synch with improved renal function and abdominal distension. patient is currently off BiPAP, tolerating face mask much better than before. When presented to the hospital, he did not have elevated bicarbonate level which makes chronic hypercapnic respiratory failure highly unlikely. because of chronically elevated right hemidiaphragm, right diaphragm weakness is a possibility. Plan: Out of bed to chair. Will continue with BiPAP support at night and p.r.n. during the day. Monitor ABGs. he will be screened with sniff test for right hemidiaphragm paralysis prior to DC home. Repeat blood gases in a.m.. [facility] chest before going home. (2) Abdominal distension: Code(s): R14.0 - Abdominal distension (gaseous) Status: Acute (3) Acute pancreatitis: Code(s): K85.90 - Acute pancreatitis without necrosis or infection, unspecified Status: Acute (4) Acute kidney injury: Code(s): N17.9 - Acute kidney failure, unspecified Status: Acute (5) S/P aortic valve replacement with bioprosthetic valve: Code(s): Z95.3 - Presence of xenogenic heart valve Status: Acute (6) Obesity: Qualifiers: Obesity type: unspecified obesity type Obesity classification: adult class 2 (BMI 35 - 39.9) Serious obesity comorbidity presence: unspecified whether serious comorbidity present Body mass index: BMI 38.0-38.9 Qualified Code(s): E66.9 - Obesity, unspecified; Z68.38 - Body mass index [BMI] 38.0-38.9, adult Code(s): E66.9 - Obesity, unspecified Status: Acute Subjective Date/time seen: 09/30/22 11:26 Interval history: patient has no new respiratory symptoms. Doing better. Off BiPAP this a.m. sitting in chair. Cough significantly improved. Review of Systems Review of Systems: All systems reviewed & are unremarkable except as noted in HPI and below ( HPI and below) Exam Narrative: GENERAL APPEARANCE: Well developed, well nourished, alert and cooperative, morbidly obese who appears to be mild respiratory distress while on face mask SKIN: Inspection of the skin reveals no rashes, ulcerations or petechiae. HEENT: Sclerae anicteric and conjunctivae pink and moist. Extraocular movements were intact and pupils were equal, round. NECK: Supple. There was no thyroid enlargement, and no tenderness, or masses were felt. LUNGS: Auscultation of the lungs crackles at bases posteriorly CARDIAC: There was a regular rate and rhythm, normal heart sounds with 4/ 6 holosystolic murmur. ABDOMEN: Distended, soft. Nontender. Bowel sounds present LYMPH NODES: No lymphadenopathy was appreciated in the neck. EXTREMITIES: No cyanosis, clubbing; NEUROLOGIC: Alert and oriented x 3. Normal affect. Objective Data Vital Signs Vital Signs: Vital Signs - 24 hr 09/29/22 11:29 09/29/22 12:00 09/29/22 12:46 Temperature 36.3 C L
[2022-09-30] MEDS: ACETAMINOPHEN 500 MG TABLET 1000 MG PO (12:22)
[2022-09-30] MEDS: cefTRIAXone 2 GM in SODIUM CHLORIDE 0.9% IV 100 ML 200 ML IVPB (17:49)
[2022-09-30] MEDS: ATORVASTATIN 40 MG TABLET PO (21:12)
[2022-10-01] VITALS (22 sets, daily range): BP systolic 115–152; BP diastolic 61–76; PULSE 68–94; RESP 18–35; TEMP 36–36.4; O2SAT 92–100
[2022-10-01 05:11] LABS: Hematocrit 34.6 % (42.0-52.0); Hemoglobin 10.7 g/dL (14.0-18.0); Mean Corpuscular HGB Conc 30.9 g/dl (32-36); Mean Corpuscular Hemoglobin 28.9 pg (26-34); Mean Corpuscular Volume 93.5 fl (80-100); Mean Platelet Volume 9.2 fl (7.4-10.4); Platelet Count Result 353 k/mm3 (150-375); Red Cell Distribution Width 13.6 % (11.5-14.5); White Blood Count 11.5 K/mm3 (4.5-10.0)
[2022-10-01] MEDS: IPRATROPIUM BR 0.02% INH SOLN 0.5 MG/2.5 ML VIAL INHALATION ×5 (05:15→22:43)
[2022-10-01] MEDS: ALBUTEROL SULFATE NEB 2.5 MG/3 ML INH INHALATION ×5 (05:16→22:43)
[2022-10-01 05:30] LABS: Alanine Aminotransferase 21 U/L (6-50); Albumin Level 2.8 g/dL (3.5-5.1); Alkaline Phosphatase 63 U/L (38-126); Anion Gap 2 mmol/L (8-16); Aspartate Amino Transferase 48 U/L (17-59); Bilirubin,Total 0.5 mg/dL (0.2-1.3); Blood Urea Nitrogen 36 mg/dL (9-20); Calcium 8.4 mg/dL (8.4-10.2); Carbon Dioxide 31 mmol/L (22-30); Chloride 99 mmol/L (98-107); Estimated CRCL calculation 36 ml/min; Estimated Glomerular Filt Rate 35; Glucose 109 mg/dL (65-110); Lipase 744 U/L (23-300); Magnesium 1.7 mg/dL (1.6-2.3); Potassium 3.7 mmol/L (3.4-5.0); Sodium 132 mmol/L (137-145)
[2022-10-01] MEDS: metroNIDAZOLE 250 MG TABLET 500 MG PO ×3 (06:10→21:45)
[2022-10-01] MEDS: ACETYLCYSTEINE 20% INHAL SOLN 800 MG/4 ML VIAL 200 MG INHALATION ×2 (07:50→19:33)
[2022-10-01] MEDS: PANTOPRAZOLE SODIUM IV 40 MG VIAL IV PUSH (08:43)
[2022-10-01] MEDS: METOPROLOL TARTRATE 25 MG TABLET PO ×2 (08:43→16:29)
[2022-10-01] MEDS: SIMETHICONE 125 MG CHEW TAB PO ×4 (08:43→21:45)
[2022-10-01] MEDS: amLODIPine BESYLATE 5 MG TABLET 10 MG PO (08:45)
[2022-10-01] MEDS: HEPARIN SODIUM 5,000 UNITS/ML VIAL 5000 UNITS SUB-Q ×2 (08:45→21:45)
[2022-10-01] MEDS: ACETAMINOPHEN 500 MG TABLET 1000 MG PO ×2 (08:45→21:53)
--- NOTE | 2022-10-01 10:18 | WPDGIPROGNO ---
Progress Note: A&P Assessment and Plan (1) Cholelithiasis: Code(s): K80.20 - Calculus of gallbladder without cholecystitis without obstruction Status: Acute Assessment and Plan: Patient with gallstone pancreatitis. Currently felt to be too high risk for cholecystectomy. Ultimately this would be good if it could be accomplished. (2) Pancreatitis: Code(s): K85.90 - Acute pancreatitis without necrosis or infection, unspecified Status: Acute Assessment and Plan: Patient with resolving pancreatitis on the basis gallstones. Currently tolerating diet. Lab parameters are improving. Low-fat diet encouraged. (3) Obesity: Qualifiers: Obesity type: unspecified obesity type Obesity classification: adult class 2 (BMI 35 - 39.9) Serious obesity comorbidity presence: unspecified whether serious comorbidity present Body mass index: BMI 38.0-38.9 Qualified Code(s): E66.9 - Obesity, unspecified; Z68.38 - Body mass index [BMI] 38.0-38.9, adult Code(s): E66.9 - Obesity, unspecified Status: Acute Assessment and Plan: Patient is quite obese. Calorie restriction with increase activity ultimately suggested. (4) Respiratory failure with hypoxia and hypercapnia: Code(s): J96.91 - Respiratory failure, unspecified with hypoxia; J96.92 - Respiratory failure, unspecified with hypercapnia Status: Acute Assessment and Plan: Pulmonary service following. Patient remains short of breath with supplemental oxygen. Subjective Date/time seen: 10/01/22 10:18 Interval history: Patient seen again today in the absence of Dr. Branch. Patient is sitting upright. Remain somewhat short of breath on supplemental oxygen. Sleeps with BiPAP. Denies abdominal pain has tolerated diet adequately at present. Review of Systems Review of Systems: Review of systems noncontributory. Exam Narrative: Physical exam reveals patient be alert. Vital signs stable. He is anicteric. Lungs are Jose R scattered rhonchi. Heart without murmur. Abdomen is obese. Currently soft and nontender. Objective Data Vital Signs Vital Signs: Vital Signs - 24 hr 09/30/22 11:24 09/30/22 11:35 09/30/22 12:00 Temperature 97.2 F L Pulse Rate 74 77 77 Respiratory Rate 20 20 20 Blood Pressure 114/89 Pulse Oximetry 100 Oxygen Delivery Oxygen Flow Rate Fraction of Inspired Oxygen 09/30/22 12:00 09/30/22 12:00 09/30/22 14:00 Temperature Pulse Rate 75 78 Respiratory Rate Blood Pressure Pulse Oximetry 96 Oxygen Delivery High Flow Nasal Cannula Oxygen Flow Rate 5 Fraction of Inspired Oxygen 09/30/22 16:00 09/30/22 16:14 09/30/22 16:27 Temperature 97.4 F L Pulse Rate 73 73 76 Respiratory Rate 18 20 20 Blood Pressure 127/68 Pulse Oximetry 96 Oxygen Delivery Oxygen Flow Rate Fraction of Inspired Oxygen 09/30/22 16:31 09/30/22 16:00 09/30/22 16:00 Temperature Pulse Rate 77 76 Respiratory Rate Blood Pressure Pulse Oximetry 97 Oxygen Delivery High Flow Nasal Cannula Oxygen Flow Rate 6 Fraction of Inspired Oxygen 09/30/22 18:00 09/30/22 19:59 09/30/22 20:15 Temperature 98.4 F Pulse Rate 72 81 78 Respiratory Rate 30 H Blood Pressure 144/63 H Pulse Oximetry 96 94 Oxygen Delivery High Flow Nasal Cannula Oxygen Flow Rate 6 Fraction of Inspired Oxygen 09/30/22 20:15 09/30/22 20:29 09/30/22 21:25 Temperature Pulse Rate 78 75 72 Respiratory Rate 24 H 24 H 33 H Blood Pressure Pulse Oximetry 98 Oxygen Delivery BiPAP Oxygen Flow Rate Fraction of Inspired Oxygen 09/30/22 20:00 09/30/22 23:31 09/30/22 23:48 Temperature 98.7 F Pulse Rate 68 70 Respiratory Rate 26 H 27 H Blood Pressure 138/74 Pulse Oximetry 96 98 97 Oxygen Delivery High Flow Nasal Cannula BiPAP Oxygen Flow Rate 6 Fraction of Inspired Oxygen 09/30/22 23:48 10/01/22 0
[2022-10-01 10:37] LABS: Alveolar/Arterial O2 Gradient 153.4 mmHg; Base Excess ABG 3.9 mEq/l (+/-2.0); Fractional Inspired Oxygen 44 %; HCO3 ABG 30.5 mEq/l (22.0-26.0); Oxygen Saturation ABG 97.2 % (95.0-100.0); PCO2 ABG 53.9 mmHg (35.0-45.0); PO2 ABG 98.9 mmHg (80.0-100.0); PO2 FiO2 Ratio Arterial Blood 2.25 %; pH ABG 7.371 (7.350-7.450)
[2022-10-01 10:39] LABS: Device NASAL CANNULA; Modified Allen's Test Pass; Site Drawn RIGHT RADIAL
--- NOTE | 2022-10-01 10:46 | P.PNNP_ITS ---
Progress Note: A&P Assessment and Plan (1) Acute kidney injury: Code(s): N17.9 - Acute kidney failure, unspecified Status: Acute Assessment and Plan: * improving * baseline creatinine runs ~ 1.2 - 1.4mg/dl * creatinine had improved and then carina again (on 09/13 - 09/24) * initially though to be secondary to due to pancreatitis and pre renal azotemia. * initial evaluation noted to date: * renal ultrasound unremarkable except left lower pole nephrolithiasis * CT scan did not show a kidney stone however, it did show a right calcified renal cyst in the upper pole * urine electrolytes prerenal * urine eosinophils negative * CPK mildly elevated - but not enough to affect kidney function * rapid rise in creatinine on 09/23 and 09/24: * etiology not clear....perhaps protracted ATN * creatinine appears to have peaked/plateaued at 4.8mg/dl * continue to make reasonable urine * follow trend of repeat labs and UOP (2) Acute pancreatitis: Code(s): K85.90 - Acute pancreatitis without necrosis or infection, unspecified Status: Acute Assessment and Plan: * as noted by elevated lipase and abdominal pain * GI and Surgery following -- medical management for now * slow improvement in symptoms noted (3) Respiratory failure with hypoxia and hypercapnia: Code(s): J96.91 - Respiratory failure, unspecified with hypoxia; J96.92 - Respiratory failure, unspecified with hypercapnia Status: Acute Assessment and Plan: * slow improvement noted * appear to have responded to BiPAP therapy * suspect exacerbated by OHS +/- TERESITA versus early pneumonia versus atelectasis * follow respiratory status * Pulmonary following (4) Sepsis: Code(s): A41.9 - Sepsis, unspecified organism Status: Acute Assessment and Plan: * as evidence by elevated WBC, LOTUS/ARF, lactic acidosis, and pancreatitis * culture results noted * on antibiotics (5) Essential (primary) hypertension: Code(s): I10 - Essential (primary) hypertension Status: Chronic Assessment and Plan: * hypertensive on admission -- due to pain(?) * blood pressure seems better at this time * follow trend of hemodynamics. (6) Altered mental status: Code(s): R41.82 - Altered mental status, unspecified Status: Acute Assessment and Plan: * improved/back to baseline * follow mentation Will continue to follow. Subjective Date/time seen: 10/01/22 10:46 No new issues or problems voiced at this time; breathing/respiratory status as well as renal function continue to improve with ongoing therapy; continue to make good urine output as well; no other issues/events overnight or earlier this morning; no apparent distress to report. Exam Narrative: General: WD/WN male in NAD Heart: normal S1 and S2; no rub Lungs: clear anteriorly. decreased at bases Abdomen: soft, nontender; positive bowel sounds Extremities: no cyanosis or clubbing; trace edema Skin: no rash Objective Data Vital Signs Vital Signs: Vital Signs Temp Pulse Resp BP Pulse Ox O2 Del Method O2 Flow Rate 10/01/22 08:00 82 10/01/22 08:00 96.9 F L 88 24 H 132/69 92 10/01/22 08:43 90 10/01/22 08:24 94 20 10/01/22 07:54 100 High Flow Nasal Cannula 6 10/01/22 07:50 82 24 H 10/01/22
--- NOTE | 2022-10-01 10:46 | PM.PNNEP ---
Progress Note: A&P Assessment and Plan (1) Acute kidney injury: Code(s): N17.9 - Acute kidney failure, unspecified Status: Acute Assessment and Plan: improving baseline creatinine runs ~ 1.2 - 1.4mg/dl creatinine had improved and then carina again (on 09/13 - 09/24) initially though to be secondary to due to pancreatitis and pre renal azotemia. initial evaluation noted to date: renal ultrasound unremarkable except left lower pole nephrolithiasis CT scan did not show a kidney stone however, it did show a right calcified renal cyst in the upper pole urine electrolytes prerenal urine eosinophils negative CPK mildly elevated - but not enough to affect kidney function rapid rise in creatinine on 09/23 and 09/24: etiology not clear....perhaps protracted ATN creatinine appears to have peaked/plateaued at 4.8mg/dl continue to make reasonable urine follow trend of repeat labs and UOP (2) Acute pancreatitis: Code(s): K85.90 - Acute pancreatitis without necrosis or infection, unspecified Status: Acute Assessment and Plan: as noted by elevated lipase and abdominal pain GI and Surgery following -- medical management for now slow improvement in symptoms noted (3) Respiratory failure with hypoxia and hypercapnia: Code(s): J96.91 - Respiratory failure, unspecified with hypoxia; J96.92 - Respiratory failure, unspecified with hypercapnia Status: Acute Assessment and Plan: slow improvement noted appear to have responded to BiPAP therapy suspect exacerbated by OHS +/- TERESITA versus early pneumonia versus atelectasis follow respiratory status Pulmonary following (4) Sepsis: Code(s): A41.9 - Sepsis, unspecified organism Status: Acute Assessment and Plan: as evidence by elevated WBC, LOTUS/ARF, lactic acidosis, and pancreatitis culture results noted on antibiotics (5) Essential (primary) hypertension: Code(s): I10 - Essential (primary) hypertension Status: Chronic Assessment and Plan: hypertensive on admission -- due to pain(?) blood pressure seems better at this time follow trend of hemodynamics. (6) Altered mental status: Code(s): R41.82 - Altered mental status, unspecified Status: Acute Assessment and Plan: improved/back to baseline follow mentation Will continue to follow. Subjective Date/time seen: 10/01/22 10:46 No new issues or problems voiced at this time; breathing/respiratory status as well as renal function continue to improve with ongoing therapy; continue to make good urine output as well; no other issues/events overnight or earlier this morning; no apparent distress to report. Exam Narrative: General: WD/WN male in NAD Heart: normal S1 and S2; no rub Lungs: clear anteriorly. decreased at bases Abdomen: soft, nontender; positive bowel sounds Extremities: no cyanosis or clubbing; trace edema Skin: no rash Objective Data Vital Signs Vital Signs: Vital Signs Temp Pulse Resp BP Pulse Ox O2 Del Method O2 Flow Rate 10/01/22 08:00 82 10/01/22 08:00 96.9 F L 88 24 H 132/69 92 10/01/22 08:43 90 10/01/22 08:24 94 20 10/01/22 07:54 100 High Flow Nasal Cannula 6 10/01/22 07:50 82 24 H 10/01/22 06:00 71 10/01/22 05:18 87 22 H 97 Nasal Cannula 6 10/01/22 05:17 87 22 H 10/01/22 04:00 81 10/01/22 04:00 96 High Flow Nasal Cannula 6 10/01/22 04:00 97.0 F L 82 24 H 152/76 H 95 10/01/22 02:00 75 10/01/22 00:00 71 09/30/22 22:00 70 09/30/22 20:00 77 10/01/22 00:00 96 High Flow Nasal Cannula 6 09/30/22 23:48 70 27 H 09/30/22 23:48 70 27 H 97 BiPAP 09/30/22 23:31 98.7 F 68 26 H 138/74 98 09/30/22 20:00 96 High Flow Nasal Cannula 6 09/30/22 21:25 72 33 H 98 BiPAP 09/30/22 20:29 75 24
--- NOTE | 2022-10-01 11:17 | PM.PNPUL ---
Progress Note: A&P Assessment and Plan (1) Respiratory failure with hypoxia and hypercapnia: Code(s): J96.91 - Respiratory failure, unspecified with hypoxia; J96.92 - Respiratory failure, unspecified with hypercapnia Status: Acute Assessment and Plan: this 77-year-old man diagnosed with acute pancreatitis. Initially he had metabolic acidosis, and also hypoxemic hypercapnic respiratory failure and was treated in the intensive care unit with BiPAP support and also NGT drainage. While in the intensive care unit his gas exchange improved, with correction of hypercapnic respiratory failure. subsequently the patient was transferred to the [facility] unit where he was found to have worsening of his respiratory status especially hypercapnic respiratory failure. Workup showed bilateral lower lobe atelectasis related to increased intra-abdominal pressure. patient has been supported with BiPAP using relatively high pressures as patient's ventilatory needs were in excess of 18 liters/minute. Over the last 72 hours his respiratory status has improved, in synch with improved renal function and abdominal distension. He appears comfortable on supplemental oxygen 6 liters/minute. ABGs showed well-compensated respiratory acidosis. Plan: Continue with BiPAP support at night, repeat chest x-ray, ABG in am. Anticipate DC home in 1-2 days. (2) Abdominal distension: Code(s): R14.0 - Abdominal distension (gaseous) Status: Acute (3) Acute pancreatitis: Code(s): K85.90 - Acute pancreatitis without necrosis or infection, unspecified Status: Acute (4) Acute kidney injury: Code(s): N17.9 - Acute kidney failure, unspecified Status: Acute (5) S/P aortic valve replacement with bioprosthetic valve: Code(s): Z95.3 - Presence of xenogenic heart valve Status: Acute (6) Obesity: Qualifiers: Obesity type: unspecified obesity type Obesity classification: adult class 2 (BMI 35 - 39.9) Serious obesity comorbidity presence: unspecified whether serious comorbidity present Body mass index: BMI 38.0-38.9 Qualified Code(s): E66.9 - Obesity, unspecified; Z68.38 - Body mass index [BMI] 38.0-38.9, adult Code(s): E66.9 - Obesity, unspecified Status: Acute Subjective Date/time seen: 10/01/22 11:17 Interval history: patient has no new respiratory symptoms. Out of bed in chair while on supplemental oxygen via nasal cannula. Appears comfortable. Review of Systems Review of Systems: All systems reviewed & are unremarkable except as noted in HPI and below ( HPI and below) Exam Narrative: GENERAL APPEARANCE: Well developed, well nourished, alert and cooperative, morbidly obese who appears to be mild respiratory distress while on n/c SKIN: Inspection of the skin reveals no rashes, ulcerations or petechiae. HEENT: Sclerae anicteric and conjunctivae pink and moist. Extraocular movements were intact and pupils were equal, round. NECK: Supple. There was no thyroid enlargement, and no tenderness, or masses were felt. LUNGS: Auscultation of the lungs crackles at bases posteriorly CARDIAC: There was a regular rate and rhythm, normal heart sounds with 4/ 6 holosystolic murmur. ABDOMEN: Distended, soft. Nontender. Bowel sounds present LYMPH NODES: No lymphadenopathy was appreciated in the neck. EXTREMITIES: No cyanosis, clubbing; NEUROLOGIC: Alert and oriented x 3. Normal affect. Objective Data Vital Signs Vital Signs: Vital Signs - 24 hr 09/30/22 11:24 09/30/22 11:35 09/30/22 12:00 Temperature 36.2 C L Pulse Rate 74 77 77 Respiratory Rate 20 20 20 Blood Pressure 114/89 Pulse Oximetry 100 Oxygen Delivery Oxygen Flow Rate Fraction of Inspired Oxygen 09/30/22 12:00 09/30/22 12:00 09/30/22 14:00 Temperature Pulse Rate 75 78 Respiratory Rate Blood Pressure Pulse Oximetry 96 Oxygen Delivery High Flow Nasal Cannula Oxygen Fl
--- NOTE | 2022-10-01 12:57 | PM.IMPN ---
Progress Note: A&P Assessment and Plan (1) Pancreatitis: Code(s): K85.90 - Acute pancreatitis without necrosis or infection, unspecified Status: Acute Assessment and Plan: CT noted. Overall pancreatitis is about the same. No worsening abdominal pain. Does have some abdominal distention. Will keep patient NPO and place NG tube. Changed antibiotics to cover pancreatic infection. Appreciate GI and surgery help 10/01/2021? interval history:? morbidly obese patient initially presented with abdominal pain nausea or vomiting was found to have a pancreatitis with leukocytosis tachycardia? tachypnea lactic acidosis and worsening renal function met criteria for sepsis, however on 09/18 later in the evening patient went into hypoxia an ABG showed hypercarbic respiratory failure? patient was seen by offset press operator helper, patient was placed on BiPAP and repeat ABG showed persistent hypercarbia patient was alert and oriented,, for close observation patient was transfer to ICU and remained on BiPAP,? patient was also found to ileus seen by surgery service patient was placed on NG tube, patient had a BM, NG tube was removed and patient is placed on full liquids today patient seen by GI advanced his diet and signed off, patient has gallstones he high risk for surgery,? patient was continue required BIPAP during the day, now he is off BIPAP during the day and wears BIPAP at night, however however again last night patient did not grace BiPAP currently patient on 6L NC, patient's serum creatinine had jumped from baseline 2.6 to 4.8 seen by nephrology renal ultrasound is unremarkable CT scan of the pelvis and abdomen did not show any nephrolithiasis, his serum creatinine is trending down to 1.9 today. nephrology workup is in progress will continue to monitor, on 09/28 also discussed with ID pharmacist and stopped Imipenem started on ceftriaxone will recheck patient will continue to work with PT OT, patient is now requiring 6 Loxygen compare to 12L on 09/29 his lipase are trending down 744 today caompared to 1276, he is sitting in the chair, patient will benefit going to acute rehab. (2) Obesity hypoventilation syndrome: Code(s): E66.2 - Morbid (severe) obesity with alveolar hypoventilation Status: Acute Assessment and Plan: Appreciate pulmonary's consultation Currently on BiPAP. ABG does look a little bit better. (3) Cholelithiasis: Code(s): K80.20 - Calculus of gallbladder without cholecystitis without obstruction Status: Acute Assessment and Plan: Treat conservatively right now. May need cholecystectomy in the future. Leukocytosis is worsening. Will get a CT scan of the abdomen and pelvis IV antibiotics (4) Obesity: Qualifiers: Obesity type: unspecified obesity type Obesity classification: adult class 2 (BMI 35 - 39.9) Serious obesity comorbidity presence: unspecified whether serious comorbidity present Body mass index: BMI 38.0-38.9 Qualified Code(s): E66.9 - Obesity, unspecified; Z68.38 - Body mass index [BMI] 38.0-38.9, adult Code(s): E66.9 - Obesity, unspecified Status: Acute (5) Aortic stenosis, severe: Code(s): I35.0 - Nonrheumatic aortic (valve) stenosis Status: Chronic Assessment and Plan: Status post valve replacement (6) Ileus: Code(s): K56.7 - Ileus, unspecified Status: Acute Assessment and Plan: NG tube to low intermittent suction. Trying to see if this will help his respiratory status as well. (7) Hypoxia: Code(s): R09.02 - Hypoxemia Status: Acute Assessment and Plan: Likely from ileus with low lung volumes. Will try to ambulate the patient today and get him a to chair. Incentive spirometry. NG tube to low intermittent suction. Appreciate Pulmonary input. Pulmonary to manage BiPAP Subjective Date/time seen: 10/01/22 12:57 10/01/2021? interval history:? morbidly obese patient initially presented wit
[2022-10-01] MEDS: cefTRIAXone 2 GM in SODIUM CHLORIDE 0.9% IV 100 ML 200 ML IVPB (18:18)
[2022-10-01] MEDS: ATORVASTATIN 40 MG TABLET PO (21:45)
[2022-10-01] MEDS: MELATONIN 5 MG TABLET PO (21:55)
[2022-10-02] VITALS (20 sets, daily range): BP systolic 113–143; BP diastolic 57–86; PULSE 67–91; RESP 18–27; TEMP 36.2–36.6; O2SAT 93–97
[2022-10-02 04:38] LABS: Hematocrit 34.7 % (42.0-52.0); Hemoglobin 10.8 g/dL (14.0-18.0); Mean Corpuscular HGB Conc 31.1 g/dl (32-36); Mean Corpuscular Volume 93.3 fl (80-100); Mean Platelet Volume 8.8 fl (7.4-10.4); Platelet Count Result 400 k/mm3 (150-375); Red Blood Count 3.72 M/mm3 (4.6-6.20); Red Cell Distribution Width 13.6 % (11.5-14.5); White Blood Count 9.2 K/mm3 (4.5-10.0)
[2022-10-02 04:48] LABS: Alanine Aminotransferase 24 U/L (6-50); Albumin Level 2.8 g/dL (3.5-5.1); Alkaline Phosphatase 64 U/L (38-126); Anion Gap 2 mmol/L (8-16); Aspartate Amino Transferase 56 U/L (17-59); Bilirubin,Total 0.4 mg/dL (0.2-1.3); Blood Urea Nitrogen 27 mg/dL (9-20); Calcium 8.7 mg/dL (8.4-10.2); Carbon Dioxide 34 mmol/L (22-30); Chloride 98 mmol/L (98-107); Estimated CRCL calculation 40 ml/min; Estimated Glomerular Filt Rate 39; Glucose 118 mg/dL (65-110); Lipase 698 U/L (23-300); Magnesium 1.6 mg/dL (1.6-2.3); Potassium 3.6 mmol/L (3.4-5.0); Sodium 134 mmol/L (137-145)
[2022-10-02] MEDS: IPRATROPIUM BR 0.02% INH SOLN 0.5 MG/2.5 ML VIAL INHALATION ×5 (05:26→21:01)
[2022-10-02] MEDS: ALBUTEROL SULFATE NEB 2.5 MG/3 ML INH INHALATION ×5 (05:26→21:01)
[2022-10-02] MEDS: metroNIDAZOLE 250 MG TABLET 500 MG PO ×3 (05:57→22:30)
[2022-10-02] MEDS: ACETAMINOPHEN 500 MG TABLET 1000 MG PO ×3 (09:20→22:30)
[2022-10-02] MEDS: METOPROLOL TARTRATE 25 MG TABLET PO ×2 (09:21→17:20)
[2022-10-02] MEDS: amLODIPine BESYLATE 5 MG TABLET 10 MG PO (09:21)
[2022-10-02] MEDS: SIMETHICONE 125 MG CHEW TAB PO ×4 (09:22→20:24)
[2022-10-02] MEDS: HEPARIN SODIUM 5,000 UNITS/ML VIAL 5000 UNITS SUB-Q ×2 (09:23→20:25)
[2022-10-02] MEDS: PANTOPRAZOLE SODIUM IV 40 MG VIAL IV PUSH (09:23)
--- NOTE | 2022-10-02 09:27 | PM.PNPUL ---
Progress Note: A&P Assessment and Plan (1) Respiratory failure with hypoxia and hypercapnia: Code(s): J96.91 - Respiratory failure, unspecified with hypoxia; J96.92 - Respiratory failure, unspecified with hypercapnia Status: Acute Assessment and Plan: this 77-year-old man diagnosed with acute pancreatitis. Initially he had metabolic acidosis, and also hypoxemic hypercapnic respiratory failure and was treated in the intensive care unit with BiPAP support and also NGT drainage. While in the intensive care unit his gas exchange improved, with correction of hypercapnic respiratory failure. subsequently the patient was transferred to the [facility] unit where he was found to have worsening of hypercapnic respiratory failure. he remained BiPAP dependent for several days. respiratory status has improved over the last few days, along with improvement of abdominal distention. He continues to have well compensated respiratory acidosis, while using BiPAP support just at night. Also still hypoxemic requiring supplemental oxygen via nasal cannula at 5-6 liters/minute. Latest chest x-ray showing small lung volumes bilaterally, significantly elevated right hemidiaphragm, right lower lobe atelectasis. plan: continue with AVAPS support at night in place of BiPAP support, ApneaLink on AVAPS tonight, Chest fluoroscopy regarding right hemidiaphragm paralysis, Lasix 40 mg IV given. (2) Abdominal distension: Code(s): R14.0 - Abdominal distension (gaseous) Status: Acute (3) Acute pancreatitis: Code(s): K85.90 - Acute pancreatitis without necrosis or infection, unspecified Status: Acute (4) Acute kidney injury: Code(s): N17.9 - Acute kidney failure, unspecified Status: Acute (5) S/P aortic valve replacement with bioprosthetic valve: Code(s): Z95.3 - Presence of xenogenic heart valve Status: Acute (6) Obesity: Qualifiers: Obesity type: unspecified obesity type Obesity classification: adult class 2 (BMI 35 - 39.9) Serious obesity comorbidity presence: unspecified whether serious comorbidity present Body mass index: BMI 38.0-38.9 Qualified Code(s): E66.9 - Obesity, unspecified; Z68.38 - Body mass index [BMI] 38.0-38.9, adult Code(s): E66.9 - Obesity, unspecified Status: Acute Subjective Date/time seen: 10/02/22 09:27 Interval history: Patient doing better. Used BiPAP support last night. Fully alert this a.m., remains on nasal cannula 5 6 liters/minute. No new respiratory symptoms. Still has mild lower extremity edema. Review of Systems Review of Systems: All systems reviewed & are unremarkable except as noted in HPI and below ( HPI and below) Exam Narrative: GENERAL APPEARANCE: Well developed, well nourished, alert and cooperative, morbidly obese who appears to be mild respiratory distress while on n/c SKIN: Inspection of the skin reveals no rashes, ulcerations or petechiae. HEENT: Sclerae anicteric and conjunctivae pink and moist. Extraocular movements were intact and pupils were equal, round. NECK: Supple. There was no thyroid enlargement, and no tenderness, or masses were felt. LUNGS: Auscultation of the lungs crackles at bases posteriorly CARDIAC: There was a regular rate and rhythm, normal heart sounds with 4/ 6 holosystolic murmur. ABDOMEN: Distended, soft. Nontender. Bowel sounds present LYMPH NODES: No lymphadenopathy was appreciated in the neck. EXTREMITIES: No cyanosis, clubbing; NEUROLOGIC: Alert and oriented x 3. Normal affect. Objective Data Vital Signs Vital Signs: Vital Signs - 24 hr 10/01/22 12:00 10/01/22 12:00 10/01/22 13:35 Temperature 36.4 C L Pulse Rate 68 68 79 Respiratory Rate 18 20 Blood Pressure 115/61 Pulse Oximetry 96 Oxygen Delivery Oxygen Flow Rate Fraction of Inspired Oxygen 10/01/22 13:53 10/01/22 16:00 10/01/22 16:29 Temperature 36.0 C L Pulse Rate 81 71 74 Res
--- NOTE | 2022-10-02 10:10 | PM.PNNEP ---
Progress Note: A&P Assessment and Plan (1) Acute kidney injury: Code(s): N17.9 - Acute kidney failure, unspecified Status: Acute Assessment and Plan: improving baseline creatinine runs ~ 1.2 - 1.4mg/dl creatinine had improved and then carina again (on 09/13 - 09/24) initially though to be secondary to due to pancreatitis and pre renal azotemia. initial evaluation noted to date: renal ultrasound unremarkable except left lower pole nephrolithiasis CT scan did not show a kidney stone however, it did show a right calcified renal cyst in the upper pole urine electrolytes prerenal urine eosinophils negative CPK mildly elevated - but not enough to affect kidney function rapid rise in creatinine on 09/23 and 09/24: etiology not clear....perhaps protracted ATN creatinine appears to have peaked/plateaued at 4.8mg/dl continue to make reasonable urine follow trend of repeat labs and UOP (2) Acute pancreatitis: Code(s): K85.90 - Acute pancreatitis without necrosis or infection, unspecified Status: Acute Assessment and Plan: as noted by elevated lipase and abdominal pain GI and Surgery following -- medical management for now slow improvement in symptoms noted (3) Respiratory failure with hypoxia and hypercapnia: Code(s): J96.91 - Respiratory failure, unspecified with hypoxia; J96.92 - Respiratory failure, unspecified with hypercapnia Status: Acute Assessment and Plan: slow improvement noted appear to have responded to BiPAP therapy suspect exacerbated by OHS +/- TERESITA versus early pneumonia versus atelectasis follow respiratory status Pulmonary following (4) Sepsis: Code(s): A41.9 - Sepsis, unspecified organism Status: Acute Assessment and Plan: as evidence by elevated WBC, LOTUS/ARF, lactic acidosis, and pancreatitis culture results noted on antibiotics (5) Essential (primary) hypertension: Code(s): I10 - Essential (primary) hypertension Status: Chronic Assessment and Plan: hypertensive on admission -- due to pain(?) blood pressure seems better at this time follow trend of hemodynamics. (6) Altered mental status: Code(s): R41.82 - Altered mental status, unspecified Status: Acute Assessment and Plan: improved/back to baseline follow mentation Will continue to follow. Subjective Date/time seen: 10/02/22 10:10 Respiratory status/breathing seem to be relatively stable -- using BiPAP at night and supplemental oxygen by nasal cannula during the day; renal function continues to improve in association with adequate urine output; no acute distress noted. Exam Narrative: General: WD/WN male in NAD Heart: normal S1 and S2; no rub Lungs: clear anteriorly. decreased at bases Abdomen: soft, nontender; positive bowel sounds Extremities: no cyanosis or clubbing; trace - 1+ edema Skin: no nodules Objective Data Vital Signs Vital Signs: Vital Signs Temp Pulse Resp BP Pulse Ox O2 Del Method O2 Flow Rate 10/02/22 08:00 94 Nasal Cannula 5 10/02/22 08:00 97.2 F L 80 20 118/63 96 10/02/22 09:21 78 10/02/22 08:53 80 18 10/02/22 08:53 80 96 Nasal Cannula 5 10/02/22 04:15 77 21 H 94 BiPAP 10/02/22 04:10 76 21 H 10/02/22 04:00 71 10/02/22 04:00 97.6 F 74 27 H 125/67 96 10/02/22 00:00 68 10/01/22 23:31 97.3 F L 68 21 H 132/73 96 10/01/22 22:52 71 35 H 10/01/22 22:51 71 35 H 96 BiPAP 10/01/22 22:00 68 10/01/22 20:00 79 10/01/22 20:00 79 18 95 High Flow Nasal Cannula 6 10/01/22 19:23 82 22 H 10/01/22 20:00 97.5 F L 79 18 142/72 H 95 10/01/22 16:00 69 10/01/22 16:29 74 10/01/22 16:00 96.8 F L 71 20 137/69 93 10/01/22 13:53 81 20 10/01/22 13:35 79 20 10/01/22 12:00 68 10/01/22 12:
--- NOTE | 2022-10-02 10:10 | P.PNNP_ITS ---
Progress Note: A&P Assessment and Plan (1) Acute kidney injury: Code(s): N17.9 - Acute kidney failure, unspecified Status: Acute Assessment and Plan: * improving * baseline creatinine runs ~ 1.2 - 1.4mg/dl * creatinine had improved and then carina again (on 09/13 - 09/24) * initially though to be secondary to due to pancreatitis and pre renal azotemia. * initial evaluation noted to date: * renal ultrasound unremarkable except left lower pole nephrolithiasis * CT scan did not show a kidney stone however, it did show a right calcified renal cyst in the upper pole * urine electrolytes prerenal * urine eosinophils negative * CPK mildly elevated - but not enough to affect kidney function * rapid rise in creatinine on 09/23 and 09/24: * etiology not clear....perhaps protracted ATN * creatinine appears to have peaked/plateaued at 4.8mg/dl * continue to make reasonable urine * follow trend of repeat labs and UOP (2) Acute pancreatitis: Code(s): K85.90 - Acute pancreatitis without necrosis or infection, unspecified Status: Acute Assessment and Plan: * as noted by elevated lipase and abdominal pain * GI and Surgery following -- medical management for now * slow improvement in symptoms noted (3) Respiratory failure with hypoxia and hypercapnia: Code(s): J96.91 - Respiratory failure, unspecified with hypoxia; J96.92 - Respiratory failure, unspecified with hypercapnia Status: Acute Assessment and Plan: * slow improvement noted * appear to have responded to BiPAP therapy * suspect exacerbated by OHS +/- TERESITA versus early pneumonia versus atelectasis * follow respiratory status * Pulmonary following (4) Sepsis: Code(s): A41.9 - Sepsis, unspecified organism Status: Acute Assessment and Plan: * as evidence by elevated WBC, LOTUS/ARF, lactic acidosis, and pancreatitis * culture results noted * on antibiotics (5) Essential (primary) hypertension: Code(s): I10 - Essential (primary) hypertension Status: Chronic Assessment and Plan: * hypertensive on admission -- due to pain(?) * blood pressure seems better at this time * follow trend of hemodynamics. (6) Altered mental status: Code(s): R41.82 - Altered mental status, unspecified Status: Acute Assessment and Plan: * improved/back to baseline * follow mentation Will continue to follow. Subjective Date/time seen: 10/02/22 10:10 Respiratory status/breathing seem to be relatively stable -- using BiPAP at night and supplemental oxygen by nasal cannula during the day; renal function continues to improve in association with adequate urine output; no acute distress noted. Exam 2 Narrative: General: WD/WN male in NAD Heart: normal S1 and S2; no rub Lungs: clear anteriorly. decreased at bases Abdomen: soft, nontender; positive bowel sounds Extremities: no cyanosis or clubbing; trace - 1+ edema Skin: no nodules Objective Data Vital Signs Vital Signs: Vital Signs Temp Pulse Resp BP Pulse Ox O2 Del Method O2 Flow Rate 10/02/22 08:00 94 Nasal Cannula 5 10/02/22 08:00 97.2 F L 80 20 118/63 96 10/02/22 09:21 78 10/02/22 08:53 80 18 10/02/22 08:53 80 96 Nasal Cannula 5 10/02/22 04:15 77 21 H 94 BiPAP 10/02/22 04:10 7
[2022-10-02] MEDS: FUROSEMIDE INJ 40 MG/4 ML VIAL (13:25)
--- NOTE | 2022-10-02 17:06 | PM.IMPN ---
Progress Note: A&P Assessment and Plan (1) Pancreatitis: Code(s): K85.90 - Acute pancreatitis without necrosis or infection, unspecified Status: Acute Assessment and Plan: CT noted. Overall pancreatitis is about the same. No worsening abdominal pain. Does have some abdominal distention. Will keep patient NPO and place NG tube. Changed antibiotics to cover pancreatic infection. Appreciate GI and surgery help 10/02/2021? interval history:? morbidly obese patient initially presented with abdominal pain nausea or vomiting was found to have a pancreatitis with leukocytosis tachycardia? tachypnea lactic acidosis and worsening renal function met criteria for sepsis, however on 09/18 later in the evening patient went into hypoxia an ABG showed hypercarbic respiratory failure? patient was seen by slots manager, patient was placed on BiPAP and repeat ABG showed persistent hypercarbia patient was alert and oriented,, for close observation patient was transfer to ICU and remained on BiPAP,? patient was also found to ileus seen by surgery service patient was placed on NG tube, patient had a BM, NG tube was removed and patient is placed on full liquids today patient seen by GI advanced his diet and signed off, patient has gallstones he high risk for surgery,? patient was continue required BIPAP during the day, now he is off BIPAP during the day and wears BIPAP at night, however however again last night patient did not grace BiPAP currently patient on 5L NC, patient was seen by monitor is today recommended not to wear BiPAP to night and if remains clinically stable may discharge patient tomorrow, patient will need formal sleep study as outpatient patient's serum creatinine had jumped from baseline 2.6 to 4.8 seen by nephrology renal ultrasound is unremarkable CT scan of the pelvis and abdomen did not show any nephrolithiasis, his serum creatinine is trending down to 1.7 today. nephrology workup is in progress will continue to monitor, on 09/28 also discussed with ID pharmacist and stopped Imipenem started on ceftriaxone will recheck patient will continue to work with PT OT, patient is now requiring 5L xygen compare to 12L on 09/29 his lipase are trending down 698 today capmpared to 1276, he is sitting in the bed, patient will benefit going to acute rehab. (2) Obesity hypoventilation syndrome: Code(s): E66.2 - Morbid (severe) obesity with alveolar hypoventilation Status: Acute Assessment and Plan: Appreciate pulmonary's consultation Currently on BiPAP. ABG does look a little bit better. (3) Cholelithiasis: Code(s): K80.20 - Calculus of gallbladder without cholecystitis without obstruction Status: Acute Assessment and Plan: Treat conservatively right now. May need cholecystectomy in the future. Leukocytosis is worsening. Will get a CT scan of the abdomen and pelvis IV antibiotics (4) Obesity: Qualifiers: Obesity type: unspecified obesity type Obesity classification: adult class 2 (BMI 35 - 39.9) Serious obesity comorbidity presence: unspecified whether serious comorbidity present Body mass index: BMI 38.0-38.9 Qualified Code(s): E66.9 - Obesity, unspecified; Z68.38 - Body mass index [BMI] 38.0-38.9, adult Code(s): E66.9 - Obesity, unspecified Status: Acute (5) Aortic stenosis, severe: Code(s): I35.0 - Nonrheumatic aortic (valve) stenosis Status: Chronic Assessment and Plan: Status post valve replacement (6) Ileus: Code(s): K56.7 - Ileus, unspecified Status: Acute Assessment and Plan: NG tube to low intermittent suction. Trying to see if this will help his respiratory status as well. (7) Hypoxia: Code(s): R09.02 - Hypoxemia Status: Acute Assessment and Plan: Likely from ileus with low lung volumes. Will try to ambulate the patient today and get him a to chair. Incentive spirometry. NG tube to low intermittent sucti
[2022-10-02] MEDS: cefTRIAXone 2 GM in SODIUM CHLORIDE 0.9% IV 100 ML 200 ML IVPB (17:21)
[2022-10-02] MEDS: ATORVASTATIN 40 MG TABLET PO (20:25)
[2022-10-02] MEDS: MELATONIN 5 MG TABLET PO (22:30)
[2022-10-03] VITALS (30 sets, daily range): BP systolic 113–134; BP diastolic 62–73; PULSE 68–86; RESP 16–30; TEMP 36.3–36.9; O2SAT 85–98
[2022-10-03] MEDS: metroNIDAZOLE 250 MG TABLET 500 MG PO ×3 (05:44→21:18)
[2022-10-03] MEDS: ONDANSETRON INJ 4 MG/2 ML VIAL IV PUSH (05:48)
[2022-10-03] MEDS: METOPROLOL TARTRATE 25 MG TABLET PO ×2 (09:21→17:46)
[2022-10-03] MEDS: PANTOPRAZOLE SODIUM IV 40 MG VIAL IV PUSH (09:21)
[2022-10-03] MEDS: HEPARIN SODIUM 5,000 UNITS/ML VIAL 5000 UNITS SUB-Q ×2 (09:21→20:22)
[2022-10-03] MEDS: SIMETHICONE 125 MG CHEW TAB PO ×4 (09:22→20:24)
[2022-10-03] MEDS: amLODIPine BESYLATE 5 MG TABLET 10 MG PO (09:22)
[2022-10-03] MEDS: IPRATROPIUM BR 0.02% INH SOLN 0.5 MG/2.5 ML VIAL INHALATION ×5 (09:35→23:16)
[2022-10-03] MEDS: ALBUTEROL SULFATE NEB 2.5 MG/3 ML INH INHALATION ×5 (09:35→23:16)
[2022-10-03] MEDS: ACETYLCYSTEINE 20% INHAL SOLN 800 MG/4 ML VIAL 200 MG INHALATION ×2 (09:35→20:06)
[2022-10-03 09:47] LABS: Alveolar/Arterial O2 Gradient 108.6 mmHg; Base Excess ABG 8.4 mEq/l (+/-2.0); Fractional Inspired Oxygen 36 %; HCO3 ABG 35.7 mEq/l (22.0-26.0); Oxygen Content ABG 15.4 %vol (16.0-22.0); Oxygen Saturation ABG 94.1 % (95.0-100.0); Oxyhemoglobin 93.3 % THb (90.0-100.0); PO2 ABG 74.3 mmHg (80.0-100.0); PO2 FiO2 Ratio Arterial Blood 2.06 %; Total Hemoglobin 11.7 g/dL (12.0-18.0); pH ABG 7.367 (7.350-7.450)
[2022-10-03 09:50] LABS: Device NASAL CANNULA; Modified Allen's Test Pass; PCO2 ABG 63.6 mmHg (35.0-45.0); Site Drawn LEFT RADIAL
--- NOTE | 2022-10-03 10:03 | P.PNNP_ITS ---
Progress Note: A&P Assessment and Plan (1) Acute kidney injury: Code(s): N17.9 - Acute kidney failure, unspecified Status: Acute Assessment and Plan: * improving * baseline creatinine runs ~ 1.2 - 1.4mg/dl * creatinine had improved and then carina again (on 09/13 - 09/24) * initially though to be secondary to due to pancreatitis and pre renal azotemia. * initial evaluation noted to date: * renal ultrasound unremarkable except left lower pole nephrolithiasis * CT scan did not show a kidney stone however, it did show a right calcified renal cyst in the upper pole * urine electrolytes prerenal * urine eosinophils negative * CPK mildly elevated - but not enough to affect kidney function * rapid rise in creatinine on 09/23 and 09/24: * etiology not clear....perhaps protracted ATN * creatinine appears to have peaked/plateaued at 4.8mg/dl * continue to make reasonable urine * possible new baseline creatinine? * follow trend of repeat labs and UOP (2) Acute pancreatitis: Code(s): K85.90 - Acute pancreatitis without necrosis or infection, unspecified Status: Acute Assessment and Plan: * as noted by elevated lipase and abdominal pain * GI and Surgery following -- medical management for now * slow improvement in symptoms noted (3) Respiratory failure with hypoxia and hypercapnia: Code(s): J96.91 - Respiratory failure, unspecified with hypoxia; J96.92 - Respiratory failure, unspecified with hypercapnia Status: Acute Assessment and Plan: * slow improvement noted * appear to have responded to BiPAP therapy * suspect exacerbated by OHS +/- TERESITA versus early pneumonia versus atelectasis * follow respiratory status * Pulmonary following (4) Sepsis: Code(s): A41.9 - Sepsis, unspecified organism Status: Acute Assessment and Plan: * as evidence by elevated WBC, LOTUS/ARF, lactic acidosis, and pancreatitis * culture results noted * on antibiotics (5) Essential (primary) hypertension: Code(s): I10 - Essential (primary) hypertension Status: Chronic Assessment and Plan: * hypertensive on admission -- due to pain(?) * blood pressure seems better at this time * follow trend of hemodynamics. (6) Altered mental status: Code(s): R41.82 - Altered mental status, unspecified Status: Acute Assessment and Plan: * improved/back to baseline * follow mentation Will continue to follow. Subjective Date/time seen: 10/03/22 10:33 No new issues or events to report at this time; continues to make good urine output with slow improvement in renal function; no apparent distress noted. Exam Narrative: General: WD/WN male in NAD Heart: normal S1 and S2; no rub Lungs: clear anteriorly. decreased at bases Abdomen: soft, nontender; positive bowel sounds Extremities: no cyanosis or clubbing; trace - 1+ edema Skin: warm and dry Objective Data Vital Signs Vital Signs: Vital Signs Temp Pulse Resp BP Pulse Ox O2 Del Method O2 Flow Rate 10/03/22 09:57 72 18 10/03/22 09:37 71 18 10/03/22 09:35 71 96 Nasal Cannula 4 10/03/22 09:21 70 10/03/22 07:48 98.5 F 73 18 128/62 95 10/03/22 04:00 73 10/03/22 04:00 97.9 F 70 20 133/65 94 10/03/22 03:05 82 20 96 BiPAP 0
--- NOTE | 2022-10-03 10:03 | PM.PNNEP ---
Progress Note: A&P Assessment and Plan (1) Acute kidney injury: Code(s): N17.9 - Acute kidney failure, unspecified Status: Acute Assessment and Plan: improving baseline creatinine runs ~ 1.2 - 1.4mg/dl creatinine had improved and then carina again (on 09/13 - 09/24) initially though to be secondary to due to pancreatitis and pre renal azotemia. initial evaluation noted to date: renal ultrasound unremarkable except left lower pole nephrolithiasis CT scan did not show a kidney stone however, it did show a right calcified renal cyst in the upper pole urine electrolytes prerenal urine eosinophils negative CPK mildly elevated - but not enough to affect kidney function rapid rise in creatinine on 09/23 and 09/24: etiology not clear....perhaps protracted ATN creatinine appears to have peaked/plateaued at 4.8mg/dl continue to make reasonable urine possible new baseline creatinine? follow trend of repeat labs and UOP (2) Acute pancreatitis: Code(s): K85.90 - Acute pancreatitis without necrosis or infection, unspecified Status: Acute Assessment and Plan: as noted by elevated lipase and abdominal pain GI and Surgery following -- medical management for now slow improvement in symptoms noted (3) Respiratory failure with hypoxia and hypercapnia: Code(s): J96.91 - Respiratory failure, unspecified with hypoxia; J96.92 - Respiratory failure, unspecified with hypercapnia Status: Acute Assessment and Plan: slow improvement noted appear to have responded to BiPAP therapy suspect exacerbated by OHS +/- TERESITA versus early pneumonia versus atelectasis follow respiratory status Pulmonary following (4) Sepsis: Code(s): A41.9 - Sepsis, unspecified organism Status: Acute Assessment and Plan: as evidence by elevated WBC, LOTUS/ARF, lactic acidosis, and pancreatitis culture results noted on antibiotics (5) Essential (primary) hypertension: Code(s): I10 - Essential (primary) hypertension Status: Chronic Assessment and Plan: hypertensive on admission -- due to pain(?) blood pressure seems better at this time follow trend of hemodynamics. (6) Altered mental status: Code(s): R41.82 - Altered mental status, unspecified Status: Acute Assessment and Plan: improved/back to baseline follow mentation Will continue to follow. Subjective Date/time seen: 10/03/22 10:33 No new issues or events to report at this time; continues to make good urine output with slow improvement in renal function; no apparent distress noted. Exam Narrative: General: WD/WN male in NAD Heart: normal S1 and S2; no rub Lungs: clear anteriorly. decreased at bases Abdomen: soft, nontender; positive bowel sounds Extremities: no cyanosis or clubbing; trace - 1+ edema Skin: warm and dry Objective Data Vital Signs Vital Signs: Vital Signs Temp Pulse Resp BP Pulse Ox O2 Del Method O2 Flow Rate 10/03/22 09:57 72 18 10/03/22 09:37 71 18 10/03/22 09:35 71 96 Nasal Cannula 4 10/03/22 09:21 70 10/03/22 07:48 98.5 F 73 18 128/62 95 10/03/22 04:00 73 10/03/22 04:00 97.9 F 70 20 133/65 94 10/03/22 03:05 82 20 96 BiPAP 10/03/22 00:00 68 10/02/22 23:56 79 20 95 BiPAP 10/02/22 23:29 97.5 F L 71 22 H 143/86 H 97 10/02/22 20:00 76 10/02/22 20:00 93 High Flow Nasal Cannula 4 10/02/22 21:17 80 18 10/02/22 21:04 96 Nasal Cannula 5 10/02/22 21:02 77 18 10/02/22 20:00 97.9 F 81 20 131/72 95 10/02/22 16:00 91 10/02/22 12:00 90 10/02/22 14:30 67 20 10/02/22 17:37 78 18 10/02/22 17:20 76 10/02/22 16:00 97.9 F 70 22 H 123/74 96 10/02/22 14:14 69 20 10/02/22 12:00 97.8 F 69 20 113/57 L 97 Intake/Output Intake/Output: I
--- NOTE | 2022-10-03 10:16 | PM.PNPUL ---
Progress Note: A&P Assessment and Plan (1) Respiratory failure with hypoxia and hypercapnia: Code(s): J96.91 - Respiratory failure, unspecified with hypoxia; J96.92 - Respiratory failure, unspecified with hypercapnia Status: Acute Assessment and Plan: this 77-year-old man diagnosed with acute pancreatitis. Initially he had metabolic acidosis, and also hypoxemic hypercapnic respiratory failure and was treated in the intensive care unit with BiPAP support and also NGT drainage. While in the intensive care unit his gas exchange improved, with correction of hypercapnic respiratory failure. subsequently the patient was transferred to the [facility] unit where he was found to have worsening of hypercapnic respiratory failure. he remained BiPAP dependent for several days. respiratory status has improved over the last few days, along with improvement of abdominal distention. He continues to have well compensated respiratory acidosis, while using BiPAP support just at night. Also still hypoxemic requiring supplemental oxygen via nasal cannula at 5-6 liters/minute. Latest chest x-ray showing small lung volumes bilaterally, significantly elevated right hemidiaphragm, right lower lobe atelectasis. A/p: this 77-year-old morbidly obese patient was hospitalized in treated for pancreatitis and hypercapnic respiratory failure. Patient required BiPAP support using relatively high pressures and was BiPAP dependent for a number of days which was related to distended abdomen. with improvement of his pancreatitis and abdominal distension, the patient's respiratory status improved. He required BiPAP support adjusted night and was able to maintain normal pH despite elevated pCO2 during the day while on nasal cannula. patient has no history of a previous hypercapnic respiratory failure. Given his morbid obesity it is likely that to these episode of a hypercapnic respiratory failure is related to possible obesity hypoventilation and increased intra-abdominal pressure due to acute pancreatitis. hypercapnic respiratory failure persists despite improvement of his intra-abdominal disease. He will need to be supported with home ventilatory support at home as he continues to have hypercapnic respiratory failure and hypoxemia. The patient will also need supplemental oxygen at home at night and with activities. [facility]nea[facility] last night showed no significant oxyhemoglobin desaturation. The patient will need to return to pulmonary clinic in approximately 1 month for re-evaluation. (2) Abdominal distension: Code(s): R14.0 - Abdominal distension (gaseous) Status: Acute (3) Acute pancreatitis: Code(s): K85.90 - Acute pancreatitis without necrosis or infection, unspecified Status: Acute (4) Acute kidney injury: Code(s): N17.9 - Acute kidney failure, unspecified Status: Acute (5) S/P aortic valve replacement with bioprosthetic valve: Code(s): Z95.3 - Presence of xenogenic heart valve Status: Acute (6) Obesity: Qualifiers: Obesity type: unspecified obesity type Obesity classification: adult class 2 (BMI 35 - 39.9) Serious obesity comorbidity presence: unspecified whether serious comorbidity present Body mass index: BMI 38.0-38.9 Qualified Code(s): E66.9 - Obesity, unspecified; Z68.38 - Body mass index [BMI] 38.0-38.9, adult Code(s): E66.9 - Obesity, unspecified Status: Acute Subjective Date/time seen: 10/03/22 10:16 Interval history: Patient has no new respiratory symptoms. Used AVAPS support last night and supplemental oxygen. Underwent Apnea[facility] last night. Fully awake and alert this a.m. willing to go home. Review of Systems Review of Systems: All systems reviewed & are unremarkable except as noted in HPI and below ( HPI and below) Exam Narrative: GENERAL APPEARANCE: Well developed, well nourished, alert and cooperative, morbidly obese who appears to be m
[2022-10-03 10:30] LABS: Hematocrit 35.6 % (42.0-52.0); Hemoglobin 11.1 g/dL (14.0-18.0); Mean Corpuscular HGB Conc 31.2 g/dl (32-36); Mean Corpuscular Hemoglobin 29.6 pg (26-34); Mean Corpuscular Volume 94.9 fl (80-100); Mean Platelet Volume 8.3 fl (7.4-10.4); Platelet Count Result 358 k/mm3 (150-375); Red Blood Count 3.75 M/mm3 (4.6-6.20); Red Cell Distribution Width 13.7 % (11.5-14.5); White Blood Count 8.7 K/mm3 (4.5-10.0)
[2022-10-03 10:41] LABS: Alanine Aminotransferase 30 U/L (6-50); Albumin Level 2.6 g/dL (3.5-5.1); Alkaline Phosphatase 62 U/L (38-126); Anion Gap 2 mmol/L (8-16); Aspartate Amino Transferase 72 U/L (17-59); Bilirubin,Total 0.4 mg/dL (0.2-1.3); Blood Urea Nitrogen 20 mg/dL (9-20); Calcium 8.5 mg/dL (8.4-10.2); Carbon Dioxide 39 mmol/L (22-30); Chloride 97 mmol/L (98-107); Estimated CRCL calculation 43 ml/min; Estimated Glomerular Filt Rate 42; Glucose 125 mg/dL (65-110); Lipase 627 U/L (23-300); Magnesium 1.4 mg/dL (1.6-2.3); Potassium 3.7 mmol/L (3.4-5.0); Sodium 138 mmol/L (137-145)
--- NOTE | 2022-10-03 14:19 | HOMEO2EVAL ---
Evaluation was performed at [facility] Home Oxygen Evaluation RC: Home Oxygen (O2) Evaluation Start: 10/03/22 09:13 Freq: ONCE Status: Active Protocol: RPE Activity Type Activity Date Activity User E-sign Co-sign Detail Recorded Client Recorded Date Recorded By Document 10/03/22 10:30 [email or web address] 10/03/22 14:16 PKH Document 10/03/22 10:35 [email or web address] 10/03/22 14:16 PKH Document 10/03/22 10:40 [email or web address] 10/03/22 14:16 PKH Document 10/03/22 10:45 [email or web address] 10/03/22 14:16 PKH Document 10/03/22 10:50 [email or web address] 10/03/22 14:16 PKH Document 10/03/22 11:05 [email or web address] 10/03/22 14:16 PKH Document 10/03/22 11:10 [email or web address] [email or web address] 10/03/22 14:16 PKH 10/03/22 10/03/22 10/03/22 10:30 10:35 10:40 Home O2 Evaluation [Oxygen] -Test Phase Resting Resting Resting -Oxygen Delivery Room Air Nasal Cannula Nasal Cannula -Oxygen Flow Rate (L/min) 1 2 [Pulse Oximetry] -Pulse Oximetry (90-100 %) 87 L 87 L 87 L [Pulse Rate] -Pulse Rate (60-100 beats/min) 74 73 73 [Charges] -Treatment Charges O2 Evaluation - Inpatient 10/03/22 10/03/22 10/03/22 10:45 10:50 11:05 Home O2 Evaluation [Oxygen] -Test Phase Exercise Exercise Exercise -Oxygen Delivery Nasal Cannula Nasal Cannula Nasal Cannula -Oxygen Flow Rate (L/min) 3 4 4 [Pulse Oximetry] -Pulse Oximetry (90-100 %) 85 L 91 91 [Pulse Rate] -Pulse Rate (60-100 beats/min) 86 83 80 [Charges] -Treatment Charges 10/03/22 11:10 Home O2 Evaluation [Oxygen] -Test Phase Resting -Oxygen Delivery Nasal Cannula -Oxygen Flow Rate (L/min) 3 [Pulse Oximetry] -Pulse Oximetry (90-100 %) 92 [Pulse Rate] -Pulse Rate (60-100 beats/min) 80 [Charges] -Treatment Charges
--- NOTE | 2022-10-03 14:42 | PCRCNOTE ---
Home O2 eval complete. Patient requires 3lpm with rest and 4lpm with activity. RN notified. O2 set up with [facility] [phone].
--- NOTE | 2022-10-03 16:21 | PM.IMPN ---
Progress Note: A&P Assessment and Plan (1) Pancreatitis: Code(s): K85.90 - Acute pancreatitis without necrosis or infection, unspecified Status: Acute Assessment and Plan: CT noted. Overall pancreatitis is about the same. No worsening abdominal pain. Does have some abdominal distention. Will keep patient NPO and place NG tube. Changed antibiotics to cover pancreatic infection. Appreciate GI and surgery help 10/03/2021? interval history:? morbidly obese patient initially presented with abdominal pain nausea or vomiting was found to have a pancreatitis with leukocytosis tachycardia? tachypnea lactic acidosis and worsening renal function met criteria for sepsis, however on 09/18 later in the evening patient went into hypoxia an ABG showed hypercarbic respiratory failure? patient was seen by patch finisher, patient was placed on BiPAP and repeat ABG showed persistent hypercarbia patient was alert and oriented,, for close observation patient was transfer to ICU and remained on BiPAP,? patient was also found to ileus seen by surgery service patient was placed on NG tube, patient had a BM, NG tube was removed and patient is placed on full liquids today patient seen by GI advanced his diet and signed off, patient has gallstones he high risk for surgery,? patient was continue required BIPAP during the day, now he is off BIPAP during the day and wears BIPAP at night, however however again last night patient did not grace BiPAP currently patient on 5L NC, patient was seen by monitor is today recommended not to wear BiPAP to night and if remains clinically stable may discharge patient tomorrow, patient will need formal sleep study as outpatient patient's serum creatinine had jumped from baseline 2.6 to 4.8 seen by nephrology renal ultrasound is unremarkable CT scan of the pelvis and abdomen did not show any nephrolithiasis, his serum creatinine is trending down to 1.6 today. nephrology workup is in progress will continue to monitor, on 09/28 also discussed with ID pharmacist and stopped Imipenem started on ceftriaxone will recheck patient will continue to work with PT OT, patient is now requiring 3L xygen compare to 12L on 09/29, his ABG today showed pCO2 63 which highter than his base pCO2 of 53, patch finisher wish to monitor one more day before discharging him tomorrow his lipase are trending down 698 today compared to 1276, he is sitting in the bed, patient will benefit going to acute rehab. (2) Obesity hypoventilation syndrome: Code(s): E66.2 - Morbid (severe) obesity with alveolar hypoventilation Status: Acute Assessment and Plan: Appreciate pulmonary's consultation Currently on BiPAP. ABG does look a little bit better. (3) Cholelithiasis: Code(s): K80.20 - Calculus of gallbladder without cholecystitis without obstruction Status: Acute Assessment and Plan: Treat conservatively right now. May need cholecystectomy in the future. Leukocytosis is worsening. Will get a CT scan of the abdomen and pelvis IV antibiotics (4) Obesity: Qualifiers: Body mass index: BMI 38.0-38.9 Obesity classification: adult class 2 (BMI 35 - 39.9) Obesity type: unspecified obesity type Serious obesity comorbidity presence: unspecified whether serious comorbidity present Qualified Code(s): E66.9 - Obesity, unspecified; Z68.38 - Body mass index [BMI] 38.0-38.9, adult Code(s): E66.9 - Obesity, unspecified Status: Acute (5) Aortic stenosis, severe: Code(s): I35.0 - Nonrheumatic aortic (valve) stenosis Status: Chronic Assessment and Plan: Status post valve replacement (6) Ileus: Code(s): K56.7 - Ileus, unspecified Status: Acute Assessment and Plan: NG tube to low intermittent suction. Trying to see if this will help his respiratory status as well. (7) Hypoxia: Code(s): R09.02 - Hypoxemia Status: Acute Assessment and Plan: Likely from ileu
[2022-10-03] MEDS: cefTRIAXone 2 GM in SODIUM CHLORIDE 0.9% IV 100 ML 200 ML IVPB (17:46)
[2022-10-03] MEDS: ACETAMINOPHEN 500 MG TABLET 1000 MG PO (17:48)
--- NOTE | 2022-10-03 20:17 | PCRCNOTE ---
Home trilogy set up in room. Settings: VT 550/Max P 30/EPAP min 4/EPAP max 15/PS min 8/PS max 25/Rise 2
[2022-10-03] MEDS: ATORVASTATIN 40 MG TABLET PO (20:23)
[2022-10-03] MEDS: MELATONIN 5 MG TABLET PO (23:31)
[2022-10-04] VITALS (14 sets, daily range): BP systolic 115–135; BP diastolic 60–71; PULSE 66–81; RESP 14–24; TEMP 36.1–36.6; O2SAT 93–98
[2022-10-04] MEDS: ACETAMINOPHEN 500 MG TABLET 1000 MG PO ×3 (01:08→16:05)
--- NOTE | 2022-10-04 03:47 | PCRCNOTE ---
RT placed pt on trilogy at 2300, avaps settings with a 3L bleed in based off of home 02 eval. Pt sustained good saturations. RT was called at 0100 to come check pt due to desatting into the 70's. Pt was placed on 3L NC where he recovered into the 90's. RT placed pt on original BIPAP settings where pt has been resting comfortably with no further episodes of desaturation. Trilogy settings may need to be reevaluated to keep pt from desatting while sleeping. EPAP may need to be increased in settings.
[2022-10-04] MEDS: IPRATROPIUM BR 0.02% INH SOLN 0.5 MG/2.5 ML VIAL INHALATION ×6 (04:09→23:52)
[2022-10-04] MEDS: ALBUTEROL SULFATE NEB 2.5 MG/3 ML INH INHALATION ×6 (04:09→23:51)
[2022-10-04 05:03] LABS: Hematocrit 34.3 % (42.0-52.0); Hemoglobin 10.7 g/dL (14.0-18.0); Mean Corpuscular HGB Conc 31.2 g/dl (32-36); Mean Corpuscular Hemoglobin 29.8 pg (26-34); Mean Corpuscular Volume 95.5 fl (80-100); Mean Platelet Volume 8.9 fl (7.4-10.4); Platelet Count Result 336 k/mm3 (150-375); Red Blood Count 3.59 M/mm3 (4.6-6.20); Red Cell Distribution Width 13.5 % (11.5-14.5)
[2022-10-04 05:17] LABS: Alanine Aminotransferase 30 U/L (6-50); Albumin Level 2.7 g/dL (3.5-5.1); Alkaline Phosphatase 57 U/L (38-126); Anion Gap 0 mmol/L (8-16); Aspartate Amino Transferase 66 U/L (17-59); Bilirubin,Total 0.4 mg/dL (0.2-1.3); Blood Urea Nitrogen 19 mg/dL (9-20); Carbon Dioxide 37 mmol/L (22-30); Chloride 95 mmol/L (98-107); Estimated CRCL calculation 46 ml/min; Estimated Glomerular Filt Rate 46; Glucose 116 mg/dL (65-110); Lipase 460 U/L (23-300); Magnesium 1.4 mg/dL (1.6-2.3); Potassium 3.7 mmol/L (3.4-5.0); Sodium 132 mmol/L (137-145)
[2022-10-04] MEDS: metroNIDAZOLE 250 MG TABLET 500 MG PO ×3 (06:26→22:20)
[2022-10-04] MEDS: ACETYLCYSTEINE 20% INHAL SOLN 800 MG/4 ML VIAL 200 MG INHALATION ×2 (08:48→20:06)
[2022-10-04] MEDS: PANTOPRAZOLE SODIUM IV 40 MG VIAL IV PUSH (09:12)
[2022-10-04] MEDS: SIMETHICONE 125 MG CHEW TAB PO ×4 (09:12→22:19)
[2022-10-04] MEDS: HEPARIN SODIUM 5,000 UNITS/ML VIAL 5000 UNITS SUB-Q ×2 (09:12→22:20)
[2022-10-04] MEDS: amLODIPine BESYLATE 5 MG TABLET 10 MG PO (09:12)
[2022-10-04] MEDS: METOPROLOL TARTRATE 25 MG TABLET PO ×2 (09:12→16:06)
--- NOTE | 2022-10-04 09:31 | P.PNNP_ITS ---
Progress Note: A&P Assessment and Plan (1) Acute kidney injury: Code(s): N17.9 - Acute kidney failure, unspecified Status: Acute Assessment and Plan: * improving * baseline creatinine runs ~ 1.2 - 1.4mg/dl * creatinine had improved and then carina again (on 09/13 - 09/24) * initially though to be secondary to due to pancreatitis and pre renal azotemia. * initial evaluation noted to date: * renal ultrasound unremarkable except left lower pole nephrolithiasis * CT scan did not show a kidney stone however, it did show a right calcified renal cyst in the upper pole * urine electrolytes prerenal * urine eosinophils negative * CPK mildly elevated - but not enough to affect kidney function * rapid rise in creatinine on 09/23 and 09/24: * etiology not clear....perhaps protracted ATN * creatinine appears to have peaked/plateaued at 4.8mg/dl * continue to make reasonable urine * possible new baseline creatinine? * follow trend of repeat labs and UOP (2) Acute pancreatitis: Code(s): K85.90 - Acute pancreatitis without necrosis or infection, unspecified Status: Acute Assessment and Plan: * as noted by elevated lipase and abdominal pain * GI and Surgery following -- medical management for now * slow improvement in symptoms noted (3) Respiratory failure with hypoxia and hypercapnia: Code(s): J96.91 - Respiratory failure, unspecified with hypoxia; J96.92 - Respiratory failure, unspecified with hypercapnia Status: Acute Assessment and Plan: * slow improvement noted * appear to have responded to BiPAP therapy * suspect exacerbated by OHS +/- TERESITA versus early pneumonia versus atelectasis * follow respiratory status * Pulmonary following (4) Sepsis: Code(s): A41.9 - Sepsis, unspecified organism Status: Acute Assessment and Plan: * as evidence by elevated WBC, LOTUS/ARF, lactic acidosis, and pancreatitis * culture results noted * on antibiotics (5) Essential (primary) hypertension: Code(s): I10 - Essential (primary) hypertension Status: Chronic Assessment and Plan: * hypertensive on admission -- due to pain(?) * blood pressure seems better at this time * follow trend of hemodynamics. (6) Altered mental status: Code(s): R41.82 - Altered mental status, unspecified Status: Acute Assessment and Plan: * improved/back to baseline * follow mentation Will continue to follow. Subjective Date/time seen: 10/04/22 09:31 No new issues or problems to report at this time; making slow and steady improvement; renal function slowly improving as well; anxious for discharge/to go home. Exam Narrative: General: WD/WN male in NAD Heart: normal S1 and S2; no rub Lungs: clear anteriorly. decreased at bases Abdomen: soft, nontender; positive bowel sounds Extremities: no cyanosis or clubbing; trace - 1+ edema Skin: warm and dry Objective Data Vital Signs Vital Signs: Vital Signs Temp Pulse Resp BP Pulse Ox O2 Del Method O2 Flow Rate 10/04/22 08:00 97.7 F 81 20 115/64 94 10/04/22 08:50 97 Nasal Cannula 6 10/04/22 08:45 73 16 10/04/22 04:00 68 10/04/22 04:00 97.8 F 69 18 133/71 98 10/04/22 04:09 66 14 10/04/22 04:09 66 14 95 BiPAP 10/04/22 01:02 74 20
--- NOTE | 2022-10-04 09:31 | PM.PNNEP ---
Progress Note: A&P Assessment and Plan (1) Acute kidney injury: Code(s): N17.9 - Acute kidney failure, unspecified Status: Acute Assessment and Plan: improving baseline creatinine runs ~ 1.2 - 1.4mg/dl creatinine had improved and then carina again (on 09/13 - 09/24) initially though to be secondary to due to pancreatitis and pre renal azotemia. initial evaluation noted to date: renal ultrasound unremarkable except left lower pole nephrolithiasis CT scan did not show a kidney stone however, it did show a right calcified renal cyst in the upper pole urine electrolytes prerenal urine eosinophils negative CPK mildly elevated - but not enough to affect kidney function rapid rise in creatinine on 09/23 and 09/24: etiology not clear....perhaps protracted ATN creatinine appears to have peaked/plateaued at 4.8mg/dl continue to make reasonable urine possible new baseline creatinine? follow trend of repeat labs and UOP (2) Acute pancreatitis: Code(s): K85.90 - Acute pancreatitis without necrosis or infection, unspecified Status: Acute Assessment and Plan: as noted by elevated lipase and abdominal pain GI and Surgery following -- medical management for now slow improvement in symptoms noted (3) Respiratory failure with hypoxia and hypercapnia: Code(s): J96.91 - Respiratory failure, unspecified with hypoxia; J96.92 - Respiratory failure, unspecified with hypercapnia Status: Acute Assessment and Plan: slow improvement noted appear to have responded to BiPAP therapy suspect exacerbated by OHS +/- TERESITA versus early pneumonia versus atelectasis follow respiratory status Pulmonary following (4) Sepsis: Code(s): A41.9 - Sepsis, unspecified organism Status: Acute Assessment and Plan: as evidence by elevated WBC, LOTUS/ARF, lactic acidosis, and pancreatitis culture results noted on antibiotics (5) Essential (primary) hypertension: Code(s): I10 - Essential (primary) hypertension Status: Chronic Assessment and Plan: hypertensive on admission -- due to pain(?) blood pressure seems better at this time follow trend of hemodynamics. (6) Altered mental status: Code(s): R41.82 - Altered mental status, unspecified Status: Acute Assessment and Plan: improved/back to baseline follow mentation Will continue to follow. Subjective Date/time seen: 10/04/22 09:31 No new issues or problems to report at this time; making slow and steady improvement; renal function slowly improving as well; anxious for discharge/to go home. Exam Narrative: General: WD/WN male in NAD Heart: normal S1 and S2; no rub Lungs: clear anteriorly. decreased at bases Abdomen: soft, nontender; positive bowel sounds Extremities: no cyanosis or clubbing; trace - 1+ edema Skin: warm and dry Objective Data Vital Signs Vital Signs: Vital Signs Temp Pulse Resp BP Pulse Ox O2 Del Method O2 Flow Rate 10/04/22 08:00 97.7 F 81 20 115/64 94 10/04/22 08:50 97 Nasal Cannula 6 10/04/22 08:45 73 16 10/04/22 04:00 68 10/04/22 04:00 97.8 F 69 18 133/71 98 10/04/22 04:09 66 14 10/04/22 04:09 66 14 95 BiPAP 10/04/22 01:02 74 20 93 BiPAP 10/04/22 00:00 70 10/03/22 20:00 73 10/04/22 00:00 97.8 F 73 22 H 119/61 96 10/03/22 23:30 75 30 H 93 10/03/22 23:25 74 16 10/03/22 23:16 75 16 10/03/22 20:00 97 Nasal Cannula 3 10/03/22 20:00 97.4 F L 75 20 134/64 97 10/03/22 16:00 75 10/03/22 12:00 75 10/03/22 20:25 73 16 10/03/22 20:09 73 16 10/03/22 17:46 79 10/03/22 16:00 98.2 F 82 18 134/66 96 10/03/22 17:08 79 18 10/03/22 16:56 76 18 10/03/22 16:15 Nasal Cannula 4 10/03/22 12:00 97.6 F 68 19 113/73 98 10/03/22 1
[2022-10-04] MEDS: MAGNESIUM SULFATE 3GM/D5W100ML 3 GM/100 ML BAG IVPB (13:14)
--- NOTE | 2022-10-04 14:06 | PM.PNPUL ---
Progress Note: A&P Assessment and Plan (1) Respiratory failure with hypoxia and hypercapnia: Code(s): J96.91 - Respiratory failure, unspecified with hypoxia; J96.92 - Respiratory failure, unspecified with hypercapnia Status: Acute Assessment and Plan: this 77-year-old man diagnosed with acute pancreatitis. Initially he had metabolic acidosis, and also hypoxemic hypercapnic respiratory failure and was treated in the intensive care unit with BiPAP support and also NGT drainage. While in the intensive care unit his gas exchange improved, with correction of hypercapnic respiratory failure. subsequently the patient was transferred to the [facility] unit where he was found to have worsening of hypercapnic respiratory failure. he remained BiPAP dependent for several days. respiratory status has improved over the last few days, along with improvement of abdominal distention. He continues to have well compensated respiratory acidosis, while using BiPAP support just at night. Also still hypoxemic requiring supplemental oxygen via nasal cannula at 5-6 liters/minute. Latest chest x-ray showing small lung volumes bilaterally, significantly elevated right hemidiaphragm, right lower lobe atelectasis. patient desaturated on home ventilator unit he is supposed to use at home. He only used 3 liters/minute bleed in. Physical exam is essentially unchanged. The patient has no new respiratory complaints and chest x-ray is also unchanged showing bilateral lower lobe discoid atelectasis. Plan: will place patient back on home ventilator tonight using oxygen 5 liters/minute. [employer] tonight. (2) Abdominal distension: Code(s): R14.0 - Abdominal distension (gaseous) Status: Acute (3) Acute pancreatitis: Code(s): K85.90 - Acute pancreatitis without necrosis or infection, unspecified Status: Acute (4) Acute kidney injury: Code(s): N17.9 - Acute kidney failure, unspecified Status: Acute (5) S/P aortic valve replacement with bioprosthetic valve: Code(s): Z95.3 - Presence of xenogenic heart valve Status: Acute (6) Obesity: Qualifiers: Obesity type: unspecified obesity type Obesity classification: adult class 2 (BMI 35 - 39.9) Serious obesity comorbidity presence: unspecified whether serious comorbidity present Body mass index: BMI 38.0-38.9 Qualified Code(s): E66.9 - Obesity, unspecified; Z68.38 - Body mass index [BMI] 38.0-38.9, adult Code(s): E66.9 - Obesity, unspecified Status: Acute Subjective Date/time seen: 10/04/22 14:06 Interval history: Patient has no new respiratory symptoms this a.m.. Placed on home ventilator and 3 liters/minute oxygen last night. Per respiratory therapist he desaturated while on those settings and placed back on a BiPAP. No further desaturation on BiPAP. Anxious to go home. Review of Systems Review of Systems: All systems reviewed & are unremarkable except as noted in HPI and below ( HPI and below) Exam Narrative: GENERAL APPEARANCE: Well developed, well nourished, alert and cooperative, morbidly obese who appears to be mild respiratory distress while on n/c SKIN: Inspection of the skin reveals no rashes, ulcerations or petechiae. HEENT: Sclerae anicteric and conjunctivae pink and moist. Extraocular movements were intact and pupils were equal, round. NECK: Supple. There was no thyroid enlargement, and no tenderness, or masses were felt. LUNGS: Auscultation of the lungs crackles at bases posteriorly CARDIAC: There was a regular rate and rhythm, normal heart sounds with 4/ 6 holosystolic murmur. ABDOMEN: Distended, soft. Nontender. Bowel sounds present LYMPH NODES: No lymphadenopathy was appreciated in the neck. EXTREMITIES: No cyanosis, clubbing; NEUROLOGIC: Alert and oriented x 3. Normal affect. Objective Data Vital Signs Vital Signs: Vital Signs - 24 hr 10/03/22 16:15 10/03/22 16:56 10/03/22 17
--- NOTE | 2022-10-04 15:36 | PM.IMPN ---
Progress Note: A&P Assessment and Plan (1) Pancreatitis: Code(s): K85.90 - Acute pancreatitis without necrosis or infection, unspecified Status: Acute Assessment and Plan: CT noted. Overall pancreatitis is about the same. No worsening abdominal pain. Does have some abdominal distention. Will keep patient NPO and place NG tube. Changed antibiotics to cover pancreatic infection. Appreciate GI and surgery help 10/04/2021? interval history:? morbidly obese patient initially presented with abdominal pain nausea or vomiting was found to have a pancreatitis with leukocytosis tachycardia? tachypnea lactic acidosis and worsening renal function met criteria for sepsis, however on 09/18 later in the evening patient went into hypoxia an ABG showed hypercarbic respiratory failure? patient was seen by domestic travel consultant, patient was placed on BiPAP and repeat ABG showed persistent hypercarbia patient was alert and oriented,, for close observation patient was transfer to ICU and remained on BiPAP,? patient was also found to ileus seen by surgery service patient was placed on NG tube, patient had a BM, NG tube was removed and patient is placed on full liquids today patient seen by GI advanced his diet and signed off, patient has gallstones he high risk for surgery,? patient was continue required BIPAP during the day, now he is off BIPAP during the day and wears BIPAP at night, however however again last night patient did not grace BiPAP currently patient on 5L NC, patient was seen by monitor is today recommended not to wear BiPAP to night and if remains clinically stable may discharge patient tomorrow, patient will need formal sleep study as outpatient patient's serum creatinine had jumped from baseline 2.6 to 4.8 seen by nephrology renal ultrasound is unremarkable CT scan of the pelvis and abdomen did not show any nephrolithiasis, his serum creatinine is trending down to 1.6 today. nephrology workup is in progress will continue to monitor, on 09/28 also discussed with ID pharmacist and stopped Imipenem started on ceftriaxone will recheck patient will continue to work with PT OT, patient is now requiring 3L xygen compare to 12L on 09/29, his ABG on 10/03 showed pCO2 63 which highter than his base pCO2 of 53, domestic travel consultant wish to monitor one more day, last night patient was placed on home ventilator patient was not able to tolerate and was desaturating, domestic travel consultant has adjusted setting of the ventilator will monitor overnight and reassess in the morning possibly discharge tomorrow, his lipase are trending down 460 today compared to 1276, he is sitting in the bed, patient will benefit going to acute rehab. (2) Obesity hypoventilation syndrome: Code(s): E66.2 - Morbid (severe) obesity with alveolar hypoventilation Status: Acute Assessment and Plan: Appreciate pulmonary's consultation Currently on BiPAP. ABG does look a little bit better. (3) Cholelithiasis: Code(s): K80.20 - Calculus of gallbladder without cholecystitis without obstruction Status: Acute Assessment and Plan: Treat conservatively right now. May need cholecystectomy in the future. Leukocytosis is worsening. Will get a CT scan of the abdomen and pelvis IV antibiotics (4) Obesity: Qualifiers: Obesity type: unspecified obesity type Obesity classification: adult class 2 (BMI 35 - 39.9) Serious obesity comorbidity presence: unspecified whether serious comorbidity present Body mass index: BMI 38.0-38.9 Qualified Code(s): E66.9 - Obesity, unspecified; Z68.38 - Body mass index [BMI] 38.0-38.9, adult Code(s): E66.9 - Obesity, unspecified Status: Acute (5) Aortic stenosis, severe: Code(s): I35.0 - Nonrheumatic aortic (valve) stenosis Status: Chronic Assessment and Plan: Status post valve replacement (6) Ileus: Code(s): K56.7 - Ileus, unspecified Status: Acute Assessment and Plan: NG tube t
[2022-10-04] MEDS: cefTRIAXone 2 GM in SODIUM CHLORIDE 0.9% IV 100 ML 200 ML IVPB (17:36)
[2022-10-04] MEDS: ATORVASTATIN 40 MG TABLET PO (22:19)
[2022-10-04] MEDS: MELATONIN 5 MG TABLET PO (22:20)
--- NOTE | 2022-10-04 23:52 | PCRCNOTE ---
pt placed on sleep study. 0000 UPD omitted as to not disturb sleep study values.
[2022-10-05] VITALS (9 sets, daily range): BP systolic 128–168; BP diastolic 56–83; PULSE 61–80; RESP 16–22; TEMP 36.5–37; O2SAT 93–96
[2022-10-05] MEDS: ALBUTEROL SULFATE NEB 2.5 MG/3 ML INH INHALATION ×2 (04:45→08:11)
[2022-10-05] MEDS: IPRATROPIUM BR 0.02% INH SOLN 0.5 MG/2.5 ML VIAL INHALATION ×2 (04:45→08:11)
[2022-10-05] MEDS: metroNIDAZOLE 250 MG TABLET 500 MG PO (06:13)
[2022-10-05 07:55] LABS: Hematocrit 35.2 % (42.0-52.0); Hemoglobin 11.1 g/dL (14.0-18.0); Mean Corpuscular HGB Conc 31.5 g/dl (32-36); Mean Corpuscular Hemoglobin 28.8 pg (26-34); Mean Corpuscular Volume 91.4 fl (80-100); Mean Platelet Volume 8.4 fl (7.4-10.4); Platelet Count Result 323 k/mm3 (150-375); Red Blood Count 3.85 M/mm3 (4.6-6.20); Red Cell Distribution Width 13.5 % (11.5-14.5); White Blood Count 8.7 K/mm3 (4.5-10.0)
[2022-10-05 08:07] LABS: Alanine Aminotransferase 41 U/L (6-50); Albumin Level 2.8 g/dL (3.5-5.1); Alkaline Phosphatase 69 U/L (38-126); Anion Gap 2 mmol/L (8-16); Aspartate Amino Transferase 87 U/L (17-59); Bilirubin,Total 0.4 mg/dL (0.2-1.3); Blood Urea Nitrogen 16 mg/dL (9-20); Calcium 8.3 mg/dL (8.4-10.2); Carbon Dioxide 38 mmol/L (22-30); Chloride 96 mmol/L (98-107); Estimated CRCL calculation 42 ml/min; Estimated Glomerular Filt Rate 42; Glucose 110 mg/dL (65-110); Lipase 479 U/L (23-300); Magnesium 1.7 mg/dL (1.6-2.3); Potassium 3.9 mmol/L (3.4-5.0); Sodium 136 mmol/L (137-145)
[2022-10-05] MEDS: ACETYLCYSTEINE 20% INHAL SOLN 800 MG/4 ML VIAL 200 MG INHALATION (08:10)
[2022-10-05] MEDS: METOPROLOL TARTRATE 25 MG TABLET PO (09:15)
[2022-10-05] MEDS: amLODIPine BESYLATE 5 MG TABLET 10 MG PO (09:16)
[2022-10-05] MEDS: HEPARIN SODIUM 5,000 UNITS/ML VIAL 5000 UNITS SUB-Q (09:16)
[2022-10-05] MEDS: SIMETHICONE 125 MG CHEW TAB PO (09:18)
[2022-10-05] MEDS: PANTOPRAZOLE SODIUM IV 40 MG VIAL IV PUSH (09:18)
--- NOTE | 2022-10-05 10:46 | PM.DS ---
DS: Admitting Diagnosis Discharge Date 10/05/2022 Admitting Diagnosis abdominal pain DS: Discharge Diagnosis Discharge Diagnosis (1) Pancreatitis: Code(s): K85.90 - Acute pancreatitis without necrosis or infection, unspecified Status: Acute Assessment and Plan: CT noted. Overall pancreatitis is about the same. No worsening abdominal pain. Does have some abdominal distention. Will keep patient NPO and place NG tube. Changed antibiotics to cover pancreatic infection. Appreciate GI and surgery help 10/04/2021? interval history:? morbidly obese patient initially presented with abdominal pain nausea or vomiting was found to have a pancreatitis with leukocytosis tachycardia? tachypnea lactic acidosis and worsening renal function met criteria for sepsis, however on 09/18 later in the evening patient went into hypoxia an ABG showed hypercarbic respiratory failure? patient was seen by tire fabric impregnating range tender, patient was placed on BiPAP and repeat ABG showed persistent hypercarbia patient was alert and oriented,, for close observation patient was transfer to ICU and remained on BiPAP,? patient was also found to ileus seen by surgery service patient was placed on NG tube, patient had a BM, NG tube was removed and patient is placed on full liquids today patient seen by GI advanced his diet and signed off, patient has gallstones he high risk for surgery,? patient was continue required BIPAP during the day, now he is off BIPAP during the day and wears BIPAP at night, however however again last night patient did not grace BiPAP currently patient on 5L NC, patient was seen by monitor is today recommended not to wear BiPAP to night and if remains clinically stable may discharge patient tomorrow, patient will need formal sleep study as outpatient patient's serum creatinine had jumped from baseline 2.6 to 4.8 seen by nephrology renal ultrasound is unremarkable CT scan of the pelvis and abdomen did not show any nephrolithiasis, his serum creatinine is trending down to 1.6 today. nephrology workup is in progress will continue to monitor, on 09/28 also discussed with ID pharmacist and stopped Imipenem started on ceftriaxone will recheck patient will continue to work with PT OT, patient is now requiring 3L xygen compare to 12L on 09/29, his ABG on 10/03 showed pCO2 63 which highter than his base pCO2 of 53, tire fabric impregnating range tender wish to monitor one more day, last night patient was placed on home ventilator patient was not able to tolerate and was desaturating, tire fabric impregnating range tender has adjusted setting of the ventilator will monitor overnight and reassess in the morning possibly discharge tomorrow, his lipase are trending down 460 today compared to 1276, he is sitting in the bed, patient will benefit going to acute rehab. (2) Obesity hypoventilation syndrome: Code(s): E66.2 - Morbid (severe) obesity with alveolar hypoventilation Status: Acute Assessment and Plan: Appreciate pulmonary's consultation Currently on BiPAP. ABG does look a little bit better. (3) Cholelithiasis: Code(s): K80.20 - Calculus of gallbladder without cholecystitis without obstruction Status: Acute Assessment and Plan: Treat conservatively right now. May need cholecystectomy in the future. Leukocytosis is worsening. Will get a CT scan of the abdomen and pelvis IV antibiotics (4) Obesity: Qualifiers: Obesity type: unspecified obesity type Obesity classification: adult class 2 (BMI 35 - 39.9) Serious obesity comorbidity presence: unspecified whether serious comorbidity present Body mass index: BMI 38.0-38.9 Qualified Code(s): E66.9 - Obesity, unspecified; Z68.38 - Body mass index [BMI] 38.0-38.9, adult Code(s): E66.9 - Obesity, unspecified Status: Acute (5) Aortic stenosis, severe: Code(s): I35.0 - Nonrheumatic aortic (valve) stenosis Status: Chronic Assessment and Plan: Status post valve replacement (6) Ileus:
--- NOTE | 2022-10-05 11:19 | PM.PNPUL ---
Progress Note: A&P Assessment and Plan (1) Respiratory failure with hypoxia and hypercapnia: Code(s): J96.91 - Respiratory failure, unspecified with hypoxia; J96.92 - Respiratory failure, unspecified with hypercapnia Status: Acute Assessment and Plan: this 77-year-old man diagnosed with acute pancreatitis. Initially he had metabolic acidosis, and also hypoxemic hypercapnic respiratory failure and was treated in the intensive care unit with BiPAP support and also NGT drainage. While in the intensive care unit his gas exchange improved, with correction of hypercapnic respiratory failure. subsequently the patient was transferred to the [facility] unit where he was found to have worsening of hypercapnic respiratory failure. he remained BiPAP dependent for several days. respiratory status has improved over the last few days, along with improvement of abdominal distention. Patient was placed on trilogy ventilator last night while receiving 5 liters/minute oxygen bleed in. He slept well on those settings. ApneaLink showed some desaturation with oxyhemoglobin saturation less than 88% lasting approximately 48 minutes. Longest period with saturation of less than 88% not available. last chest x-ray showed elevated right hemidiaphragm as before, no new lung infiltrates but persistent discoid atelectasis at bases suggestive of increased intra-abdominal pressure. His respiratory status has significantly improved over the last week. Nocturnal hypoxemia could be related to persistent basal atelectasis probably due to increase intra-abdominal pressure. The patient had no chronic symptoms suggestive of sleep disordered breathing when presented to the hospital with abdominal pain, and his serum bicarbonate was not elevated. All these suggest that the hypercapnic respiratory failure is relatively new related to morbid obesity and increased intra-abdominal pressure due to pancreatitis. sleep disordered breathing is of course a possibility and will need to be re-evaluated on an outpatient basis following recovery from acute pancreatitis. plan: okay to DC patient home on current home ventilator settings and supplemental oxygen at night 5 liters/minute. Patient will be using supplemental oxygen at 3 liters/minute during the day. He will continue with a incentive spirometry at home. he will return to pulmonary clinic in approximately 2-3 weeks for follow-up. (2) Abdominal distension: Code(s): R14.0 - Abdominal distension (gaseous) Status: Acute (3) Acute pancreatitis: Code(s): K85.90 - Acute pancreatitis without necrosis or infection, unspecified Status: Acute (4) Acute kidney injury: Code(s): N17.9 - Acute kidney failure, unspecified Status: Acute (5) S/P aortic valve replacement with bioprosthetic valve: Code(s): Z95.3 - Presence of xenogenic heart valve Status: Acute (6) Obesity: Qualifiers: Body mass index: BMI 38.0-38.9 Obesity classification: adult class 2 (BMI 35 - 39.9) Obesity type: unspecified obesity type Serious obesity comorbidity presence: unspecified whether serious comorbidity present Qualified Code(s): E66.9 - Obesity, unspecified; Z68.38 - Body mass index [BMI] 38.0-38.9, adult Code(s): E66.9 - Obesity, unspecified Status: Acute Subjective Date/time seen: 10/05/22 11:19 Interval history: patient with a out any new respiratory symptoms. Patient used home ventilator along with 5 liters/minute bleed in. He slept well last night. Has no new respiratory symptoms. Willing to go home. Review of Systems Review of Systems: All systems reviewed & are unremarkable except as noted in HPI and below Exam Narrative: GENERAL APPEARANCE: Well developed, well nourished, alert and cooperative, morbidly obese who appears to be mild respiratory distress while on n/c SKIN: Inspection of the skin reveals no rashes, ulcerations or petechiae
--- NOTE | 2022-10-05 11:38 | PCRCNOTE ---
HOME O2 TANK IS IN ROOM FOR TRANSPORT HOME. PT HOME TRILOGY UNIT, TUBING, MASK, AND TANK WILL AL GO WITH HIM AT D/C. BRI AT [facility] HAS BEEN IN CONTACT WITH DAUGHTER TO ARRANGE HOME EQUIPMENT. NEED TO INCREASE O2 BLEED IN WITH TRILOGY TO 5L PER DR JORDAN PROGRESS NOTE FRO 10-05-22 AT 11:19
--- NOTE | 2022-10-05 12:15 | PCNFU ---
Nutrition Follow-Up Complete: Goal:Meet estimated nutritional needs. Pt is meeting goal. Continue with same goal. Pt current nutrition is heart healthy. Nutrition recommendation: Continue with current plan of care. Last recorded weight is 111 kg - stable. Bowel Motility: +BM last recorded on 10/01 Labs Reviewed: Hgb:11.1, HCT:35.2, Alb:2.8, NA:136, BUN:42, Cr:1.6 Meds Noted: Heparin, protonix, zofran Skin: WNL Additional Notes: pt diet advanced to heart healthy, intake 100% most meals. Continue with current plan of care. Will monitor every 5 days.
--- NOTE | 2022-10-05 12:20 | P.PNNP_ITS ---
Progress Note: A&P Assessment and Plan (1) Acute kidney injury: Code(s): N17.9 - Acute kidney failure, unspecified Status: Acute Assessment and Plan: * improving * baseline creatinine runs ~ 1.2 - 1.4mg/dl * creatinine had improved and then carina again (on 09/13 - 09/24) * initially though to be secondary to due to pancreatitis and pre renal azotemia. * initial evaluation noted to date: * renal ultrasound unremarkable except left lower pole nephrolithiasis * CT scan did not show a kidney stone however, it did show a right calcified renal cyst in the upper pole * urine electrolytes prerenal * urine eosinophils negative * CPK mildly elevated - but not enough to affect kidney function * rapid rise in creatinine on 09/23 and 09/24: * etiology not clear....perhaps protracted ATN * creatinine appears to have peaked/plateaued at 4.8mg/dl * continue to make reasonable urine * possible new baseline creatinine? * follow trend of repeat labs and UOP (2) Acute pancreatitis: Code(s): K85.90 - Acute pancreatitis without necrosis or infection, unspecified Status: Acute Assessment and Plan: * as noted by elevated lipase and abdominal pain * GI and Surgery following -- medical management for now * slow improvement in symptoms noted (3) Respiratory failure with hypoxia and hypercapnia: Code(s): J96.91 - Respiratory failure, unspecified with hypoxia; J96.92 - Respiratory failure, unspecified with hypercapnia Status: Acute Assessment and Plan: * slow improvement noted * appear to have responded to BiPAP therapy * suspect exacerbated by OHS +/- TERESITA versus early pneumonia versus atelectasis * follow respiratory status * Pulmonary following (4) Sepsis: Code(s): A41.9 - Sepsis, unspecified organism Status: Acute Assessment and Plan: * as evidence by elevated WBC, LOTUS/ARF, lactic acidosis, and pancreatitis * culture results noted * on antibiotics (5) Essential (primary) hypertension: Code(s): I10 - Essential (primary) hypertension Status: Chronic Assessment and Plan: * hypertensive on admission -- due to pain(?) * blood pressure seems better at this time * follow trend of hemodynamics. (6) Altered mental status: Code(s): R41.82 - Altered mental status, unspecified Status: Acute Assessment and Plan: * improved/back to baseline * follow mentation Will continue to follow. Subjective Date/time seen: 10/05/22 12:20 No new issues or problems to report at this time; respiratory status/breathing appears relatively stable at this time; renal function also remains stable as well with adequate urine output; no events overnight or earlier this AM; anxious for discharge. Exam Narrative: General: WD/WN male in NAD Heart: normal S1 and S2; no rub Lungs: clear anteriorly. decreased at bases Abdomen: soft, nontender; positive bowel sounds Extremities: no cyanosis or clubbing; trace - 1+ edema Skin: warm and intact Objective Data Vital Signs Vital Signs: Vital Signs Temp Pulse Resp BP Pulse Ox O2 Del Method O2 Flow Rate 10/05/22 12:00 76 10/05/22 08:00 79 22 H 96 Nasal Cannula 3 10/05/22 08:00 80 10/05/22 08:31 70 18 10/05/22 08:00 98.6 F 77 16 168/83 H 94 10/05/22 08:13 80 20
--- NOTE | 2022-10-05 12:20 | PM.PNNEP ---
Progress Note: A&P Assessment and Plan (1) Acute kidney injury: Code(s): N17.9 - Acute kidney failure, unspecified Status: Acute Assessment and Plan: improving baseline creatinine runs ~ 1.2 - 1.4mg/dl creatinine had improved and then carina again (on 09/13 - 09/24) initially though to be secondary to due to pancreatitis and pre renal azotemia. initial evaluation noted to date: renal ultrasound unremarkable except left lower pole nephrolithiasis CT scan did not show a kidney stone however, it did show a right calcified renal cyst in the upper pole urine electrolytes prerenal urine eosinophils negative CPK mildly elevated - but not enough to affect kidney function rapid rise in creatinine on 09/23 and 09/24: etiology not clear....perhaps protracted ATN creatinine appears to have peaked/plateaued at 4.8mg/dl continue to make reasonable urine possible new baseline creatinine? follow trend of repeat labs and UOP (2) Acute pancreatitis: Code(s): K85.90 - Acute pancreatitis without necrosis or infection, unspecified Status: Acute Assessment and Plan: as noted by elevated lipase and abdominal pain GI and Surgery following -- medical management for now slow improvement in symptoms noted (3) Respiratory failure with hypoxia and hypercapnia: Code(s): J96.91 - Respiratory failure, unspecified with hypoxia; J96.92 - Respiratory failure, unspecified with hypercapnia Status: Acute Assessment and Plan: slow improvement noted appear to have responded to BiPAP therapy suspect exacerbated by OHS +/- TERESITA versus early pneumonia versus atelectasis follow respiratory status Pulmonary following (4) Sepsis: Code(s): A41.9 - Sepsis, unspecified organism Status: Acute Assessment and Plan: as evidence by elevated WBC, LOTUS/ARF, lactic acidosis, and pancreatitis culture results noted on antibiotics (5) Essential (primary) hypertension: Code(s): I10 - Essential (primary) hypertension Status: Chronic Assessment and Plan: hypertensive on admission -- due to pain(?) blood pressure seems better at this time follow trend of hemodynamics. (6) Altered mental status: Code(s): R41.82 - Altered mental status, unspecified Status: Acute Assessment and Plan: improved/back to baseline follow mentation Will continue to follow. Subjective Date/time seen: 10/05/22 12:20 No new issues or problems to report at this time; respiratory status/breathing appears relatively stable at this time; renal function also remains stable as well with adequate urine output; no events overnight or earlier this AM; anxious for discharge. Exam Narrative: General: WD/WN male in NAD Heart: normal S1 and S2; no rub Lungs: clear anteriorly. decreased at bases Abdomen: soft, nontender; positive bowel sounds Extremities: no cyanosis or clubbing; trace - 1+ edema Skin: warm and intact Objective Data Vital Signs Vital Signs: Vital Signs Temp Pulse Resp BP Pulse Ox O2 Del Method O2 Flow Rate 10/05/22 12:00 76 10/05/22 08:00 79 22 H 96 Nasal Cannula 3 10/05/22 08:00 80 10/05/22 08:31 70 18 10/05/22 08:00 98.6 F 77 16 168/83 H 94 10/05/22 08:13 80 20 10/05/22 08:13 94 Nasal Cannula 3 10/05/22 04:00 97.7 F 74 20 128/56 L 95 10/05/22 04:57 72 16 10/05/22 04:45 67 16 10/05/22 04:00 67 10/05/22 02:13 61 18 93 10/05/22 00:00 64 10/04/22 23:05 69 24 H 96 10/04/22 20:00 94 Nasal Cannula 3 10/04/22 20:00 97.0 F L 71 16 134/69 95 10/04/22 20:00 72 10/04/22 20:21 71 18 10/04/22 20:21 94 Nasal Cannula 3 10/04/22 20:09 74 18 10/04/22 16:00 97.3 F L 71 20 126/60 95 10/04/22 16:00 72 Intake/Output Intake/Output: Intake & Output 0
[2022-10-07 09:25] LABS: Non-Invasive Expiratory Pressure 4 CMH2O; Non-Invasive Inspiratory Pressure 20 CMH2O; Non-Invasive Vent Rate 14 /MIN
== END 2022-10-05 13:30 | disposition home health service (06) | DRG 871 ==
LOC: ANHED 10:44 → ANH3MEDSUR 11:45 → ANHICU 09-18 19:03 → ANH3MED 09-22 22:05 → ANHIMU 09-25 15:38
PROVIDERS: Chiropractor; Internal Medicine; Internal Medicine Gastroenterology; Internal Medicine Nephrology; Internal Medicine Pulmonary Disease; Nurse Practitioner; Admitting Provider Family Medicine; Emergency Provider General Practice; PCP Family Medicine; Visit Provider Physician Assistant
DX: A41.9 Sepsis, unspecified organism (principal); J96.01 Acute respiratory failure with hypoxia; K85.90 Acute pancreatitis without necrosis or infection, unspecified; J96.02 Acute respiratory failure with hypercapnia; E66.2 Morbid (severe) obesity with alveolar hypoventilation; K56.7 Ileus, unspecified; N17.9 Acute kidney failure, unspecified; R41.82 Altered mental status, unspecified; Z68.38 Body mass index [BMI] 38.0-38.9, adult; K80.20 Calculus of gallbladder without cholecystitis without obstruction; I35.0 Nonrheumatic aortic (valve) stenosis; E78.2 Mixed hyperlipidemia; I10 Essential (primary) hypertension; N40.0 Benign prostatic hyperplasia without lower urinary tract symptoms; Z87.891 Personal history of nicotine dependence; Z20.822 Contact with and (suspected) exposure to COVID-19; Z79.899 Other long term (current) drug therapy; Z91.018 Allergy to other foods; Z95.3 Presence of xenogenic heart valve
CPT/HCPCS: 36415; 36600; 49083; 70450; 71045; 71046; 74018; 74176; 74177; 76000; 76705; 76775; 80048; 80053; 80061; 80069; 80202; 81001; 82040; 82375; 82436; 82550; 82565; 82570; 82805; 83050; 83605; 83615; 83690; 83735; 83880; 84100; 84156; 84300; 84439; 84443; 84540; 85025; 85027; 85610; 85730; 85999; 86140; 87040; 87045; 87070; 87077; 87086; 87186; 87205; 87427; 87637; 93005; 93970; 94002; 94003; 94618; 94640; 94762; 96361; 96365; 96375; 96376; 97110; 97116; 97161; 97165; 97530; 97535; 99291; A9270; C9113; J0131; J0360; J0612; J0696; J0743; J1170; J1644; J1940; J2270; J2405; J2543; J3370; J3475; J7030; Q9967; U0003; U0005

== ENCOUNTER 2022-10-16 09:28 | Outpatient (CLI) | payer OTHER, MEDICARE, SELFPAY ==
[2022-10-16 21:36] LABS: Alanine Aminotransferase 25 U/L (6-50); Albumin Level 3.8 g/dL (3.5-5.1); Alkaline Phosphatase 91 U/L (38-126); Anion Gap 4 mmol/L (8-16); Aspartate Amino Transferase 43 U/L (17-59); Bilirubin,Total 0.6 mg/dL (0.2-1.3); Blood Urea Nitrogen 23 mg/dL (9-20); Calcium 9.3 mg/dL (8.4-10.2); Carbon Dioxide 32 mmol/L (22-30); Chloride 99 mmol/L (98-107); Estimated Glomerular Filt Rate 54; Glucose 101 mg/dL (65-110); Lipase 270 U/L (23-300); Potassium 4.7 mmol/L (3.4-5.0); Sodium 135 mmol/L (137-145)
== END 2022-10-16 09:29 | disposition home or self-care (01) ==
LOC: ANHGOSHLAB 09:30
PROVIDERS: PCP Family Medicine; Visit Provider Nurse Practitioner
DX: R74.9 Abnormal serum enzyme level, unspecified (principal); K85.90 Acute pancreatitis without necrosis or infection, unspecified
CPT/HCPCS: 36415; 80053; 83690

== ENCOUNTER → 2022-11-09 08:34 | Outpatient (CLI) | payer OTHER, MEDICARE, SELFPAY ==
--- NOTE | ~2022-11-09 | CT_ITS ---
Non-contrast CT scan of the Abdomen Clinical indication: Cholelithiasis Technique: 2.5 mm axial scans were obtained through the abdomen without intravenous or oral contrast . Dose reduction technique was used on this scan by utilizing automated exposure control and iterativ e reconstruction technique. The dose-length product (DLP) was 739.83 mGy-cm. COMPARISON: 09/24/2022 Findings: Images through the lung bases reveal linear scarring or atelectasis at the right lung base . Peripancreatic inflammatory changes decrease as compared to prior exam, but there has been interval d evelopment of 6.4 x 4.4 x 6.4 cm fluid collection probably just anterior to and abutting the pancreat ic head/neck junction, consistent with pseudocyst. There is an additional portion of the pseudocyst m ore inferiorly into the right side, measuring 5.9 x 4.0 x 4.4 cm (axial image 61, coronal image 44), with the 2 collections probably communicating via a thin neck. The liver, spleen, and adrenals appear normal. Small calcified gallstones noted. Stable bilateral non obstructing renal stones and bilateral renal cysts present. There is no aortic aneurysm. There are at herosclerotic calcifications of the aorta. Visualized bowel are unremarkable. Impression: Interval development of large, somewhat bilobed pseudocyst, with components measuring 6.4 x 4.4 x 6.4 cm, and 5.9 x 4.0 x 4.4 cm in size respectively. Decreased peripancreatic inflammatory changes otherwise. Cholelithiasis and nephrolithiasis, unchanged. Reviewed, dictated and finalized at location [facility] Impression: Interval development of large, somewhat bilobed pseudocyst, with components jerod suring 6.4 x 4.4 x 6.4 cm, and 5.9 x 4.0 x 4.4 cm in size respectively. Decreased peripancreatic inflammatory changes otherwise. Cholelithiasis and nephrolithiasis, unchanged.
== END ==
PROVIDERS: PCP Family Medicine; Visit Provider Surgery
DX: K85.90 Acute pancreatitis without necrosis or infection, unspecified (principal); K80.20 Calculus of gallbladder without cholecystitis without obstruction; N20.0 Calculus of kidney
CPT/HCPCS: 74150

== ENCOUNTER 2022-12-25 10:15 | Outpatient (CLI) | payer OTHER, SELFPAY ==
--- NOTE | 2022-12-25 10:37 | ECG_ITS ---
Measurements Intervals [place] Rate: 54 P: 48 IL: 232 QRS: -36 QRSD: 71 T: 11 QT: 398 QTc: 380 Interpretive Statements SINUS BRADYCARDIA WITH FIRST DEGREE AV BLOCK INFERIOR MYOCARDIAL INFARCTION [40+ ms Q WAVE AND/OR ST/T ABNORMALITY IN II/aVF], PROBABLY OLD WITH POSTERIOR EXTENSION [PROMIN COMPARED TO ECG 09/20/2022 04:27:11 SINUS BRADYCARDIA REPLACES ATRIAL FIBRILLATION Electronically Signed On 12-26-2022 6:52:44 CDT by Miguel Lui M.D.
[2022-12-25 11:19] LABS: Alanine Aminotransferase 19 U/L (6-50); Albumin Level 4.4 g/dL (3.5-5.1); Alkaline Phosphatase 88 U/L (38-126); Amylase 135 U/L (30-110); Aspartate Amino Transferase 23 U/L (17-59); Bilirubin,Total 0.8 mg/dL (0.2-1.3); Lipase 126 U/L (23-300)
== END 2022-12-25 10:16 | disposition home or self-care (01) ==
LOC: ANHSURGERY 10:22
PROVIDERS: PCP Family Medicine; Visit Provider Surgery
DX: Z01.812 Encounter for preprocedural laboratory examination (principal); Z01.810 Encounter for preprocedural cardiovascular examination; K80.20 Calculus of gallbladder without cholecystitis without obstruction; I48.0 Paroxysmal atrial fibrillation; R00.1 Bradycardia, unspecified; I44.0 Atrioventricular block, first degree
CPT/HCPCS: 36415; 80076; 82150; 83690; 86850; 86900; 86901; 93005

== ENCOUNTER 2023-01-01 00:13 | Day surgery (SDC) | payer OTHER, SELFPAY ==
[2022-12-20 13:54] VITALS: BMI 32.3
--- NOTE | 2022-12-20 14:31 | PC.NURSE ---
Report to the Outpatient Waiting Room, entrance under the green pavilion located off [facility], at time __11:00AM on date __01/01/23 . Planned Procedure Time: __1:30PM . Time changes happen often and if your time is changed the preop area will call you the afternoon before. - You and your visitor will be asked to self-screen and do not enter if you have any COVID symptoms. - A mask is optional within the hospital at this time. Patients may have clear liquids (water, carbonated beverages, clear teas, apple juice) until 3 hours prior to surgery with a maximum of 20 ounces. - No food from midnight until time of surgery Take the following medications with a SIP of water the morning of surgery: ___AMLODIPINE, METOPROLOL DO NOT STOP ANY OF YOUR OTHER PRESCRIPTION MEDICATIONS PRIOR TO SURGERY ?EXCEPT THE FOLLOWING Medications to discontinue per physician ____NONE Date to take last dose Please no make-up, nail danish, hairspray, perfume, deodorant, or body powder the day of surgery. No jewelry (including any body piercings) or valuables the day of surgery, leave them at home. Please take a shower or bath the night before, or the morning of, surgery with an antibacterial soap. Wear comfortable, loose fitting clothing. Children are encouraged to wear pajamas. - Jewelry must be removed prior to entering the operating room. Rings and piercings that are not removed may be cut off. - The hospital will not accept responsibility for valuables. - Please leave all valuables, including medications, at home the day of surgery. If you are going home after surgery, a licensed driver retraining instructor must drive you home. - NO public transportation without another adult if you receive anesthesia. - We recommend that an adult stay with you for 24 hours following discharge. - We also recommend that you do not drive, make important decision, drink alcoholic beverages, or take any drugs that were not prescribed by your health care provider for at least 24 hours after your discharge time. Follow any additional instructions given to you from your surgeon. HIBICLENS SHOWER MORNING OF SURGERY If you or anyone in your household have experienced Covid symptoms in the past week, please notify your surgeon or the nurse liaison at the phone number below for possible testing. Telephone instructions given to __PATIENT and asked if any additional questions and then verbalized understanding. Patient advised to call surgeon office or pre surgery nurse liaison [phone] if any additional questions.
[2023-01-01] VITALS (12 sets, daily range): BP systolic 118–146; BP diastolic 55–82; PULSE 59–88; RESP 14–24; TEMP 36.1–36.7; O2SAT 91–97
--- NOTE | ~2023-01-01 | XR_ITS ---
EXAMINATION: XR cholangiogram surg 1st inj DATE: 01/01/2023 14:17 INDICATION: Calculus of gallbladder. TECHNIQUE: 125 intraoperative fluoroscopic views of the abdomen were obtained. I was not present. Flu oroscopy exposure time was 19 seconds. COMPARISON: CT abdomen 11/09/2022 FINDINGS: A catheter is in the cystic duct. There is contrast opacification of the cystic duct and co mmon duct. Contrast passes to the duodenum. There is no choledocholithiasis. IMPRESSION: 1. No choledocholithiasis. Reviewed, dictated and finalized at location A. IMPRESSION: 1. No choledocholithiasis.
[2023-01-01] MEDS: ACETAMINOPHEN 500 MG TABLET 1000 MG PO (11:29)
[2023-01-01] MEDS: KETOROLAC 15 MG/ML VIAL (*BKC) IV PUSH (11:29)
[2023-01-01] MEDS: LACTATED RINGERS 1,000 ML 30 ML IV CONT ×2 (11:30→14:18)
--- NOTE | 2023-01-01 11:56 | WPDHPUPDATE1 ---
History and Physical Update Update Date/Time: 01/01/23 11:56 History and Physical has been reviewed, including an updated exam of the patient. There are NO changes in the patient's condition. Risks, benefits, and alternatives have been discussed and questions answered. Patient agrees to proceed with procedure.
--- NOTE | 2023-01-01 11:56 | PM.IMHP ---
H&P: HPI History of Present Illness Date/Time: 01/01/23 11:56 Chief Complaint: Gallstones Narrative: 77 yo man presents for lap rossy with ioc. He has been losing weight and feeling better. He was referred to GI at [place] for possible pancreatic pseudocyst but it did not need to be drained. Review of Systems Review of Systems: All systems reviewed & are unremarkable except as noted in HPI and below Constitutional: Constitutional: Denies chills, Denies fever(s), Denies headache(s) and Denies weight loss Eyes: Eyes: Denies change in vision ENT: Denies dizziness, Denies headache(s), Denies neck mass and Denies throat swelling Cardiovascular: Cardiovascular: Denies chest pain, Denies lightheadedness and Denies dyspnea Respiratory: Respiratory: Denies cough, Denies dyspnea and Denies wheezing Gastrointestinal: Gastrointestinal: Denies abdominal pain, Denies change in bowel habits, Denies nausea and Denies vomiting Genitourinary: Genitourinary: Denies hematuria and Denies dysuria Musculoskeletal: Musculoskeletal: Reports as per HPI Integumentary/Breasts: Skin/Breast: Reports as per HPI Neurologic: Denies dizziness and Denies headache(s) Allergic/Immunologic: Allergic/Immunologic: Denies throat swelling and Denies wheezing [facility]LY [facility] Past Medical History Medical History Aortic stenosis, severe BPH (benign prostatic hyperplasia) Encephalopathy acute Essential (primary) hypertension History of hemodialysis Reportedly on hemodialysis x about 2 months due to acute renal failure following his AAA repair History of kidney stones Ileus Insomnia Leukocytosis Mixed hyperlipidemia Nausea and vomiting in adult PVD (peripheral vascular disease) Sepsis Testicular cyst Upper abdominal pain Surgical History Surgical History H/O mitral valve replacement 08/20/19 - [place] History of colonoscopy History of hernia repair Ventral hernia repair History of hydrocelectomy History of lithotripsy History of neck surgery History of rotator cuff surgery History of spinal fusion History of tonsillectomy and adenoidectomy History of transurethral resection of prostate Hx of aortic aneurysm repair Open aortic aneurysm repair family believes was in 2013 at [facility] S/P aortic valve replacement with bioprosthetic valve Family History Family History Father Family history of coronary artery disease Family history of congestive heart failure, Onset Age: 71 Other Cerebrovascular accident Hypertension Social History Social History Social History: The patient lives with his who is the durable power consumer attorney for healthcare. The patient has 1 child. 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 The patient was a former smoker. He stated that he rarely drinks any alcoholic beverages. He denies any marijuana or illicit drugs. Code status full code. Smoking packs per day: 0.5 Smoking cigarettes per day: 10.0 Years smoked: 20 Smoking pack-years: 10.00 Smoking status: Former smoker Tobacco type: cigarettes Second hand tobacco smoke exposure: No Smoking end date: 09/10/87 Alcohol intake: current Substance use: never Lack of Transportation: No Lack of Food: Never True Current Housing: I Have Housing Concerned About Future Housing: No Difficulty Paying Gas/Electric Bills: No Difficulty Paying for Meds: No Currently Unemployed: No Education: High School Diploma/GED Difficulty w/ Childcare or Family Care: No Living arrangements: with family Additional living arrangements comments: Occupation/Education: retired Gender identity (if verbalized by the patient): Male Spiritual care concerns: No Agree to blood products: Yes
--- NOTE | 2023-01-01 12:31 | WPDANESEPPF ---
Anes - Initial Pre Proc Eval Procedure: Operation Date: 01/01/23 13:00 Proposed Procedures p Laparoscopic Cholecystectomy with Intraoperative Cholangiogram, Possible Open - Benito Mckeon DO Date/Time: 01/01/23 12:31 Surgeon: Benito Mckeon DO Pre Op Diagnosis: Cholelithiasis, Pancreatitis Patient Data Age: 77 Gender: M Height: 1.68 m Weight: 92.7 kg Last Vital Signs Temp 36.1 C L 01/01/23 10:51 Pulse 62 01/01/23 10:51 Resp 16 01/01/23 10:51 BP 146/82 H 01/01/23 10:51 Pulse Ox 97 01/01/23 10:51 O2 Del Method Room Air 01/01/23 10:51 Allergies Allergy/AdvReac Type Severity Reaction Status Date / Time mushroom Allergy Mild rash Verified 12/20/22 13:49 ARIELA Inhibitors AdvReac Mild Cough Verified 12/20/22 13:49 hydromorphone [From Dilaudid] AdvReac Confusion Verified 12/20/22 14:38 Home Medications Medication Instructions Recorded Confirmed Type aspirin 81 mg tablet,delayed 81 mg PO DAILY 08/29/19 12/20/22 History release (Adult Low Dose Aspirin) metoprolol tartrate 25 mg tablet 25 mg PO BID #180 tabs 08/09/22 12/20/22 Rx atorvastatin 40 mg tablet 40 mg PO HS #90 tabs 09/20/22 12/20/22 Rx ursodiol 300 mg capsule 300 mg PO TID #90 caps 09/22/22 12/20/22 Rx zolpidem 10 mg tablet 5 mg PO HS PRN insomnia #30 tabs 12/11/22 12/20/22 Rx amlodipine 10 mg tablet 10 mg PO QAM 12/20/22 12/20/22 History Patient hx anesthesia problems: none Family hx anesthesia problems: none Results Review: All pre-operative results and documents have been reviewed as part of the pre-operative evaluation. [facility] Past Medical History Medical History Aortic stenosis, severe BPH (benign prostatic hyperplasia) Encephalopathy acute Essential (primary) hypertension History of hemodialysis Reportedly on hemodialysis x about 2 months due to acute renal failure following his AAA repair History of kidney stones Ileus Insomnia Leukocytosis Mixed hyperlipidemia Nausea and vomiting in adult PVD (peripheral vascular disease) Sepsis Testicular cyst Upper abdominal pain Surgical History Surgical History H/O mitral valve replacement 08/20/19 - [facility] History of colonoscopy History of hernia repair Ventral hernia repair History of hydrocelectomy History of lithotripsy History of neck surgery History of rotator cuff surgery History of spinal fusion History of tonsillectomy and adenoidectomy History of transurethral resection of prostate Hx of aortic aneurysm repair Open aortic aneurysm repair family believes was in 2013 at [facility] S/P aortic valve replacement with bioprosthetic valve Family History Family History Father Family history of coronary artery disease Family history of congestive heart failure, Onset Age: 71 Other Cerebrovascular accident Hypertension Social History Social History Social History: The patient lives with his who is the durable power attorney general for healthcare. The patient has 1 child. 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 The patient was a former smoker. He stated that he rarely drinks any alcoholic beverages. He denies any marijuana or illicit drugs. Code status full code. Smoking packs per day: 0.5 Smoking cigarettes per day: 10.0 Years smoked: 20 Smoking pack-years: 10.00 Smoking status: Former smoker Tobacco type: cigarettes Second hand tobacco smoke exposure: No Smoking end date: 09/10/87 Alcohol intake: current Substance use: never Lack of Transportation: No Lack of Food: Never True Current Housing: I Have Housing Concerned About Future Housing: No Difficulty Paying Gas/Electric Bills: No Difficulty Paying for Meds: No Currently Un
[2023-01-01] MEDS: ceFAZolin 2 GM/D5W 50 ML 2 GM/50 ML BAG IVPB ×2 (13:03→21:25)
[2023-01-01] MEDS: BUPIVACAINE/EPINEPHRINE 0.5% 50 ML VIAL 30 ML INFILTRATE (14:04)
--- NOTE | 2023-01-01 14:13 | W.PM.PROC2 ---
Procedure Note - Detailed Date of Procedure 01/01/23 Pre-op Diagnosis Cholelithiasis, Pancreatitis Post-op Diagnosis Same Procedure Performed Laparoscopic cholecystectomy with intraoperative cholangiogram Surgeon Benito Mckeon, DO Anesthesia General and Local (0.5% bupivacaine) Indications This is a 77-year-old man who has a recent history of gallstone pancreatitis and was hospitalized for a couple weeks. He was critically ill during the hospitalization and surgery was delayed until he was fully recovered. He continued to have some epigastric abdominal pain and a follow-up CT showed several peripancreatic fluid collections consistent with pseudocyst. He was referred to a [place] bookmaker's clerk for further evaluation but no drainage of the pseudocyst was recommended. Discussions were then made with the patient about treatment options and decision was made to proceed with laparoscopic cholecystectomy with cholangiogram, possible open. Findings Laparoscopic cholecystectomy with cholangiogram was performed. Upon entering the abdomen laparoscopically, there were several abdominal adhesions. Most of these appeared to involve the omentum up to the abdominal wall. I was able to use sharp dissection with laparoscopic scissors with 1 extra 5 mm port to get these adhesions down in order to adequately visualize the right upper quadrant. The gallbladder had a few pericholecystic adhesions and was somewhat dilated. The cystic duct appeared normal in size. Intraoperative cholangiogram was obtained with Omnipaque contrast and no filling defects or obstruction were identified within the common bile duct. Gallbladder was removed and sent to the lab for pathology. Description of Procedure Procedure as well as risks, benefits, and alternatives were discussed with patient. Written consent was obtained and placed in chart prior to procedure. The patient was brought back to surgical suite. Patient was placed in supine position on operating table. Time-out was done to confirm patient and procedure. Patient was then intubated by the anesthesia department. Abdomen was prepped and draped in sterile fashion using chlorhexidine prep. 0.5% bupivacaine with epinephrine was infiltrated at each site of incision. An 11 millimeter vertical incision was made at the inferior portion of the umbilicus using a 15 blade scalpel. Blunt dissection was carried down to the linea alba. The linea alba was then incised using a 15 blade scalpel. The peritoneum was then bluntly entered. An 11 millimeter trocar was inserted and carbon dioxide insufflation was used to create a pneumoperitoneum. The camera was inserted and the abdomen was inspected. There were some adhesions and the mid abdomen. An extra 5 mm port was placed in the right lower quadrant and these adhesions were taken down using blunt dissection and curved scissors. The patient was placed in reverse Trendelenberg position and rotated slightly to the left. A 5 millimeter incision was made in the epigastric region, and a 5 millimeter trocar was inserted under direct visualization. Two 5 millimeter incisions were made in the right upper quadrant, and two 5 millimeter trocars were inserted under direct visualization. The gallbladder was identified and grasped at the fundus and retracted superiorly. It was then grasped at the infundibulum retracted laterally. Careful dissection around the neck of the gallbladder was performed using blunt dissection with a [place] grasper and hook electrocautery. The cystic duct was identified, and a window was created behind it. The cystic artery was also identified and a window was created behind it. The critical view of safety was identified, visualizing the cystic duct running directly into the neck of the gallbladder, and the cystic artery running directly into the wall of the gallbladder. A 5 millimeter clip export packer was then used to place 2 clips proximally and 1 clip distally on the cyst
--- NOTE | 2023-01-01 15:11 | ADMGEN ---
This patient, Manohar West, was admitted to Medical Room 243-. Patient/family oriented to hospital policies and general routines including ID bracelet, bed and alarms, visiting hours, pain management, procedures, bathroom and other care routines, personal items, smoking policy, room service/diet, and visiting hours. Information on how to activate the Rapid Response Team has been discussed. Patient/Family are encouraged to report perceived risks to care and to ask questions if they do not understand what they are told or what they should do.
[2023-01-01] MEDS: LACTATED RINGERS 1,000 ML 100 ML IV CONT (16:03)
[2023-01-01] MEDS: ATORVASTATIN 40 MG TABLET PO (21:25)
[2023-01-01] MEDS: METOPROLOL TARTRATE 25 MG TABLET PO (21:25)
[2023-01-02] MEDS: ACETAMINOPHEN 500 MG TABLET 1000 MG PO (03:23)
[2023-01-02 03:42] VITALS: BP 144/80; PULSE 73; RESP 18; TEMP 37; O2SAT 92
[2023-01-02] MEDS: ceFAZolin 2 GM/D5W 50 ML 2 GM/50 ML BAG IVPB ×2 (05:04→12:10)
[2023-01-02 05:50] LABS: Hemoglobin 12.8 g/dL (14.0-18.0); Mean Corpuscular HGB Conc 32.8 g/dl (32-36); Mean Corpuscular Hemoglobin 29.2 pg (26-34); Mean Platelet Volume 8.8 fl (7.4-10.4); Platelet Count Result 245 k/mm3 (150-375); Red Blood Count 4.38 M/mm3 (4.6-6.20); Red Cell Distribution Width 13.2 % (11.5-14.5); White Blood Count 12.6 K/mm3 (4.5-10.0)
[2023-01-02 06:01] LABS: Anion Gap 8 mmol/L (8-16); Blood Urea Nitrogen 16 mg/dL (9-20); Calcium 9.3 mg/dL (8.4-10.2); Carbon Dioxide 28 mmol/L (22-30); Chloride 101 mmol/L (98-107); Estimated CRCL calculation 51 ml/min; Estimated Glomerular Filt Rate 59; Glucose 119 mg/dL (65-110); Potassium 4.3 mmol/L (3.4-5.0); Sodium 137 mmol/L (137-145)
[2023-01-02] MEDS: amLODIPine BESYLATE 5 MG TABLET 10 MG PO (08:47)
[2023-01-02] MEDS: METOPROLOL TARTRATE 25 MG TABLET PO (08:47)
[2023-01-02] MEDS: ASPIRIN 81 MG ENTERIC TABLET PO (08:47)
--- NOTE | 2023-01-02 09:15 | PM.DS ---
DS: Admitting Diagnosis Discharge Date 01/02/2023 Admitting Diagnosis Gallstone pancreatitis, status post aortic valve replacement,, paroxysmal AFib, hypertension DS: Discharge Diagnosis Discharge Diagnosis (1) Cholelithiasis: Code(s): K80.20 - Calculus of gallbladder without cholecystitis without obstruction Status: Acute (2) Pancreatitis: Code(s): K85.90 - Acute pancreatitis without necrosis or infection, unspecified Status: Acute (3) S/P aortic valve replacement with bioprosthetic valve: Code(s): Z95.3 - Presence of xenogenic heart valve Status: Acute (4) PAF (paroxysmal atrial fibrillation): Code(s): I48.0 - Paroxysmal atrial fibrillation Status: Acute (5) Essential (primary) hypertension: Code(s): I10 - Essential (primary) hypertension Status: Chronic DS: Summary Hospital Course Reason for hospitalization: Cholelithiasis with history of pancreatitis Hospital Course: This is a 77-year-old man who presented for laparoscopic cholecystectomy with intraoperative cholangiogram on 01/01/2023. He has a prior history of hospitalization for severe gallstone pancreatitis. He was critically ill and required ICU admission during that hospital stay. Surgery was delayed due to his debility from the pancreatitis. He had fully recovered from that hospitalization and now was ready to proceed with laparoscopic cholecystectomy with intraoperative cholangiogram. Surgery was uncomplicated and he was placed in observation postoperatively due to his multiple comorbidities. He did well postoperatively and was able to advance his diet to a low-fat diet. He remained hemodynamically stable. On postoperative day 1 his pain was well controlled and he was tolerating his diet. He was discharged on postoperative day 1. Status at Discharge Functional status at discharge: independent ambulation Overall status at discharge: patient is progressing back to baseline Time Spent with Patient Time attestation: Total time spent providing and/or coordinating discharge services: Time spent: Less than 30 minutes Exam Const: General: no acute distress and alert Orientation/consciousness: patient oriented x3 Resp: Effort & Inspection: normal respiratory effort Auscultation: clear to auscultation bilaterally Cardio: Rate: regular rate Rhythm: regular rhythm Heart sounds: S1 normal heart sound present and S2 normal heart sound present GI: Inspection: non-distended and incision (Intact with glue) GI Palp: Yes Soft to palpation, Yes Tenderness to palpation present (GI) (Incisional) and No Guarding due to palpation present (GI) Auscultation: normal bowel sounds DS: Data Data Completed and Pending Pending studies at discharge: Pending at discharge 01/01/23 14:00 Surgical [PTH] Routine Labs on day of discharge: Labs from last 24 hours 01/02/23 01/02/23 05:23 05:23 WBC 12.6 H RBC 4.38 L Hgb 12.8 L Hct 39.0 L MCV 89.0 MCH 29.2 MCHC 32.8 RDW 13.2 Plt Count 245 MPV 8.8 Sodium 137 Potassium 4.3 Chloride 101 Carbon Dioxide 28 Anion Gap 8 BUN 16 Creatinine 1.20 Estim Creat Clear Calc 51 Estimated GFR 59 Glucose 119 H Calcium 9.3 Imaging Radiologist's impression: ITS Impressions Cholangiogram,Operative 01/01/23 14:22 IMPRESSION: 1. No choledocholithiasis. Discharge Plan Discharge Patient Disposition: Home, Self-Care Discharge Instructions: DISCHARGE INSTRUCTION SHEET FOR HERNIA, GALLBLADDER AND APPENDIX SURGERIES DR. HASKINS PATIENT TO TAKE HOME 1. May shower, no soaking in bath x 2weeks. 2. Call office for: Wound increasingly painful or bleeding Vomiting Fever of greater than 101 degrees 3. If no bowel movement for three days, take 1 oz. (30 ml) Milk of Magnesia or MiraLax 17g 1 to 2 times daily. 4. No heavy lifting > 10-15 pounds x weeks for hernia repairs and 2 weeks for lapar
[2023-01-02 10:15] VITALS: BP 135/68; PULSE 63; RESP 16; TEMP 36.9; O2SAT 95
--- NOTE | 2023-01-02 10:21 | WPDANESPN ---
Anes - Prog Note Post-Op Date/Time: 01/02/23 10:21 Cardiovascular status: normal Respiratory status: normal Airway patency: baseline Mental status: baseline Post-Op hydration status: normal Vital Signs: Last Vital Signs Temp 37.0 C 01/02/23 03:42 Pulse 73 01/02/23 03:42 Resp 18 01/02/23 03:42 BP 144/80 H 01/02/23 03:42 Pulse Ox 92 01/02/23 03:42 O2 Del Method Room Air 01/01/23 21:15 O2 Flow Rate 2 01/01/23 14:50 Pain Score (VAS): 11/17 I/O: Intake & Output 01/01/23 01/02/23 01/02/23 23:59 07:59 15:59 Intake Total 290 420 240 Balance 290 420 240 Laboratory Tests 01/02/23 05:23 01/02/23 05:23 01/02/23 01/02/23 05:23 05:23 WBC 12.6 H RBC 4.38 L Hgb 12.8 L Hct 39.0 L MCV 89.0 MCH 29.2 MCHC 32.8 RDW 13.2 Plt Count 245 MPV 8.8 Sodium 137 Potassium 4.3 Chloride 101 Carbon Dioxide 28 Anion Gap 8 BUN 16 Creatinine 1.20 Estim Creat Clear Calc 51 Estimated GFR 59 Glucose 119 H Calcium 9.3 Post-procedural complaints: none Patient Feedback: Patient satisfied with anesthetic care.
[2023-01-02 10:29] VITALS: O2SAT 94
== END 2023-01-02 13:00 | disposition home or self-care (01) ==
LOC: ANHSURGERY 10:34 → ANH2MED 14:54
PROVIDERS: PCP Family Medicine; Visit Provider Surgery
PROC: 0FT44ZZ Resection of Gallbladder, Percutaneous Endoscopic Approach (ICD-10-PCS; CPT 47562; principal; 2023-01-01 13:00)
DX: K80.12 Calculus of gallbladder with acute and chronic cholecystitis without obstruction (principal); K85.10 Biliary acute pancreatitis without necrosis or infection; I10 Essential (primary) hypertension; I48.0 Paroxysmal atrial fibrillation; I73.9 Peripheral vascular disease, unspecified; N40.0 Benign prostatic hyperplasia without lower urinary tract symptoms; E78.2 Mixed hyperlipidemia; Z95.2 Presence of prosthetic heart valve; Z98.1 Arthrodesis status; Z87.891 Personal history of nicotine dependence; Z79.82 Long term (current) use of aspirin; E66.9 Obesity, unspecified; Z68.33 Body mass index [BMI] 33.0-33.9, adult
CPT/HCPCS: 47563; 36415; 74300; 80048; 80076; 82150; 83690; 85027; 86850; 86900; 86901; 88304; 93005; A9270; J0690; J1100; J1170; J1885; J2250; J2405; J2704; J2710; J3010; J7120; Q9966

== ENCOUNTER 2023-06-18 10:13 | Outpatient (CLI) | payer OTHER, SELFPAY ==
[2023-06-18 19:54] LABS: Alanine Aminotransferase 20 U/L (6-50); Albumin Level 4.4 g/dL (3.5-5.1); Alkaline Phosphatase 84 U/L (38-126); Anion Gap 5 mmol/L (8-16); Aspartate Amino Transferase 40 U/L (17-59); Bilirubin,Total 0.9 mg/dL (0.2-1.3); Blood Urea Nitrogen 21 mg/dL (9-20); Calcium 9.6 mg/dL (8.4-10.2); Carbon Dioxide 33 mmol/L (22-30); Chloride 99 mmol/L (98-107); Cholesterol 160 mg/dL (0-200); Estimated Glomerular Filt Rate 54; Glucose 90 mg/dL (65-110); HDL Direct 34 mg/dL; Potassium 4.5 mmol/L (3.4-5.0); Sodium 137 mmol/L (137-145); Triglycerides 208 mg/dL (<150)
[2023-06-18 20:06] LABS: LDL Cholesterol Direct 81 mg/dL
[2023-06-18 20:12] LABS: Iron 122 ug/dL (49-181)
[2023-06-18 20:22] LABS: Percent Iron Saturation 36 % (20-50)
[2023-06-18 20:26] LABS: Basophils Absolute Auto 0.1 K/mm3 (0.0-0.1); Basophils Percent Auto 1.5 % (0.2-1.2); Eosinophils Absolute Auto 0.5 K/mm3 (0-0.3); Eosinophils Percent Auto 5.6 % (0-4.4); Hematocrit 46.7 % (42.0-52.0); Hemoglobin 15.4 g/dL (14.0-18.0); Immature Granulocyte Absolute 0.05 K/mm3 (0.00-0.031); Immature Granulocyte Percent A 0.5 % (0-0.5); Lymphocytes Absolute Auto 3.12 K/mm3 (0.9-3.2); Lymphocytes Percent Auto 33.4 % (18.3-44.2); Mean Corpuscular Hemoglobin 29.6 pg (26-34); Mean Corpuscular Volume 89.6 fl (80-100); Mean Platelet Volume 9.2 fl (7.4-10.4); Monocytes Absolute Auto 0.7 K/mm3 (0.1-0.6); Monocytes Percent Auto 7.8 % (2.6-8.5); Neutrophils Absolute Auto 4.8 K/mm3 (1.3-6.7); Neutrophils Percent Auto 51.2 % (45.5-73.1); Platelet Count Result 260 k/mm3 (150-375); Red Blood Count 5.21 M/mm3 (4.6-6.20); Red Cell Distribution Width 13.4 % (11.5-14.5); White Blood Count 9.4 K/mm3 (4.5-10.0)
[2023-06-18 20:32] LABS: Prostate Specific Antigen 1.1 ng/mL (< OR = 4.0)
[2023-06-18 21:08] LABS: Folic Acid 9.4 ng/mL (2.76->20)
[2023-06-18 21:26] LABS: Hemoglobin A1C 5.6 % (<5.7)
== END 2023-06-18 10:14 | disposition home or self-care (01) ==
PROVIDERS: PCP Family Medicine; Visit Provider Family Medicine
DX: D64.9 Anemia, unspecified (principal); E55.9 Vitamin D deficiency, unspecified; I10 Essential (primary) hypertension; R73.9 Hyperglycemia, unspecified; Z12.5 Encounter for screening for malignant neoplasm of prostate
CPT/HCPCS: 36415; 80053; 80061; 82306; 82607; 82728; 82746; 83036; 83540; 83550; 84153; 84443; 85025; G0103

== ENCOUNTER 2023-12-17 09:46 | Outpatient (CLI) | payer OTHER, SELFPAY ==
[2023-12-17 21:20] LABS: Alanine Aminotransferase 21 U/L (6-50); Albumin Level 4.5 g/dL (3.5-5.1); Alkaline Phosphatase 96 U/L (38-126); Anion Gap 3 mmol/L (4-12); Aspartate Amino Transferase 35 U/L (17-59); Blood Urea Nitrogen 19 mg/dL (9-20); Calcium 9.7 mg/dL (8.4-10.2); Carbon Dioxide 31 mmol/L (22-30); Chloride 102 mmol/L (98-107); Estimated Glomerular Filt Rate 54; Glucose 92 mg/dL (65-110); Potassium 4.3 mmol/L (3.4-5.0); Sodium 136 mmol/L (137-145)
== END 2023-12-17 09:47 | disposition home or self-care (01) ==
LOC: ANHGOSHLAB 09:48
PROVIDERS: PCP Family Medicine; Visit Provider Family Medicine
DX: E78.2 Mixed hyperlipidemia (principal); I10 Essential (primary) hypertension
CPT/HCPCS: 36415; 80053

== ENCOUNTER 2024-06-16 09:31 | Outpatient (CLI) | payer OTHER, SELFPAY ==
[2024-06-16 12:59] LABS: Basophils Absolute Auto 0.2 K/mm3 (0.0-0.1); Basophils Percent Auto 1.8 % (0.2-1.2); Eosinophils Absolute Auto 0.6 K/mm3 (0-0.3); Eosinophils Percent Auto 6.3 % (0-4.4); Hematocrit 48.6 % (42.0-52.0); Hemoglobin 15.8 g/dL (14.0-18.0); Immature Granulocyte Absolute 0.06 K/mm3 (0.00-0.031); Immature Granulocyte Percent A 0.6 % (0-0.5); Lymphocytes Absolute Auto 2.83 K/mm3 (0.9-3.2); Lymphocytes Percent Auto 30.6 % (18.3-44.2); Mean Corpuscular HGB Conc 32.5 g/dl (32-36); Mean Corpuscular Volume 92.2 fl (80-100); Monocytes Absolute Auto 0.7 K/mm3 (0.1-0.6); Monocytes Percent Auto 7.9 % (2.6-8.5); Neutrophils Absolute Auto 4.9 K/mm3 (1.3-6.7); Neutrophils Percent Auto 52.8 % (45.5-73.1); Platelet Count Result 241 k/mm3 (150-375); Red Blood Count 5.27 M/mm3 (4.6-6.20); Red Cell Distribution Width 13.2 % (11.5-14.5); White Blood Count 9.2 K/mm3 (4.5-10.0)
[2024-06-16 13:16] LABS: Alanine Aminotransferase 19 U/L (6-50); Albumin Level 4.4 g/dL (3.5-5.1); Alkaline Phosphatase 77 U/L (38-126); Anion Gap 7 mmol/L (4-12); Aspartate Amino Transferase 45 U/L (17-59); Bilirubin,Total 0.9 mg/dL (0.2-1.3); Blood Urea Nitrogen 21 mg/dL (9-20); Calcium 9.5 mg/dL (8.4-10.2); Carbon Dioxide 31 mmol/L (22-30); Chloride 99 mmol/L (98-107); Cholesterol 161 mg/dL (0-200); Estimated Glomerular Filt Rate 54; Glucose 94 mg/dL (65-110); HDL Direct 34 mg/dL; Potassium 4.4 mmol/L (3.4-5.0); Sodium 137 mmol/L (137-145); Triglycerides 256 mg/dL (<150)
[2024-06-16 13:28] LABS: LDL Cholesterol Direct 71 mg/dL
[2024-06-16 13:44] LABS: Prostate Specific Antigen 1.3 ng/mL (< OR = 4.0)
[2024-06-16 14:57] LABS: Hemoglobin A1C 6.1 % (<5.7)
[2024-06-16 15:21] LABS: Vitamin D 25 Hydroxy 22.1 ng/mL
== END 2024-06-16 09:32 | disposition home or self-care (01) ==
LOC: ANHGOSHLAB 09:32
PROVIDERS: PCP Family Medicine; Visit Provider Family Medicine
DX: I10 Essential (primary) hypertension (principal); Z12.5 Encounter for screening for malignant neoplasm of prostate; G47.00 Insomnia, unspecified; R73.9 Hyperglycemia, unspecified; E78.5 Hyperlipidemia, unspecified; N18.31 Chronic kidney disease, stage 3a; E53.8 Deficiency of other specified B group vitamins; E55.9 Vitamin D deficiency, unspecified
CPT/HCPCS: 36415; 80053; 80061; 82306; 82607; 83036; 84153; 84443; 85025; G0103

== ENCOUNTER 2024-10-01 08:10 | Outpatient (CLI) | payer OTHER, SELFPAY ==
--- NOTE | 2024-10-01 08:51 | ECHO_ITS ---
Patient Info Name: Manohar West Age: 79 years : 1945 Gender: Male Ht: 66 in Wt: 225 lbs BSA: 2.22 m2 HR: 69 bpm BP: 128 / 72 mmHg Heart Rhythm: Sinus Rhythm Technical Quality: Good Exam Date: 10/01/2024 9:03 AM Exam Location: Echo Lab Patient Status: Outpatient Admit Date: 10/01/2024 Staff Ordering Physician: Azar Linares DO [employer] Roofer: Erica Cason RDCS Attending Provider: Azar Linares DO Referring Physician: Vijay VICK; Exam Type: CA echo doppler color flow Study Info Indications - S/P AVR, Complete two-dimensional, color flow and Doppler transthoracic echocardiogram is performed. Summary 1. Complete two-dimensional, color flow and Doppler transthoracic echocardiogram is performed. 2. Left ventricular chamber dimension is normal. 3. Left ventricular systolic function is normal, estimated at 60-65%. 4. The left ventricular diastolic function is grade I diastolic dysfunction. 5. E/e' 12 is mildly elevated. 6. Bioprosthetic aortic valve. 7. The mitral valve has moderately calcified annulus. 8. There is mild mitral valve regurgitation. 9. There is mild to moderate tricuspid valve regurgitation. 10. No pulmonary hypertension, estimated pulmonary arterial systolic pressure is 32 mmHg. 11. There is trace pulmonic regurgitation. Left Ventricle E/e' 12 is mildly elevated. Left ventricular chamber dimension is normal. Left ventricular systolic function is normal, estimated at 60-65%. The left ventricular diastolic function is grade I diastolic dysfunction. Right Ventricle Right ventricular systolic function is normal and with normal TAPSE 1.8 cm. Right ventricular chamber dimension is normal. Left Atria Left atrial chamber dimension is normal. Right Atria Right atrial chamber dimension is normal. Aortic Valve There is no bioprosthetic aortic valve stenosis based on no transaortic valve turbulent flow. The bioprosthetic aortic valve is not well visualized. There is no regurgitation of the bioprosthetic aortic valve. Bioprosthetic aortic valve. Pulmonic Valve There is trace pulmonic regurgitation. Mitral Valve The mitral valve has moderately calcified annulus. There is no mitral valve stenosis. There is mild mitral valve regurgitation. Tricuspid Valve There is mild to moderate tricuspid valve regurgitation. No pulmonary hypertension, estimated pulmonary arterial systolic pressure is 32 mmHg. Pericardium/Pleural There is no pericardial effusion. Inferior Vena Cava Normal inferior vena cava with >50% collapse upon inspiration consistent with normal right atrial pressure, 5 mmHg. Aorta The aortic root size at the sinus of Valsalva is normal. Left Ventricular Outflow Tract Name Value Normal LVOT 2D LVOT Diameter 1.8 cm LVOT Doppler LVOT Peak Gradient 4 mmHg LVOT Mean Gradient 2 mmHg LVOT VTI 25 cm LVOT VTI/AV VTI Ratio 0.4 LVOT Stroke Volume 62 ml LVOT CO 3.5 l/min LVOT CI 1.6 l/min/m2 Pulmonic Valve Name Value Normal PV Doppler PV Peak Gradient 3 mmHg Mitral Valve Name Value Normal MV Doppler MV Peak Gradient 4 mmHg MV Mean Gradient 1 mmHg MV Decel Morgan 258 cm/s2 MV PHT 88 ms MV Area (PHT) 2.5 cm2 4.0-5.0 MV Area (Cont Eq VTI) 2.4 cm2 MV Regurgitation Doppler MR Peak Gradient 106 mmHg MV Diastolic Function MV E Peak Velocity 78 cm/s MV A Peak Velocity 91 cm/s MV E/A 0.9 MV Decel Time 303 ms MV Annular TDI MV E/e' (Septal) 12.9 <=8.0 MV E/e' (Lateral) 11.3 <=8.0 MV E/e' (Average) 12.1 Tricuspid Valve Name Value Normal TV Regurgitation Doppler TR Peak Velocity 260 cm/s TR Peak Gradient 27 mmHg Estimated PAP/RSVP RA Pressure 5 mmHg <=5 PA Systolic Pressure 32 mmHg <36 RV Systolic Pressure 32 mmHg <36 Aortic Valve Name Value Normal AV Doppler AV Peak Velocity 275 cm/s AV Peak Gradient 30 mmHg AV Mean Gradient 16 mmHg AV VTI 62 cm AV Area (Cont Eq VTI) 1.0 cm2 >=3.0 AV Area (Cont Eq Campbell) 1.0 cm2 AV Regurgitation 2D LVOT Area 2.5 cm2 Ventricles Name Value Normal LV Dimensions 2D/MM IVS Diastolic Thickness (2D) 0.9 cm 0.6-1.0 LVID Diastole (2D) 4.5 cm 4.2-5.8 LVIW Diastolic Thickness (2D) 1.0 cm 0.6-1.0 LVID Systole (2D) 3.4 cm 2.5-4.0 LVOT Diameter 1.8 cm LV Mass (2D Cubed) 152.44 g 88.00-224.00 LV Mass Index (2D Cubed) 69 g/m2 49-115 Relative Wall Thickness (2D) 0.45 LV Fractional Shortening/Ejection Fraction 2D/MM LV Fractional Shortening (2D) 25 % 25-43 LV EF (2D Teicholz) 49 % 52-72 LV Diastolic Volume (4C MOD) 126 ml LV EF (4C MOD) 71 % LV Diastolic Length (4C) 9.0 cm LV Systolic Length (4C) 6.6 cm LV Stroke Volume (4C MOD) 89 ml Atria Name Value Normal LA Dimensions LA Volume (4C A-L) 55 ml RA Dimensions RA Area (4C) 18.9 cm2 <=18.0 Report Signatures
== END 2024-10-01 08:11 | disposition home or self-care (01) ==
LOC: ANHCARD 08:11
PROVIDERS: PCP Family Medicine; Visit Provider Internal Medicine Cardiovascular Disease
DX: I08.1 Rheumatic disorders of both mitral and tricuspid valves (principal); Z95.2 Presence of prosthetic heart valve
CPT/HCPCS: 93306

== ENCOUNTER 2024-12-16 10:03 | Outpatient (CLI) | payer OTHER, SELFPAY ==
--- OUTSIDE RECORDS SUMMARY | 2024-12-16 11:09 | XMS_ITS | Encounter Summary ---
Author Organization [facility] Address 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
--- OUTSIDE RECORDS SUMMARY | 2024-12-16 11:09 | XMS_ITS | Encounter Summary ---
Author Organization [facility] Address [address] [place] [address] Care Team Providers Care Mathematics Improvement Teacher Name Role Phone Unavailable Primary Care Provider Unavailabl e Encounter Details Date Type Department Care Team (Late st Contact Info) Description 10/04/1999 Outpatient Historical [facility] Internal Medicine [address] [place] [address] Korey Manning MD [address] [facility] [address] [place] [address] Social History Tobacco Use Types Packs/Day Years Used Date Smoking Tobacco: Never Assessed Sex and Gender Information Value Date Recorded Sex Assigned at Not on file 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
--- OUTSIDE RECORDS SUMMARY | 2024-12-16 11:09 | XMS_ITS | Encounter Summary ---
Author Organization [facility] Address 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
--- OUTSIDE RECORDS SUMMARY | 2024-12-16 11:09 | XMS_ITS | Encounter Summary ---
Author Organization [facility] Address [address] [place] [id number] Care Team Providers Care Vacuum Plastic Forming Machine Operator Name Role Phone Unavailable Primary Care Provider Unavailabl e Encounter Details Date Type Department Care Team (Latest Contact Info) Description 07/16/2018 Abstract [facility] , Cesario Solano MD Social History Tobacco Use Types Packs/Day Years Used Date Smoking Tobacco: Never Assessed Sex and Gender Information Value Date Recorded Sex Assigned at Not on file Legal Sex Male 5:14 PM CDT Gender Identity Not on file Sexual Orientation Not on file documented as of this encounter Plan of Treatment Not on file documented as of this encounter Visit Diagnoses Not on filedocumented in this encounter
--- OUTSIDE RECORDS SUMMARY | 2024-12-16 11:09 | XMS_ITS | Clinical Summary ---
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
--- OUTSIDE RECORDS SUMMARY | 2024-12-16 11:09 | XMS_ITS | Clinical Summary ---
Author Organization [facility] Address [address] [place] [address] Care Team Providers Care Roll Forming Machine Set Up Mechanic Name Role Phone Unavailable Primary Care Provider Unavailabl e Social History Tobacco Use Types Packs/Day Years Used Date Smoking Tobacco: Never Assessed Sex and Gender Information Value Date Recorded Sex Assigned at Not on file Legal Sex Male 5:14 PM CDT Gender Identity Not on file Sexual Orientation Not on file Last Filed Vital Signs Vital Sign Reading Time Taken Comments Blood Pressure 140/82 11/20/2013 9:17 AM CDT Pulse 80 11/20/2013 9:17 AM CDT Temperature - - Respiratory Rate - - Oxygen Saturation - - Inhaled Oxygen Concentration - - Weight 90.7 kg (200 lb) 11/20/2013 9:17 AM CDT Height 167.6 cm (5' 6 ) 11/20/2013 9:17 AM CDT Body Mass Index 32.28 11/20/2013 9:17 AM CDT Plan of Treatment Health Maintenance Due Date Last Done Comments Hepatitis C 1965 DTaP, Tdap and Td Vaccines ( 1 - Tdap) 1966 Zoster Vaccines (1 of 2) 1997 Pneumococcal Vaccine: 65+ Ye ars (1 of 1 - PCV) 2012 RSV Immunization or 60+ Years (1 - 1-dose 75+ series) 2022 COVID-19 Vaccine ( - 2023-2 5 season) 2024 Meningococcal B Vaccine Aged Out No l onger eligible based on patient's age to complete this topic Meningococcal Vaccine Aged Out No ailyn marisa eligible based on patient's age to complete this topic RSV Immunizations Under 20 Months Aged Out No longer eligible based on patient's age to complete this topic
--- OUTSIDE RECORDS SUMMARY | 2024-12-16 11:09 | XMS_ITS | Encounter Summary ---
Author Organization [facility] Address 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
[2024-12-16 16:04] LABS: Alanine Aminotransferase 24 U/L (6-50); Albumin Level 4.5 g/dL (3.5-5.1); Alkaline Phosphatase 84 U/L (38-126); Anion Gap 7 mmol/L (4-12); Aspartate Amino Transferase 38 U/L (17-59); Blood Urea Nitrogen 19 mg/dL (9-20); Calcium 9.5 mg/dL (8.4-10.2); Carbon Dioxide 32 mmol/L (22-30); Chloride 99 mmol/L (98-107); Estimated Glomerular Filt Rate 57; Glucose 84 mg/dL (65-110); Potassium 4.5 mmol/L (3.4-5.0); Sodium 138 mmol/L (137-145)
[2024-12-16 16:14] LABS: Vitamin D 25 Hydroxy 35.6 ng/mL
[2024-12-16 18:11] LABS: Hemoglobin A1C 6.2 % (<5.7)
== END 2024-12-16 10:04 | disposition home or self-care (01) ==
LOC: ANHGOSHLAB 10:04
PROVIDERS: PCP Family Medicine; Visit Provider Family Medicine
DX: R73.03 Prediabetes (principal); I10 Essential (primary) hypertension; E55.9 Vitamin D deficiency, unspecified
CPT/HCPCS: 36415; 80053; 82306; 83036

== ENCOUNTER 2024-12-31 14:40 | Outpatient (CLI) | payer OTHER, SELFPAY ==
--- NOTE | ~2024-12-31 | XR_ITS ---
XR knee RT min 4V Ordering provider: Moshe Villalpando MD History: . M25.561 - Pain in right knee . Comparison: November 19, 2017 FINDINGS: BONES: No acute fracture or dislocation. JOINT SPACES: Severe narrowing of the medial compartment with marginal osteophytes. Chondrocalcinosis . SOFT TISSUES: Normal. IMPRESSION: No acute osseous abnormality right knee. Severe osteoarthritic changes. Chondrocalcinosis. Reviewed, dictated and finalized at location A.
== END 2024-12-31 14:41 | disposition home or self-care (01) ==
LOC: MICIMG 14:42
PROVIDERS: PCP Family Medicine; Visit Provider Family Medicine
DX: M17.11 Unilateral primary osteoarthritis, right knee (principal); M11.261 Other chondrocalcinosis, right knee
CPT/HCPCS: 73564

== ENCOUNTER 2025-01-14 07:41 | Outpatient (RCR) | payer OTHER, SELFPAY ==
--- NOTE | 2025-01-14 08:56 | OPREHPOC ---
Outpatient Therapy Plan of Care This is a Multidisciplinary Plan of Care that may contain components documented by all disciplines (PT, OT, and ST.) PT Problem 1 PT Problem #1 Knowledge Deficit PT Goal 1 Goal / Goal Update *independent with HEP Target Visit 6 PT Problem 2 PT Problem #2 Pain PT Goal 1 Goal / Goal Update * pt report pain at worst of 6/10 R knee Target Visit 6 PT Problem 3 PT Problem #3 Impaired Strength PT Goal 1 Goal / Goal Update * increase strength of R hip and knee, to improve stability to joint 1* single leg standing x 6 seconds with good stability 2* supine bridge x 20 reps with good control of motion Target Visit 6 PT Problem 4 PT Problem #4 Impaired Flexibility PT Goal 1 Goal / Goal Update * increase flexibility of piriformis with supine stretch- knee cross midline of body Target Visit 6
--- NOTE | 2025-01-14 08:56 | PTOPEVAL1 ---
Assessment and note entered by Celeste Kaur, PT Evaluation Information Assessment Status Evaluation ICD-10 Condition Codes (PT) Pain in right knee M25.561 Onset November 2024 Subjective Information gradual increase in knee pain, no fall or injury to knee; walking a lot and stairs are hard on his knee; brace used when walking, velcro- may help some; x ray R knee report: severe narrowing of medial compartment with osteophytes; to see ortho- Dr Barnes at end of the month; activity: active - independent with home, yard work and self care tasks; drives, out in community; does some leg raises in bed and standing squats about 10x; have some SOB with activity; Goal: walk without knee hurting Reported Pain Level Pain Score Self Report Additional Pain Score Comments pain range in the past week: 0-8/10; R knee- pointed to inferior- medial knee, pops and hurts increase pain: standing/walking 10-15 minutes, have to sit down decrease pain: ice, sit/rest, over the counter meds PRN sleeping is OK Assessment PT Clinical Summary Manohar has the diagnosis of R knee pain. Xray reports severe narrowing of medial compartment with osteophytes. He is independent with self and home tasks. LE functional scale rating of 28% limitation in activity level. Stairs and walking are limited and cause an increase in knee pain. With the evaluation: he has good strength of bilateral hips and knees, with tightness of hip IR motion and piriformis muscle bilateral; decreased single leg standing time bilateral. Skilled PT services are indicated for modalities PRN for pain control, increase hip flexibility and knee/hip strength with education for HEP and pain control. Plan of Care Interventions Electrical Stimulation,Hot Pack/Cold Pack,Manual Therapy,Neuro Re-education,Patient/Caregiver Education,Therapeutic Activities,Therapeutic Exercise,Ultrasound,Other Other Interventions taping PT Services Indicated Yes Treatment Frequency and 1-2x/wk for 6 visits Duration These treatments will address the objective and functional deficits as defined above. The patient will be advanced safely and appropriately in order for the patient to progress towards his/her prior level of function. Additional exercises will be introduced and as well as a comprehensive home exercise program upon discharge, if needed, ?to ensure carryover of functional gains achieved in the clinic. This treatment plan has been reviewed and agreement upon by the patient.
--- NOTE | 2025-03-12 15:31 | OPREHPOC ---
Outpatient Therapy Plan of Care This is a Multidisciplinary Plan of Care that may contain components documented by all disciplines (PT, OT, and ST.) PT Problem 1 PT Problem #1 Knowledge Deficit PT Goal 1 Goal / Goal Update *independent with HEP 03-12-25 d/c pt called and canceled PT goals not addressed Target Visit 6 PT Problem 2 PT Problem #2 Pain PT Goal 1 Goal / Goal Update * pt report pain at worst of 6/10 R knee 03-12-25 d/c pt called and canceled PT goals not addressed Target Visit 6 PT Problem 3 PT Problem #3 Impaired Strength PT Goal 1 Goal / Goal Update * increase strength of R hip and knee, to improve stability to joint 1* single leg standing x 6 seconds with good stability 2* supine bridge x 20 reps with good control of motion 03-12-25 d/c pt called and canceled PT goals not addressed Target Visit 6 PT Problem 4 PT Problem #4 Impaired Flexibility PT Goal 1 Goal / Goal Update * increase flexibility of piriformis with supine stretch- knee cross midline of body 03-12-25 d/c pt called and canceled PT goals not addressed Target Visit 6
--- NOTE | 2025-03-12 15:31 | PTOPDC ---
Assessment and note entered by Celeste Kaur, PT Assessment Status Discharge - Pt Not Present ICD-10 Condition Codes (PT) Pain in right knee M25.561 Onset November 2024 Subjective Information pt was not seen this date. Assessment PT Clinical Summary Manohar received the PT evaluation on January 14 and did not return for any further treatment. Discharge PT services. The goals were not addressed. Plan of Care PT Services Indicated No
== END 2025-03-12 16:57 | disposition home or self-care (01) ==
LOC: ANHPT 07:41
PROVIDERS: PCP Family Medicine; Visit Provider Family Medicine
DX: M25.561 Pain in right knee (principal); M25.461 Effusion, right knee
CPT/HCPCS: 97110; 97161; 97530

== ENCOUNTER 2025-05-21 07:45 | Outpatient (CLI) | payer OTHER, SELFPAY ==
--- NOTE | ~2025-05-21 | NM_ITS ---
EXAMINATION: NM anshu stress w perfusion DATE: 05/21/2025 10:14 INDICATION: Encounter for preprocedural cardiovascular exam TECHNIQUE: Rest images were obtained following intravenous administration of 11.3 mCi Tc99m tetrofosmin (Myoview). The patient was infused intravenously with Lexiscan (Regadenoson). Then, 34.6 mCi Tc99m tetrofosmin (Myoview) was administered intravenously, and stress images were obtained. Data was pao nstructed into short axis and horizontal and vertical long axis SPECT images. Gated SPECT images were also obtained. COMPARISON: None. FINDINGS: Small mild reversible perfusion defect consistent with ischemia at the mid inferolateral segment.. There is normal left ventricular chamber size, wall motion and ejection fraction. Left ventricular ejection fraction measures >70%. IMPRESSION: 1. Small region of mild reversible ischemia at the mid inferolateral segment. 2. Left ventricular ejection fraction measuring >70%. Reviewed, dictated and finalized at location A.
--- OUTSIDE RECORDS SUMMARY | 2025-05-21 08:05 | XMS_ITS | Encounter Summary ---
Author Organization [facility] Address [address] [place] [address] Phone Care Team Providers Care Plant Security Guard Name Role Phone Azar Linares DO Unavailable [phone] Vanessa Cutler MD Primary Care Provider Kellen Villalpando MD Primary Care Provider Encounter Details Date Type Department Care Team (Late st Contact Info) Description 11/09/2022 Orders Only [facility] Scanning, Provider Social History Tobacco Use Types Packs/Day Years Used Date Smoking Tobacco: Former Cigarettes 0.3 35 1 973 - 2008 Smokeless Tobacco: Never Alcohol Use Standard Drinks/Week Comments Yes 0 (1 standard drink = 0.6 oz pur e alcohol) ocassionally Sex and Gender Information Value Date Recorded Sex Assigned at Not on file 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 Gender Identity Not on file Sexual Orientation Not on file documented as of this encounter Plan of Treatment Not on file documented as of this encounter Procedures Procedure Name Priority Date/Time Associated Diagnosis Comments SCAN - RADIOLOGY/IMAGING 11/09/2022 documented in this encounter Results * SCAN - RADIOLOGY/IMAGING (11/09/2022) Anatomical Region Laterality Modality Other us Provider Scanning Final Result documented in this encounter Visit Diagnoses Not on filedocumented in this encounter Care Teams Plant Security Guard Relationship Specialty Start Date End Date Vanessa Cutler MD [address] [place] [address] 109- PCP - General Family Medicine 07/22/19 11/28/22 Kellen Villalpando MD [address] [facility] [address] [place] [address] PCP - General Family Practice 11/29/22 Azar Linares DO [address] [facility] [address] [place] [address] Referring Physician Internal Medicine 07/04/19 documented as of this encounter
--- OUTSIDE RECORDS SUMMARY | 2025-05-21 08:06 | XMS_ITS | Encounter Summary ---
Author Organization [facility] Address [address] [place] [address] Care Team Providers Care Electronic Maintenance Supervisor Name Role Phone Unavailable Primary Care Provider Unavailabl e Encounter Details Date Type Department Care Team (Late st Contact Info) Description 01/13/1999 Outpatient Historical [facility] Internal Medicine [address] [place] [address] Korey Manning MD [address] [facility] [address] [place] [address] Social History Tobacco Use Types Packs/Day Years Used Date Smoking Tobacco: Never Assessed Sex and Gender Information Value Date Recorded Sex Assigned at Not on file 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
--- OUTSIDE RECORDS SUMMARY | 2025-05-21 08:06 | XMS_ITS | Clinical Summary ---
Author Organization [facility] Address [address] [place] [address] Care Team Providers Care Hog Cutter Name Role Phone Azar Linares DO Unavailable [phone] Kellen Villalpando MD Primary Care Provider Allergies Active Allergy Reactions Criticality Noted Date Comments Mushroom Swelling Medium 03/01/2018 rash where contact, lips swell if eat them, itching Medications atorvastatin (LIPITOR) 40 mg tabletIndicatio ns:hyperlipidem ia Take 1 tablet (40 mg total) by mouth nightly 8 Active docusate sodium (COLACE) 100 mg capsuleIndicati ons:constipatio n Take 1 capsule (100 mg total) by mouth 2 (two) times a day. 30 capsule 8 Active metoprolol (LOPRESSOR) 25 mg tablet Take 1 tablet (25 mg total) by mouth 2 (two) times a day 60 tablet 1 9 Active Additional Information Patient not taking.Reported on 02/04/2025 aspirin 81 mg chewable tablet Take 1 tablet (81 mg total) by mouth daily 30 tablet 11 9 Active polyethylene glycol (MIRALAX) 17 gram packetIndicatio ns:constipation Take 1 packet (17 g total) by mouth daily 9 Active ursodioL (ACTIGALL) 300 mg capsule Take by mouth 3 Active amLODIPine (NORVASC) 10 mg tablet 3 Active losartan (COZAAR) 50 mg tablet Take 1 tablet (50 mg total) by mouth daily Active zolpidem (AMBIEN) 10 mg tabletIndicatio ns:Sleep-Onset Insomnia Take 1 tablet (10 mg total) by mouth nightly as needed for sleep Active metoprolol tartrate (LOPRESSOR) 50 mg immediate release tablet Take 1 tablet (50 mg total) by mouth 2 (two) times a day 5 Active Active Problems Problem Noted Date Diagnosed Date Mixed hyperlipidemia 01/31/2024 Assessment & Plan (02/06/2025 12:17 PM CDT): Stable continue Lipitor Assessment & Plan (01/31/2024 1:15 PM CDT): Stable continue Lipitor 40 mg. Ileus 08/23/2019 Assessment & Plan (08/24/2019 12:38 PM PLAN REP): Abdominal distention resolved Abd round, soft with + BS + Flatus Will repeat Bisacodyl supp today Advance diet as tolerated Atrial fibrillation 08/23/2019 Assessment & Plan (08/24/2019 12:39 PM PLAN REP): Post operative atrial fibrillation- remains NSR at this time Amiodarone drip changed from IV to po Will monitor QTc- today 415 msec tele LOTUS (acute kidney injury) 08/21/2019 Assessment & Plan (08/24/2019 12:35 PM PLAN REP): Cr on admission 1.33- now 1.58 but down from yesterda Will continue diuresis and monitor closely CKD (chronic kidney disease) 08/21/2019 Assessment & Plan (08/23/2019 10:14 AM PLAN REP): Cr on admission 1.33 Continuing to improve Aortic stenosis, severe 08/12/2019 Overview (08/12/2019): Added automatically from request for surgery [id number] Assessment & Plan (08/24/2019 12:39 PM PLAN REP): S/p mini sternotomy bio AVR 08/20/2019 Continue post operative care Increase activity as tolerated CT and PW d/c'd yesterday Aggressive pulmonary toilet, OOB, IS Continue ASA , BB Continue diuresis Assessment & Plan (08/22/2019 1:00 AM PLAN REP): S/p mini sternotomy - BioAVR - MAP goal >70 - CTM Medial Chest tubes - achieved FBG neg 1L via lasix 40 x2 and 60 x1 in the last 24hrs - Metop 12.5 bid, ASA, Statin - Low fat, low chol diet - OOB, ambulate - Wean NC as able - v leads not sensing and pt has been in sinus rhythm in the 90s so epicardial leads capped - apap, oxy, lidocaine patch for pain - vanc/ancef for surgical ppx Assessment & Plan (08/21/2019 2:03 AM PLAN REP): S/p mini sternotomy - BioAVR MAP goal >70 Medial Chest tubes NPO, mIVF Assessment & Plan (08/20/2019 1:50 PM PLAN REP): S/p mini sternotomy - BioAVR Levo at 0.05 on arrival, wean as appropriate MAP goal >70 Medial Chest tubes NPO, mIVF Nonrheumatic aortic valve stenosis 07/22/2019 Discontinued smoking 07/22/2019 Incisional hernia, without obstruction or gangre ne 03/06/2018 Overview (03/06/2018): Added automatically from request for surgery [id number] Flank hernia 02/28/2018 HTN (hypertension) 02/28/2018 Assessment & Plan (02/06/2025 12:17 PM CDT): Stable amlodipine Assessment & Plan (01/31/2024 1:15 PM CDT): Stable continue losartan 50 mg. Assessment & Plan (08/23/2019 10:12 AM PLAN REP): Continue beta carol Continue lasix Assessment & Plan (08/21/2019 2:03 AM PLAN REP): A-line in place Monitor closely, will restart home meds when appropriate Assessment & Plan (08/20/2019 1:32 PM PLAN REP): A-line in place Currently on Levo support for MAP goal >70 Monitor closely, will restart home meds when appropriate AAA (abdominal aortic aneurysm) 02/28/2018 Assessment & Plan (02/06/2025 11:26 AM CDT): Status post open repair by Dr. Liriano for an abdominal aortic aneurysms complicated by prolonged hospitalization and renal failure which he has now recovered from. 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 Continue risk factor modification with ASA statin therapy good blood pressure control. Follow up in 1 year with repeat CTA abdomen pelvis. Assessment & Plan (01/31/2024 1:15 PM CDT): Status post open AAA repair done by Dr. Liriano years ago. Stable aneurysm of the visceral abdominal aorta. Continue ongoing surveillance with repeat CT abdomen pelvis in 1 year. Assessment & Plan (01/23/2023 1:39 PM CDT): History of infrarenal abdominal aortic aneurysm that was repaired [place] [address] Linares. Last CT scan on 11/30/2022 without contrast measured the aneurysm 3.7 x 4.1 cm. Patient is denying any abdominal flank or back pain no claudication symptoms. He is being it remains a former smoker. Seen with Dr. G[place]. Plan: Follow-up in 1 year with CTA of abdomen and pelvis. Immunizations Immunization Administration Dates Next Due Influenza, Trivalent, High D ose, Split, Preservative Free, Intramuscular 06/06/2018 Surgical History Surgery Date Site/Laterality Comments OTHER SURGICAL HISTORY 09/10/2012 - 09/09/2013 Diskectomy, Cervical & fusion C3-4. OTHER SURGICAL HISTORY Spinal Fusion - lumbar - age 26 OTHER SURGICAL HISTORY Bilat carpel tunnel EXTRACORPOREAL SHOCK WAVE LITHOTRIPSY 09/10/2002 - 09/09/2003 Kidney Stone Treatment, Lithotripsy ABDOMINAL AORTIC ANEURYSM REPAIR 09/10/2013 - 09/09/2014 Retroperiteoneal approach ABDOMINAL AORTIC ANEURYSM REPAIR 09/10/2013 - 09/09/2014 SHOULDER SURGERY 09/10/2011 - 09/09/2012 RENAL ARTERY STENT 09/10/2012 - 09/09/2013 Stent removed in 2013 HERNIA REPAIR 06/03/2018 Left open Incisional hernia repair and abdominal wall reconstruction for left flank hernia Medical History Medical History Date Comments Hypertension Hypertension Hx Other Medical 2013 Kidney Stones - stent & removal stent Dialysis patient 2014 for 2 mos with AAA treatment and hospitalization Anesthesia complication hypotens ion Heart murmur Dyslipidemia Atrial mass right AAA (abdominal aortic aneurysm) 2012 Obesity Family History Medical History Relation Name Comments Coronary artery disease Brother 3 Theo nary Artery Bypass Graft; Stent Brother 4 Coronary Stent Placement; Other Father After CABG & Va lve OR; Cause of : After CABG & Valve OR Other Mother Restrictive nona g dz; Cause of : Restrictive lung dz Anesthesia problems Neg Hx Relation Name Status Comments Brother 1 Alive Brother 2 Alive Brother 3 Brother 4 Father (Age 69) Mother (Age 72) Social History Tobacco Use Types Packs/Day Years Used Date Smoking Tobacco: Former Cigarettes 0.3 35 1 973 - 2007 Smokeless Tobacco: Never Tobacco Cessation:Counseling Given: Not Answered Alcohol Use Standard Drinks/Week Comments Yes 0 (1 standard drink = 0.6 oz pur e alcohol) ocassionally AUDIT-C Answer Date Recorded Q1: How often do you have a drink containing alc ohol? Never 11/29/2022 Average Number of Drinks Not on file 023 Frequency of Binge Drinking Not on file 11/09 Sex and Gender Information Value Date Recorded Sex Assigned at Not on file Legal Sex Male 1:43 PM PLAN REP Gender Identity Not on file Sexual Orientation Not on file Obstetrics History Last Filed Vital Signs Vital Sign Reading Time Taken Comments Blood Pressure 150/92 02/04/2025 8:38 AM CDT Pulse 62 02/04/2025 8:38 AM CDT Temperature 36.8 C (98.2 F) 08/25/2019 9:50 AM PLAN REP Respiratory Rate 18 08/25/2019 10:05 AM PLAN REP Oxygen Saturation 95% 02/04/2025 8:38 AM CDT Inhaled Oxygen Concentration - - Weight 102.5 kg (226 lb) 02/04/2025 8:38 AM CDT Height 167.6 cm (5' 6) 02/04/2025 8:38 AM CDT Body Mass Index 36.48 02/04/2025 8:38 AM CDT Plan of Treatment Health Maintenance Due Date Last Done Comments Depression Screening 1945 Fall Risk Assessment 1945 Hepatitis C Screening 1945 Hepatitis B Screening 1965 Zoster Vaccine (1 of 2) 1997 Well Visit 65+ 2012 Pneumococcal vaccine 65+ (2 of 2 - PCV) 07/11/2019 07/11/2018, 09/10/2015, 09/10/2014, Additional history exists Influenza Vaccine (#1) 2025 9, 06/06/2018, 06/02/2014, Additional history exists DTaP/Tdap/Td Vaccine (3 - Td or Tdap) 09/10/2028 09/10/2018, 09/10/2012 Abdominal Aortic Aneurysm (A AA) Screen Completed 02/06/2025, 02/04/2025, 02/04/2025, Additional history exists Medical Devices Implanted Type Area Torch Cutter Device Identifier Shelf Expiration Date Model / Serial / Lot [employer]/C R Bard [id number] Monofilament Soft Lightweight Low Profile Square - [id number] Implanted:Qty: 1 on 06/03/2018 by Costa Onofre MD at [facility] Mesh N/A: Abdomen [employer]/C R Bard [id number] 03/07/2023 [id number] / / [id number] [employer] [id number] Tonya-Edwa rds Perimount Magna Ease 23mm Bioprosthesis - [id number] - [id number] Implanted:Qty: 1 on 08/20/2019 by Mihir Antonio MD at [facility] Prosthetic Valve N/A: Heart [employer] 03/31/2023 [id number] / [id number] / Procedures Procedure Name Priority Date/Time Associated Diagnosis Comments CTA ABDOMEN PELVIS W WO CONTRAST Schedule Routine, Read Routine (OP Routine) 01/29/2025 12:07 PM CDT Infrarenal abdominal aortic aneurysm (AAA) without rupture from Last 3 Months or Most Recently Relevant to Health Maintenance Results * CTA Abdomen Pelvis (01/29/2025 12:07 PM CDT) Anatomical Region Laterality Modality Body N/A Computed Tomogra phy 02/03/2025 11:4 0 AM CDT Narrative 02/03/2025 12:36 PM CDT EXAM DESCRIPTION: CTA ABDOMEN PELVIS REASON FOR STUDY: Abdominal aortic aneurysm (AAA), follow up Dx: Infrarenal abdominal aortic aneurysm (AAA) without rupture I71.43 (ICD-10-CM) TECHNIQUE: CTA scan of the abdomen and pelvis performed without and with intravenous and without oral contrast using helical scanning technique with dynamic intravenous contrast injection. Precontrast, arterial, and portal venous phase images of the abdomen and pelvis were acquired. Images reviewed with lung, soft tissue and bone windows. Reconstructed coronal and sagittal MPR images reviewed. All images stored on PACS. 3D MIP images rendered on scanning unit and reviewed at time of interpretation. Automated exposure control was used as a dose optimization technique for this examination. CONTRAST TYPE/DOSE: 100mL of IOVERSOL 350 MG IODINE/ML INTRAVENOUS SYRINGE injected via intravenous COMPARISON: CTA 01/18/2024 FINDINGS: VASCULATURE: Severe atherosclerotic vascular calcification of the aorta and branches. No dissection, intramural hematoma, rupture, or penetrating atherosclerotic ulcer. No large vessel occlusion. CELIAC TRUNK: No flow limiting stenosis, dissection, or aneurysm. SUPERIOR MESENTERIC ARTERY: No flow limiting stenosis, dissection, or aneurysm. RIGHT RENAL ARTERY: No flow limiting stenosis, dissection, or aneurysm. LEFT RENAL ARTERY: No flow limiting stenosis, dissection, or aneurysm. INFERIOR MESENTERIC ARTERY: No flow limiting stenosis, dissection, or aneurysm. AORTA: Aneurysmal dilatation of the abdominal aorta at the hiatus measures 4.1 x 3.7 cm in transverse X AP dimension (4/43), previously 4.0 x 3.7 cm. No flow limiting stenosis or dissection,. ILIAC ARTERIES: Tortuous bilateral common iliac arteries. The left common iliac artery measures 1.9 cm, stable. No flow limiting stenosis or dissection. LOWER CHEST: No significant pulmonary abnormalities. No effusion. LIVER: Normal size. No identified cystic or solid masses. GALLBLADDER: Surgically absent BILE DUCTS: No intrahepatic or extrahepatic ductal dilatation. SPLEEN: Normal size. No focal lesions. PANCREAS: No identified cystic or solid masses. No significant calcifications. No adjacent inflammation or peripancreatic fluid collections. Pancreatic duct not dilated. ADRENALS: Normal. KIDNEYS/URINARY TRACT: Normal-sized kidneys with symmetric enhancement. Bilateral simple renal cysts. Stable 1.3 cm cyst with peripheral calcification in the upper pole of the right kidney. No solid renal lesion. No hydronephrosis bilaterally. Normal bladder. GI: No dilated bowel loops. No obvious wall thickening. Normal appendix. No significant diverticular disease. PERITONEUM: No ascites or free air. RETROPERITONEUM: No mass or adenopathy. REPRODUCTIVE: No significant abnormality. MUSCULOSKELETAL: No significant abnormality. OTHER: No other abnormality. IMPRESSION: Stable aneurysmal dilatation of the abdominal aorta at the hiatus measuring 4.1 cm. 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 No acute findings in the abdomen and pelvis. THIS IS AN ELECTRONICALLY VERIFIED FINAL REPORT 02/03/2025 12:36 PM - Electronically signed by Maria Eugenia Ardon M.D. FT T: Report ID: [id number] Reading Location: [place] [address] Procedure Note Maria Eugenia Jones MD - 02/03/2025 EXAM DESCRIPTION: CTA ABDOMEN PELVIS REASON FOR STUDY: Abdominal aortic aneurysm (AAA), follow up Dx: Infrarenal abdominalaortic aneurysm (AAA) without rupture I71.43 (ICD-10-CM) TECHNIQUE: CTA scan of the abdomen and pelvis performed without and with intravenous and without oral contrast using helical scanning techniquewith dynamic intravenous contrast injection. Precontrast, arterial, and portal venous phase images of the abdomen and pelvis were acquired. Images reviewed with lung, soft tissue and bone windows. Reconstructed coronaland sagittal MPR images reviewed. All images stored on PACS. 3D MIP images rendered on scanning unit and reviewed at time of interpretation.Automated exposure control was used as a dose optimization technique for this examination. CONTRAST TYPE/DOSE: 100mL of IOVERSOL 350 MG IODINE/ML INTRAVENOUSSYRINGE injected via intravenous COMPARISON: CTA 01/18/2024 FINDINGS: VASCULATURE: Severe atherosclerotic vascular calcification ofthe aorta and branches. No dissection, intramural hematoma, rupture, or penetrating atherosclerotic ulcer. No large vessel occlusion. CELIAC TRUNK: No flow limiting stenosis, dissection, or aneurysm. SUPERIOR MESENTERIC ARTERY: No flow limiting stenosis, dissection, or aneurysm. RIGHT RENAL ARTERY: No flow limiting stenosis, dissection, or aneurysm. LEFT RENAL ARTERY: No flow limiting stenosis, dissection, or aneurysm. INFERIOR MESENTERIC ARTERY: No flow limiting stenosis, dissection, or aneurysm. AORTA: Aneurysmal dilatation of the abdominal aorta at the hiatusmeasures 4.1 x 3.7 cm in transverse X AP dimension (), previously 4.0 x 3.7 cm.No flow limiting stenosis or dissection,. ILIAC ARTERIES: Tortuous bilateral common iliac arteries. The leftcommon iliac artery measures 1.9 cm, stable. No flow limiting stenosis or dissection. LOWER CHEST: No significant pulmonary abnormalities. No effusion. LIVER: Normal size. No identified cystic or solid masses. GALLBLADDER: Surgically absent BILE DUCTS: No intrahepatic or extrahepatic ductal dilatation. SPLEEN: Normal size. No focal lesions. PANCREAS: No identified cystic or solid masses. No significant calcifications. No adjacent inflammation or peripancreatic fluidcollections. Pancreatic duct not dilated. ADRENALS: Normal. KIDNEYS/URINARY TRACT: Normal-sized kidneys with symmetric enhancement. Bilateral simple renal cysts. Stable 1.3 cm cyst with peripheral calcification in the upper pole of the right kidney. No solid renallesion. No hydronephrosis bilaterally. Normal bladder. GI: No dilated bowel loops. No obvious wall thickening. Normalappendix. No significant diverticular disease. PERITONEUM: No ascites or free air. RETROPERITONEUM: No mass or adenopathy. REPRODUCTIVE: No significant abnormality. MUSCULOSKELETAL: No significant abnormality. OTHER: No other abnormality. IMPRESSION: Stable aneurysmal dilatation of the abdominal aorta at the hiatusmeasuring 4.1 cm. 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 No acute findings in the abdomen and pelvis. THIS IS AN ELECTRONICALLY VERIFIED FINAL REPORT 02/03/2025 12:36 PM - Electronically signed by Maria Eugenia Ardon M.D. FT T: Report ID: [id number] Reading Location: [place] [address] [place] MD IM CT PROCEDURES Final Result from Last 3 Months or Most Recently Relevant to [place] [address] [facility] [address] [address] [facility] [address] [address] [facility] [address] [place] [address] [facility] [address] [place] [address] [facility] COMMERCIAL GENERIC Advance Directives For more information, please contact: [phone] * Full Code (Latest Code Status on File) Date Activated Date Inactivated Comments 08/20/2019 1:11 PM 08/25/2019 3:43 PM * Full Code Date Activated Date Inactivated Comments 08/20/2019 1:02 PM 08/20/2019 1:10 PM * Full Code Date Activated Date Inactivated Comments 06/08/2018 1:58 PM 08/20/2019 5:45 AM * Full Code Date Activated Date Inactivated Comments 06/03/2018 8:31 PM 06/06/2018 4:30 PM Care Teams Hog Cutter Relationship Specialty Start Date End Date Kellen Villalpando MD [address] [place] [address] PCP - General Family Practice 11/29/22 Azar Linares DO [address] [place] [address] Referring Physician Internal Medicine 07/04/19
--- OUTSIDE RECORDS SUMMARY | 2025-05-21 08:06 | XMS_ITS | Encounter Summary ---
Author Organization [facility] Address [address] [place] [address] Phone Care Team Providers Care Needle Grader Name Role Phone Enrike Amaro MD Primary Care Provider [phone] Vijay Azar Mendieta DO Unavailable [phone] Vanessa Cutler MD Primary Care Provider Kellen Villalpando MD Primary Care Provider Encounter Details Date Type Department Care Team (Latest Contact Info) Description 01/17/2019 Orders Only [facility] Scanning, Provider Social History Tobacco Use Types Packs/Day Years Used Date Smoking Tobacco: Former Cigarettes 0.3 30 Smokeless Tobacco: Never Alcohol Use Standard Drinks/Week Comments Yes 0 (1 standard drink = 0.6 oz pur e alcohol) ocassionally Sex and Gender Information Value Date Recorded Sex Assigned at Not on file 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 Gender Identity Not on file Sexual Orientation Not on file documented as of this encounter Plan of Treatment Not on file documented as of this encounter Procedures Procedure Name Priority Date/Time Associated Diagnosis Comments CARDIOLOGY DOCUMENT SCAN 01/17/2019 documented in this encounter Results * SCAN - CARDIOLOGY (01/17/2019) Anatomical Region Laterality Modality Other us Provider Scanning CV CARDIAC SERVICES PROCEDURES Final Result documented in this encounter Visit Diagnoses Not on filedocumented in this encounter Care Teams Needle Grader Relationship Specialty Start Date End Date Enrike Amaro MD [address] [place] [address] PCP - General Family Practice 03/01/18 07/21/19 Vanessa Cutler MD [address] [place] [address] PCP - General Family Medicine 07/22/19 11/28/22 Kellen Villalpando MD [address] [facility] [address] [place] [address] PCP - General Family Practice 11/29/22 Azar Linares DO [address] [facility] [address] [place] [address] Referring Physician Internal Medicine 07/04/19 documented as of this encounter
--- OUTSIDE RECORDS SUMMARY | 2025-05-21 08:06 | XMS_ITS | Clinical Summary ---
Author Organization [facility] Address [address] [place] [address] Care Team Providers Care Animal Husbandry Teacher Name Role Phone Unavailable Primary Care [...] 9:17 AM CDT Height 167.6 cm (5' 6) 11/20/2013 9:17 AM CDT Body Mass Index 32.28 11/20/2013 9:17 AM CDT Plan of Treatment Health Maintenance Due Date Last Done Comments Hepatitis C 1965 DTaP, Tdap and Td Vaccines ( 1 - Tdap) 1966 Pneumococcal Vaccine: 50+ Ye ars (1 of 1 - PCV) 1997 Zoster Vaccines (1 of 2) 1997 RSV Immunization or 60+ Years (1 - 1-dose 75+ series) 2022 COVID-19 Vaccine ( - 2023-2 5 season) 2025 Meningococcal B Vaccine Aged Out No l onger eligible based on patient's age to complete this topic Meningococcal Vaccine Aged Out No ailyn marisa eligible based on patient's age to complete this topic RSV Immunizations Under 20 Months Aged Out No longer eligible based on patient's age to complete this topic
--- OUTSIDE RECORDS SUMMARY | 2025-05-21 08:06 | XMS_ITS | Encounter Summary ---
Author Organization [facility] Address [address] [place] [address] Care Team Providers Care Food Mobile Driver Name Role Phone Unavailable Primary Care Provider Unavailabl e Encounter Details Date Type Department Care Team (Late st Contact Info) Description 03/19/1999 Outpatient Historical [facility] Internal Medicine [address] [place] [address] Korey Manning MD [address] [facility] [address] [place] [address] Social History Tobacco Use Types Packs/Day Years Used Date Smoking Tobacco: Never Assessed Sex and Gender Information Value Date Recorded Sex Assigned at Not on file 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
--- OUTSIDE RECORDS SUMMARY | 2025-05-21 08:06 | XMS_ITS | Clinical Summary ---
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
--- OUTSIDE RECORDS SUMMARY | 2025-05-21 08:06 | XMS_ITS | Encounter Summary ---
Author Organization [facility] Address [address] [place] [address] Care Team Providers Care Mortgage Closer Name Role Phone Unavailable Primary Care Provider Unavailabl e Encounter Details Date Type Department Care Team (Late st Contact Info) Description 09/15/1998 Outpatient Historical [facility] Internal Medicine [address] [place] [address] Korey Manning MD [address] [facility] [address] [place] [address] Social History Tobacco Use Types Packs/Day Years Used Date Smoking Tobacco: Never Assessed Sex and Gender Information Value Date Recorded Sex Assigned at Not on file Legal 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
--- OUTSIDE RECORDS SUMMARY | 2025-05-21 08:06 | XMS_ITS | Encounter Summary ---
Author Organization [facility] Address 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
--- OUTSIDE RECORDS SUMMARY | 2025-05-21 08:06 | XMS_ITS | Encounter Summary ---
Author Organization [facility] Address [address] [place] [address] Care Team Providers Care Driller Brake Lining Name Role Phone Unavailable Primary Care Provider Unavailabl e Encounter Details Date Type Department Care Team (Latest Contact Info) Description 07/16/2018 Abstract [facility] , Cesario Solano MD Social [...]
--- OUTSIDE RECORDS SUMMARY | 2025-05-21 08:06 | XMS_ITS | Encounter Summary ---
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 Gender Identity Not on file Sexual Orientation Not on file documented as of this encounter Plan of Treatment Not on file documented as of this encounter Procedures Procedure Name Priority Date/Time Associated Diagnosis Comments SCAN - LABS 10/16/2022 documented in this encounter Results * SCAN - LABS (10/16/2022) us Provider Scanning Final Result documented in this encounter Visit Diagnoses Not on filedocumented in this encounter Care Teams Chemistry Department Chair Relationship Specialty Start Date End Date Vanessa Cutler MD [address] [place] [address] PCP - General Family Medicine 07/22/19 11/28/22 Kellen Villalpando MD [address] [facility] [address] [place], [place] [id number] PCP - General Family Practice 11/29/22 Azar Linares DO [address] [facility] [address] [place], [place] [id number] Referring Physician Internal Medicine 07/04/19 documented as of this encounter
--- OUTSIDE RECORDS SUMMARY | 2025-05-21 08:06 | XMS_ITS | Encounter Summary ---
Author Organization [facility] Address [address] [place] [address] Phone Care Team Providers Care Geospatial Systems Integrator Name Role Phone Enrike Amaro MD Primary Care Provider [phone] Vijay Azar Mendieta DO Unavailable [phone] Vanessa Cutler MD Primary Care Provider Kellen Villalpando MD Primary Care Provider Encounter Details Date Type Department Care Team (Latest Contact Info) Description 12/10/2018 Orders Only [facility] Scanning, Provider Social History Tobacco Use Types Packs/Day Years Used Date Smoking Tobacco: Former Cigarettes 0.3 30 Smokeless Tobacco: Never Alcohol Use Standard Drinks/Week Comments Yes 0 (1 standard drink = 0.6 oz pur e alcohol) ocassionally Sex and Gender Information Value Date Recorded Sex Assigned at Not on file 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 Gender Identity Not on file Sexual Orientation Not on file documented as of this encounter Plan of Treatment Not on file documented as of this encounter Procedures Procedure Name Priority Date/Time Associated Diagnosis Comments CARDIOLOGY DOCUMENT SCAN 12/10/2018 documented in this encounter Results * SCAN - CARDIOLOGY (12/10/2018) Anatomical Region Laterality Modality Other us Provider Scanning CV CARDIAC SERVICES PROCEDURES Final Result documented in this encounter Visit Diagnoses Not on filedocumented in this encounter Care Teams Geospatial Systems Integrator Relationship Specialty Start Date End Date Enrike Amaro MD [address] [place] [address] PCP - General Family Practice 03/01/18 07/21/19 Vanessa Cutler MD [address] [place] [address] PCP - General Family Medicine 07/22/19 11/28/22 Kellen Villalpando MD [address] [facility] [address] [place] [address] PCP - General Family Practice 11/29/22 Azar Linares DO [address] [facility] [address] [place] [address] Referring Physician Internal Medicine 07/04/19 documented as of this encounter
--- NOTE | 2025-05-21 08:08 | EST_ITS ---
Patient Info Name: Manohar West Age: 79 years : 1945 Gender: Male Ht: 66 in Wt: 230 lbs BSA: 2.25 m2 Exam Date: 05/21/2025 8:08 AM Patient Status: O Admit Date: 05/21/2025 Exam Type: CA stress anshu w NM A regadenoson stress test was performed. Staff Referring Physician: Azar Linares DO Attending Provider: Azar Linares DO Exercise Technologist: Fernanda Curtis Summary 1. 1. Negative lexiscan stress test for ischemic ST changes by ECG criteria. 2. 2. Baseline hypertension. 3. 3. Nuclear scan to follow and will be reported separately. Please correlate with it. 4. 4. Patient informed of the above results. Protocol: Lexiscan Stress ECG Details Stage: REST Duration (min): 1 min : 49 sec HR (bpm): 77 SBP (mmHg): 140 DBP (mmHg): 91 Stage: REST Duration (min): 7 min : 2 sec HR (bpm): 74 SBP (mmHg): 140 DBP (mmHg): 91 Stage: STAGE 1 Duration (min): 0 min : 59 sec HR (bpm): 77 SBP (mmHg): 165 DBP (mmHg): 97 Stage: RECOVERY Duration (min): 1 min : 0 sec HR (bpm): 88 SBP (mmHg): 165 DBP (mmHg): 97 Stage: RECOVERY Duration (min): 2 min : 0 sec HR (bpm): 86 SBP (mmHg): 148 DBP (mmHg): 79 Stage: RECOVERY Duration (min): 3 min : 0 sec HR (bpm): 83 SBP (mmHg): 146 DBP (mmHg): 73 Stage: RECOVERY Duration (min): 3 min : 4 sec HR (bpm): 85 SBP (mmHg): 146 DBP (mmHg): 73 Rest HR: 74 bpm Peak HR: 90 bpm Rest Sys BP: 140 mmHg Peak Sys BP: 165 mmHg Max Pred HR: 143 bpm % Max Pred HR: 63 % Target HR: 122 bpm Max RPP: 14,850 bpm*mmHg Termination Reason: Completed protocol Cardiac Symptoms: Shortness of breath Total Time: 1 min : 0 sec Rest Anders BP: 91 mmHg Peak Anders BP: 97 mmHg Total Dose: 0.4 mg Resting ECG Sinus rhythm, IRBBB. Stress ECG No ST changes. Arrhythmias None. Report Signatures
== END 2025-05-21 07:46 | disposition home or self-care (01) ==
PROVIDERS: PCP Family Medicine; Visit Provider Internal Medicine Cardiovascular Disease
DX: Z01.810 Encounter for preprocedural cardiovascular examination (principal); I10 Essential (primary) hypertension; I99.8 Other disorder of circulatory system
CPT/HCPCS: 78452; 93017; A9502; J2785

== ENCOUNTER 2025-06-18 00:16 | Day surgery (SDC) | payer OTHER, SELFPAY ==
[2025-06-17 12:54] VITALS: BMI 37.1
[2025-06-18] VITALS (17 sets, daily range): BP systolic 113–166; BP diastolic 79–106; PULSE 59–75; RESP 14–20; TEMP 36.4; O2SAT 93–97; BMI 36.6
[2025-06-18 08:48] LABS: Hematocrit 46.8 % (42.0-52.0); Hemoglobin 15.4 g/dL (14.0-18.0); Immature Granulocyte Percent A 1.2 % (0-0.5); Lymphocytes Absolute Auto 2.84 K/mm3 (0.9-3.2); Mean Corpuscular HGB Conc 32.9 g/dl (32-36); Mean Corpuscular Hemoglobin 29.6 pg (26-34); Mean Corpuscular Volume 89.8 fl (80-100); Nucleated Red Blood Cells Absolute Auto 0.000 K/mm3 (0.0-0.012); Nucleated Red Blood Cells Perc 0.0 % (0.0-0.2); Platelet Count Result 226 k/mm3 (150-375); Red Blood Count 5.21 M/mm3 (4.6-6.20); White Blood Count 9.9 K/mm3 (4.5-10.0)
[2025-06-18 09:03] LABS: Anion Gap 6 mmol/L (4-12); Blood Urea Nitrogen 21 mg/dL (9-20); Calcium 9.8 mg/dL (8.4-10.2); Carbon Dioxide 32 mmol/L (22-30); Chloride 100 mmol/L (98-107); Estimated CRCL calculation 49 ml/min; Estimated Glomerular Filt Rate 54; Glucose 103 mg/dL (65-110); Potassium 4.2 mmol/L (3.4-5.0); Sodium 138 mmol/L (137-145)
--- NOTE | 2025-06-18 09:30 | WPDHPUPDATE1 ---
History and Physical Update Update Date/Time: 06/18/25 09:30 History and Physical has been reviewed, including an updated exam of the patient. There are NO changes in the patient's condition. Risks, benefits, and alternatives have been discussed and questions answered. Patient agrees to proceed with procedure.
--- NOTE | 2025-06-18 09:31 | P.SEDATION_ITS ---
Moderate Sedation Note-Pt Data Patient Data Allergies Allergy/AdvReac Type Severity Reaction Status Date / Time mushroom Allergy Mild rash Verified 06/18/25 08:37 ARIELA Inhibitors AdvReac Mild Cough Verified 06/18/25 08:37 hydromorphone (From Dilaudid) AdvReac Confusion Verified 06/18/25 08:37 Home Medications ?Medication ?Instructions ?Recorded ?Confirmed ?Type aspirin 81 mg tablet,delayed 81 mg PO DAILY 08/29/19 1 History release (Adult Low Dose Aspirin) losartan 50 mg tablet 50 mg PO DAILY 12/16/2405/04 History amlodipine 10 mg tablet See Rx Instructions .Route 0 12/22/24 06/18/25 Rx .COMPLEX #90 tabs atorvastatin 40 mg tablet See Rx Instructions .Route 0 12/22/24 06/17/25 Rx .COMPLEX #90 tabs metoprolol tartrate 50 mg tablet 50 mg PO BID #180 tab s 01/14/25 06/18/25 Rx zolpidem 10 mg tablet 5 mg (1/2 x 10 mg) PO QHS NE N 06/05/25 06/17/25 Rx insomnia #90 tabs Sedation/Anesthesia: No previous sedation/anesthesia problems (including family history). [facility] Past Medical History Medical History Abdominal aortic aneurysm (AAA) History of atrial fibrillation (~09/2022) during hospital admission with sepsis. Ruled out with cardiac event monitor Edema of both lower extremities due to peripheral venous insufficiency Pancreatic pseudocyst (~2022) Prediabetes (~2023) Vitamin D deficiency Stage 3a chronic kidney disease (CKD) Ileus (~09/2022) Sepsis (~09/2022) History of hemodialysis Reportedly on hemodialysis x about 2 months due to acute renal failure following his AAA repair BPH (benign prostatic hyperplasia) Pancreatitis (~09/2022) History of kidney stones Insomnia Aortic stenosis, severe Essential (primary) hypertension Mixed hyperlipidemia Testicular cyst Surgical History Surgical History History of right cataract surgery (~2021) Hx laparoscopic cholecystectomy 01/01/23 Laparoscopic cholecystectomy with intraoperative cholangiogram History of lithotripsy History of rotator cuff surgery History of neck surgery History of spinal fusion History of transurethral resection of prostate History of colonoscopy History of tonsillectomy and adenoidectomy History of hydrocelectomy S/P aortic valve replacement with bioprosthetic valve H/O mitral valve replacement 08/20/19 - Miriam History of hernia repair Ventral hernia repair Hx of aortic aneurysm repair (~2013) Open aortic aneurysm repair family believes was in 2013 at [facility] Family History Family History Father Family history of coronary artery disease Family history of congestive heart failure, Onset Age: 71 Other Cerebrovascular accident Hypertension Social History Social History Social History: The patient lives with his who is the durable power collections attorney for healthcare. The patient has 1 child. 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 The patient was a former smoker. He stated that he rarely drinks any alcoholic beverages. He denies any marijuana or illicit drugs. Code status full code. Smoking packs per day: 0.2 Smoking cigarettes per day: 4.0 Years smoked: 20 Smoking pack-years: 4.00 Smoking status: Former smoker Tobacco type: cigarettes Second hand tobacco smoke exposure: No Smoking end date: 09/10/99 Alcohol intake: current Substance use: never Lack of Transportation: No Lack of Food: Never True Current Housing: I Have Housing Concerned About Future Housing: No Difficulty Paying Gas/Electric Bills: No Difficulty Paying for Meds: No Currently Unemployed: No Education: High School Diploma/GED Difficulty w/ Childcare or Family Care: No Living arrangements: with family Additional living arrangements comments: Occupation/Education: retired Gender identity (if verbalized by the patient): Male Spiritual care concerns: No Agree to blood products: Yes Mod Sed Physical Exam Physical Exam Pre Procedural Exam: Normal: Lungs, Heart Size, Heart Rate and Heart Rhythm Hours since solid foods: 12 Hours since liquid intake: 12 Mallampati Classification: class III Internal Medicine - PN: Obj Da Vital Signs Vital Signs: Vital Signs - 24 hr 06/18/25 08:39 Temperature 36.4 C L Pulse Rate 75 Respiratory Rate 18 Blood Pressure 166/93 H Pulse Oximetry 95 Oxygen Delivery Room Air Labs 06/18/25 08:42 06/18/25 08:42 Labs: Laboratory Results - last 24 hr 06/18/25 08:42 WBC 9.9 RBC 5.21 Hgb 15.4 Hct 46.8 MCV 89.8 MCH 29.6 MCHC 32.9 RDW 12.9 Plt Count 226 MPV 8.4 Immature Gran % (Auto) 1.2 H Neut % (Auto) 57.1 Lymph % (Auto) 28.6 Dunn % (Auto) 6.6 Eos % (Auto) 5.2 H Baso % (Auto) 1.3 H Lymph # (Auto) 2.84 Dunn # (Auto) 0.7 H Eos # (Auto) 0.5 H Baso # (Auto) 0.1 Abs Immat Gran (auto) 0.12 H Absolute Neuts (auto) 5.7 Absolute Nucleated RBC 0.000 Nucleated RBC % 0.0 Sodium 138 Potassium 4.2 Chloride 100 Carbon Dioxide 32 H Anion Gap 6 BUN 21 H Creatinine 1.28 Estim Creat Clear Calc 49 Estimated GFR 54 L Glucose 103 Calcium 9.8 ASA Classification/Sedation ASA Classification/Sedation ASA Class: III Emergent: No Risks: Risks, benefits and alternatives explained and patient/family accepted plan for sedation. Patient re-evaluated immediately prior to sedation.
--- NOTE | 2025-06-18 10:42 | P.PCNCC_ITS ---
Cardiac Cath Procedure Note Date of procedure:: 06/18/25 Performing physician:: CATHETERIZATION LABORATORY REPORT Procedure Date: 06/18/2025 Referring Physician: Dr. Linares Anesthesia: Versed and Fentanyl were ordered and given in my presence at 0941, procedure ended at 1026. Supervision of nurse, Carlee Robertson monitored moderate sedation with 2mg Versed and 100mcg Fentanyl was provided for 45 minutes. Pre-op Diagnosis: Abnormal stress test Post-op Diagnosis: Abnormal stress test Procedure(s): Left heart catheterization with coronary angiography IFR assessment Access Site: Right radial artery Brief History and Clinical Indications: 79-year-old man with severe aortic stenosis status post bio AVR, coronary artery disease, paroxysmal atrial fibrillation, and hyperlipidemia/hypertension who will be undergoing knee surgery for which stress test was obtained and found to be abnormal for which left heart catheterization with possible PCI was recommended. All risks, benefits and alternatives to left heart catheterization with or without percutaneous coronary intervention was discussed at length with the patient. Risk of complications including but not limited to bleeding, infection, arrhythmia, stroke, worsening kidney function, blood loss, groin hematoma, limb loss, emergency coronary artery bypass grafting, and even were discussed with the patient and all questions were answered. The patient understood and wished to proceed. Time out called, patient name, date of , medical record number, allergies, procedure performed, identify Drapery Seamstress, patient and staff member concurred with accurate data, procedure carried on. Findings: LEFT HEART CATHETERIZATION FINDINGS: 1. Left main: The left main coronary artery is widely patent without any significant obstructive disease. 2. Left anterior descending: The LAD has 50% stenosis in its midbody at the bifurcation of the 1st moderate-sized diagonal branch. The ostium the diagonal branch has 50% stenosis. The remainder of the LAD and diagonal has diffuse 10% stenosis. There is a mild degree slow flow suggestive microvascular disease. 3. Left circumflex: The left circumflex artery provides 2 OM branches. OM2 has an area of 60-70% stenosis. The remainder of the system has diffuse 10% stenosis. 4. Right coronary artery: The RCA is a large dominant vessel. The ostium of the PDA has 40-50% stenosis. The remainder of the vessel has diffuse 10-20% calcific stenosis. 5. Left ventricle: Decision was made to not cross the bioprosthesis. 6. Opening AO pressure 139/87 and closing AO pressure 155/84 Description of Procedure: Informed consent signed and placed in the chart. Patient transferred to manager laboratory room. Prepped and draped in usual sterile fashion. 2% lidocaine injected subcutaneously in right wrist area. 22-gauge venipuncture catheter used to access the right radial artery with the Seldinger technique. 6-FR slender sheath placed in right radial artery. Nitroglycerin 200mcg, Verapamil 2.5mg, and Heparin 5000U was given intraarterial through the sheath. J wire advanced and was met with resistance. J wire with a baby curved tip was used without success. An angiogram was performed that showed tortuous vessel without any loops. A Wholey wire was used and negotiated to the aortic root. 5F diagnostic TIG was unable to engage the Right Coronary Artery. It engaged the Left Main Coronary Artery but disengaged with each injection. Eventually, we switched out to a 5F JR4 diagnostic catheter to engage the Right Coronary Artery and a 5F JL4 diagnostic catheter to engage the Left Main Coronary Artery. After review of the images in its entirety, decision was made to assess the OM2 lesion with an IFR wire. The JL4 catheter was switched out for a EBU 4.0 guide catheter. The IFR wire was zeroed outside of the body and introduced into the left main coronary artery where it was normalized. It was then advanced into the OM2 branch for physiologic assessment. The first value was 1.08 and thus the wire was withdrawn into the LMCA where it was re-normalized prior to bringing it pass the lesion in the OM2 branch. Second iFR value was 0.95 and pull back did not reveal significant drift. Hemostasis was achieved by application of TR band. Assessment: Moderate coronary artery disease OM2 iFR 0.95 Post Operative Condition: Stable No significant blood loss Disposition: Home Plan: The above findings were discussed with the referring physician. Continue aggressive medical therapy and risk factor modification. Diego Headley Interventional Cardiology
== END 2025-06-18 14:35 | disposition home or self-care (01) ==
PROVIDERS: PCP Family Medicine; Visit Provider Internal Medicine
PROC: 4A023N7 Measurement of Cardiac Sampling and Pressure, Left Heart, Percutaneous Approach (ICD-10-PCS; CPT 93452; principal; 2025-06-18 10:00)
PROC: 4A033BC Measurement of Arterial Pressure, Coronary, Percutaneous Approach (ICD-10-PCS; CPT 93571; 2025-06-18 10:00)
DX: I25.10 Atherosclerotic heart disease of native coronary artery without angina pectoris (principal); E78.2 Mixed hyperlipidemia; I12.9 Hypertensive chronic kidney disease with stage 1 through stage 4 chronic kidney disease, or unspecified chronic kidney disease; E13.22 Other specified diabetes mellitus with diabetic chronic kidney disease; N18.31 Chronic kidney disease, stage 3a; E55.9 Vitamin D deficiency, unspecified; N40.0 Benign prostatic hyperplasia without lower urinary tract symptoms; G47.00 Insomnia, unspecified; I35.0 Nonrheumatic aortic (valve) stenosis; Z79.82 Long term (current) use of aspirin; Z98.890 Other specified postprocedural states; Z90.49 Acquired absence of other specified parts of digestive tract; Z98.1 Arthrodesis status; Z87.442 Personal history of urinary calculi; Z87.891 Personal history of nicotine dependence; Z86.79 Personal history of other diseases of the circulatory system; Z82.49 Family history of ischemic heart disease and other diseases of the circulatory system
CPT/HCPCS: 36415; 80048; 85025; 93458; 93571; C1769; C1887; C1894; J1644; J2003; J2250; J2305; J3010; J7040

== ENCOUNTER 2025-07-07 11:06 | Outpatient (CLI) | payer OTHER, SELFPAY ==
--- OUTSIDE RECORDS SUMMARY | 2025-07-07 13:06 | XMS_ITS | Encounter Summary ---
Author Organization [facility] Address [address] [place] [address] Care Team Providers Care Plastic Block Boiler Reliner Name Role Phone Unavailable Primary Care Provider Unavailabl e Encounter Details Date Type Department Care Team (Late st Contact Info) Description 10/04/1999 Outpatient Historical [facility] Internal Medicine [address] [place] [address] Korey Manning MD [address] [facility] [address] [place] [address] Social History Tobacco Use Types Packs/Day Years Used Date Smoking Tobacco: Never Assessed Sex and Gender Information Value Date Recorded Sex Assigned at Not on file 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
--- OUTSIDE RECORDS SUMMARY | 2025-07-07 13:06 | XMS_ITS | Encounter Summary ---
Author Organization [facility] Address [address] [place] [address] Care Team Providers Care Recruiting Consultant Name Role Phone Unavailable Primary Care Provider Unavailabl e Encounter Details Date Type Department Care Team (Late st Contact Info) Description 09/15/[address] 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
--- OUTSIDE RECORDS SUMMARY | 2025-07-07 13:06 | XMS_ITS | Encounter Summary ---
Author Organization [facility] Address [address] [place] [address] Care Team Providers Care Services Program Manager Name Role Phone Unavailable Primary Care Provider Unavailabl e Encounter Details Date Type Department Care Team (Late st Contact Info) Description 01/13/1999 Outpatient Historical [facility] Internal Medicine [address] [place] [address] Korey Manning MD [address] [facility] [address] [place] [address] Social History Tobacco Use Types Packs/Day Years Used Date Smoking Tobacco: Never Assessed Sex and Gender Information Value Date Recorded Sex Assigned at Not on file 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
--- OUTSIDE RECORDS SUMMARY | 2025-07-07 13:06 | XMS_ITS | Clinical Summary ---
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
--- OUTSIDE RECORDS SUMMARY | 2025-07-07 13:06 | XMS_ITS | Encounter Summary ---
Author Organization [facility] Address [address] [place] [address] Care Team Providers Care Solid Propellant Processor Name Role Phone Unavailable Primary Care Provider Unavailabl e Encounter Details Date Type Department Care Team (Late st Contact Info) Description 03/19/1999 Outpatient Historical [facility] Internal Medicine [address] [place] [address] Korey Manning MD [address] [facility] [address] [place] [address] Social History Tobacco Use Types Packs/Day Years Used Date Smoking Tobacco: Never Assessed Sex and Gender Information Value Date Recorded Sex Assigned at Not on file 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
[2025-07-07 13:09] LABS: Alanine Aminotransferase 22 U/L (6-50); Albumin Level 4.3 g/dL (3.5-5.1); Alkaline Phosphatase 82 U/L (38-126); Anion Gap 5 mmol/L (4-12); Aspartate Amino Transferase 35 U/L (17-59); Bilirubin,Total 1.1 mg/dL (0.2-1.3); Blood Urea Nitrogen 21 mg/dL (9-20); Calcium 9.5 mg/dL (8.4-10.2); Carbon Dioxide 32 mmol/L (22-30); Chloride 100 mmol/L (98-107); Cholesterol 175 mg/dL (0-200); Estimated Glomerular Filt Rate 55; Glucose 98 mg/dL (65-110); HDL Direct 33 mg/dL; Potassium 4.8 mmol/L (3.4-5.0); Sodium 137 mmol/L (137-145); Total Protein 7.4 g/dL (6.3-8.2); Triglycerides 226 mg/dL (<150)
[2025-07-07 13:35] LABS: Thyroid Stimulating Hormone Reflex 3.170 uIU/mL (0.465-4.68)
[2025-07-07 13:47] LABS: Prostate Specific Antigen 1.3 ng/mL (< OR = 4.0)
[2025-07-07 13:49] LABS: Hemoglobin A1C 5.9 % (<5.7)
== END 2025-07-07 11:07 | disposition home or self-care (01) ==
LOC: ANHGOSHLAB 11:07
PROVIDERS: PCP Family Medicine; Visit Provider Family Medicine
DX: E78.5 Hyperlipidemia, unspecified (principal); E55.9 Vitamin D deficiency, unspecified; I10 Essential (primary) hypertension; E11.9 Type 2 diabetes mellitus without complications; Z12.5 Encounter for screening for malignant neoplasm of prostate
CPT/HCPCS: 36415; 80053; 80061; 82306; 83036; 84153; 84443; G0103

== ENCOUNTER 2025-07-22 10:32 | Outpatient (CLI) | payer OTHER, SELFPAY ==
--- NOTE | 2025-07-22 10:48 | ECG_ITS ---
Test Date: 2025-07-22 11:00:54 Measurements Intervals [place] Rate: 65 P: 66 MT: 229 QRS: -34 QRSD: 82 T: 55 QT: 397 QTc: 415 Interpretive Statements SINUS RHYTHM WITH FIRST DEGREE AV BLOCK POSSIBLE LEFT ATRIAL ENLARGEMENT [-0.1mV P-WAVE IN V1/V2] LEFT AXIS DEVIATION [QRS AXIS < -30] POSSIBLE LEFT VENTRICULAR HYPERTROPHY [VOLTAGE CRITERIA PLUS LAE OR QRS WIDENING] NONSPECIFIC T-WAVE ABNORMALITY No previous ECG available for comparison Electronically Signed On 07-22-2025 13:23:01 EARLY CHILDHOOD SPECIAL EDUCATOR by Diego Headley M.D.
--- OUTSIDE RECORDS SUMMARY | 2025-07-22 11:55 | XMS_ITS | Encounter Summary ---
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
--- OUTSIDE RECORDS SUMMARY | 2025-07-22 11:55 | XMS_ITS | Encounter Summary ---
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 Gender Identity Not on file Sexual Orientation [...] on filedocumented in this encounter Care Teams Business Objects Architect Relationship Specialty Start Date End Date Vanessa Cutler MD [address] [place] [address] PCP - General Family Medicine 07/22/19 11/28/22 Kellen Villalpando MD [address] [facility] [address] [place] [address] PCP - General Family Practice 11/29/22 Azar Linares DO [address] [facility] [address] [place] [address] Referring Physician Internal Medicine 07/04/19 documented as of this encounter
--- OUTSIDE RECORDS SUMMARY | 2025-07-22 11:55 | XMS_ITS | Encounter Summary ---
Author Organization [facility] Address 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
--- OUTSIDE RECORDS SUMMARY | 2025-07-22 11:55 | XMS_ITS | Encounter Summary ---
Author Organization 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 Gender Identity Not on file Sexual Orientation [...] on filedocumented in this encounter Care Teams Scallop Cutter Relationship Specialty Start Date End Date Enrike Amaro MD [address] [place] [address] PCP - General Family Practice 03/01/18 07/21/19 Vanessa Cutler MD [address] [facility] [address] [place] [address] PCP - General Family Medicine 07/22/19 11/28/22 Kellen Villalpando MD [address] [facility] [address] [place] [address] PCP - General Family Practice 11/29/22 Azar Linares DO [address] [facility] [address] [place] [address] Referring Physician Internal Medicine 07/04/19 documented as of this encounter
--- OUTSIDE RECORDS SUMMARY | 2025-07-22 11:55 | XMS_ITS | Encounter Summary ---
Author Organization 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 Gender Identity Not on file Sexual Orientation [...] on filedocumented in this encounter Care Teams Senior Administrative Support Relationship Specialty Start Date End Date Enrike Amaro MD [address] [place] [address] PCP - General Family Practice 03/01/18 07/21/19 Vanessa Cutler MD [address] [facility] [address] [place] [address] PCP - General Family Medicine 07/22/19 11/28/22 Kellen Villalpando MD [address] [facility] [address] [place] [address] PCP - General Family Practice 11/29/22 Azar Linares DO [address] [facility] [address] [place] [address] Referring Physician Internal Medicine 07/04/19 documented as of this encounter
--- OUTSIDE RECORDS SUMMARY | 2025-07-22 11:55 | XMS_ITS | Encounter Summary ---
Author Organization [facility] Address 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
--- OUTSIDE RECORDS SUMMARY | 2025-07-22 11:55 | XMS_ITS | Encounter Summary ---
Author Organization [facility] Address [address] [place] [address] Care Team Providers Care Fnp Name Role Phone Unavailable Primary Care Provider Unavailabl e Encounter Details Date Type Department Care Team (Latest Contact Info) Description 07/16/2018 Abstract [facility] , Cesario Solano MD [...]
--- OUTSIDE RECORDS SUMMARY | 2025-07-22 11:55 | XMS_ITS | Encounter Summary ---
Author Organization [facility] Address [address] [place] [address] Care Team Providers Care Solar Sales Manager Name Role Phone Unavailable Primary Care Provider Unavailabl e Encounter Details Date Type Department Care Team (Late st Contact Info) Description 09/15/[address] 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
--- OUTSIDE RECORDS SUMMARY | 2025-07-22 11:55 | XMS_ITS | Encounter Summary ---
Author Organization [facility] Address 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
--- OUTSIDE RECORDS SUMMARY | 2025-07-22 11:55 | XMS_ITS | Clinical Summary ---
Author Organization [facility] Address [address] [place] [address] Care Team Providers Care Android Programmer Name Role Phone Azar Linares DO Unavailable [phone] Kellen Villalpando MD Primary Care Provider Allergies [...] 08/23/2019 Assessment & Plan (08/24/2019 12:38 PM CROWN ASSEMBLY MACHINE SET UP MECHANIC): Abdominal distention resolved Abd round, soft with + BS + Flatus Will repeat Bisacodyl supp today Advance diet as tolerated Atrial fibrillation 08/23/2019 Assessment & Plan (08/24/2019 12:39 PM CROWN ASSEMBLY MACHINE SET UP MECHANIC): Post operative atrial fibrillation- remains NSR at this time Amiodarone drip changed from IV to po Will monitor QTc- today 415 msec tele LOTUS (acute kidney injury) 08/21/2019 Assessment & Plan (08/24/2019 12:35 PM CROWN ASSEMBLY MACHINE SET UP MECHANIC): Cr on admission 1.33- now 1.58 but down from yesterda Will continue diuresis and monitor closely CKD (chronic kidney disease) 08/21/2019 Assessment & Plan (08/23/2019 10:14 AM CROWN ASSEMBLY MACHINE SET UP MECHANIC): Cr on admission 1.33 Continuing to improve Aortic stenosis, severe 08/12/2019 Overview (08/12/2019): Added automatically from request for surgery [id number] Assessment & Plan (08/24/2019 12:39 PM CROWN ASSEMBLY MACHINE SET UP MECHANIC): S/p mini sternotomy bio AVR 08/20/2019 Continue post operative care Increase activity as tolerated CT and PW d/c'd yesterday Aggressive pulmonary toilet, OOB, IS Continue ASA , BB Continue diuresis Assessment & Plan (08/22/2019 1:00 AM CROWN ASSEMBLY MACHINE SET UP MECHANIC): S/p mini sternotomy - BioAVR - MAP [...] ppx Assessment & Plan (08/21/2019 2:03 AM CROWN ASSEMBLY MACHINE SET UP MECHANIC): S/p mini sternotomy - BioAVR MAP goal >70 Medial Chest tubes NPO, mIVF Assessment & Plan (08/20/2019 1:50 PM CROWN ASSEMBLY MACHINE SET UP MECHANIC): S/p mini sternotomy - BioAVR Levo at 0.05 on arrival, wean as appropriate MAP goal >70 Medial Chest tubes NPO, mIVF Nonrheumatic aortic valve stenosis 07/22/2019 Discontinued smoking 07/22/2019 Incisional hernia, without obstruction or gangre ne 03/06/2018 Overview (03/06/2018): Added automatically from request for surgery [id number] Flank hernia 02/28/2018 HTN (hypertension) 02/28/2018 Assessment & Plan (02/06/2025 12:17 PM CDT): Stable amlodipine Assessment & Plan (01/31/2024 1:15 PM CDT): Stable continue losartan 50 mg. Assessment & Plan (08/23/2019 10:12 AM CROWN ASSEMBLY MACHINE SET UP MECHANIC): Continue beta carol Continue lasix Assessment & Plan (08/21/2019 2:03 AM CROWN ASSEMBLY MACHINE SET UP MECHANIC): A-line in place Monitor closely, will restart home meds when appropriate Assessment & Plan (08/20/2019 1:32 PM CROWN ASSEMBLY MACHINE SET UP MECHANIC): A-line in place Currently on Levo support [...] year with CTA of abdomen and pelvis. Encounters Date Type Department Care Team Description 06/22/2025 Orders Only [facility] Cardiology [address] [place] [address] Diego Headley MD 05/27/2025 Telephone [facility] Cardiology [address] [place] [address] Diego Headley MD [facility] from Last 3 Months Immunizations Immunization Administration Dates Next Due Influenza, [...] - stent & removal stent Dialysis patient 2013 for 2 mos with AAA treatment and [...] 1 973 - 2008 Smokeless Tobacco: Never Tobacco Cessation:Counseling Given: Not [...] on file Legal Sex Male 1:43 PM CROWN ASSEMBLY MACHINE SET UP MECHANIC Gender Identity Not on file Sexual Orientation Not on file Last Filed Vital Signs Vital Sign Reading Time Taken Comments Blood Pressure 150/92 02/04/2025 8:38 AM CDT Pulse 62 02/04/2025 8:38 AM CDT Temperature 36.8 C (98.2 F) 08/25/2019 9:50 AM CROWN ASSEMBLY MACHINE SET UP MECHANIC Respiratory Rate 18 08/25/2019 10:05 AM CROWN ASSEMBLY MACHINE SET UP MECHANIC Oxygen Saturation 95% 02/04/2025 8:38 AM CDT [...] history exists Medical Devices Implanted Type Area Orthotic Assistant Device Identifier Shelf Expiration Date Model / Serial / Lot [employer]/C R Bard [id number] Bard [id number] Monofilament Soft Lightweight Low Profile Square - [id number] Implanted:Qty: 1 on 06/03/2018 by Costa Onofre MD at [facility] Mesh N/A: Abdomen [employer]/C R Bard [id number] 03/07/2023 [id number] / / [id number] [employer] [id number] Tonya-Edwa rds Perimount Magna Ease 23mm Bioprosthesis - [id number] - [id number] Implanted:Qty: 1 on 08/20/2019 by Mihir Antonio MD at [facility] Prosthetic Valve N/A: Heart [employer] 03/31/2023 [id number] / [id number] / Procedures Procedure Name Priority Date/Time Associated Diagnosis Comments CARDIOLOGY DOCUMENT SCAN Routine 06/18/2025 3:48 PM CDT CTA ABDOMEN PELVIS W WO CONTRAST Schedule Routine, Read Routine (OP Routine) 01/29/2025 12:07 PM CDT Infrarenal abdominal aortic aneurysm (AAA) without rupture from Last 3 Months or Most Recently Relevant to Health Maintenance Results * Cardiology Document Scan (06/18/2025 3:48 PM CDT) Anatomical Region Laterality Modality Other us Diego Headley MD [facility] CARDIAC SERVICES PROCEDURES F inal Result * CTA Abdomen Pelvis (01/29/2025 12:07 PM [...] AP dimension (), previously 4.0 x 3.7 cm. No flow [...] Eugenia Ardon M.D. FT T: Report ID: [id number] Reading Location: [id number] Procedure Note Maria Eugenia Jones MD - [...] 3.7 cm in transverse X AP dimension (/43), previously 4.0 x 3.7 cm.No flow limiting [...] Electronically signed by Maria Eugenia Ardon M.D. T: Report ID: [id number] Reading Location: [id number] [place] MD IMG CT PROCEDURES Final Result from Last 3 Months or Most Recently Relevant to Health Maintenance [place] [address] [place] [address] [place] [place] [address] [place] [address] [address] [place] [address] [place] [address] [employer] Advance Directives For more information, please contact: [phone] * Full Code (Latest Code Status on File) Date Activated Date Inactivated Comments 08/20/2019 1:11 PM 08/25/2019 3:43 PM * Full Code Date Activated Date Inactivated Comments 08/20/2019 1:02 PM 08/20/2019 1:10 PM * Full Code Date Activated Date Inactivated Comments 06/08/2018 1:58 PM 08/20/2019 5:45 AM * Full Code Date Activated Date Inactivated Comments 06/03/2018 8:31 PM 06/06/2018 4:30 PM Care Teams Android Programmer Relationship Specialty Start Date End Date Kellen Villalpando MD [address] [address] PCP - General Family Practice 11/29/22 Azar Linares DO [address] [address] Referring Physician Internal Medicine 07/04/19
--- OUTSIDE RECORDS SUMMARY | 2025-07-22 11:55 | XMS_ITS | Clinical Summary ---
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
--- OUTSIDE RECORDS SUMMARY | 2025-07-22 11:55 | XMS_ITS | Clinical Summary ---
Author Organization [facility] Address [address] [place] [address] Care Team Providers Care Java Software Engineer Name Role Phone Unavailable Primary Care Provider [...] 75+ series) 2022 COVID-19 Vaccine ( - 2024-2 6 season) 2025 Influenza Adult (#1) 2025 Hepatitis A Vaccines Aged Out No long er eligible based on patient's age to complete this topic Meningococcal B Vaccine Aged Out No l onger eligible based on patient's age to complete this topic Meningococcal Vaccine Aged Out No ailyn marisa eligible based on patient's age to complete this topic RSV Immunizations Under 20 Months Aged Out No longer eligible based on patient's age to complete this topic
== END 2025-07-22 10:33 | disposition home or self-care (01) ==
LOC: ANHLAB 10:35
PROVIDERS: PCP Family Medicine; Visit Provider Orthopaedic Surgery
DX: I25.10 Atherosclerotic heart disease of native coronary artery without angina pectoris (principal); I44.0 Atrioventricular block, first degree; R94.31 Abnormal electrocardiogram [ECG] [EKG]
CPT/HCPCS: 93005